=== PATIENT | female | born 2000 | race Two or more races ===

== ENCOUNTER 2020-01-19 13:51 | Outpatient (REF) | payer MEDICAID, SELFPAY | END 2020-01-19 13:52 | disposition home or self-care (01) | LOC: HO.LAB 13:51 | PROVIDERS: Visit Provider Internal Medicine | DX: Z20.828 Contact with and (suspected) exposure to other viral communicable diseases (principal) | CPT/HCPCS: C9803; U0003 ==

== ENCOUNTER 2020-02-19 18:19 | Emergency (ER) | payer MEDICAID, SELFPAY ==
[2020-02-19 18:34] VITALS: BP 118/80; PULSE 81; RESP 16; TEMP 36.8; O2SAT 98; BMI 32.8
--- NOTE | 2020-02-19 18:43 | ED.ALLEREA ---
HPI - Allergic Reaction General Chief complaint: Allergic Reaction Stated complaint: allergic reaction Time Seen by Provider: 02/19/20 18:41 Source: patient and EMS Mode of arrival: EMS Limitations: no limitations History of Present Illness MD complaint: allergic reaction, hives and other (Difficulty breathing with wheezing.) Onset (ago): hour(s) (1) Exposure: unknown Known history of allergy to: Nuts and certain animals but patient declined exposed to any today Symptoms: rash, itching and difficulty breathing Severity: moderate Treatment prior to arrival: none Related Data Allergies Allergy/AdvReac Type Severity Reaction Status Date / Time nut - unspecified Allergy Intermediate HIVES Unverified 01/24/20 13:33 [NUT - UNSPECIFIED] FRUIT Allergy Unknown ITCHY LIPS Uncoded 01/24/20 13:33 nuts Allergy Unknown Uncoded 01/24/20 13:33 pollen Allergy Unknown Uncoded 01/24/20 13:33 Review of Systems Review of Systems: All other systems are reviewed and are negative Constitutional: Reports as per HPI and Reports no additional constitutional complaints Eyes: Reports as per HPI and Reports no additional eye complaints Reports system reviewed and no additional complaints, except as documented Cardiovascular: Reports as per HPI and Reports no additional cardiovascular complaints Respiratory: Reports as per HPI and Reports no additional respiratory complaints Gastrointestinal: Reports as per HPI and Reports no additional gastrointestinal complaints Genitourinary: Reports no additional female genitourinary complaints Musculoskeletal: Reports no additional musculoskeletal complaints Skin/Breast: Reports system reviewed and no additional complaints, except as docu Psychiatric: Reports no additional psychiatric complaints Endocrine: Reports no additional endocrine complaints Hematologic/Lymphatic: Reports no additional hematologic/lymphatic complaints Allergic/Immunologic: Reports no additional allergic/immunologic complaints Reports system reviewed and no additional complaints, except as documented and Reports Abnormal speech present [facility] Past Medical History Medical History Asthma Social History Social History Alcohol intake: never Smoked in Last 30 Days: No Use of substances other than those prescribed or required for medical reasons: No Advance Directives: No Advance Directives Information Provided: No Physical Exam Vital Signs: Vital Signs: Last Vital Signs Temp 98.2 F 02/19/20 18:34 Pulse 81 02/19/20 18:34 Resp 16 02/19/20 18:34 BP 118/80 02/19/20 18:34 Pulse Ox 98 02/19/20 18:34 Body Mass Index 32.8 Vital signs have been reviewed as normal and appeared to be correct. Blood pressure normal. Heart rate normal. Respiration rate normal. Temperature normal. Oxygen saturation normal. Appearance: Alert. Oriented X3. No acute distress. Head: Normal external exam. Normocephalic. Atraumatic. No Orta signs noted. No raccoon eyes noted Eyes: PERRLA. EOMI. Conjunctiva and sclera normal. Eyelids normal. ENT: EAC normal. TM's Normal. Pharynx normal. Uvula midline. Moist mucous membranes. No trismus noted. No drooling noted. No muffled voice noted. Patent airway with no stridor Neck: Normal inspection. Neck supple. FROM. No adenopathy. Thyroid Normal. No meningeal signs. No neck mass noted. CVS: Normal heart rate and rhythm. Heart sound normal. No murmurs noted. Pulses normal throughout. Respiratory: No respiratory distress. Painless inspiration. Breath sounds normal. Mild diffuse expiratory wheezes, no rales/rhonchi noted. Chest nontender. No accessory muscle usage noted or decreased air movement noted. Abdomen: Soft and nontender. Bowel sounds normal in all 4 quadrants. No distention noted. No organomegaly noted. No visible injury noted. Back: No CVA tenderness. Full range of motion noted. Skin: Skin warm and dry. Normal skin color. Normal skin turgor.lesions/lacerations noted. One spot of hives on the left arm with itching. Extremities: No lower extremity edema. Extremities exhibit normal range of motion. Extremities nontender. Neuro: Oriented X 3. No motor deficit. No sensory deficit. Reflexes normal. Course Course Course Narrative: 19-year-old female presented to the ED after having mild allergic reaction for unknown exposure, symptoms mostly improved when patient arrived to the ED, patient received Solu-Medrol, and Benadryl EN route by EMS, and bronchodilator in the ED. Patient feels better will discharge. Discharge Plan Discharge Clinical Impression: Allergic reaction Qualifiers: Encounter type: initial encounter Qualified Code(s): T78.40XA - Allergy, unspecified, initial encounter Patient Disposition: Home, Self-Care Instructions: General Allergic Reaction (ED) Referrals: Physician,None [Primary Care Provider] - 2 days
[2020-02-19] MEDS: diphenhydrAMINE HCL 25 MG TABLET PO (20:12)
[2020-02-19] MEDS: predniSONE 20 MG TABLET 40 MG PO (20:12)
== END 2020-02-19 20:19 | disposition home or self-care (01) ==
PROVIDERS: Emergency Provider Emergency Medicine
DX: T78.40XA Allergy, unspecified, initial encounter (principal); L50.9 Urticaria, unspecified; X58.XXXA Exposure to other specified factors, initial encounter
CPT/HCPCS: 99283; 99284; Q0163

== ENCOUNTER 2020-08-08 12:16 | Emergency (ER) | payer MEDICAID, OTHER, SELFPAY ==
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
[2020-08-08 13:04] VITALS: BP 133/70; PULSE 88; RESP 18; TEMP 36.8; O2SAT 98; BMI 34.5
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
== END 2020-08-08 15:29 | disposition home or self-care (01) ==
PROVIDERS: Emergency Provider Emergency Medicine Emergency Medical Services
DX: S93.401A Sprain of unspecified ligament of right ankle, initial encounter (principal); M25.561 Pain in right knee; V89.2XXA Person injured in unspecified motor-vehicle accident, traffic, initial encounter; Y93.9 Activity, unspecified; Y92.411 Interstate highway as the place of occurrence of the external cause; Y99.9 Unspecified external cause status
CPT/HCPCS: 73562; 73590; 73600; 99283

== ENCOUNTER 2020-09-20 08:26 | Outpatient (REF) | payer OTHER, MEDICAID, SELFPAY ==
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
== END 2020-09-20 08:27 | disposition home or self-care (01) ==
LOC: HO.HOSX 08:26
PROVIDERS: Visit Provider Orthopaedic Surgery
DX: M79.641 Pain in right hand (principal); M25.531 Pain in right wrist; M25.521 Pain in right elbow
CPT/HCPCS: 73130

== ENCOUNTER 2020-10-12 13:08 | Emergency (ER) | payer MEDICAID, SELFPAY ==
--- NOTE | ~2020-10-12 | US_ITS ---
EXAMINATION: ULTRASOUND KIDNEYS CLINICAL INFORMATION: Right flank pain, hematuria COMPARISON: 02/18/2018 CT scan TECHNIQUE: Right renal ultrasound. FINDINGS: Right kidney is normal in size being 9.7 x 5.4 x 4.8 cm. No stones or obstructive uropathy. No perinephric collection. No focal lesion. US/US renal RT IMPRESSION: Unremarkable right renal ultrasound.
[2020-10-12 13:35] VITALS: BP 138/92; PULSE 94; RESP 19; TEMP 36.8; O2SAT 96; BMI 32.8
[2020-10-12 14:08] LABS: Glucose Urine UA NEG (NEG); Leukocyte Esterase Urine NEG (NEG); Nitrite Urine NEG (NEG); PH 6.5 (5.0-8.0); UACC Culture Trigger NO; Urine Blood TRACE (NEG); Urine Ketones NEG (NEG); Urine Protein NEG (NEG-TRACE)
[2020-10-12 14:11] LABS: Appearance Urine CLEAR; Color Urine YELLOW
[2020-10-12 14:27] LABS: Squamous Epithelial Cell Urine 1+ /LPF; WBC Urine 0-2 /HPF (0-4)
[2020-10-12 16:41] VITALS: BP 141/96
[2020-10-12 16:47] LABS: MANUAL DIFF FLAG NO
[2020-10-12 16:49] LABS: Basophils Percent Auto 0.4 % (0-2); Eosinophils Absolute Auto 0.2 X10*3/uL (0.0-0.4); Eosinophils Percent Auto 1.8 % (0-4); Hematocrit 42.1 % (37-47); Imm Gran Abs Auto 0.04 X10*3/uL (0.00-0.03); Imm Gran Pct Auto 0.4 % (0.0-0.4); Lymphocytes Absolute Auto 3.7 X10*3/uL (1.2-4.9); Lymphocytes Percent Auto 36.8 % (20-40); Mean Corpuscular HGB Conc 33.3 g/dl (31.0-35.0); Mean Corpuscular Hemoglobin 28.1 pg (27.0-33.0); Mean Corpuscular Volume 84.5 fL (80-98); Mean Platelet Volume 10.7 fL (9.4-12.3); Monocytes Absolute Auto 0.9 X10*3/uL (0.1-1.2); Neutrophils Absolute Auto 5.2 X10*3/uL (2.0-8.3); Neutrophils Percent Auto 51.6 % (45-73); Platelet Count 325 X10*3/uL (160-400); Red Blood Count 4.98 X10*6/uL (4.20-5.50); Red Cell Distribution Width 13.4 % (11.0-16.0)
--- NOTE | 2020-10-12 17:05 | ED.ABDPAIN ---
HPI - Abdominal Pain General Chief Complaint: Abdominal Pain <Karena Leos PA-C - Last Filed: 10/12/20 18:11> Stated Complaint: Kidney Stone? <Karena Leos PA-C - Last Filed: 10/12/20 18:11> Time Seen by Provider: 10/12/20 16:49 <Karena Leos PA-C - Last Filed: 10/12/20 18:11> Source: patient and family (Mom) <Karena Leos PA-C - Last Filed: 10/12/20 18:11> Mode of arrival: ambulatory <FARRUKH Vidal Last Filed: 10/12/20 18:11> Limitations: no limitations <Karena Leos PA-C - Last Filed: 10/12/20 18:11> History of Present Illness HPI narrative: Patient is a 19-year-old female with a past medical history of kidney stones complaining of right flank pain and blood in her urine yesterday. She states she has had right flank pain x2 days, it began yesterday morning, she took 600 mg of ibuprofen, used a heating pad and it went away. To went to work today and during her break, she got a sudden onset of right flank shooting pain which radiates to her groin, she states she did take 600 mg of ibuprofen around 10:00 this morning but it did not help for the pain. She denies any fevers, nausea, vomiting, diarrhea, shortness of breath or headache. <FARRUKH Vidal Last Filed: 10/12/20 18:11> Related Data Home Medications: Previous Rx's Medication Instructions Recorded acetaminophen 500 mg tablet 500 mg PO Q6H PRN #20 tab 08/08/20 (Tylenol Extra Strength) ibuprofen 600 mg tablet 600 mg PO Q8H PRN #14 tab 08/08/20 ibuprofen 600 mg tablet 600 mg PO Q8H PRN #20 tab 10/12/20 ondansetron 4 mg disintegrating 4 mg PO Q8H PRN #10 tab 10/12/20 tablet <FARRUKH Vidal Last Filed: 10/12/20 18:11> Allergies/Adverse Reactions: Allergies Allergy/AdvReac Type Severity Reaction Status Date / Time nut - unspecified Allergy Intermediate HIVES Verified 10/12/20 13:34 [NUT - UNSPECIFIED] FRUIT Allergy Intermediate ITCHY LIPS Uncoded 08/08/20 13:04 nuts Allergy Intermediate Hives Uncoded 08/08/20 13:04 pollen Allergy Intermediate Hives Uncoded 08/08/20 13:04 <Karena Leos PA-C - Last Filed: 10/12/20 18:11> Review of Systems Review of Systems Yes all other systems are reviewed and are negative <Karena Leos PA-C - Last Filed: 10/12/20 18:11> Physical Exam Vital Signs: Vital Signs: Last Vital Signs Temp 98.3 F 10/12/20 13:35 Pulse 94 10/12/20 13:35 Resp 10/12/20 13:35 BP 141/96 H 10/12/20 16:41 Pulse Ox 96 10/12/20 13:35 Body Mass Index 32.8 <Karena Leos PA-C - Last Filed: 10/12/20 18:11> Vital Signs: Last Vital Signs Temp 98.3 F 10/12/20 13:35 Pulse 94 10/12/20 13:35 Resp 10/12/20 13:35 BP 141/96 H 10/12/20 16:41 Pulse Ox 96 10/12/20 13:35 Body Mass Index 32.8 <PRAMOD Mccray-BC - Last Filed: 10/12/20 20:20> Const: General: cooperative, healthy appearing, comfortable, no acute distress and well developed <Karena Leos PA-C - Last Filed: 10/12/20 18:11> Orientation/consciousness: patient oriented x3 <Karena Leos PA-C - Last Filed: 10/12/20 18:11> Limitations: no limitations <Karena Leos PA-C - Last Filed: 10/12/20 18:11> HENMT: Head: Yes normal to inspection <FARRUKH Vidal Last Filed: 10/12/20 18:11> Eyes: General: appearance normal, both eyes and all related structures <Karena Leos PA-C - Last Filed: 10/12/20 18:11> Neck: Neck: Yes normal visual inspection and Yes full ROM <Karena Leos PA-C - Last Filed: 10/12/20 18:11> Resp: Effort & Inspection: normal respiratory effort and able to speak in complete sentences <Karena Leos PA-C - Last Filed: 10/12/20 18:11> Auscultation: clear to auscultation bilaterally <Karena Leos PA-C - Last Filed: 10/12/20 18:11> Cardio: Rate: regular rate <Karena Leos PA-C - Last Filed: 10/12/20 18:11> Rhythm: regular rhythm <Karena Leos PA-C - Last Filed: 10/12/20 18:11> Heart sounds: normal S1 and S2 <Karena Leos PA-C - Last Filed: 10/12/20 18:11> GI: Inspection: Yes normal to inspection <Karena Leos PA-C - Last Filed: 10/12/20 18:11> Palpation (GI): Soft to palpation and nontender <Karena Leos PA-C - Last Filed: 10/12/20 18:11> : General: Yes CVA tenderness (Right side) <Karena Leos PA-C - Last Filed: 10/12/20 18:11> Back/Spine/Pelvis: Back: CVA tenderness (Right side) <Karena Leos PA-C - Last Filed: 10/12/20 18:11> Skin: General skin exam: no rashes or lesions noted <Karena Leos PA-C - Last Filed: 10/12/20 18:11> Neuro: General: patient oriented x3 <Karena Leos PA-C Claudine Last Filed: 10/12/20 18:11> Extrem: General: Yes normal to inspection <Karena Leos PA-C - Last Filed: 10/12/20 18:11> Course Course Course Narrative: Patient is a 19-year-old female with a past medical history of kidney stones complaining of right flank pain and blood in her urine yesterday. Vital signs are stable, patient well appearing except she is in pain, physical exam unremarkable. Will get labs, UA and ultrasound of right renal. Will give 1 L of LR, Toradol and start Flomax as kidney stones are very likely. <Karena Leos PA-C - Last Filed: 10/12/20 18:11> Reevaluation(s) Reevaluation #1: Patient pending diagnostics, sign-out to Neva ESTEBAN <Karena Leos PA-C - Last Filed: 10/12/20 18:11> Time: 17:45 <Karena Leos PA-C - Last Filed: 10/12/20 18:11> Reevaluation #2: Renal ultrasound normal. Labs negative for leukocytosis or anemia. Normal kidney functions, however patient has elevated AST and ALT. Will a device patient to follow-up with PCP or medicare sales representative. Patient and her mom both agreeable to plan of care I will send her home on ibuprofen and Zofran. <Paulette Mehta PLEXIGLAS FORMER-BC - Last Filed: 10/12/20 20:20> MDM - Abdominal Pain Lab Data Result diagrams: : 10/12/20 16:40 10/12/20 16:40 <Karena Leos PA-C - Last Filed: 10/12/20 18:11> Labs: Lab Results 10/12/20 10/12/20 10/12/20 Range/Units 13:59 16:40 16:40 WBC 10.0 (4.8-10.8) X10*3/uL RBC 4.98 (4.20-5.50) X10*6/uL Hgb 14.0 (12.0-16.0) g/dl Hct 42.1 (37-47) % MCV 84.5 (80-98) fL MCH 28.1 (27.0-33.0) pg MCHC 33.3 (31.0-35.0) g/dl RDW 13.4 (11.0-16.0) % Plt Count 325 (160-400) X10*3/uL MPV 10.7 (9.4-12.3) fL Immature Gran % (Auto) 0.4 (0.0-0.4) % Neut % (Auto) 51.6 (45-73) % Lymph % (Auto) 36.8 (20-40) % [place] % (Auto) 9.0 (2-11) % Eos % (Auto) 1.8 (0-4) % Baso % (Auto) 0.4 (0-2) % Lymph # (Auto) 3.7 (1.2-4.9) X10*3/uL [place] # (Auto) 0.9 (0.1-1.2) X10*3/uL Eos # (Auto) 0.2 (0.0-0.4) X10*3/uL Baso # (Auto) 0.0 (0.0-0.2) X10*3/uL Abs Immat Gran (auto) 0.04 H (0.00-0.03) X10*3/uL Absolute Neuts (auto) 5.2 (2.0-8.3) X10*3/uL Absolute Nucleated RBC 0.000 (0.0-0.012) X10*3/uL Nucleated RBC % (auto) 0.0 (0.0-0.2) /100WBC Sodium 137 (135-145) mmol/L Potassium 4.9 (3.3-5.1) mmol/L Chloride 107 (96-108) mmol/L Carbon Dioxide 19 L (22-29) mmol/L Anion Gap 16 (12-20) BUN 8 L (9-16) mg/dL Creatinine 0.57 (0.5-1.4) mg/dL Estim Creat Clear Calc 161.5 Estimated GFR > 60 Random Glucose 78 (60-115) mg/dL Calcium 9.7 (8.4-10.2) mg/dL Total Bilirubin 0.4 (0.0-1.0) mg/dL AST 51 H (5-31) U/L ALT 61 H (0-31) U/L Alkaline Phosphatase 87 (39-117) U/L Total Protein 8.5 H (6.5-8.0) g/dL Albumin 4.4 (3.5-5.0) g/dL Urine Color YELLOW Urine Appearance CLEAR Urine pH 6.5 (5.0-8.0) Ur Specific [employer] 1.020 (1.005-1.025) Urine Protein NEG (NEG-TRACE) MG/DL Urine Glucose (UA) NEG (NEG) MG/DL Urine Ketones NEG (NEG) MG/DL Urine Blood TRACE (NEG) Urine Nitrite NEG (NEG) Ur Leukocyte Esterase NEG (NEG) Urine RBC 10-14 H (0) /HPF Urine WBC 0-2 (0-4) /HPF Ur Squamous Epith Cells 1+ /LPF Urine Bacteria NONE /LPF <Karena Leos PA-C - Last Filed: 10/12/20 18:11> Lab Results 10/12/20 10/12/20 10/12/20 Range/Units 13:59 16:40 16:40 WBC 10.0 (4.8-10.8) X10*3/uL RBC 4.98 (4.20-5.50) X10*6/uL Hgb 14.0 (12.0-16.0) g/dl Hct 42.1 (37-47) % MCV 84.5 (80-98) fL MCH 28.1 (27.0-33.0) pg MCHC 33.3 (31.0-35.0) g/dl RDW 13.4 (11.0-16.0) % Plt Count 325 (160-400) X10*3/uL MPV 10.7 (9.4-12.3) fL Immature Gran % (Auto) 0.4 (0.0-0.4) % Neut % (Auto) 51.6 (45-73) % Lymph % (Auto) 36.8 (20-40) % [place] % (Auto) 9.0 (2-11) % Eos % (Auto) 1.8 (0-4) % Baso % (Auto) 0.4 (0-2) % Lymph # (Auto) 3.7 (1.2-4.9) X10*3/uL [place] # (Auto) 0.9 (0.1-1.2) X10*3/uL Eos # (Auto) 0.2 (0.0-0.4) X10*3/uL Baso # (Auto) 0.0 (0.0-0.2) X10*3/uL Abs Immat Gran (auto) 0.04 H (0.00-0.03) X10*3/uL Absolute Neuts (auto) 5.2 (2.0-8.3) X10*3/uL Absolute Nucleated RBC 0.000 (0.0-0.012) X10*3/uL Nucleated RBC % (auto) 0.0 (0.0-0.2) /100WBC Sodium 137 (135-145) mmol/L Potassium 4.9 (3.3-5.1) mmol/L Chloride 107 (96-108) mmol/L Carbon Dioxide 19 L (22-29) mmol/L Anion Gap 16 (12-20) BUN 8 L (9-16) mg/dL Creatinine 0.57 (0.5-1.4) mg/dL Estim Creat Clear Calc 161.5 Estimated GFR > 60 Random Glucose 78 (60-115) mg/dL Calcium 9.7 (8.4-10.2) mg/dL Total Bilirubin 0.4 (0.0-1.0) mg/dL AST 51 H (5-31) U/L ALT 61 H (0-31) U/L Alkaline Phosphatase 87 (39-117) U/L Total Protein 8.5 H (6.5-8.0) g/dL Albumin 4.4 (3.5-5.0) g/dL Urine Color YELLOW Urine Appearance CLEAR Urine pH 6.5 (5.0-8.0) Ur Specific [employer] 1.020 (1.005-1.025) Urine Protein NEG (NEG-TRACE) MG/DL Urine Glucose (UA) NEG (NEG) MG/DL Urine Ketones NEG (NEG) MG/DL Urine Blood TRACE (NEG) Urine Nitrite NEG (NEG) Ur Leukocyte Esterase NEG (NEG) Urine RBC 10-14 H (0) /HPF Urine WBC 0-2 (0-4) /HPF Ur Squamous Epith Cells 1+ /LPF Urine Bacteria NONE /LPF <TALAT MccrayP-BC - Last Filed: 10/12/20 20:20> Discharge Plan Discharge Clinical Impression: Left flank pain <Karena Leos PA-C - Last Filed: 10/12/20 18:11> Patient Disposition: Home, Self-Care <Karena Leos PA-C - Last Filed: 10/12/20 18:11> Instructions: Flank Pain (ED) <Karena Leos PA-C - Last Filed: 10/12/20 18:11> Additional Instructions: You were seen here today for flank pain. Your lab work shows no infections or no anemia. Your kidney functions were good. However your liver enzymes were elevated. Please follow-up with your primary care provider and medicare sales representative on further evaluation of the enzymes. Your ultrasound show no kidney stones and normal kidney. You may return to emergency department if your symptoms will get worse or if you experience any additional concerning symptoms. <Karena Leos PA-C - Last Filed: 10/12/20 18:11> Prescriptions: New ibuprofen 600 mg tablet 600 mg PO Q8H PRN (Reason: pain) Qty: 20 RF: 0 ondansetron 4 mg tablet,disintegrating 4 mg PO Q8H PRN (Reason: nausea and vomiting) Qty: 10 RF: 0 No Action acetaminophen [Tylenol Extra Strength] 500 mg tablet 500 mg PO Q6H PRN (Reason: pain or fever) Qty: 20 RF: 0 ibuprofen 600 mg tablet 600 mg PO Q8H PRN (Reason: pain) Qty: 14 RF: 0 <Karena Leos PA-C - Last Filed: 10/12/20 18:11> Stand Alone Forms: Work/School Release <Karena Leos PA-C - Last Filed: 10/12/20 18:11> [facility] Past Medical History Medical History: Medical History Asthma Kidney stones <Karena Leos PA-C - Last Filed: 10/12/20 18:11> Social History Social History: Social History Alcohol intake: never Advance Directives: No Advance Directives Information Provided: Yes Patient : No Current occupational status: employed 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
[2020-10-12 17:12] LABS: Alanine Aminotransferase 61 U/L (0-31); Albumin Level 4.4 g/dL (3.5-5.0); Alkaline Phosphatase 87 U/L (39-117); Anion Gap 16 (12-20); Aspartate Amino Transferase 51 U/L (5-31); Bilirubin Total 0.4 mg/dL (0.0-1.0); Blood Urea Nitrogen 8 mg/dL (9-16); Calcium 9.7 mg/dL (8.4-10.2); Carbon Dioxide 19 mmol/L (22-29); Chloride 107 mmol/L (96-108); Creatinine Clr Calc Pharmacy 161.5; Estimated Glomerular Filt Rate > 60; Glucose Random 78 mg/dL (60-115); Potassium 4.9 mmol/L (3.3-5.1); Sodium 137 mmol/L (135-145); Total Protein 8.5 g/dL (6.5-8.0)
[2020-10-12] MEDS: Tamsulosin HCL 0.4 MG CAPSULE 0.8 MG PO (18:26)
[2020-10-12] MEDS: Lactated Ringers 1,000 ML 999 ML IV (18:29)
[2020-10-12] MEDS: Ketorolac Tromethamine 15 MG/ML VIAL 30 MG IVPUSH (18:33)
== END 2020-10-12 20:42 | disposition home or self-care (01) ==
PROVIDERS: Physician Assistant; Emergency Provider Internal Medicine
DX: R10.9 Unspecified abdominal pain (principal); Z87.442 Personal history of urinary calculi; Z79.899 Other long term (current) drug therapy
CPT/HCPCS: 36415; 76775; 80053; 81001; 85025; 96361; 96374; 99284; J1885

== ENCOUNTER 2020-11-02 10:48 | Outpatient (REF) | payer MEDICAID, SELFPAY | END 2020-11-02 10:49 | disposition home or self-care (01) | LOC: HO.LAB 10:48 | PROVIDERS: Visit Provider Internal Medicine | DX: Z20.822 Contact with and (suspected) exposure to COVID-19 (principal) | CPT/HCPCS: C9803; U0003; U0005 ==

== ENCOUNTER 2021-03-20 18:10 | Emergency (ER) | payer MEDICAID, SELFPAY ==
--- NOTE | 2021-03-20 | ECG_ITS ---
Test Reason : cp Blood Pressure : / mmHG Vent. Rate : 106 BPM Atrial Rate : 106 BPM P-R Int : 128 ms QRS Dur : 070 ms QT Int : 340 ms P-R-T Axes : 032 042 043 degrees QTc Int : 451 ms Sinus tachycardia Otherwise normal ECG When compared with ECG of 24-NOV-2017 15:04, No significant change was found Referred By: Generic ED Physician Electronically Signed By:Cornelio Camilo
[2021-03-20 18:12] VITALS: BP 144/95; PULSE 120; RESP 20; TEMP 36.9; O2SAT 100; BMI 31.8
[2021-03-20 18:35] LABS: MANUAL DIFF FLAG NO
[2021-03-20 18:46] LABS: Basophils Percent Auto 0.4 % (0-2); Eosinophils Absolute Auto 0.1 X10*3/uL (0.0-0.4); Eosinophils Percent Auto 0.9 % (0-4); Hematocrit 39.1 % (37.0-47.0); Hemoglobin 13.2 g/dl (12.0-16.0); Imm Gran Abs Auto 0.02 X10*3/uL (0.00-0.03); Imm Gran Pct Auto 0.2 % (0.0-0.4); Lymphocytes Absolute Auto 2.6 X10*3/uL (1.2-4.9); Mean Corpuscular HGB Conc 33.8 g/dl (31.0-35.0); Mean Corpuscular Hemoglobin 28.7 pg (27.0-33.0); Mean Platelet Volume 10.7 fL (9.4-12.3); Monocytes Absolute Auto 0.8 X10*3/uL (0.1-1.2); Monocytes Percent Auto 9.6 % (2-11); Neutrophils Percent Auto 58.9 % (45-73); Platelet Count 306 X10*3/uL (160-400); Red Cell Distribution Width 13.5 % (11.0-16.0); White Blood Count 8.5 X10*3/uL (4.8-10.8)
[2021-03-20 18:54] LABS: Anion Gap 16 (12-20); Blood Urea Nitrogen 9 mg/dL (9-16); Calcium 9.7 mg/dL (8.4-10.2); Carbon Dioxide 21 mmol/L (22-29); Chloride 107 mmol/L (96-108); Estimated Glomerular Filt Rate > 60; Glucose Random 120 mg/dL (60-115); Potassium 3.6 mmol/L (3.3-5.1); Sodium 140 mmol/L (135-145)
[2021-03-20 21:16] VITALS: BP 149/86; PULSE 99; RESP 18; TEMP 36.9; O2SAT 99
[2021-03-20 22:42] LABS: Alanine Aminotransferase 37 U/L (0-31); Albumin Level 4.4 g/dL (3.5-5.0); Alkaline Phosphatase 75 U/L (39-117); Aspartate Amino Transferase 18 U/L (5-31); Bilirubin Direct < 0.2 mg/dL (0.0-0.5); Bilirubin Total 0.3 mg/dL (0.0-1.0); Lipase 24 U/L (8-78); Total Protein 7.8 g/dL (6.5-8.0)
[2021-03-20 22:48] LABS: HCG Quantitative < 2 mIU/mL
[2021-03-20] MEDS: Magnesium Hydrox/Alum Hydrox 30 ML ORAL.SUSP PO (22:55)
[2021-03-20] MEDS: Lidocaine HCl Viscous 2 % 15 ML SOLUTION 10 ML MUCOUS MEM (22:55)
--- NOTE | 2021-03-20 22:59 | ED_ITS ---
HPI - General Adult General Chief complaint: Syncope Stated complaint: almost passed out, cant breathe, chest pain Time Seen by Provider: 03/20/21 22:18 Source: patient and family (Mother) Mode of arrival: ambulatory History of Present Illness HPI narrative: This is a 20-year-old female who presents with history of asthma and complains that last night she began feeling her heart racing and states that her blood pressure was starting to increase and that while working she had a near syncopal episode. She complains of shortness of breath, centralized burning chest pain, body shakes. Patient states that she goes to school as well as works and mother states that patient suffers from anxiety and depression and that she is currently very stressed out about the health of her grandfather. Otherwise, patient denies any fever, chills, nausea, vomiting, abdominal pain, urinary pain/burning/frequency. Related Data Previous Rx's Medication Instructions Recorded acetaminophen 500 mg tablet 500 mg PO Q6H PRN #20 tab 08/08/20 (Tylenol Extra Strength) ibuprofen 600 mg tablet 600 mg PO Q8H PRN #14 tab 08/08/20 ibuprofen 600 mg tablet 600 mg PO Q8H PRN #20 tab 10/12/20 ondansetron 4 mg disintegrating 4 mg PO Q8H PRN #10 tab 10/12/20 tablet Allergies Allergy/AdvReac Type Severity Reaction Status Date / Time nut - unspecified Allergy Intermediate HIVES Verified 03/20/21 18:12 [NUT - UNSPECIFIED] FRUIT Allergy Intermediate ITCHY LIPS Uncoded 03/20/21 18:12 nuts Allergy Intermediate Hives Uncoded 03/20/21 18:12 pollen Allergy Intermediate Hives Uncoded 03/20/21 18:12 Review of Systems Review of Systems: Pertinent positives and negatives as stated in the review of systems is otherwise negative. [facility] Past Medical History Source: nursing notes reviewed Medical History Asthma Kidney stones PCOS (polycystic ovarian syndrome) Social History Social History Alcohol intake: never Advance Directives: No Advance Directives Information Provided: Yes Patient : No Current occupational status: employed 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[employer] Physical Exam Vital Signs: Vital Signs: Last Vital Signs Temp 98.4 F 03/20/21 21:16 Pulse 94 03/21/21 00:00 Resp 16 03/21/21 00:00 BP 134/88 03/21/21 00:00 Pulse Ox 97 03/21/21 00:00 BMI result Body Mass Index 31.8 VITAL SIGNS: Reviewed. GENERAL: Well developed, well nourished, in no acute distress. HEAD: Normocephalic/atraumatic EYES: PERRLA, EOMI EARS: Ext canals without abnormality, TMs non-bulging and non-erythematous NOSE: Nares patent bilateral OROPHARYNX: no oral lesions noted, posterior pharynx clear LUNGS: Normal breath sounds. No adventitious sounds or accessory muscle use. SpO2<99> CARDIOVASCULAR: Regular rate and rhythm without noted murmurs ABDOMEN: Soft, non-tender, non-distended with bowel sounds. SKIN: Inspection of the skin reveals no rashes NEUROLOGIC: Alert and oriented x 4. Course Course Course Narrative: 20-year-old female with history and clinical presentation most consistent with anxiety and attack. Will rule out infection, anemia, metabolic disturbance. Review of all investigations otherwise negative for acute findings. 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 Discussed with the patient wa ys to deescalate some of her tasks so that she can take better care of herself. She is otherwise discharged home in stable condition. Medical Decision Making Lab Data Result diagrams: 03/20/21 18:28 03/20/21 18:28 Labs: Lab Results 03/20/21 03/20/21 03/20/21 Range/Units 18:28 18:28 22:59 WBC 8.5 (4.8-10.8) X10*3/uL RBC 4.60 (4.20-5.50) X10*6/uL Hgb 13.2 (12.0-16.0) g/dl Hct 39.1 (37.0-47.0) % MCV 85.0 (80.0-98.0) fL MCH 28.7 (27.0-33.0) pg MCHC 33.8 (31.0-35.0) g/dl RDW 13.5 (11.0-16.0) % Plt Count 306 (160-400) X10*3/uL MPV 10.7 (9.4-12.3) fL Immature Gran % (Auto) 0.2 (0.0-0.4) % Neut % (Auto) 58.9 (45-73) % Lymph % (Auto) 30.0 (20-40) % [place] % (Auto) 9.6 (2-11) % Eos % (Auto) 0.9 (0-4) % Baso % (Auto) 0.4 (0-2) % Lymph # (Auto) 2.6 (1.2-4.9) X10*3/uL [place] # (Auto) 0.8 (0.1-1.2) X10*3/uL Eos # (Auto) 0.1 (0.0-0.4) X10*3/uL Baso # (Auto) 0.0 (0.0-0.2) X10*3/uL Abs Immat Gran (auto) 0.02 (0.00-0.03) X10*3/uL Absolute Neuts (auto) 5.0 (2.0-8.3) x10*3/uL Absolute Nucleated RBC 0.000 (0.0-0.012) X10*3/uL Nucleated RBC % (auto) 0.0 (0.0-0.2) /100WBC Sodium 140 (135-145) mmol/L Potassium 3.6 D (3.3-5.1) mmol/L Chloride 107 (96-108) mmol/L Carbon Dioxide 21 L (22-29) mmol/L Anion Gap 16 (12-20) BUN 9 (9-16) mg/dL Creatinine 0.79 (0.5-1.4) mg/dL Estim Creat Clear Calc 114.0 Estimated GFR > 60 Random Glucose 120 H (60-115) mg/dL Calcium 9.7 (8.4-10.2) mg/dL Total Bilirubin 0.3 (0.0-1.0) mg/dL Direct Bilirubin < 0.2 (0.0-0.5) mg/dL AST 18 D (5-31) U/L ALT 37 H (0-31) U/L Alkaline Phosphatase 75 (39-117) U/L Total Protein 7.8 (6.5-8.0) g/dL Albumin 4.4 (3.5-5.0) g/dL Lipase 24 (8-78) U/L Beta HCG, Quant < 2 mIU/mL COVID-19 ([facility]ILY[facility]) Negative (Negative) COVID-19 Clin Com See Note ECG Data Attestation: I personally reviewed and interpreted this ECG as follows: Prior ECG tracings: available for review Interpretation: Sinus tachycardia, HR-106, no STEMI, [place]/QRS/QTC are within normal limits. Discharge Plan Discharge Clinical Impression: Anxiety, Panic attack Patient Disposition: Home, Self-Care Instructions: Anxiety (ED), Panic Attack (ED) Additional Instructions: 1. Resume all home medications as prescribed. 2. Follow-up with your primary care provider in the next 2-3 days for re- evaluation and further outpatient management. Return to the ER for worsening symptoms. Prescriptions: No Action acetaminophen [Tylenol Extra Strength] 500 mg tablet 500 mg PO Q6H PRN (Reason: pain or fever) Qty: 20 0RF ibuprofen 600 mg tablet 600 mg PO Q8H PRN (Reason: pain) Qty: 14 0RF ibuprofen 600 mg tablet 600 mg PO Q8H PRN (Reason: pain) Qty: 20 0RF ondansetron 4 mg tablet,disintegrating 4 mg PO Q8H PRN (Reason: nausea and vomiting) Qty: 10 0RF
[2021-03-20 23:20] LABS: COVID-19 Test Negative (Negative); IDNOW Serial# 9DD0AD1C
[2021-03-21] VITALS: BP 134/88; PULSE 94; RESP 16; O2SAT 97
[2021-03-21 00:11] LABS: Appearance Urine CLEAR; Color Urine YELLOW; Glucose Urine UA NEG (NEG); Leukocyte Esterase Urine NEG (NEG); Nitrite Urine NEG (NEG); Specific Gravity - Urine >= 1.030 (1.005-1.025); Urine Blood NEG (NEG); Urine Ketones 5 MG/DL (NEG); Urine Protein NEG (NEG-TRACE)
== END 2021-03-21 01:19 | disposition home or self-care (01) ==
PROVIDERS: Emergency Provider Student in an Organized Health Care Education/Training Program
DX: R55 Syncope and collapse (principal); R07.89 Other chest pain; F41.1 Generalized anxiety disorder; F43.0 Acute stress reaction; Z20.822 Contact with and (suspected) exposure to COVID-19; Z79.899 Other long term (current) drug therapy
CPT/HCPCS: 36415; 80048; 80076; 81003; 83690; 84702; 85025; 87635; 93005; 99283; 99284

== ENCOUNTER 2021-06-11 13:34 | Emergency (ER) | payer MEDICAID, SELFPAY ==
--- NOTE | ~2021-06-11 | XR_ITS ---
EXAMINATION: XR CHEST CLINICAL INFORMATION: Bradycardia. COMPARISON: None TECHNIQUE: Frontal view of the chest was obtained. FINDINGS: No significant abnormality is noted involving the heart, lungs, mediastinum, bony thorax or soft tissues. XR/XR chest 1V IMPRESSION: Unremarkable examination.
--- NOTE | ~2021-06-11 | CT_ITS ---
EXAMINATION: CT ANGIOGRAM OF THE CHEST WITH AND WITHOUT CONTRAST (CT PULMONARY ANGIOGRAM FOR PE) CLINICAL INFORMATION: Reason for Exam elevated D-dimer pleuritic chest pain COMPARISON: Chest x-ray 06/11/2021 TECHNIQUE: Prior to contrast administration, noncontrast localization images were obtained. Subsequently, multidetector volumetric imaging was performed from the thoracic inlet to below the diaphragms following the administration of 65 mL Omnipaque 350 intravenous contrast. No contrast reaction reported Sagittal, coronal, and MIP oblique sagittal reformatted images were obtained on the CT workstation, uploaded to PACS, and reviewed. This CT examination was performed using dose optimization techniques as appropriate, variously including the following: *Automated exposure control *Adjustment of mA and/or kV according to patient size (this includes techniques or standardized protocols for targeted exams where dose is matched to indication/reason for exam; i.e. extremities or head) *Use of iterative reconstruction technique Total exam dose-length product 353 mGy-cm FINDINGS: QUALITY OF STUDY/CONTRAST BOLUS: Satisfactory. PULMONARY ARTERIES: No central or segmental pulmonary emboli. THORACIC AORTA: No aneurysm or dissection. LUNG: No regions of consolidation bilaterally. PLEURA: No pneumothorax. Trace right pleural effusion noted. MEDIASTINUM: The visualized thyroid gland is unremarkable. There are subcentimeter mediastinal lymph nodes within the range of normal variation. Cardiac size is within normal limits; no pericardial effusion. No evidence of septal bowing or right heart strain. CHEST WALL/AXILLA: No axillary or internal mammary lymphadenopathy. OSSEOUS STRUCTURES: No acute or suspicious osseous abnormality. UPPER ABDOMEN: Grossly unremarkable, though suboptimally assessed due to bolus timing. No reflux of contrast into the hepatic veins to suggest elevated right heart pressures. CT/CT angio chest PE protocol IMPRESSION: No pulmonary embolus identified. Trace right pleural effusion. VTE: negative
[2021-06-11 13:48] VITALS: BP 129/79; PULSE 118; RESP 19; TEMP 36.6; O2SAT 98; BMI 33.6
--- NOTE | 2021-06-11 13:51 | ECG_ITS ---
Test Reason : chest pain Blood Pressure : / mmHG Vent. Rate : 113 BPM Atrial Rate : 113 BPM P-R Int : 124 ms QRS Dur : 070 ms QT Int : 326 ms P-R-T Axes : 032 050 046 degrees QTc Int : 447 ms Sinus tachycardia Otherwise normal ECG No previous ECGs available Referred By: Generic ED Physician Electronically Signed By:RACHNA OROURKE MD
[2021-06-11 14:15] LABS: MANUAL DIFF FLAG NO
[2021-06-11 14:19] LABS: Appearance Urine CLEAR; Color Urine YELLOW; Glucose Urine UA NEG (NEG); Leukocyte Esterase Urine NEG (NEG); Nitrite Urine NEG (NEG); Specific Gravity - Urine 1.025 (1.005-1.025); Urine Blood NEG (NEG); Urine Ketones NEG (NEG); Urine Protein NEG (NEG-TRACE)
[2021-06-11 14:20] LABS: UPreg QC Valid YES; Urine Pregnancy NEGATIVE (NEGATIVE)
[2021-06-11 14:37] LABS: Basophils Percent Auto 0.3 % (0-2); Eosinophils Absolute Auto 0.1 X10*3/uL (0.0-0.4); Hematocrit 37.4 % (37.0-47.0); Hemoglobin 12.3 g/dl (12.0-16.0); Imm Gran Abs Auto 0.04 X10*3/uL (0.00-0.03); Imm Gran Pct Auto 0.3 % (0.0-0.4); Lymphocytes Absolute Auto 2.2 X10*3/uL (1.2-4.9); Lymphocytes Percent Auto 17.9 % (20-40); Mean Corpuscular HGB Conc 32.9 g/dl (31.0-35.0); Mean Corpuscular Hemoglobin 28.3 pg (27.0-33.0); Mean Platelet Volume 10.8 fL (9.4-12.3); Monocytes Absolute Auto 1.3 X10*3/uL (0.1-1.2); Monocytes Percent Auto 10.2 % (2-11); Neutrophils Absolute Auto 8.7 x10*3/uL (2.0-8.3); Neutrophils Percent Auto 70.3 % (45-73); Platelet Count 249 X10*3/uL (160-400); Red Blood Count 4.35 X10*6/uL (4.20-5.50); Red Cell Distribution Width 13.4 % (11.0-16.0); White Blood Count 12.4 X10*3/uL (4.8-10.8)
[2021-06-11 14:44] LABS: Troponin-I High Sensitivity < 3.5 ng/L (<3.5-17.0)
[2021-06-11 14:46] LABS: Alanine Aminotransferase 35 U/L (0-31); Albumin Level 4.1 g/dL (3.5-5.0); Alkaline Phosphatase 63 U/L (39-117); Aspartate Amino Transferase 22 U/L (5-31); Bilirubin Direct 0.2 mg/dL (0.0-0.5); Bilirubin Total 0.6 mg/dL (0.0-1.0); Lipase 18 U/L (8-78); Total Protein 7.4 g/dL (6.5-8.0)
--- NOTE | 2021-06-11 22:56 | ED_ITS ---
HPI - General Adult General Chief complaint: Abdominal Pain <CITLALY Almazan Last Filed: 06/12/21 02:25> Stated complaint: CHEST PAIN, TROUBLE BREATHING <CITLALY Almazan - Last Filed: 06/12/21 02:25> Time Seen by Provider: 06/11/21 21:19 <CITLALY Almazan Last Filed: 06/12/21 02:25> Source: patient <CITLALY Almazan Last Filed: 06/12/21 02:25> Mode of arrival: ambulatory <CITLALY Almazan Last Filed: 06/12/21 02:25> Limitations: no limitations <CITLALY Almazan Last Filed: 06/12/21 02:25> History of Present Illness HPI narrative: this is a 20-year-old female with no significant medical history presenting to the emergency department with complaints of chest pain that started on Friday, 2 days ago. Patient tells me that the chest pain is pleuritic in nature worse with deep inspiration better with expiration, she reports associated shortness of breath with this chest pain. She tells me that this has never happened before. She also reports generalized malaise and body aches. She tells me she has no known personal cardiac history. No significant family cardiac history. He does tell me that her mother has had blood clots in the past. Patient tells me she is currently on control. Denies sedentary lifestyle. No recent sick contacts. She denies nausea, vomiting, headache, dizziness, vision changes, abdominal pain, changes in urination in bowel habits. <CITLALY Almazan Last Filed: 06/12/21 02:25> Related Data Home medications: Previous Rx's Medication Instructions Recorded acetaminophen 500 mg tablet 500 mg PO Q6H PRN #20 tab 08/08/20 (Tylenol Extra Strength) ibuprofen 600 mg tablet 600 mg PO Q8H PRN #14 tab 08/08/20 ibuprofen 600 mg tablet 600 mg PO Q8H PRN #20 tab 10/12/20 ondansetron 4 mg disintegrating 4 mg PO Q8H PRN #10 tab 10/12/20 tablet <CITLALY Almazan Last Filed: 06/12/21 02:25> Allergies/adverse reactions: Allergies Allergy/AdvReac Type Severity Reaction Status Date / Time nut - unspecified Allergy Intermediate HIVES Verified 03/20/21 18:12 [NUT - UNSPECIFIED] FRUIT Allergy Intermediate ITCHY LIPS Uncoded 03/20/21 18:12 nuts Allergy Intermediate Hives Uncoded 03/20/21 18:12 pollen Allergy Intermediate Hives Uncoded 03/20/21 18:12 <CITLALY Almazan - Last Filed: 06/12/21 02:25> Review of Systems Review of Systems: Constitutional : No Weight loss, No Fever, No Chills, No Fatigue, No Malaise ENT/Mouth : No sore throat, No Rhinorrhea Eyes: No Eye Pain, No Swelling, No Redness Cardiovascular : + Chest Pain, + SOB, No Dyspnea on Exertion, No Orthopnea, No Edema, No Palpitations Respiratory : No Cough, No Sputum, No Wheezing Gastrointestinal : No Nausea, No Vomiting, No Diarrhea, No Constipation, No abdominal Pain, No Hematochezia, No Melena Genitourinary : No Dysuria, No Urinary Frequency, No Hematuria, Musculoskeletal : No joint pain, No Myalgias, No Joint Swelling Skin : No Skin Lesions, No rash Neuro : No Weakness, No Numbness, No Dizziness, No Headache Psych : No Anxiety/Panic, No Depression All other systems reviewed and are negative <CITLALY Almazan Last Filed: 06/12/21 02:25> Yes all other systems are reviewed and are negative <CITLALY Almazan - Last Filed: 06/12/21 02:25> [facility] Past Medical History Attestation statement: The following information was validated with the patient. <CITLALY Almazan - Last Filed: 06/12/21 02:25> Source: old records reviewed and nursing notes reviewed <CITLALY Almazan Last Filed: 06/12/21 02:25> Medical History: Medical History Asthma Kidney stones PCOS (polycystic ovarian syndrome) <CITLALY Almazan Last Filed: 06/12/21 02:25> Social History Social History: Social History Alcohol intake: never Advance Directives: No Patient : No Current occupational status: employed 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[employer] <CITLALY Almazan - Last Filed: 06/12/21 02:25> Physical Exam ED Vital Signs: Vital Signs - 24 hr 06/11/21 13:48 06/11/21 23:43 06/12/21 02:14 Temperature 98 F Pulse Rate 118 H 93 90 Respiratory Rate 19 24 H Blood Pressure 129/79 132/88 122/71 Pulse Oximetry 98 99 06/12/21 02:15 06/12/21 02:16 06/12/21 02:20 Temperature 98.7 F Pulse Rate 88 97 90 Respiratory Rate 20 Blood Pressure 124/71 123/70 122/71 Pulse Oximetry 98 BMI result Body Mass Index 33.6 Patient is noted to be tachycardic, all other vital signs stable. <CITLALY Almazan - Last Filed: 06/12/21 02:25> Appearance: Alert.? Oriented X3.? No acute distress.? Head: Normocephalic, atraumatic, no step-offs or deformities Eyes: Pupils equal, round and reactive to light.? ENT: Pharynx normal.? Neck: Normal inspection.? Neck supple.? CVS: Rapid rate with regular rhythm likely sinus tachycardia.? Pulses normal.? Respiratory: No respiratory distress.? Breath sounds normal.? Abdomen: Soft and nontender.? negative Hutchinson's, Rovsing, obturator, psoas, McBurney's point. Skin: Skin warm and dry.? Normal skin color.? Normal skin turgor.? Extremities: No lower extremity edema.? No calf ttp, negative Ashley b/l. 5/5 strength to bilateral upper and lower extremities Back: No midline tenderness, no C-spine tenderness, full range of motion, no CVA tenderness bilaterally Neuro: Oriented X 3.? No motor deficit.? No sensory deficit. CN 2-12 intact <CITLALY Almazan Last Filed: 06/12/21 02:25> Course Reevaluation(s) Reevaluation #1: CBC with slight leukocytosis could be reactive secondary to pain, troponin negative. EKG is nonischemic and showing sinus tachycardia, unlikely that this is ACS. chemistry and D-dimer pending. Chest x-ray unremarkable. COVID a and influenza pending. <CITLALY Almazan - Last Filed: 06/12/21 02:25> Time: 23:01 <CITLALY Almazan - Last Filed: 06/12/21 02:25> Reevaluation #2: Patient with sinus tachycardia on the monitor, elevated D-dimer high risk patient due to control, and pleuritic chest pain at this time a CTA will be obtained to rule out pulmonary embolism <CITLALY Almazan - Last Filed: 06/12/21 02:25> Time: 23:29 <CITLALY Almazan - Last Filed: 06/12/21 02:25> Reevaluation #3: Chemistry with no acute electrolyte abnormalities requiring intervention. COVID negative, influenza negative. CT angiogram PE protocol with no pulmonary emboli identified. There is a trace right small pleural effusion, VT negative. Educated patient on findings. Advised her to follow-up with her PCP and return with new or worsening symptoms. Will give patient shot of Toradol. Outlined worrisome signs and symptoms on discharge and advised her to return with new or worsening symptoms. I did provide her with cardiology information for follow- up. <CITLALY Almazan - Last Filed: 06/12/21 02:25> Time: 00:53 <CITLALY Almazan - Last Filed: 06/12/21 02:25> Additional Reevaluation(s): 0103 Went to discuss discharge with patient and she tells me she is dizzy, and vomited x1. She is vomiting bile. Patient tells me she has not eaten. Repeated and neuro exam is nonfocal. Normal [id number], [id number], strength bilateral upper and lower extremities 5/5. Following commands. Pupils equal round reactive. Extraocular movements intact, no nystagmus. Unlikely ICH or posterior infarct. She also denies head trauma. At this time will hydrate patient, obtain point of care, orthostatic vital signs and give patient Zofran. Disposition pending improvement 219 Orthostatics vital signs negative. Point of care 90. Patient reports improvement and she tells me that she feels better after fluids and Zofran. No longer is nauseous. Tells me dizziness has subsided. At this time patient will be discharged home. Advised her to follow-up with her PCP tomorrow. <CITLALY Almazan - Last Filed: 06/12/21 02:25> Medical Decision Making MDM Narrative Medical decision making narrative: 2129 20-year-old female presents for evaluation of pleuritic chest pain and shortness of breath x2 days. Physical examination benign other than rapid regular rhythm which is likely sinus tachycardia. Negative Ashley sign bilaterally, no swelling to bilateral lower extremities. plan at this time is cardiac enzyme, basic labs, urine, D-dimer, influenza, COVID, chest x-ray. Will rule out ACS, PE, PNA <CITLALY Almazan - Last Filed: 06/12/21 02:25> Medical Records Medical records reviewed: Yes I reviewed the patient's medical records. <CITLALY Almazan - Last Filed: 06/12/21 02:25> Lab Data Lab results reviewed: Yes I reviewed the patient's lab results. <CITLALY Almazan - Last Filed: 06/12/21 02:25> Result diagrams: : 06/11/21 14:09 06/11/21 23:27 <CITLALY Almazan - Last Filed: 06/12/21 02:25> Labs: Lab Results 06/11/21 06/11/21 06/11/21 Range/Units 14:07 14:08 14:08 WBC (4.8-10.8) X10*3/uL RBC (4.20-5.50) X10*6/uL Hgb (12.0-16.0) g/dl Hct (37.0-47.0) % MCV (80.0-98.0) fL MCH (27.0-33.0) pg MCHC (31.0-35.0) g/dl RDW (11.0-16.0) % Plt Count (160-400) X10*3/uL MPV (9.4-12.3) fL Immature Gran % (Auto) (0.0-0.4) % Neut % (Auto) (45-73) % Lymph % (Auto) (20-40) % [place]y % (Auto) (2-11) % Eos % (Auto) (0-4) % Baso % (Auto) (0-2) % Lymph # (Auto) (1.2-4.9) X10*3/uL [place] # (Auto) (0.1-1.2) X10*3/uL Eos # (Auto) (0.0-0.4) X10*3/uL Baso # (Auto) (0.0-0.2) X10*3/uL Abs Immat Gran (auto) (0.00-0.03) X10*3/uL Absolute Neuts (auto) (2.0-8.3) x10*3/uL Absolute Nucleated RBC (0.0-0.012) X10*3/uL Nucleated RBC % (auto) (0.0-0.2) /100WBC D-Dimer High Sensitivty NG/ML Sodium (135-145) mmol/L Potassium (3.3-5.1) mmol/L Chloride (96-108) mmol/L Carbon Dioxide (22-29) mmol/L Anion Gap (12-20) BUN (9-16) mg/dL Creatinine (0.5-1.4) mg/dL Estim Creat Clear Calc Estimated GFR POC Glucose (60-115) mg/dL Random Glucose (60-115) mg/dL Calcium (8.4-10.2) mg/dL Total Bilirubin (0.0-1.0) mg/dL Direct Bilirubin (0.0-0.5) mg/dL AST (5-31) U/L ALT (0-31) U/L Alkaline Phosphatase (39-117) U/L Troponin I High Sens < 3.5 (<3.5-17.0) ng/L Total Protein (6.5-8.0) g/dL Albumin (3.5-5.0) g/dL Lipase (8-78) U/L Urine Color YELLOW Urine Appearance CLEAR Urine pH 6.0 (5.0-8.0) Ur Specific [place] 1.025 (1.005-1.025) Urine Protein NEG (NEG-TRACE) MG/DL Urine Glucose (UA) NEG (NEG) MG/DL Urine Ketones NEG (NEG) MG/DL Urine Blood NEG (NEG) Urine Nitrite NEG (NEG) Ur Leukocyte Esterase NEG (NEG) Urine Test NEGATIVE (NEGATIVE) COVID-19 (MARILYN) (Negative) COVID-19 Clin Com Influenza Type A (ALDO) (Negative) Influenza Type B (ALDO) (Negative) Influenza A & B Note 06/11/21 06/11/21 06/11/21 Range/Units 14:09 14:09 22:51 WBC 12.4 H (4.8-10.8) X10*3/uL RBC 4.35 (4.20-5.50) X10*6/uL Hgb 12.3 (12.0-16.0) g/dl Hct 37.4 (37.0-47.0) % MCV 86.0 (80.0-98.0) fL MCH 28.3 (27.0-33.0) pg MCHC 32.9 (31.0-35.0) g/dl RDW 13.4 (11.0-16.0) % Plt Count 249 (160-400) X10*3/uL MPV 10.8 (9.4-12.3) fL Immature Gran % (Auto) 0.3 (0.0-0.4) % Neut % (Auto) 70.3 (45-73) % Lymph % (Auto) 17.9 L (20-40) % Yancey % (Auto) 10.2 (2-11) % Eos % (Auto) 1.0 (0-4) % Baso % (Auto) 0.3 (0-2) % Lymph # (Auto) 2.2 (1.2-4.9) X10*3/uL [place]y # (Auto) 1.3 H (0.1-1.2) X10*3/uL Eos # (Auto) 0.1 (0.0-0.4) X10*3/uL Baso # (Auto) 0.0 (0.0-0.2) X10*3/uL Abs Immat Gran (auto) 0.04 H (0.00-0.03) X10*3/uL Absolute Neuts (auto) 8.7 H (2.0-8.3) x10*3/uL Absolute Nucleated RBC 0.000 (0.0-0.012) X10*3/uL Nucleated RBC % (auto) 0.0 (0.0-0.2) /100WBC D-Dimer High Sensitivty 1685 NG/ML Sodium (135-145) mmol/L Potassium (3.3-5.1) mmol/L Chloride (96-108) mmol/L Carbon Dioxide (22-29) mmol/L Anion Gap (12-20) BUN (9-16) mg/dL Creatinine (0.5-1.4) mg/dL Estim Creat Clear Calc Estimated GFR POC Glucose (60-115) mg/dL Random Glucose (60-115) mg/dL Calcium (8.4-10.2) mg/dL Total Bilirubin 0.6 (0.0-1.0) mg/dL Direct Bilirubin 0.2 (0.0-0.5) mg/dL AST 22 (5-31) U/L ALT 35 H (0-31) U/L Alkaline Phosphatase 63 (39-117) U/L Troponin I High Sens (<3.5-17.0) ng/L Total Protein 7.4 (6.5-8.0) g/dL Albumin 4.1 (3.5-5.0) g/dL Lipase 18 (8-78) U/L Urine Color Urine Appearance Urine pH (5.0-8.0) Ur Specific [place] (1.005-1.025) Urine Protein (NEG-TRACE) MG/DL Urine Glucose (UA) (NEG) MG/DL Urine Ketones (NEG) MG/DL Urine Blood (NEG) Urine Nitrite (NEG) Ur Leukocyte Esterase (NEG) Urine Test (NEGATIVE) COVID-19 (MARILYN) (Negative) COVID-19 Clin Com Influenza Type A (ALDO) (Negative) Influenza Type B (ALDO) (Negative) Influenza A & B Note 06/11/21 06/11/21 06/11/21 Range/Units 23:27 23:27 23:27 WBC (4.8-10.8) X10*3/uL RBC (4.20-5.50) X10*6/uL Hgb (12.0-16.0) g/dl Hct (37.0-47.0) % MCV (80.0-98.0) fL MCH (27.0-33.0) pg MCHC (31.0-35.0) g/dl RDW (11.0-16.0) % Plt Count (160-400) X10*3/uL MPV (9.4-12.3) fL Immature Gran % (Auto) (0.0-0.4) % Neut % (Auto) (45-73) % Lymph % (Auto) (20-40) % Yancey % (Auto) (2-11) % Eos % (Auto) (0-4) % Baso % (Auto) (0-2) % Lymph # (Auto) (1.2-4.9) X10*3/uL [place]ancey # (Auto) (0.1-1.2) X10*3/uL Eos # (Auto) (0.0-0.4) X10*3/uL Baso # (Auto) (0.0-0.2) X10*3/uL Abs Immat Gran (auto) (0.00-0.03) X10*3/uL Absolute Neuts (auto) (2.0-8.3) x10*3/uL Absolute Nucleated RBC (0.0-0.012) X10*3/uL Nucleated RBC % (auto) (0.0-0.2) /100WBC D-Dimer High Sensitivty NG/ML Sodium 137 (135-145) mmol/L Potassium 4.4 D (3.3-5.1) mmol/L Chloride 104 (96-108) mmol/L Carbon Dioxide 23 (22-29) mmol/L Anion Gap 14 (12-20) BUN 10 (9-16) mg/dL Creatinine 0.76 (0.5-1.4) mg/dL Estim Creat Clear Calc 121.8 Estimated GFR > 60 POC Glucose (60-115) mg/dL Random Glucose 87 (60-115) mg/dL Calcium 9.6 (8.4-10.2) mg/dL Total Bilirubin (0.0-1.0) mg/dL Direct Bilirubin (0.0-0.5) mg/dL AST (5-31) U/L ALT (0-31) U/L Alkaline Phosphatase (39-117) U/L Troponin I High Sens (<3.5-17.0) ng/L Total Protein (6.5-8.0) g/dL Albumin (3.5-5.0) g/dL Lipase (8-78) U/L Urine Color Urine Appearance Urine pH (5.0-8.0) Ur Specific [place] (1.005-1.025) Urine Protein (NEG-TRACE) MG/DL Urine Glucose (UA) (NEG) MG/DL Urine Ketones (NEG) MG/DL Urine Blood (NEG) Urine Nitrite (NEG) Ur Leukocyte Esterase (NEG) Urine Test (NEGATIVE) COVID-19 (MARILYN) Negative (Negative) COVID-19 Clin Com See Note Influenza Type A (ALDO) Negative (Negative) Influenza Type B (ALDO) Negative (Negative) Influenza A & B Note See Note 06/12/21 Range/Units 02:11 WBC (4.8-10.8) X10*3/uL RBC (4.20-5.50) X10*6/uL Hgb (12.0-16.0) g/dl Hct (37.0-47.0) % MCV (80.0-98.0) fL MCH (27.0-33.0) pg MCHC (31.0-35.0) g/dl RDW (11.0-16.0) % Plt Count (160-400) X10*3/uL MPV (9.4-12.3) fL Immature Gran % (Auto) (0.0-0.4) % Neut % (Auto) (45-73) % Lymph % (Auto) (20-40) % [place]ancey % (Auto) (2-11) % Eos % (Auto) (0-4) % Baso % (Auto) (0-2) % Lymph # (Auto) (1.2-4.9) X10*3/uL [place] # (Auto) (0.1-1.2) X10*3/uL Eos # (Auto) (0.0-0.4) X10*3/uL Baso # (Auto) (0.0-0.2) X10*3/uL Abs Immat Gran (auto) (0.00-0.03) X10*3/uL Absolute Neuts (auto) (2.0-8.3) x10*3/uL Absolute Nucleated RBC (0.0-0.012) X10*3/uL Nucleated RBC % (auto) (0.0-0.2) /100WBC D-Dimer High Sensitivty NG/ML Sodium (135-145) mmol/L Potassium (3.3-5.1) mmol/L Chloride (96-108) mmol/L Carbon Dioxide (22-29) mmol/L Anion Gap (12-20) BUN (9-16) mg/dL Creatinine (0.5-1.4) mg/dL Estim Creat Clear Calc Estimated GFR POC Glucose 91 (60-115) mg/dL Random Glucose (60-115) mg/dL Calcium (8.4-10.2) mg/dL Total Bilirubin (0.0-1.0) mg/dL Direct Bilirubin (0.0-0.5) mg/dL AST (5-31) U/L ALT (0-31) U/L Alkaline Phosphatase (39-117) U/L Troponin I High Sens (<3.5-17.0) ng/L Total Protein (6.5-8.0) g/dL Albumin (3.5-5.0) g/dL Lipase (8-78) U/L Urine Color Urine Appearance Urine pH (5.0-8.0) Ur Specific [place] (1.005-1.025) Urine Protein (NEG-TRACE) MG/DL Urine Glucose (UA) (NEG) MG/DL Urine Ketones (NEG) MG/DL Urine Blood (NEG) Urine Nitrite (NEG) Ur Leukocyte Esterase (NEG) Urine Test (NEGATIVE) COVID-19 (MARILYN) (Negative) COVID-19 Clin Com Influenza Type A (ALDO) (Negative) Influenza Type B (ALDO) (Negative) Influenza A & B Note <CITLALY Almazan - Last Filed: 06/12/21 02:25> Critical Care Time Critical Care Time Critical Care Time: No <CITLALY Almazan - Last Filed: 06/12/21 02:25> Discharge Plan Discharge Clinical Impression: Chest pain not due to acute coronary syndrome, Shortness of breath <CITLALY Almazan Last Filed: 06/12/21 02:25> Patient Disposition: Home, Self-Care <CITLALY Almazan Last Filed: 06/12/21 02:25> Instructions: Chest Pain (ED), Chest Wall Pain (ED), Shortness of Breath (ED) <CITLALY Almazan Last Filed: 06/12/21 02:25> Additional Instructions: Take your medications as prescribed. If you were prescribed antibiotics today, it is important that you take your medication to their entirety, do not skip any doses, do not finish them early. Follow-up with your primary care provider tomorrow. follow-up with cardiology if symptoms do not improve in a week or 2 Return to the emergency department with new or worsening symptoms. Such as fevers, chills, chest pain, shortness of breath, nausea, vomiting, dizziness, headache, vision changes, lethargy In case of emergency call 911 <CITLALY Almazan Last Filed: 06/12/21 02:25> Prescriptions: No Action acetaminophen [Tylenol Extra Strength] 500 mg tablet 500 mg PO Q6H PRN (Reason: pain or fever) Qty: 20 0RF ibuprofen 600 mg tablet 600 mg PO Q8H PRN (Reason: pain) Qty: 14 0RF ibuprofen 600 mg tablet 600 mg PO Q8H PRN (Reason: pain) Qty: 20 0RF ondansetron 4 mg tablet,disintegrating 4 mg PO Q8H PRN (Reason: nausea and vomiting) Qty: 10 0RF <CITLALY Almazan Last Filed: 06/12/21 02:25> Referrals: [facility] [Primary Care Provider] - 1 day Cornelio Camilo MD [Physician] - 2 weeks <CITLALY Almazan Last Filed: 06/12/21 02:25> Stand Alone Forms: Work/School Release <CITLALY Almazan Last Filed: 06/12/21 02:25> Interventions: ED Discharge Assessment Last Done: 06/12/21 02:54 <CITLALY Almazan Last Filed: 06/12/21 02:25> Discharge Date/Time: 06/12/21 02:55 <CITLALY Almazan - Last Filed: 06/12/21 02:25>
[2021-06-11 23:17] LABS: D Dimer High Sensitivity 1685 NG/ML
[2021-06-11 23:43] VITALS: BP 132/88; PULSE 93; RESP 24; O2SAT 99
[2021-06-11 23:51] LABS: Anion Gap 14 (12-20); Blood Urea Nitrogen 10 mg/dL (9-16); Calcium 9.6 mg/dL (8.4-10.2); Carbon Dioxide 23 mmol/L (22-29); Chloride 104 mmol/L (96-108); Creatinine Clr Calc Pharmacy 121.8; Estimated Glomerular Filt Rate > 60; Glucose Random 87 mg/dL (60-115); Potassium 4.4 mmol/L (3.3-5.1); Sodium 137 mmol/L (135-145)
[2021-06-11 23:53] LABS: COVID-19 Test Negative (Negative); IDNOW Serial# 55D5AD1C; Influenza A Negative (Negative); Influenza B2 Negative (Negative)
[2021-06-12] MEDS: iohexoL 350 MG/ML 100 ML INFUS..BTL 65 ML IV (00:18)
[2021-06-12] MEDS: ondansetron HCL 4 MG/2 ML VIAL IVPUSH (01:06)
[2021-06-12] MEDS: 0.9 % Sodium Chloride 1,000 ML 999 ML IV (01:27)
[2021-06-12 02:14] VITALS: BP 122/71; PULSE 90
[2021-06-12 02:15] VITALS: BP 124/71; PULSE 88
[2021-06-12 02:16] VITALS: BP 123/70; PULSE 97
[2021-06-12 02:16] LABS: Glucose, Whole Blood 91 mg/dL (60-115)
[2021-06-12 02:20] VITALS: BP 122/71; PULSE 90; RESP 20; TEMP 37.1; O2SAT 98
[2021-06-12] MEDS: Lidocaine HCl Viscous 2 % 15 ML SOLUTION MUCOUS MEM (02:32)
[2021-06-12] MEDS: Magnesium Hydrox/Alum Hydrox 30 ML ORAL.SUSP PO (02:32)
[2021-06-12] MEDS: Ketorolac Tromethamine 15 MG/ML VIAL IVPUSH (02:32)
== END 2021-06-12 02:55 | disposition home or self-care (01) ==
PROVIDERS: Physician Assistant; Emergency Provider Emergency Medicine
DX: R07.89 Other chest pain (principal); R06.02 Shortness of breath; R07.81 Pleurodynia; R00.0 Tachycardia, unspecified; R42 Dizziness and giddiness; R11.10 Vomiting, unspecified; Z20.822 Contact with and (suspected) exposure to COVID-19; Z79.899 Other long term (current) drug therapy
CPT/HCPCS: 36415; 71045; 71275; 80048; 80076; 81003; 81025; 82947; 83690; 84484; 85025; 85379; 87502; 87635; 93005; 96361; 96374; 96375; 99284; J1885; J2405; Q9967

== ENCOUNTER 2021-11-30 14:50 | Emergency (ER) | payer MEDICAID, SELFPAY ==
--- NOTE | ~2021-11-30 | CT_ITS ---
EXAMINATION: CT ABDOMEN AND PELVIS WITH CONTRAST CLINICAL INFORMATION: Nausea vomiting and abdominal pain COMPARISON: CT abdomen pelvis 11/04/2018 TECHNIQUE: Multidetector volumetric images were obtained from the superior aspect of the liver through the pubic symphysis following administration 85 mL of Omnipaque 350 intravenous contrast. Sagittal and coronal reformatted images were obtained on the technologist's workstation. Oral contrast: No This CT examination was performed using dose optimization techniques as appropriate, variously including the following: *Automated exposure control *Adjustment of mA and/or kV according to patient size (this includes techniques or standardized protocols for targeted exams where dose is matched to indication/reason for exam; i.e. extremities or head) *Use of iterative reconstruction technique DLP: 694 mGy-cm FINDINGS: LUNG BASES: The visualized lung bases are unremarkable. LIVER, GALLBLADDER, AND BILIARY TREE: Liver is mildly enlarged with the right lobe measuring 19.7 cm in craniocaudal length. Normal hepatic attenuation. No liver lesion. No biliary ductal dilation. The gallbladder is unremarkable with no evidence of radiopaque gallstones, gallbladder wall thickening, or obvious pericholecystic inflammatory changes. PANCREAS: Unremarkable. SPLEEN: Unremarkable. ADRENAL GLANDS: Unremarkable. KIDNEYS AND URETERS: Punctate 2 mm nonobstructing right lower pole renal calculus. No other renal calculi. Symmetric nephrograms. No hydronephrosis. No renal lesions or perinephric stranding. BLADDER: Unremarkable. GASTROINTESTINAL TRACT: Stomach is moderately distended with fluid and undigested food stuffs. No gastric wall thickening. No dilated bowel loops. No bowel wall thickening. Normal appendix. ABDOMINAL WALL: No significant hernia is appreciated. LYMPH NODES: No lymphadenopathy. VASCULAR: Normal caliber abdominal aorta. PELVIC VISCERA: Gynecologic structures are grossly unremarkable. OSSEOUS STRUCTURES: Unchanged lucent lesion of bone with groundglass matrix mineralization there is a transition in the proximal right femur, incompletely imaged. 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 No acute fracture or suspicious appearing osseous lesion. CT/CT abdomen pelvis w IV con IMPRESSION: 1. No acute intra-abdominal process identified. 2. Mild hepatomegaly. 3. 2 mm nonobstructing right lower pole renal calculus.
[2021-11-30 15:18] VITALS: BP 128/81; PULSE 100; RESP 18; TEMP 37.1; O2SAT 100; BMI 32.8
[2021-11-30 16:05] LABS: MANUAL DIFF FLAG NO
[2021-11-30 16:18] LABS: Basophils Percent Auto 0.2 % (0-2); Eosinophils Absolute Auto 0.1 X10*3/uL (0.0-0.4); Eosinophils Percent Auto 0.6 % (0-4); Hematocrit 44.9 % (37.0-47.0); Hemoglobin 14.8 g/dl (12.0-16.0); Imm Gran Abs Auto 0.07 X10*3/uL (0.00-0.03); Imm Gran Pct Auto 0.4 % (0.0-0.4); Mean Corpuscular Hemoglobin 28.2 pg (27.0-33.0); Mean Corpuscular Volume 85.5 fL (80.0-98.0); Mean Platelet Volume 10.4 fL (9.4-12.3); Monocytes Percent Auto 6.3 % (2-11); Neutrophils Absolute Auto 13.1 x10*3/uL (2.0-8.3); Neutrophils Percent Auto 80.5 % (45-73); Platelet Count 348 X10*3/uL (160-400); Red Blood Count 5.25 X10*6/uL (4.20-5.50); Red Cell Distribution Width 13.2 % (11.0-16.0); White Blood Count 16.3 X10*3/uL (4.8-10.8)
[2021-11-30 16:23] LABS: Alanine Aminotransferase 34 U/L (0-31); Albumin Level 4.9 g/dL (3.5-5.0); Alkaline Phosphatase 82 U/L (39-117); Anion Gap 17 (12-20); Aspartate Amino Transferase 21 U/L (5-31); Bilirubin Direct 0.2 mg/dL (0.0-0.5); Bilirubin Total 0.5 mg/dL (0.0-1.0); Blood Urea Nitrogen 10 mg/dL (9-16); Calcium 10.3 mg/dL (8.4-10.2); Carbon Dioxide 22 mmol/L (22-29); Chloride 106 mmol/L (96-108); Creatinine Clr Calc Pharmacy 117.6; Estimated Glomerular Filt Rate > 60; Glucose Random 107 mg/dL (60-115); Lipase 23 U/L (8-78); Potassium 4.9 mmol/L (3.3-5.1); Sodium 140 mmol/L (135-145)
[2021-11-30 19:37] VITALS: BP 122/77; PULSE 115; RESP 16; TEMP 37.2; O2SAT 98
[2021-11-30] MEDS: 0.9 % Sodium Chloride 1,000 ML 999 ML IV (20:36)
--- NOTE | 2021-11-30 20:38 | ED.ABDPAIN ---
HPI - Abdominal Pain General Chief Complaint: Abdominal Pain Stated Complaint: stomach cramp/vomiting Time Seen by Provider: 11/30/21 20:08 Source: patient Mode of arrival: ambulatory Limitations: no limitations History of Present Illness HPI narrative: 21-year-old female history of asthma, PCOS, endometriosis presents to the emergency department with nausea, vomiting and diarrhea x 1 month Patient states she is unable to keep any foods down and states over the last month she has lost 5 lb. Patient describes her diarrhea as watery and completely watery. Patient states she has diffuse abdominal pain and feels like she has been kicked in the stomach. Patient states earlier this afternoon she tried to have a bowel movement and instead produced a green mucus discharge. Patient states she has never felt like this before. Denies antibiotic use, recent travel, changes in diet. No known sick contacts. Denies fever, chills, chest pain, shortness of breath, dizziness, hematauria, hematchezia, headache. Has been taking Pepto-Bismol with little to no relief. Last menstrual period was in early September. Related Data Previous Rx's Medication Instructions Recorded acetaminophen 500 mg tablet 500 mg PO Q6H PRN pain or fever 08/08/20 (Tylenol Extra Strength) #20 tabs ibuprofen 600 mg tablet 600 mg PO Q8H PRN pain #14 tabs 08/08/20 ibuprofen 600 mg tablet 600 mg PO Q8H PRN pain #20 tabs 10/12/20 ondansetron 4 mg disintegrating 4 mg PO Q8H PRN nausea and 10/12/20 tablet vomiting #10 tabs loperamide 2 mg capsule (Imodium 2 mg PO Q6H PRN loose stool #20 11/30/21 A-D) caps ondansetron 4 mg disintegrating 4 mg PO Q6H PRN nausea and 11/30/21 tablet vomiting #14 tabs Allergies Allergy/AdvReac Type Severity Reaction Status Date / Time nut - unspecified Allergy Intermediate HIVES Verified 03/20/21 18:12 [NUT - UNSPECIFIED] FRUIT Allergy Intermediate ITCHY LIPS Uncoded 03/20/21 18:12 nuts Allergy Intermediate Hives Uncoded 03/20/21 18:12 pollen Allergy Intermediate Hives Uncoded 03/20/21 18:12 Review of Systems Review of Systems Constitutional : + weight loss, No Fever, No Chills, No Fatigue, No Malaise ENT/Mouth : No sore throat, No Rhinorrhea Eyes: No Eye Pain, No Swelling, No Redness Cardiovascular : No Chest Pain, No SOB, No Dyspnea on Exertion, No Orthopnea, No Edema, No Palpitations Respiratory : No Cough, No Sputum, No Wheezing Gastrointestinal : + Nausea, + Vomiting, + Diarrhea, No Constipation, + abdominal Pain, No Hematochezia, No Melena Genitourinary : No Dysuria, No Urinary Frequency, No Hematuria, Musculoskeletal : No joint pain, No Myalgias, No Joint Swelling Skin : No Skin Lesions, No rash Neuro : No Weakness, No Numbness, No Dizziness, No Headache Psych : No Anxiety/Panic, No Depression Heme/Lymph: No Bruising, No Bleeding,No Lymphadenopathy Endocrine : No Polyuria, No Polydipsia All other systems reviewed and are negative [facility] Past Medical History Attestation statement: The following information was validated with the patient. 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 Oriented X3.? No acute distress.? Head: Normocephalic, atraumatic, no step-offs or deformities Eyes: Pupils equal, round and reactive to light.? CVS: Normal heart rate and rhythm.? Pulses normal.? Respiratory: No respiratory distress.? Breath sounds normal.? Abdomen: Soft and diffusely tender? Skin: Skin warm and dry.? Normal skin color.? Normal skin turgor.? Extremities: No lower extremity edema.? No calf ttp. 5/5 strength to bilateral upper and lower extremities Back: no CVA tenderness bilaterally Neuro: Oriented X 3.? No motor deficit.? No sensory deficit. CN 2-12 intact Course Reevaluation(s) Reevaluation #1: CBC reveals elevated WBC at 16.3, chemistry reveals no concerning abnormalities. Plan at this time is to administer fluids and obtain stool culture and CT of abdomen and pelvis. Time: 20:50 Reevaluation #2: CT of the abdomen pelvis with no acute findings explaining some patient's symptoms. Stool studies pending Time: 22:03 Reevaluation #3: Patient has not been able to give us a stool sample, she tells me I tried so hard now my tummy is cramping . Discussed this case w/ attending Dr. Grimm who recommends outpatient stool studies and immodium. No need to keep patient here, patient excited to leave, patient's abdomen no longer tender. To note patient has been eating and drinking in our department has not had nausea, vomiting or diarrhea. Time: 23:29 MDM - Abdominal Pain MDM Narrative Medical decision making narrative: 2049 21-year-old female presents to the emergency department for vomiting, diarrhea, abdominal pain x1 month. Physical exam reveals diffusely tender abdomen Plan at this time is to obtain basic labs, stool culture, UA, parasite studies, CT of abdomen and pelvis. Will rule out C. diff, parasite, bowel perforation, electrolyte abnormalities. Concerns for IBS/Crohn's disease Medical Records Attestation: I reviewed the patient's medical records. Lab Data Attestation: I reviewed the patient's lab results. Result diagrams: 11/30/21 16:01 11/30/21 16:01 Labs: Lab Results 11/30/21 11/30/21 11/30/21 Range/Units 16:01 16:01 20:32 WBC 16.3 H (4.8-10.8) X10*3/uL RBC 5.25 D (4.20-5.50) X10*6/uL Hgb 14.8 D (12.0-16.0) g/dl Hct 44.9 D (37.0-47.0) % MCV 85.5 (80.0-98.0) fL MCH 28.2 (27.0-33.0) pg MCHC 33.0 (31.0-35.0) g/dl RDW 13.2 (11.0-16.0) % Plt Count 348 D (160-400) X10*3/uL MPV 10.4 (9.4-12.3) fL Immature Gran % (Auto) 0.4 (0.0-0.4) % Neut % (Auto) 80.5 H (45-73) % Lymph % (Auto) 12.0 L (20-40) % [place] % (Auto) 6.3 (2-11) % Eos % (Auto) 0.6 (0-4) % Baso % (Auto) 0.2 (0-2) % Lymph # (Auto) 2.0 (1.2-4.9) X10*3/uL [place] # (Auto) 1.0 (0.1-1.2) X10*3/uL Eos # (Auto) 0.1 (0.0-0.4) X10*3/uL Baso # (Auto) 0.0 (0.0-0.2) X10*3/uL Abs Immat Gran (auto) 0.07 H (0.00-0.03) X10*3/uL Absolute Neuts (auto) 13.1 H (2.0-8.3) x10*3/uL Absolute Nucleated RBC 0.000 (0.0-0.012) X10*3/uL Nucleated RBC % (auto) 0.0 (0.0-0.2) /100WBC Sodium 140 (135-145) mmol/L Potassium 4.9 (3.3-5.1) mmol/L Chloride 106 (96-108) mmol/L Carbon Dioxide 22 (22-29) mmol/L Anion Gap 17 (12-20) BUN 10 (9-16) mg/dL Creatinine 0.77 (0.5-1.4) mg/dL Estim Creat Clear Calc 117.6 Estimated GFR > 60 Random Glucose 107 (60-115) mg/dL Calcium 10.3 H D (8.4-10.2) mg/dL Total Bilirubin 0.5 (0.0-1.0) mg/dL Direct Bilirubin 0.2 (0.0-0.5) mg/dL AST 21 (5-31) U/L ALT 34 H (0-31) U/L Alkaline Phosphatase 82 D (39-117) U/L Total Protein 9.0 H D (6.5-8.0) g/dL Albumin 4.9 (3.5-5.0) g/dL Lipase 23 (8-78) U/L Beta HCG, Quant < 2 mIU/mL Urine Color Yellow Urine Appearance Clear Urine pH 5.5 (5.0-9.0) Ur Specific [place] 1.020 (1.005-1.025) Urine Protein Negative (Neg-Trace) mg/dL Urine Glucose (UA) Negative (Negative) mg/dL Urine Ketones Negative (Negative) mg/dL Urine Blood Negative (Negative) Urine Nitrite Negative (Negative) Ur Leukocyte Esterase Negative (Negative) Urine Test (NEGATIVE) 11/30/21 Range/Units 20:32 WBC (4.8-10.8) X10*3/uL RBC (4.20-5.50) X10*6/uL Hgb (12.0-16.0) g/dl Hct (37.0-47.0) % MCV (80.0-98.0) fL MCH (27.0-33.0) pg MCHC (31.0-35.0) g/dl RDW (11.0-16.0) % Plt Count (160-400) X10*3/uL MPV (9.4-12.3) fL Immature Gran % (Auto) (0.0-0.4) % Neut % (Auto) (45-73) % Lymph % (Auto) (20-40) % [place] % (Auto) (2-11) % Eos % (Auto) (0-4) % Baso % (Auto) (0-2) % Lymph # (Auto) (1.2-4.9) X10*3/uL [place] # (Auto) (0.1-1.2) X10*3/uL Eos # (Auto) (0.0-0.4) X10*3/uL Baso # (Auto) (0.0-0.2) X10*3/uL Abs Immat Gran (auto) (0.00-0.03) X10*3/uL Absolute Neuts (auto) (2.0-8.3) x10*3/uL Absolute Nucleated RBC (0.0-0.012) X10*3/uL Nucleated RBC % (auto) (0.0-0.2) /100WBC Sodium (135-145) mmol/L Potassium (3.3-5.1) mmol/L Chloride (96-108) mmol/L Carbon Dioxide (22-29) mmol/L Anion Gap (12-20) BUN (9-16) mg/dL Creatinine (0.5-1.4) mg/dL Estim Creat Clear Calc Estimated GFR Random Glucose (60-115) mg/dL Calcium (8.4-10.2) mg/dL Total Bilirubin (0.0-1.0) mg/dL Direct Bilirubin (0.0-0.5) mg/dL AST (5-31) U/L ALT (0-31) U/L Alkaline Phosphatase (39-117) U/L Total Protein (6.5-8.0) g/dL Albumin (3.5-5.0) g/dL Lipase (8-78) U/L Beta HCG, Quant mIU/mL Urine Color Urine Appearance Urine pH (5.0-9.0) Ur Specific [place] (1.005-1.025) Urine Protein (Neg-Trace) mg/dL Urine Glucose (UA) (Negative) mg/dL Urine Ketones (Negative) mg/dL Urine Blood (Negative) Urine Nitrite (Negative) Ur Leukocyte Esterase (Negative) Urine Test NEGATIVE (NEGATIVE) Critical Care Time Critical Care Time Critical Care Time: No Discharge Plan Discharge Clinical Impression: Abdominal pain, Diarrhea Patient Disposition: Home, Self-Care Instructions: Acute Diarrhea (ED), Abdominal Pain (ED), Nutrition Tips for Relief of Diarrhea (ED) Additional Instructions: Take your medications as prescribed. If you were prescribed antibiotics today, it is important that you take your medication to their entirety, do not skip any doses, do not finish them early. Follow-up with your primary care provider this week. Please follow-up with gastroenterology number below Return to the emergency department with new or worsening symptoms. Such as fevers, chills, chest pain, shortness of breath, nausea, vomiting, dizziness, headache, vision changes, lethargy, bloody stools, worsening diarrhea, abdominal pain In case of emergency call 911 Please bring your stool study to the laboratory, I gave you a sheet for outpatient labs. [place] has been sent to her pharmacy for nausea and vomiting, please take this as prescribed, please do not take more than the prescribed doses this can cause cardiac dysrhythmias. CT/CT abdomen pelvis w IV con IMPRESSION: 1.? No acute intra-abdominal process identified. 2.? Mild hepatomegaly. 3.? 2 mm nonobstructing right lower pole renal calculus. ? Prescriptions: New loperamide [Imodium A-D] 2 mg capsule 2 mg PO Q6H PRN (Reason: loose stool) Qty: 20 0RF ondansetron 4 mg tablet,disintegrating 4 mg PO Q6H PRN (Reason: nausea and vomiting) Qty: 14 0RF No Action acetaminophen [Tylenol Extra Strength] 500 mg tablet 500 mg PO Q6H PRN (Reason: pain or fever) Qty: 20 0RF ibuprofen 600 mg tablet 600 mg PO Q8H PRN (Reason: pain) Qty: 14 0RF ibuprofen 600 mg tablet 600 mg PO Q8H PRN (Reason: pain) Qty: 20 0RF ondansetron 4 mg tablet,disintegrating 4 mg PO Q8H PRN (Reason: nausea and vomiting) Qty: 10 0RF Referrals: [facility] [Provider Group] - 1 week [place] [Primary Care Provider] - 2 days Stand Alone Forms: Work/School Release Interventions: ED Discharge Assessment Last Done: 12/01/21 00:17 Discharge Date/Time: 12/01/21 00:18
[2021-11-30] MEDS: Ketorolac Tromethamine 15 MG/ML VIAL IVPUSH (20:39)
[2021-11-30] MEDS: ondansetron HCL 4 MG/2 ML VIAL IVPUSH (20:39)
[2021-11-30 20:45] LABS: HCG Quantitative < 2 mIU/mL
[2021-11-30 20:51] LABS: Appearance Urine Clear; Color Urine Yellow; Glucose Urine UA Negative (Negative); Leukocyte Esterase Urine Negative (Negative); Nitrite Urine Negative (Negative); PH 5.5 (5.0-9.0); Urine Blood Negative (Negative); Urine Ketones Negative (Negative); Urine Protein Negative (Neg-Trace)
[2021-11-30 20:58] LABS: UPreg QC Valid YES; Urine Pregnancy NEGATIVE (NEGATIVE)
[2021-11-30] MEDS: iohexoL 350 MG/ML 100 ML INFUS..BTL IV (21:02)
[2021-12-01] MEDS: Loperamide HCl 2 MG CAPSULE PO (00:15)
== END 2021-12-01 00:18 | disposition home or self-care (01) ==
PROVIDERS: Physician Assistant; Emergency Provider Emergency Medicine
DX: R10.9 Unspecified abdominal pain (principal); R19.7 Diarrhea, unspecified
CPT/HCPCS: 36415; 74177; 80053; 81003; 81025; 82248; 83690; 84702; 85025; 96361; 96374; 96375; 99283; 99284; J1885; J2405; Q9967

== ENCOUNTER 2022-02-26 18:59 | Emergency (ER) | payer MEDICAID, SELFPAY ==
[2022-02-26 20:11] VITALS: BP 136/91; PULSE 95; RESP 16; TEMP 36.8; O2SAT 98; BMI 33.6
--- NOTE | 2022-02-26 20:14 | ED.GENADULT ---
HPI - General Adult General Chief complaint: Skin/Abscess/Foreign Body <CITLAYL Wise - Last Filed: 03/11/22 09:46> Stated complaint: abcess on cheek <CITLALY Wise - Last Filed: 03/11/22 09:46> Time Seen by Provider: 02/26/22 23:17 <CITLALY Wise - Last Filed: 03/11/22 09:46> Source: patient <Julio César Ledezma MD - Last Filed: 02/27/22 00:34> Mode of arrival: ambulatory <Julio César Ledezma MD - Last Filed: 02/27/22 00:34> Limitations: no limitations <Julio César Ledezma MD - Last Filed: 02/27/22 00:34> History of Present Illness HPI narrative: Patient otherwise healthy noticed small pimple on left which cheek which she squeezed 1 week ago, now for last 2 days notice swelling getting bigger and tender no fever no chills <Julio César Ledezma MD - Last Filed: 02/27/22 00:34> Related Data Home medications: Previous Rx's Medication Instructions Recorded acetaminophen 500 mg tablet 500 mg PO Q6H PRN pain or fever 08/08/20 (Tylenol Extra Strength) #20 tabs ibuprofen 600 mg tablet 600 mg PO Q8H PRN pain #14 tabs 08/08/20 ibuprofen 600 mg tablet 600 mg PO Q8H PRN pain #20 tabs 10/12/20 ondansetron 4 mg disintegrating 4 mg PO Q8H PRN nausea and 10/12/20 tablet vomiting #10 tabs loperamide 2 mg capsule (Imodium 2 mg PO Q6H PRN loose stool #20 11/30/21 A-D) caps ondansetron 4 mg disintegrating 4 mg PO Q6H PRN nausea and 11/30/21 tablet vomiting #14 tabs cephalexin 500 mg capsule 500 mg PO QID 10 days #40 caps 02/27/22 doxycycline hyclate 100 mg tablet 100 mg PO BID #20 tabs 02/27/22 ibuprofen 600 mg tablet 600 mg PO Q6H PRN fever or pain 02/27/22 #30 tabs <CITLALY Wise - Last Filed: 03/11/22 09:46> Allergies/adverse reactions: Allergies Allergy/AdvReac Type Severity Reaction Status Date / Time nut - unspecified Allergy Intermediate HIVES Verified 03/20/21 18:12 [NUT - UNSPECIFIED] FRUIT Allergy Intermediate ITCHY LIPS Uncoded 03/20/21 18:12 nuts Allergy Intermediate Hives Uncoded 03/20/21 18:12 pollen Allergy Intermediate Hives Uncoded 03/20/21 18:12 <CITLALY Wise - Last Filed: 03/11/22 09:46> Review of Systems Review of Systems: Yes all other systems are reviewed and are negative <Julio César Ledezma MD - Last Filed: 02/27/22 00:34> [facility] Past Medical History Medical History: Medical History Asthma Kidney stones PCOS (polycystic ovarian syndrome) <CITLALY Wise - Last Filed: 03/11/22 09:46> Social History Social History: Social History Alcohol intake: never Current occupational status: employed 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[employer] <CITLALY Wise - Last Filed: 03/11/22 09:46> Physical Exam ED Vital Signs: Vital Signs - 24 hr 02/26/22 20:11 02/26/22 23:52 Temperature 98.2 F 97.5 F Pulse Rate 95 85 Respiratory Rate 16 17 Blood Pressure 136/91 H 116/87 Pulse Oximetry 98 96 Oxygen Delivery Method Room Air Room Air BMI result Body Mass Index 33.6 <CITLALY Wise - Last Filed: 03/11/22 09:46> Vital Signs - 24 hr 02/26/22 20:11 02/26/22 23:52 Temperature 98.2 F 97.5 F Pulse Rate 95 85 Respiratory Rate 16 17 Blood Pressure 136/91 H 116/87 Pulse Oximetry 98 96 Oxygen Delivery Method Room Air Room Air BMI result Body Mass Index 33.6 <Julio César Ledezma MD - Last Filed: 02/27/22 00:34> HENMT Face images: 1. 2 x 2 cm abscess left angle of cheek surrounding erythema abscess is freely movable no signs of deeper infection <CITLALY Wise - Last Filed: 03/11/22 09:46> 1. 2 x 2 cm abscess left angle of cheek surrounding erythema abscess is freely movable no signs of deeper infection <Julio César Ledezma MD - Last Filed: 02/27/22 00:34> Mouth: Normal oral and palatal mucosa present, tongue normal and oropharynx normal <Julio César Ledezma MD - Last Filed: 02/27/22 00:34> Teeth and gingiva: dentition normal <Julio César Ledezma MD - Last Filed: 02/27/22 00:34> Resp Effort & Inspection: normal respiratory effort <Julio César Ledezma MD - Last Filed: 02/27/22 00:34> Auscultation: clear to auscultation bilaterally <Julio César Ledezma MD - Last Filed: 02/27/22 00:34> Course Course Course Narrative: RME: 21 yold female presents to the ED for right facial mass/redness/swelling that increased in size. Physical exam indicate facial abscess. <CITLALY Wise - Last Filed: 03/11/22 09:46> Medications Administered Discontinued Medications Generic Name Dose Route Start Last Admin Trade Name Freq PRN Reason Stop Dose Admin Cephalexin HCl 500 mg 02/26/22 23:30 02/26/22 23:50 Cephalexin 500 Mg Capsule PO 02/26/22 23:31 500 mg ONCE ONE Administration Doxycycline Monohydrate 100 mg 02/26/22 23:30 02/26/22 23:50 Doxycycline Monohydrate 100 Mg Capsule PO 02/26/22 23:31 100 mg ONCE ONE Administration Lidocaine HCl 5 ml 02/26/22 23:30 02/26/22 23:50 Lidocaine Hcl 1 % Mpf 5 Ml Vial INFILTRATI 02/26/22 23:31 5 ml ONCE ONE Administration Oxycodone HCl 10 mg 02/26/22 23:30 02/26/22 23:50 Oxycodone Hcl Immed Release 5 Mg Tablet PO 02/26/22 23:31 10 mg ONCE ONE Administration <CITLALY Wise Last Filed: 03/11/22 09:46> Medications Administered Discontinued Medications Generic Name Dose Route Start Last Admin Trade Name Freq PRN Reason Stop Dose Admin Cephalexin HCl 500 mg 02/26/22 23:30 02/26/22 23:50 Cephalexin 500 Mg Capsule PO 02/26/22 23:31 500 mg ONCE ONE Administration Doxycycline Monohydrate 100 mg 02/26/22 23:30 02/26/22 23:50 Doxycycline Monohydrate 100 Mg Capsule PO 02/26/22 23:31 100 mg ONCE ONE Administration Lidocaine HCl 5 ml 02/26/22 23:30 02/26/22 23:50 Lidocaine Hcl 1 % Mpf 5 Ml Vial INFILTRATI 02/26/22 23:31 5 ml ONCE ONE Administration Oxycodone HCl 10 mg 02/26/22 23:30 02/26/22 23:50 Oxycodone Hcl Immed Release 5 Mg Tablet PO 02/26/22 23:31 10 mg ONCE ONE Administration <Julio César Ledezma MD - Last Filed: 02/27/22 00:34> Procedures Abscess I/D Site: face (Left cheek) <Julio César Ledezma MD - Last Filed: 02/27/22 00:34> Side (if applicable): left <Julio César Ledezma MD - Last Filed: 02/27/22 00:34> Local Anesthetic: lidocaine 1% <Julio César Ledezma MD - Last Filed: 02/27/22 00:34> Amount of anesthesia used (mL): 5 <Julio César Ledezma MD - Last Filed: 02/27/22 00:34> Technique: incised with blade <Julio César Ledezma MD - Last Filed: 02/27/22 00:34> Amount of fluid expressed (mL): 2 <Julio César Ledezma MD - Last Filed: 02/27/22 00:34> Sent for culture/gram staining?: Yes <Julio César Ledezma MD - Last Filed: 02/27/22 00:34> Irrigation: No <Julio César Ledezma MD - Last Filed: 02/27/22 00:34> Packing used?: none <Julio César Ledezma MD - Last Filed: 02/27/22 00:34> Discharge Plan Discharge Clinical Impression: Abscess of face <CITLALY Wise - Last Filed: 03/11/22 09:46> Patient Disposition: Home, Self-Care <CITLALY Wise Last Filed: 03/11/22 09:46> Instructions: Abscess Incision and Drainage (DC) <CITLALY Wise Last Filed: 03/11/22 09:46> Additional Instructions: Local care as advised Warm packs Antibiotic as prescribed Report to the ER if worsening of the swelling or pain <CITLALY Wise Last Filed: 03/11/22 09:46> Prescriptions: New cephalexin 500 mg capsule 500 mg PO QID 10 Days Qty: 40 0RF doxycycline hyclate 100 mg tablet 100 mg PO BID Qty: 20 0RF ibuprofen 600 mg tablet 600 mg PO Q6H PRN (Reason: fever or pain) Qty: 30 0RF No Action acetaminophen [Tylenol Extra Strength] 500 mg tablet 500 mg PO Q6H PRN (Reason: pain or fever) Qty: 20 0RF ibuprofen 600 mg tablet 600 mg PO Q8H PRN (Reason: pain) Qty: 14 0RF ibuprofen 600 mg tablet 600 mg PO Q8H PRN (Reason: pain) Qty: 20 0RF ondansetron 4 mg tablet,disintegrating 4 mg PO Q8H PRN (Reason: nausea and vomiting) Qty: 10 0RF loperamide [Imodium A-D] 2 mg capsule 2 mg PO Q6H PRN (Reason: loose stool) Qty: 20 0RF ondansetron 4 mg tablet,disintegrating 4 mg PO Q6H PRN (Reason: nausea and vomiting) Qty: 14 0RF <CITLALY Wise Last Filed: 03/11/22 09:46> Interventions: ED Discharge Assessment Last Done: 02/27/22 00:46 <CITLALY Wise Last Filed: 03/11/22 09:46> Discharge Date/Time: 02/27/22 00:48 <CITLALY Wise Last Filed: 03/11/22 09:46>
[2022-02-26] MEDS: Lidocaine HCl 1 % MPF 5 ML VIAL INFILTRATI (23:50)
[2022-02-26] MEDS: Doxycycline Monohydrate 100 MG CAPSULE PO (23:50)
[2022-02-26] MEDS: oxyCODONE HCl Immed Release 5 MG TABLET 10 MG PO (23:50)
[2022-02-26] MEDS: cephALEXin 500 MG CAPSULE PO (23:50)
[2022-02-26 23:52] VITALS: BP 116/87; PULSE 85; RESP 17; TEMP 36.4; O2SAT 96
== END 2022-02-27 00:48 | disposition home or self-care (01) ==
PROVIDERS: Emergency Provider Internal Medicine
DX: L02.01 Cutaneous abscess of face (principal); M79.10 Myalgia, unspecified site; Z79.899 Other long term (current) drug therapy
CPT/HCPCS: 10060; 87070; 87077; 87186; 87205; 99284

== ENCOUNTER 2022-08-01 08:20 | Outpatient (REF) | payer MEDICAID, SELFPAY | END 2022-08-01 08:21 | disposition home or self-care (01) | LOC: HO.HOSX 08:20 | PROVIDERS: Visit Provider Orthopaedic Surgery | DX: Z13.89 Encounter for screening for other disorder (principal) ==

== ENCOUNTER 2022-08-20 19:52 | Emergency (ER) | payer MEDICAID, SELFPAY ==
--- NOTE | ~2022-08-20 | XR_ITS ---
EXAMINATION: XR CHEST CLINICAL INFORMATION: Shortness of breath COMPARISON: 06/12/2021 TECHNIQUE: Frontal view of the chest was obtained. FINDINGS: The lungs are clear with no focal consolidation. No evidence of pneumothorax, pulmonary edema, or pleural effusions. The cardiomediastinal silhouette is unremarkable. No acute osseous findings. XR/XR chest 1V IMPRESSION: No acute cardiopulmonary findings.
--- NOTE | 2022-08-20 19:57 | ECG_ITS ---
Test Reason : SOB Blood Pressure : / mmHG Vent. Rate : 095 BPM Atrial Rate : 095 BPM P-R Int : 144 ms QRS Dur : 076 ms QT Int : 370 ms P-R-T Axes : 028 014 035 degrees QTc Int : 464 ms Normal sinus rhythm Normal ECG When compared with ECG of 11-JUN-2021 13:54, No significant change was found Referred By: Will Zepeda Electronically Signed By:RACHNA OROURKE MD
[2022-08-20 19:58] VITALS: BP 138/108; PULSE 107; RESP 26; TEMP 36.1; O2SAT 97; BMI 34.5
--- NOTE | 2022-08-20 19:59 | ED.GENADULT ---
HPI - General Adult General Chief complaint: Dyspnea Stated complaint: Diff breathing/Asthma hx Time Seen by Provider: 08/21/22 03:53 Source: patient Mode of arrival: ambulatory Limitations: no limitations History of Present Illness HPI narrative: Patient history of asthma been having increased shortness of breath for last few weeks with increased pain taking a deep breath no fever no chills occasional cough which is mostly dry patient tried nebulizing treatment inhaler at home without much relief on arrival patient's vitals were stable saturating 97% on room air Related Data Previous Rx's Medication Instructions Recorded acetaminophen 500 mg tablet 500 mg PO Q6H PRN pain or fever 08/08/20 (Tylenol Extra Strength) #20 tabs ibuprofen 600 mg tablet 600 mg PO Q8H PRN pain #14 tabs 08/08/20 ibuprofen 600 mg tablet 600 mg PO Q8H PRN pain #20 tabs 10/12/20 ondansetron 4 mg disintegrating 4 mg PO Q8H PRN nausea and 10/12/20 tablet vomiting #10 tabs loperamide 2 mg capsule (Imodium 2 mg PO Q6H PRN loose stool #20 11/30/21 A-D) caps ondansetron 4 mg disintegrating 4 mg PO Q6H PRN nausea and 11/30/21 tablet vomiting #14 tabs cephalexin 500 mg capsule 500 mg PO QID 10 days #40 caps 02/27/22 doxycycline hyclate 100 mg tablet 100 mg PO BID #20 tabs 02/27/22 ibuprofen 600 mg tablet 600 mg PO Q6H PRN fever or pain 02/27/22 #30 tabs prednisone 20 mg tablet 40 mg PO DAILY #10 tabs 08/21/22 Allergies Allergy/AdvReac Type Severity Reaction Status Date / Time nut - unspecified Allergy Intermediate HIVES Verified 08/20/22 20:00 [NUT - UNSPECIFIED] FRUIT Allergy Intermediate ITCHY LIPS Uncoded 03/20/21 18:12 nuts Allergy Intermediate Hives Uncoded 03/20/21 18:12 pollen Allergy Intermediate Hives Uncoded 03/20/21 18:12 Review of Systems Review of Systems: Yes all other systems are reviewed and are negative PMFSH Past Medical History Medical History Asthma Kidney stones PCOS (polycystic ovarian syndrome) Social History Social History Alcohol intake: never Smoked in Last 30 Days: No Substance Use Type: Marijuana Substance Use Frequency: Weekly Last Used Substance: Days (ago) Advance Directives: No Advance Directives Information Provided: No Patient : No Current occupational status: employed 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 Oriented X3. No acute distress. Neck: Normal inspection. Neck supple. CVS: Normal heart rate and rhythm. Pulses normal. Respiratory: No respiratory distress. Equal air entry bilateral, prolonged expiration no crackles Abdomen: Soft and nontender. Bowel sounds are present, no mass palpable, no CVA tenderness Skin: Skin warm and dry. Normal skin color. Normal skin turgor. Extremities: No lower extremity edema. No calf tenderness Neuro: Oriented X 3. Course Course Course Narrative: This is an RME: Additional HPI, ROS, PE not included below will be deferred to primary provider. 21 year old female presents w/ pleuritic cp, sob X 1 week worsening. Asthma at home treatments not working. This feels different. On control, smokes weed Hypertensive, tacy 110, and 98% on RA non toxic appearing Labs, imaging, viral test, dimer Medications Administered Discontinued Medications Generic Name Dose Route Start Last Admin Trade Name Freq PRN Reason Stop Dose Admin Albuterol Sulfate 2 puff 08/20/22 19:57 08/21/22 03:39 Albuterol Sulfate 90 Mcg 8 Gm Inhaler INHALE 08/20/22 19:58 2 puff ONCE ONE Administration Albuterol/Ipratropium 3 ml 08/21/22 04:24 08/21/22 04:43 Albuterol/Iprat 2.5/0.5mg 3 Ml Ampul.Neb INHALE 08/21/22 04:25 3 ml ONCE ONE Administration Magnesium Sulfate 2 gm in 50 mls @ 25 mls/hr 08/20/22 19:57 08/21/22 03:39 Magnesium Sulfate/H2o IV 08/20/22 21:56 25 mls/hr ONCE ONE Administration Sodium Chloride 1,000 mls @ 999 mls/hr 08/21/22 05:07 08/21/22 05:32 Ns IV 08/21/22 06:07 999 mls/hr .Q1H1M ONE Administration Ketorolac Tromethamine 30 mg 08/21/22 04:24 08/21/22 05:31 Ketorolac Tromethamine 30 Mg/Ml Vial IVPUSH 08/21/22 04:25 30 mg ONCE ONE Administration Lorazepam 1 mg 08/21/22 05:07 08/21/22 05:32 Lorazepam 2 Mg/Ml Vial IVPUSH 08/21/22 05:08 1 mg ONCE ONE Administration Methylprednisolone Sodium Succinate 125 mg 08/20/22 19:57 08/21/22 03:39 Methylprednisolone Sod Succ 125 Mg/2 Ml Vial IVPUSH 08/20/22 19:58 125 mg ONCE ONE Administration Ondansetron HCl 4 mg 08/21/22 05:39 08/21/22 05:54 Ondansetron Hcl 4 Mg/2 Ml Vial IVPUSH 08/21/22 05:40 4 mg ONCE ONE Administration Medical Decision Making Medical Decision Making [facility] Narrative: Peers as some with pleuritic pain D-dimer negative for PE chest x-ray negative will treat her for the pain anti-inflammatory Toradol Lab Data [facility] Lab Attestation statement: I reviewed the patient's lab results. 08/20/22 20:15 08/20/22 20:15 Labs: Lab Results 08/20/22 08/20/22 08/20/22 Range/Units 20:15 20:15 20:15 WBC 9.7 (4.8-10.8) X10*3/uL RBC 4.58 (4.20-5.50) X10*6/uL Hgb 13.1 (12.0-16.0) g/dl Hct 38.3 (37.0-47.0) % MCV 83.6 (80.0-98.0) fL MCH 28.6 (27.0-33.0) pg MCHC 34.2 (31.0-35.0) g/dl RDW 12.5 (11.0-16.0) % Plt Count 320 (160-400) X10*3/uL MPV 10.1 (9.4-12.3) fL Immature Gran % (Auto) 0.3 (0.0-0.4) % Neut % (Auto) 58.9 (45-73) % Lymph % (Auto) 29.4 (20-40) % [place] % (Auto) 10.0 (2-11) % Eos % (Auto) 1.2 (0-4) % Baso % (Auto) 0.2 (0-2) % Lymph # (Auto) 2.9 (1.2-4.9) X10*3/uL [place] # (Auto) 1.0 (0.1-1.2) X10*3/uL Eos # (Auto) 0.1 (0.0-0.4) X10*3/uL Baso # (Auto) 0.0 (0.0-0.2) X10*3/uL Abs Immat Gran (auto) 0.03 (0.00-0.03) X10*3/uL Absolute Neuts (auto) 5.7 (2.0-8.3) x10*3/uL Absolute Nucleated RBC 0.000 (0.0-0.012) X10*3/uL Nucleated RBC % (auto) 0.0 (0.0-0.2) /100WBC D-Dimer High Sensitivty < 150 NG/ML Sodium 140 (135-145) mmol/L Potassium 3.5 D (3.3-5.1) mmol/L Chloride 107 (96-108) mmol/L Carbon Dioxide 20 L (22-29) mmol/L Anion Gap 17 (12-20) BUN 7 L (9-16) mg/dL Creatinine 0.76 (0.5-1.4) mg/dL Estim Creat Clear Calc 122.4 Estimated GFR > 60 Random Glucose 95 (60-115) mg/dL Calcium 9.4 D (8.4-10.2) mg/dL Magnesium 1.9 (1.6-2.6) mg/dL Total Bilirubin 0.3 (0.0-1.0) mg/dL AST 18 (5-31) U/L ALT 36 H (0-31) U/L Alkaline Phosphatase 81 (39-117) U/L Troponin I High Sens (<3.5-17.0) ng/L Total Protein 7.8 (6.5-8.0) g/dL Albumin 4.0 (3.5-5.0) g/dL Urine Test (NEGATIVE) COVID-19 (MARILYN) (Negative) COVID-19 Clin Com Influenza Type A (ALDO) (Negative) Influenza Type B (ALDO) (Negative) Influenza A & B Note 08/20/22 08/20/22 08/20/22 Range/Units 20:15 20:15 20:15 WBC (4.8-10.8) X10*3/uL RBC (4.20-5.50) X10*6/uL Hgb (12.0-16.0) g/dl Hct (37.0-47.0) % MCV (80.0-98.0) fL MCH (27.0-33.0) pg MCHC (31.0-35.0) g/dl RDW (11.0-16.0) % Plt Count (160-400) X10*3/uL MPV (9.4-12.3) fL Immature Gran % (Auto) (0.0-0.4) % Neut % (Auto) (45-73) % Lymph % (Auto) (20-40) % [place] % (Auto) (2-11) % Eos % (Auto) (0-4) % Baso % (Auto) (0-2) % Lymph # (Auto) (1.2-4.9) X10*3/uL [place] # (Auto) (0.1-1.2) X10*3/uL Eos # (Auto) (0.0-0.4) X10*3/uL Baso # (Auto) (0.0-0.2) X10*3/uL Abs Immat Gran (auto) (0.00-0.03) X10*3/uL Absolute Neuts (auto) (2.0-8.3) x10*3/uL Absolute Nucleated RBC (0.0-0.012) X10*3/uL Nucleated RBC % (auto) (0.0-0.2) /100WBC D-Dimer High Sensitivty NG/ML Sodium (135-145) mmol/L Potassium (3.3-5.1) mmol/L Chloride (96-108) mmol/L Carbon Dioxide (22-29) mmol/L Anion Gap (12-20) BUN (9-16) mg/dL Creatinine (0.5-1.4) mg/dL Estim Creat Clear Calc Estimated GFR Random Glucose (60-115) mg/dL Calcium (8.4-10.2) mg/dL Magnesium (1.6-2.6) mg/dL Total Bilirubin (0.0-1.0) mg/dL AST (5-31) U/L ALT (0-31) U/L Alkaline Phosphatase (39-117) U/L Troponin I High Sens < 2.7 (<3.5-17.0) ng/L Total Protein (6.5-8.0) g/dL Albumin (3.5-5.0) g/dL Urine Test (NEGATIVE) COVID-19 (MARILYN) Negative (Negative) COVID-19 Clin Com See Note Influenza Type A (ALDO) Negative (Negative) Influenza Type B (ALDO) Negative (Negative) Influenza A & B Note See Note 08/20/22 Range/Units 22:16 WBC (4.8-10.8) X10*3/uL RBC (4.20-5.50) X10*6/uL Hgb (12.0-16.0) g/dl Hct (37.0-47.0) % MCV (80.0-98.0) fL MCH (27.0-33.0) pg MCHC (31.0-35.0) g/dl RDW (11.0-16.0) % Plt Count (160-400) X10*3/uL MPV (9.4-12.3) fL Immature Gran % (Auto) (0.0-0.4) % Neut % (Auto) (45-73) % Lymph % (Auto) (20-40) % [place] % (Auto) (2-11) % Eos % (Auto) (0-4) % Baso % (Auto) (0-2) % Lymph # (Auto) (1.2-4.9) X10*3/uL [place] # (Auto) (0.1-1.2) X10*3/uL Eos # (Auto) (0.0-0.4) X10*3/uL Baso # (Auto) (0.0-0.2) X10*3/uL Abs Immat Gran (auto) (0.00-0.03) X10*3/uL Absolute Neuts (auto) (2.0-8.3) x10*3/uL Absolute Nucleated RBC (0.0-0.012) X10*3/uL Nucleated RBC % (auto) (0.0-0.2) /100WBC D-Dimer High Sensitivty NG/ML Sodium (135-145) mmol/L Potassium (3.3-5.1) mmol/L Chloride (96-108) mmol/L Carbon Dioxide (22-29) mmol/L Anion Gap (12-20) BUN (9-16) mg/dL Creatinine (0.5-1.4) mg/dL Estim Creat Clear Calc Estimated GFR Random Glucose (60-115) mg/dL Calcium (8.4-10.2) mg/dL Magnesium (1.6-2.6) mg/dL Total Bilirubin (0.0-1.0) mg/dL AST (5-31) U/L ALT (0-31) U/L Alkaline Phosphatase (39-117) U/L Troponin I High Sens (<3.5-17.0) ng/L Total Protein (6.5-8.0) g/dL Albumin (3.5-5.0) g/dL Urine Test NEGATIVE (NEGATIVE) COVID-19 (MARILYN) (Negative) COVID-19 Clin Com Influenza Type A (ALDO) (Negative) Influenza Type B (ALDO) (Negative) Influenza A & B Note Independent Interpretation I performed an independent interpretation of an: EKG Interpretation: Sinus tachycardia heart rate 132 beats per minute normal intervals normal axis no acute HD and no acute ischemia Discharge Plan Discharge Clinical Impression: Asthma with exacerbation Patient Disposition: Home, Self-Care Instructions: Asthma (ED) Additional Instructions: Continue nebulizing treatment every 4-6 hours as needed Prednisone as prescribed Follow with PCP Report to ER if worsening of shortness of breath Prescriptions: New prednisone 20 mg tablet 40 mg PO DAILY Qty: 10 0RF No Action acetaminophen [Tylenol Extra Strength] 500 mg tablet 500 mg PO Q6H PRN (Reason: pain or fever) Qty: 20 0RF ibuprofen 600 mg tablet 600 mg PO Q8H PRN (Reason: pain) Qty: 14 0RF ibuprofen 600 mg tablet 600 mg PO Q8H PRN (Reason: pain) Qty: 20 0RF ondansetron 4 mg tablet,disintegrating 4 mg PO Q8H PRN (Reason: nausea and vomiting) Qty: 10 0RF loperamide [Imodium A-D] 2 mg capsule 2 mg PO Q6H PRN (Reason: loose stool) Qty: 20 0RF ondansetron 4 mg tablet,disintegrating 4 mg PO Q6H PRN (Reason: nausea and vomiting) Qty: 14 0RF cephalexin 500 mg capsule 500 mg PO QID 10 Days Qty: 40 0RF doxycycline hyclate 100 mg tablet 100 mg PO BID Qty: 20 0RF ibuprofen 600 mg tablet 600 mg PO Q6H PRN (Reason: fever or pain) Qty: 30 0RF
[2022-08-20 20:22] LABS: Basophils Percent Auto 0.2 % (0-2); Eosinophils Absolute Auto 0.1 X10*3/uL (0.0-0.4); Eosinophils Percent Auto 1.2 % (0-4); Hematocrit 38.3 % (37.0-47.0); Hemoglobin 13.1 g/dl (12.0-16.0); Imm Gran Abs Auto 0.03 X10*3/uL (0.00-0.03); Imm Gran Pct Auto 0.3 % (0.0-0.4); Lymphocytes Absolute Auto 2.9 X10*3/uL (1.2-4.9); Lymphocytes Percent Auto 29.4 % (20-40); MANUAL DIFF FLAG NO; Mean Corpuscular HGB Conc 34.2 g/dl (31.0-35.0); Mean Corpuscular Hemoglobin 28.6 pg (27.0-33.0); Mean Corpuscular Volume 83.6 fL (80.0-98.0); Mean Platelet Volume 10.1 fL (9.4-12.3); Neutrophils Absolute Auto 5.7 x10*3/uL (2.0-8.3); Neutrophils Percent Auto 58.9 % (45-73); Platelet Count 320 X10*3/uL (160-400); Red Blood Count 4.58 X10*6/uL (4.20-5.50); Red Cell Distribution Width 12.5 % (11.0-16.0); White Blood Count 9.7 X10*3/uL (4.8-10.8)
[2022-08-20 20:37] LABS: Alanine Aminotransferase 36 U/L (0-31); Alkaline Phosphatase 81 U/L (39-117); Anion Gap 17 (12-20); Aspartate Amino Transferase 18 U/L (5-31); Bilirubin Total 0.3 mg/dL (0.0-1.0); Blood Urea Nitrogen 7 mg/dL (9-16); Calcium 9.4 mg/dL (8.4-10.2); Carbon Dioxide 20 mmol/L (22-29); Chloride 107 mmol/L (96-108); Creatinine Clr Calc Pharmacy 122.4; Estimated Glomerular Filt Rate > 60; Glucose Random 95 mg/dL (60-115); Magnesium 1.9 mg/dL (1.6-2.6); Potassium 3.5 mmol/L (3.3-5.1); Sodium 140 mmol/L (135-145); Total Protein 7.8 g/dL (6.5-8.0)
[2022-08-20 20:39] LABS: IDNOW Serial# 9DB6401D; Influenza A Negative (Negative); Influenza B2 Negative (Negative)
[2022-08-20 20:40] LABS: COVID-19 Test Negative (Negative); IDNOW Serial# BCCEAD1C
[2022-08-20 20:47] LABS: Troponin-I High Sensitivity < 2.7 ng/L (<3.5-17.0)
[2022-08-20 20:52] LABS: D Dimer High Sensitivity < 150 NG/ML
[2022-08-20 22:32] LABS: UPreg QC Valid YES; Urine Pregnancy NEGATIVE (NEGATIVE)
--- NOTE | 2022-08-21 | ECG_ITS ---
Test Reason : tachy Blood Pressure : / mmHG Vent. Rate : 132 BPM Atrial Rate : 133 BPM P-R Int : 136 ms QRS Dur : 074 ms QT Int : 314 ms P-R-T Axes : 035 057 047 degrees QTc Int : 465 ms Sinus tachycardia Nonspecific ST abnormality Abnormal ECG When compared with ECG of 20-AUG-2022 20:04, No significant change was found Referred By: Julio César Ledezma Electronically Signed By:RACHNA OROURKE MD
[2022-08-21 03:12] VITALS: BP 135/95; PULSE 74; RESP 12; TEMP 36.8; O2SAT 97
[2022-08-21] MEDS: Albuterol Sulfate 90 MCG 8 GM INHALER 2 PUFF INHALE (03:39)
[2022-08-21] MEDS: Magnesium Sulfate/H2O 2 GM/50 ML PIGGYBACK IV (03:39)
[2022-08-21] MEDS: methylPREDNISolone Sod Succ 125 MG/2 ML VIAL IVPUSH (03:39)
[2022-08-21] MEDS: Albuterol/Iprat 2.5/0.5MG 3 ML AMPUL.NEB INHALE (04:43)
[2022-08-21 04:44] VITALS: PULSE 77; RESP 16; O2SAT 97
--- NOTE | 2022-08-21 05:04 | PC.NURSE ---
Patient vomiting and HR 144 while taking nebu treatment. EKG ordered. Sinus Tach. made aware
--- NOTE | 2022-08-21 05:07 | PC.NURSE ---
Delayed entry- Assumed care of patient at 3:02. Patient reports upper rib cage pain upon palpation and inspiration. PT has a history of asthma and took rescue inhaler with no relief. [address], medications administered at per MAR. WIll contineu to follow plan of care
[2022-08-21] MEDS: Ketorolac Tromethamine 30 MG/ML VIAL IVPUSH (05:31)
[2022-08-21] MEDS: LORazepam 2 MG/ML VIAL 1 MG IVPUSH (05:32)
[2022-08-21] MEDS: 0.9 % Sodium Chloride 1,000 ML 999 ML IV (05:32)
--- NOTE | 2022-08-21 05:35 | PC.NURSE ---
Patient Bpm 100, spo02 97%, resp 13. Administered medications as per APR. Reports nausea. MD made aware. Will continue to follow plan of care
[2022-08-21] MEDS: ondansetron HCL 4 MG/2 ML VIAL IVPUSH (05:54)
== END 2022-08-21 07:16 | disposition home or self-care (01) ==
PROVIDERS: Physician Assistant; Emergency Provider Internal Medicine; PCP Registered Nurse
DX: J45.901 Unspecified asthma with (acute) exacerbation (principal); R06.02 Shortness of breath; Z20.822 Contact with and (suspected) exposure to COVID-19
CPT/HCPCS: 71045; 80053; 81025; 83735; 84484; 85025; 85379; 87502; 87635; 93005; 94640; 96374; 96375; 99285; J1885; J2060; J2405; J2930; J3475

== ENCOUNTER → 2022-08-20 19:57 | Outpatient (BNV) | payer MEDICAID, SELFPAY | PROVIDERS: Emergency Provider Internal Medicine; PCP Registered Nurse; Visit Provider Internal Medicine Cardiovascular Disease | DX: R06.02 Shortness of breath (principal) | CPT/HCPCS: 93010 ==

== ENCOUNTER → 2022-08-21 05:00 | Outpatient (BNV) | payer MEDICAID, SELFPAY | PROVIDERS: Emergency Provider Internal Medicine; PCP Registered Nurse; Visit Provider Internal Medicine Cardiovascular Disease | DX: R00.0 Tachycardia, unspecified (principal); R94.31 Abnormal electrocardiogram [ECG] [EKG] | CPT/HCPCS: 93010 ==

== ENCOUNTER 2022-08-22 20:44 | Emergency (ER) | payer MEDICAID, SELFPAY ==
--- NOTE | ~2022-08-22 | XR_ITS ---
EXAMINATION: XR CHEST CLINICAL INFORMATION: Shortness of breath COMPARISON: 08/20/2022 TECHNIQUE: 2 views of the chest were obtained. FINDINGS: The lungs are clear with no focal consolidation. No evidence of pneumothorax, pulmonary edema, or pleural effusions. The cardiomediastinal silhouette is unremarkable. No acute osseous findings. XR/XR chest 2V IMPRESSION: No acute cardiopulmonary findings.
--- NOTE | 2022-08-22 20:51 | ED_ITS ---
HPI - General Adult General Chief complaint: Upper Respiratory Symptoms Stated complaint: asthma attack Time Seen by Provider: 08/23/22 00:12 Source: patient Mode of arrival: ambulatory Limitations: no limitations History of Present Illness HPI narrative: A 21-year-old female history of bronchial asthma presented with 5 days of shortness of breath. Patient was seen in the emergency department 3 days ago diagnosed with asthma exacerbation and was prescribed bronchodilator and prednisone that the patient has been taking for the last 3 days with no improvement of her symptoms, patient is complaining of pleuritic chest pain, patient had negative D-dimer 3 days ago, no recent travel, no recent prolonged immobilization, no recent surgery, no lower extremity swelling or tenderness. Related Data Previous Rx's Medication Instructions Recorded acetaminophen 500 mg tablet 500 mg PO Q6H PRN pain or fever 08/08/20 (Tylenol Extra Strength) #20 tabs ibuprofen 600 mg tablet 600 mg PO Q8H PRN pain #14 tabs 08/08/20 ibuprofen 600 mg tablet 600 mg PO Q8H PRN pain #20 tabs 10/12/20 ondansetron 4 mg disintegrating 4 mg PO Q8H PRN nausea and 10/12/20 tablet vomiting #10 tabs loperamide 2 mg capsule (Imodium 2 mg PO Q6H PRN loose stool #20 11/30/21 A-D) caps ondansetron 4 mg disintegrating 4 mg PO Q6H PRN nausea and 11/30/21 tablet vomiting #14 tabs cephalexin 500 mg capsule 500 mg PO QID 10 days #40 caps 02/27/22 doxycycline hyclate 100 mg tablet 100 mg PO BID #20 tabs 02/27/22 ibuprofen 600 mg tablet 600 mg PO Q6H PRN fever or pain 02/27/22 #30 tabs prednisone 20 mg tablet 40 mg PO DAILY #10 tabs 08/21/22 cefuroxime axetil 250 mg tablet 250 mg PO BID #14 tabs 08/23/22 ibuprofen 400 mg tablet 400 mg PO Q8H PRN fever or pain 08/23/22 #10 tabs ondansetron 4 mg disintegrating 4 mg PO Q8-12H PRN nausea and 08/23/22 tablet vomiting #7 tabs Allergies Allergy/AdvReac Type Severity Reaction Status Date / Time nut - unspecified Allergy Intermediate HIVES Verified 08/20/22 20:00 [NUT - UNSPECIFIED] FRUIT Allergy Intermediate ITCHY LIPS Uncoded 03/20/21 18:12 nuts Allergy Intermediate Hives Uncoded 03/20/21 18:12 pollen Allergy Intermediate Hives Uncoded 03/20/21 18:12 Review of Systems Review of Systems: All other systems are reviewed and are negative Constitutional: Reports as per HPI and Reports no additional constitutional complaints Eyes: Reports as per HPI and Reports no additional eye complaints Reports system reviewed and no additional complaints, except as documented Cardiovascular: Reports as per HPI and Reports no additional cardiovascular complaints Respiratory: Reports as per HPI and Reports no additional respiratory complaints Gastrointestinal: Reports as per HPI and Reports no additional gastrointestinal complaints Genitourinary: Reports no additional female genitourinary complaints Musculoskeletal: Reports no additional musculoskeletal complaints Skin/Breast: Reports system reviewed and no additional complaints, except as docu Psychiatric: Reports no additional psychiatric complaints Endocrine: Reports no additional endocrine complaints Hematologic/Lymphatic: Reports no additional hematologic/lymphatic complaints Allergic/Immunologic: Reports no additional allergic/immunologic complaints Reports system reviewed and no additional complaints, except as documented and Reports Abnormal speech present [facility] Past Medical History Medical History Asthma Kidney stones PCOS (polycystic ovarian syndrome) Social History Social History Alcohol intake: never Substance Use Type: Marijuana Advance Directives: No Advance Directives Information Provided: No Current occupational status: employed 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 Blood pressure normal. Heart rate normal. Respiration rate normal. Temperature normal. Oxygen saturation normal. Appearance: Alert. Oriented X3. No acute distress. Head: Normal external exam. Normocephalic. Atraumatic. No Orta signs noted. No raccoon eyes noted Eyes: PERRLA. EOMI. Conjunctiva and sclera normal. Eyelids normal. ENT: TM's Normal. Pharynx normal. Uvula midline. Moist mucous membranes. No trismus noted. No drooling noted. No muffled voice noted. Neck: Normal inspection. Neck supple. FROM. No adenopathy. Thyroid Normal. No meningeal signs. No neck mass noted. CVS: Normal heart rate and rhythm. Heart sound normal. No murmurs noted. Pulses normal throughout. Respiratory: No respiratory distress. Painless inspiration. Breath sounds normal. No wheezes/rales/rhonchi noted. Chest nontender. No accessory muscle usage noted or decreased air movement noted. Abdomen: Soft and nontender. Bowel sounds normal in all 4 quadrants. No distention noted. No organomegaly noted. No visible injury noted. Back: No CVA tenderness. Full range of motion noted. Skin: Skin warm and dry. Normal skin color. Normal skin turgor. No rashes/lesions/lacerations noted. Extremities: No lower extremity edema. Extremities exhibit normal range of motion. Extremities nontender. Neuro: Oriented X 3. Cranial nerve exam: II-XII are grossly intact No motor deficit. No sensory deficit. Reflexes normal. Course Course Course Narrative: This is a rapid medical exam: Additional HPI, ROS, PE not included below will be deferred to primary provider. Patient is a 21-year-old female with history of PCOS, asthma, rheumatoid arthritis presenting to the emergency department with complaint of shortness of breath, as well as tingling to bilateral hands. Also complains of pleuritic chest and back pain. Patient was seen here on Friday and diagnosed with asthma exacerbation. Lung sounds CTA throughout, no wheezing, O2 sat 99% on room air, patient initially presenting with increased respiratory rate which she was able to slow with verbal redirection. Plan: basic labs Reevaluation(s) Reevaluation #1: 31-year-old female came in with persistent of shortness of breath with history for asthma, patient at low risk for pulmonary embolism or DVT was negative D- dimer 3 days ago and stable vital signs, chest x-ray showing no larry pneumonia, patient is taking albuterol and prednisone for 3 days would start the patient on Z-Iftikhar and NSAIDs for pleuritic chest pain. Time: 01:03 Medications Administered Discontinued Medications Generic Name Dose Route Start Last Admin Trade Name Freq PRN Reason Stop Dose Admin Cefuroxime Axetil 250 mg 08/23/22 01:11 08/23/22 01:58 Cefuroxime Axetil 250 Mg Tablet PO 08/23/22 01:12 250 mg ONCE ONE Administration Ibuprofen 600 mg 08/23/22 01:11 08/23/22 01:58 Ibuprofen 600 Mg Tablet PO 08/23/22 01:12 600 mg ONCE ONE Administration Medical Decision Making Differential Diagnosis Differential Diagnoses: The differential diagnosis associated with the presentation includes (Pneumonia, bronchitis, asthma exacerbation, PE, electrolyte abnormality, anemia, abnormal vital signs.) Admission/Observation Consideration of admission/observation: Escalation of care including admission/observation considered Lab Data MDM Lab Attestation statement: I reviewed the patient's lab results. 08/22/22 21:32 08/22/22 21:32 Labs: Lab Results 08/22/22 08/22/22 08/22/22 Range/Units 21:32 21:32 23:51 WBC 16.1 H (4.8-10.8) X10*3/uL RBC 4.76 (4.20-5.50) X10*6/uL Hgb 13.6 (12.0-16.0) g/dl Hct 39.9 (37.0-47.0) % MCV 83.8 (80.0-98.0) fL MCH 28.6 (27.0-33.0) pg MCHC 34.1 (31.0-35.0) g/dl RDW 12.8 (11.0-16.0) % Plt Count 339 (160-400) X10*3/uL MPV 10.2 (9.4-12.3) fL Immature Gran % (Auto) 0.6 H (0.0-0.4) % Neut % (Auto) 84.8 H (45-73) % Lymph % (Auto) 11.0 L (20-40) % [place] % (Auto) 3.5 (2-11) % Eos % (Auto) 0.0 (0-4) % Baso % (Auto) 0.1 (0-2) % Lymph # (Auto) 1.8 (1.2-4.9) X10*3/uL [place] # (Auto) 0.6 (0.1-1.2) X10*3/uL Eos # (Auto) 0.0 (0.0-0.4) X10*3/uL Baso # (Auto) 0.0 (0.0-0.2) X10*3/uL Abs Immat Gran (auto) 0.09 H (0.00-0.03) X10*3/uL Absolute Neuts (auto) 13.6 H (2.0-8.3) x10*3/uL Absolute Nucleated RBC 0.000 (0.0-0.012) X10*3/uL Nucleated RBC % (auto) 0.0 (0.0-0.2) /100WBC Sodium 138 (135-145) mmol/L Potassium 4.3 D (3.3-5.1) mmol/L Chloride 106 (96-108) mmol/L Carbon Dioxide 21 L (22-29) mmol/L Anion Gap 15 (12-20) BUN 14 (9-16) mg/dL Creatinine 0.80 (0.5-1.4) mg/dL Estim Creat Clear Calc TNP Estimated GFR > 60 Random Glucose 113 (60-115) mg/dL Calcium 9.9 (8.4-10.2) mg/dL Influenza Type A (PCR) NEGATIVE (Negative) Influenza Type B (PCR) NEGATIVE (Negative) RSV RNA Qual (PCR) NEGATIVE (Negative) SARS-CoV-2 RNA (RT-PCR) NEGATIVE (Negative) Independent Interpretation I performed an independent interpretation of an: Plain X-Ray (Chest: No acute intrathoracic pathology.) Radiology Impression Discussion of test interpretation with radiology: I have reviewed the radiologist's reading. Discharge Plan Discharge Clinical Impression: Bronchitis Patient Disposition: Home, Self-Care Instructions: Acute Bronchitis (ED) Prescriptions: New cefuroxime axetil 250 mg tablet 250 mg PO BID Qty: 14 0RF ibuprofen 400 mg tablet 400 mg PO Q8H PRN (Reason: fever or pain) Qty: 10 0RF ondansetron 4 mg tablet,disintegrating 4 mg PO Q8-12H PRN (Reason: nausea and vomiting) Qty: 7 0RF No Action acetaminophen [Tylenol Extra Strength] 500 mg tablet 500 mg PO Q6H PRN (Reason: pain or fever) Qty: 20 0RF ibuprofen 600 mg tablet 600 mg PO Q8H PRN (Reason: pain) Qty: 14 0RF ibuprofen 600 mg tablet 600 mg PO Q8H PRN (Reason: pain) Qty: 20 0RF ondansetron 4 mg tablet,disintegrating 4 mg PO Q8H PRN (Reason: nausea and vomiting) Qty: 10 0RF loperamide [Imodium A-D] 2 mg capsule 2 mg PO Q6H PRN (Reason: loose stool) Qty: 20 0RF ondansetron 4 mg tablet,disintegrating 4 mg PO Q6H PRN (Reason: nausea and vomiting) Qty: 14 0RF cephalexin 500 mg capsule 500 mg PO QID 10 Days Qty: 40 0RF doxycycline hyclate 100 mg tablet 100 mg PO BID Qty: 20 0RF ibuprofen 600 mg tablet 600 mg PO Q6H PRN (Reason: fever or pain) Qty: 30 0RF prednisone 20 mg tablet 40 mg PO DAILY Qty: 10 0RF Referrals: [facility] [Primary Care Provider] - Interventions: ED Discharge Assessment Last Done: 08/23/22 02:13 Discharge Date/Time: 08/23/22 02:13
[2022-08-22 21:36] LABS: MANUAL DIFF FLAG NO
[2022-08-22 21:38] LABS: Basophils Percent Auto 0.1 % (0-2); Hematocrit 39.9 % (37.0-47.0); Hemoglobin 13.6 g/dl (12.0-16.0); Imm Gran Abs Auto 0.09 X10*3/uL (0.00-0.03); Imm Gran Pct Auto 0.6 % (0.0-0.4); Lymphocytes Absolute Auto 1.8 X10*3/uL (1.2-4.9); Mean Corpuscular HGB Conc 34.1 g/dl (31.0-35.0); Mean Corpuscular Hemoglobin 28.6 pg (27.0-33.0); Mean Corpuscular Volume 83.8 fL (80.0-98.0); Mean Platelet Volume 10.2 fL (9.4-12.3); Monocytes Absolute Auto 0.6 X10*3/uL (0.1-1.2); Monocytes Percent Auto 3.5 % (2-11); Neutrophils Absolute Auto 13.6 x10*3/uL (2.0-8.3); Neutrophils Percent Auto 84.8 % (45-73); Platelet Count 339 X10*3/uL (160-400); Red Blood Count 4.76 X10*6/uL (4.20-5.50); Red Cell Distribution Width 12.8 % (11.0-16.0); White Blood Count 16.1 X10*3/uL (4.8-10.8)
[2022-08-22 21:56] LABS: Anion Gap 15 (12-20); Blood Urea Nitrogen 14 mg/dL (9-16); Calcium 9.9 mg/dL (8.4-10.2); Carbon Dioxide 21 mmol/L (22-29); Chloride 106 mmol/L (96-108); Estimated Glomerular Filt Rate > 60; Glucose Random 113 mg/dL (60-115); Potassium 4.3 mmol/L (3.3-5.1); Sodium 138 mmol/L (135-145)
[2022-08-22 22:56] VITALS: BP 120/80; PULSE 87; RESP 16; TEMP 36.1; O2SAT 97; BMI 34.5
[2022-08-23 00:44] LABS: Influenza A PCR NEGATIVE (Negative); Influenza B PCR NEGATIVE (Negative); Resp Syncy Virus RNA Qual PCR NEGATIVE (Negative); SARS COV2 PCR INHOUSE NEGATIVE (Negative)
[2022-08-23 01:26] VITALS: BP 116/74; PULSE 68; RESP 18; TEMP 37.4; O2SAT 98
--- NOTE | 2022-08-23 01:29 | MHC.EDTECH ---
THIS PCT JUST ASSUMED CARE OF PATIENT ,VITALS SIGN TAKEN ,PT ON HER PHONE ,PATIENT BOYFRIEND AT BEDSIDE .
[2022-08-23] MEDS: Ibuprofen 600 MG TABLET PO (01:58)
== END 2022-08-23 02:13 | disposition home or self-care (01) ==
PROVIDERS: Registered Nurse Emergency; Emergency Provider Emergency Medicine
DX: J40 Bronchitis, not specified as acute or chronic (principal); R06.02 Shortness of breath; Z20.822 Contact with and (suspected) exposure to COVID-19; Z20.828 Contact with and (suspected) exposure to other viral communicable diseases; Z79.899 Other long term (current) drug therapy
CPT/HCPCS: 0241U; 36415; 71046; 80048; 85025; 99283; 99284

== ENCOUNTER 2023-03-31 07:16 | Emergency (ER) | payer MEDICAID, SELFPAY ==
--- NOTE | ~2023-03-31 | CT_ITS ---
EXAMINATION: CT ABDOMEN AND PELVIS WITH CONTRAST CLINICAL INFORMATION: Abdominal pain, nausea and vomiting with leukocytosis. COMPARISON: None available. TECHNIQUE: Multidetector volumetric images were obtained from the superior aspect of the liver through the pubic symphysis following administration 85 mL of Omnipaque 350 intravenous contrast. Sagittal and coronal reformatted images were obtained on the technologist's workstation. Oral contrast: No This CT examination was performed using dose optimization techniques as appropriate, variously including the following: *Automated exposure control *Adjustment of mA and/or kV according to patient size (this includes techniques or standardized protocols for targeted exams where dose is matched to indication/reason for exam; i.e. extremities or head) *Use of iterative reconstruction technique DLP: 540 mGy-cm. FINDINGS: LUNG BASES: The visualized lung bases are unremarkable. LIVER, GALLBLADDER, AND BILIARY TREE: The liver is normal in size, shape, and attenuation. No focal hepatic lesion or biliary ductal dilatation is present. The gallbladder is unremarkable with no evidence of radiopaque gallstones, gallbladder wall thickening, or obvious pericholecystic inflammatory changes. PANCREAS: Unremarkable. SPLEEN: Unremarkable. ADRENAL GLANDS: Unremarkable. KIDNEYS AND URETERS: The kidneys are normal in size, shape, and attenuation. No hydronephrosis, hydroureter, or calculi seen. No perinephric stranding. BLADDER: Unremarkable. GASTROINTESTINAL TRACT: There is fluid-filled colon without distention or mural thickening. This could be secondary to diarrhea. The small bowel loops are normal caliber. The appendix is there is normal caliber. No inflammatory changes seen in the abdomen or pelvis. ABDOMINAL WALL: No significant hernia is appreciated. LYMPH NODES: Normal. VASCULAR: Unremarkable. PELVIC VISCERA: Unremarkable. 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 CT/CT abdomen pelvis w IV con IMPRESSION: Fluid-filled nondilated colon likely secondary to diarrhea. No mural thickening. The small bowel loops are normal. Appendix is normal. No change in the groundglass appearing bubbly lesion of the right proximal femur. The lesion can be prone for fracture. Consult orthopedics Fleischner guidelines were followed.
[2023-03-31 07:19] VITALS: BP 172/110; PULSE 96; O2SAT 95
--- NOTE | 2023-03-31 07:27 | ED.GENADULT ---
HPI - General Adult General Chief complaint: General Medical Stated complaint: ABD PAIN,NAUSEA W/VOMITING BLOOD PER EMS Time Seen by Provider: 03/31/23 07:18 Source: patient Mode of arrival: ambulatory Limitations: no limitations History of Present Illness HPI narrative: This is a 22-year-old female without significant medical history presenting to the emergency department with nausea, vomiting, diarrhea and abdominal discomfort since , patient reports she has been having a hard time keeping any food or drink down. She tells me that this morning when she started vomiting she noted some red in her vomit and she was concerned it could be blood however unclear she says it was just a small little chunk . Reports subjective fevers and chills. She denies any recent sick contacts. Denies chance of reports she is on control. She denies chest pain, shortness of breath, headache, vision changes, dizziness, changes in urination. Related Data Previous Rx's Medication Instructions Recorded acetaminophen 500 mg tablet 500 mg PO Q6H PRN pain or fever 08/08/20 (Tylenol Extra Strength) #20 tabs ibuprofen 600 mg tablet 600 mg PO Q8H PRN pain #14 tabs 08/08/20 ibuprofen 600 mg tablet 600 mg PO Q8H PRN pain #20 tabs 10/12/20 ondansetron 4 mg disintegrating 4 mg PO Q8H PRN nausea and 10/12/20 tablet vomiting #10 tabs loperamide 2 mg capsule (Imodium 2 mg PO Q6H PRN loose stool #20 11/30/21 A-D) caps ondansetron 4 mg disintegrating 4 mg PO Q6H PRN nausea and 11/30/21 tablet vomiting #14 tabs cephalexin 500 mg capsule 500 mg PO QID 10 days #40 caps 02/27/22 doxycycline hyclate 100 mg tablet 100 mg PO BID #20 tabs 02/27/22 ibuprofen 600 mg tablet 600 mg PO Q6H PRN fever or pain 02/27/22 #30 tabs prednisone 20 mg tablet 40 mg (2 x 20 mg) PO DAILY #10 tabs 08/21/22 cefuroxime axetil 250 mg tablet 250 mg PO BID #14 tabs 08/23/22 ibuprofen 400 mg tablet 400 mg PO Q8H PRN fever or pain 08/23/22 #10 tabs ondansetron 4 mg disintegrating 4 mg PO Q8-12H PRN nausea and 08/23/22 tablet vomiting #7 tabs ondansetron 4 mg disintegrating 4 mg PO Q6H PRN nausea and 03/31/23 tablet vomiting #14 tabs Allergies Allergy/AdvReac Type Severity Reaction Status Date / Time nut - unspecified Allergy Intermediate HIVES Verified 08/20/22 20:00 [NUT - UNSPECIFIED] FRUIT Allergy Intermediate ITCHY LIPS Uncoded 03/20/21 18:12 nuts Allergy Intermediate Hives Uncoded 03/20/21 18:12 pollen Allergy Intermediate Hives Uncoded 03/20/21 18:12 Review of Systems Review of Systems: Yes all other systems are reviewed and are negative [facility] Past Medical History Attestation statement: The following information was validated with the patient. Source: old records reviewed and nursing notes reviewed Medical History PCOS (polycystic ovarian syndrome) Kidney stones Asthma Social History Social History Alcohol intake: current Alcohol intake frequency: holidays/special occasions only Smoked in Last 30 Days: No Use of substances other than those prescribed or required for medical reasons: Yes Substance Use Type: Marijuana Advance Directives: No Advance Directives Information Provided: No Patient : No Current occupational status: employed 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[employer] Physical Exam ED Vital Signs: Vital Signs - 24 hr 03/31/23 07:29 03/31/23 10:20 Temperature 98 F 97.9 F Pulse Rate 90 79 Respiratory Rate 18 19 Blood Pressure 114/72 101/57 L Pulse Oximetry 98 96 Oxygen Delivery Method Room Air Room Air BMI result Body Mass Index 33.3 vss Appearance: Alert.? Oriented X3.? No acute distress.? Head: Normocephalic, atraumatic, no step-offs or deformities Eyes: Pupils equal, round and reactive to light.? ENT: Pharynx normal.? Neck: Normal inspection.? Neck supple.? CVS: Normal heart rate and rhythm.? Pulses normal.? Respiratory: No respiratory distress.? Breath sounds normal.? Abdomen: Soft and mild diffuse abdominal discomfort. Normoactive bowel sounds.. Skin: Skin warm and dry.? Normal skin color.? Normal skin turgor.? Extremities: No lower extremity edema.? No calf ttp. 5/5 strength to bilateral upper and lower extremities Neuro: Oriented X 3.? No motor deficit.? No sensory deficit. CN 2-12 intact Course Reevaluation(s) Reevaluation #1: CBC with leukocytosis likely reactive secondary to nausea and vomiting. No signs of anemia unlikely upper or lower GI bleed. Hemoglobin and hematocrit baseline. Chemistry no acute findings requiring intervention. Normal lipase. Beta hCG negative. UA without infection. Likely contaminated. COVID and influenza negative. CT abdomen pelvis with fluid-filled nondilated colon likely secondary to diarrhea. No mural thickening no signs of obstruction. Appendix is normal. Ground-glass appearing but bleed lesion of the right proximal femur, has been seen previously. Will give her orthopedic follow-up for this. Patient feeling better. Likely viral illness. Will discharge her home with Zofran and PCP follow-up. Educated patient on diagnosis and treatment plan, answered all question, patient verbalizes understanding. At this time patient will be discharged home, advised to return with new or worsening symptoms. Educated on worrisome signs and symptoms and when to return. At this time I feel comfortable discharge home. Time: 10:39 Medications Administered Discontinued Medications Generic Name Dose Route Start Last Admin Trade Name Lázaroq PRN Reason Stop Dose Admin Sodium Chloride 1,000 mls @ 999 mls/hr 03/31/23 07:30 03/31/23 09:12 Ns IV 03/31/23 08:30 Infused .Q1H1M CARRI Infusion Iohexol 85 ml 03/31/23 09:39 03/31/23 09:39 Iohexol 350 Mg/Ml 100 Ml Infus..Btl IV 03/31/23 09:40 85 ml ONCE ONE Administration Ondansetron HCl 4 mg 03/31/23 07:19 03/31/23 07:35 Ondansetron Hcl 4 Mg/2 Ml Vial IVPUSH 03/31/23 07:20 4 mg ONCE ONE Administration Medical Decision Making Medical Decision Making [facility] Narrative: 22-year-old female presents with nausea, vomiting, diarrhea and abdominal discomfort since . Physical exam significant for Soft and mild diffuse abdominal discomfort. Normoactive bowel sounds.. Concerns for viral illness versus flu versus COVID versus gastroenteritis. Unlikely acute abdomen, appendicitis, cholecystitis, obstruction, diverticulitis, pancreatitis. Unlikely . Will rule out UTI, cystitis and electrolyte abnormalities Plan labs, imaging Differential Diagnosis Differential Diagnoses: The differential diagnosis associated with the presentation includes Concerns for viral illness versus flu versus COVID versus gastroenteritis. Unlikely acute abdomen, appendicitis, cholecystitis, obstruction, diverticulitis, pancreatitis. Unlikely . Will rule out UTI, cystitis and electrolyte abnormalities Admission/Observation Consideration of admission/observation: Escalation of care including admission/observation considered Possible Lab Data MDM Lab Attestation statement: I reviewed the patient's lab results. 03/31/23 07:27 03/31/23 07:27 Labs: Lab Results 03/31/23 03/31/23 03/31/23 Range/Units 07:27 07:39 07:41 WBC 14.5 H (4.8-10.8) X10*3/uL RBC 4.79 (4.20-5.50) X10*6/uL Hgb 13.9 (12.0-16.0) g/dl Hct 39.7 (37.0-47.0) % MCV 82.9 (80.0-98.0) fL MCH 29.0 (27.0-33.0) pg MCHC 35.0 (31.0-35.0) g/dl RDW 13.2 (11.0-16.0) % Plt Count 311 (160-400) X10*3/uL MPV 9.9 (9.4-12.3) fL Immature Gran % (Auto) 0.4 (0.0-0.4) % Neut % (Auto) 70.6 (45-73) % Lymph % (Auto) 17.6 L (20-40) % [place] % (Auto) 9.1 (2-11) % Eos % (Auto) 2.0 (0-4) % Baso % (Auto) 0.3 (0-2) % Lymph # (Auto) 2.6 (1.2-4.9) X10*3/uL [place] # (Auto) 1.3 H (0.1-1.2) X10*3/uL Eos # (Auto) 0.3 (0.0-0.4) X10*3/uL Baso # (Auto) 0.0 (0.0-0.2) X10*3/uL Abs Immat Gran (auto) 0.06 H (0.00-0.03) X10*3/uL Absolute Neuts (auto) 10.2 H (2.0-8.3) x10*3/uL Absolute Nucleated RBC 0.000 (0.0-0.012) X10*3/uL Nucleated RBC % (auto) 0.0 (0.0-0.2) /100WBC Sodium 137 (135-145) mmol/L Potassium 3.7 (3.3-5.1) mmol/L Chloride 110 H (96-108) mmol/L Carbon Dioxide 17 L (22-29) mmol/L Anion Gap 14 (12-20) BUN 14 (9-16) mg/dL Creatinine 0.81 (0.5-1.4) mg/dL Estim Creat Clear Calc 111.7 Estimated GFR > 60 Random Glucose 108 (60-115) mg/dL Calcium 9.4 (8.4-10.2) mg/dL Magnesium 1.9 (1.6-2.6) mg/dL Total Bilirubin 0.3 (0.0-1.0) mg/dL AST 16 (5-31) U/L ALT 21 (0-31) U/L Alkaline Phosphatase 69 (39-117) U/L Total Protein 8.1 H (6.5-8.0) g/dL Albumin 4.1 (3.5-5.0) g/dL Lipase 20 (8-78) U/L Beta HCG, Quant < 2 mIU/mL Urine Color Yellow Urine Appearance Clear Urine pH 5.0 (5.0-9.0) Ur Specific [place] 1.025 (1.005-1.025) Urine Protein 100 (2+) H (Neg-Trace) mg/dL Urine Glucose (UA) Negative (Negative) mg/dL Urine Ketones Negative (Negative) mg/dL Urine Blood Negative (Negative) Urine Nitrite Negative (Negative) Ur Leukocyte Esterase Negative (Negative) Urine RBC 0-2 (0-2) /HPF Urine WBC 0-5 (0-5) /HPF Ur Squamous Epith Cells 6-10 (0-2) /HPF Urine Bacteria Trace (None Seen) Hyaline Casts 11-20 (0-2) /LPF Granular Casts Present COVID-19 (MARILNY) Negative (Negative) COVID-19 Clin Com See Note Influenza Type A (ALDO) Negative (Negative) Influenza Type B (ALDO) Negative (Negative) Influenza A & B Note See Note Independent Interpretation I performed an independent interpretation of an: CT Scan Interpretation: CT/CT abdomen pelvis w IV con IMPRESSION: Fluid-filled nondilated colon likely secondary to diarrhea. No mural thickening. The small bowel loops are normal. Appendix is normal. No change in the groundglass appearing bubbly lesion of the right proximal femur. The lesion can be prone for fracture. Consult orthopedics Fleischner guidelines were followed. Radiology Impression Discussion of test interpretation with radiology: I have reviewed the radiologist's reading. Chronic Conditions Patient?s care impacted by: Other ([place]) Critical Care Time Critical Care Time Critical Care Time: Yes Total Critical Care Time: 35 Attestation: I attest to this time spent taking care of the patient, obtaining history, physical, reviewing labs, imaging. Discharge Plan Discharge Clinical Impression: Nausea & vomiting, Diarrhea, Viral illness Patient Disposition: Home, Self-Care Instructions: Acute Nausea and Vomiting (ED), Acute Diarrhea (ED), Viral Syndrome (ED) Additional Instructions: Take your medications as prescribed. If you were prescribed antibiotics today, it is important that you take your medication to their entirety, do not skip any doses, do not finish them early. Follow-up with your primary care provider this week. Return to the emergency department with new or worsening symptoms. Such as fevers, chills, chest pain, shortness of breath, nausea, vomiting, dizziness, headache, vision changes, lethargy In case of emergency call 911 Zoan has been sent for nausea vomiting. Please stick to a bland diet. Prescriptions: New ondansetron 4 mg tablet,disintegrating 4 mg PO Q6H PRN (Reason: nausea and vomiting) Qty: 14 0RF No Action acetaminophen [Tylenol Extra Strength] 500 mg tablet 500 mg PO Q6H PRN (Reason: pain or fever) Qty: 20 0RF ibuprofen 600 mg tablet 600 mg PO Q8H PRN (Reason: pain) Qty: 14 0RF ibuprofen 600 mg tablet 600 mg PO Q8H PRN (Reason: pain) Qty: 20 0RF ondansetron 4 mg tablet,disintegrating 4 mg PO Q8H PRN (Reason: nausea and vomiting) Qty: 10 0RF loperamide [Imodium A-D] 2 mg capsule 2 mg PO Q6H PRN (Reason: loose stool) Qty: 20 0RF ondansetron 4 mg tablet,disintegrating 4 mg PO Q6H PRN (Reason: nausea and vomiting) Qty: 14 0RF cephalexin 500 mg capsule 500 mg PO QID 10 Days Qty: 40 0RF doxycycline hyclate 100 mg tablet 100 mg PO BID Qty: 20 0RF ibuprofen 600 mg tablet 600 mg PO Q6H PRN (Reason: fever or pain) Qty: 30 0RF prednisone 20 mg tablet 40 mg PO DAILY Qty: 10 0RF cefuroxime axetil 250 mg tablet 250 mg PO BID Qty: 14 0RF ibuprofen 400 mg tablet 400 mg PO Q8H PRN (Reason: fever or pain) Qty: 10 0RF ondansetron 4 mg tablet,disintegrating 4 mg PO Q8-12H PRN (Reason: nausea and vomiting) Qty: 7 0RF Referrals: [facility] [Provider Group] - 1 week Physician,Unknown J [Primary Care Provider] - 3 days Stand Alone Forms: Work/School Release
[2023-03-31 07:29] VITALS: BP 114/72; PULSE 90; RESP 18; TEMP 36.6; O2SAT 98; BMI 33.3
[2023-03-31 07:30] LABS: MANUAL DIFF FLAG NO
[2023-03-31 07:32] LABS: Basophils Percent Auto 0.3 % (0-2); Eosinophils Absolute Auto 0.3 X10*3/uL (0.0-0.4); Hematocrit 39.7 % (37.0-47.0); Hemoglobin 13.9 g/dl (12.0-16.0); Imm Gran Abs Auto 0.06 X10*3/uL (0.00-0.03); Imm Gran Pct Auto 0.4 % (0.0-0.4); Lymphocytes Absolute Auto 2.6 X10*3/uL (1.2-4.9); Lymphocytes Percent Auto 17.6 % (20-40); Mean Corpuscular Volume 82.9 fL (80.0-98.0); Mean Platelet Volume 9.9 fL (9.4-12.3); Monocytes Absolute Auto 1.3 X10*3/uL (0.1-1.2); Monocytes Percent Auto 9.1 % (2-11); Neutrophils Absolute Auto 10.2 x10*3/uL (2.0-8.3); Neutrophils Percent Auto 70.6 % (45-73); Platelet Count 311 X10*3/uL (160-400); Red Blood Count 4.79 X10*6/uL (4.20-5.50); Red Cell Distribution Width 13.2 % (11.0-16.0); White Blood Count 14.5 X10*3/uL (4.8-10.8)
[2023-03-31] MEDS: 0.9 % Sodium Chloride 1,000 ML 999 ML IV (07:34)
[2023-03-31] MEDS: ondansetron HCL 4 MG/2 ML VIAL IVPUSH (07:35)
[2023-03-31 07:48] LABS: Appearance Urine Clear; Color Urine Yellow; Glucose Urine UA Negative (Negative); Leukocyte Esterase Urine Negative (Negative); Nitrite Urine Negative (Negative); Specific Gravity - Urine 1.025 (1.005-1.025); UMIC TRIGGER UACC YES; Urine Blood Negative (Negative); Urine Ketones Negative (Negative); Urine Protein 100 (2+) mg/dL (Neg-Trace)
[2023-03-31 07:59] LABS: Bacteria Urine Trace (None Seen); Granular Casts Urine Present; RBC Urine 0-2 /HPF (0-2); WBC Urine 0-5 /HPF (0-5)
[2023-03-31 07:59] LABS: Alanine Aminotransferase 21 U/L (0-31); Albumin Level 4.1 g/dL (3.5-5.0); Alkaline Phosphatase 69 U/L (39-117); Anion Gap 14 (12-20); Aspartate Amino Transferase 16 U/L (5-31); Bilirubin Total 0.3 mg/dL (0.0-1.0); Blood Urea Nitrogen 14 mg/dL (9-16); Calcium 9.4 mg/dL (8.4-10.2); Carbon Dioxide 17 mmol/L (22-29); Chloride 110 mmol/L (96-108); Creatinine Clr Calc Pharmacy 111.7; Estimated Glomerular Filt Rate > 60; Glucose Random 108 mg/dL (60-115); Lipase 20 U/L (8-78); Magnesium 1.9 mg/dL (1.6-2.6); Potassium 3.7 mmol/L (3.3-5.1); Sodium 137 mmol/L (135-145); Total Protein 8.1 g/dL (6.5-8.0)
[2023-03-31 08:02] LABS: HCG Quantitative < 2 mIU/mL
[2023-03-31 08:10] LABS: COVID-19 Test Negative (Negative); IDNOW Serial# 08D9AD1C; IDNOW Serial# 152EDE1D; Influenza A Negative (Negative); Influenza B2 Negative (Negative)
--- NOTE | 2023-03-31 08:53 | PC.NURSE ---
Medicated per mar, patient reports feeling better
[2023-03-31] MEDS: iohexoL 350 MG/ML 100 ML INFUS..BTL 85 ML IV (09:39)
[2023-03-31 10:20] VITALS: BP 101/57; PULSE 79; RESP 19; TEMP 36.6; O2SAT 96
[2023-03-31] MEDS: Ketorolac Tromethamine 15 MG/ML VIAL IVPUSH (10:50)
== END 2023-03-31 11:00 | disposition home or self-care (01) ==
PROVIDERS: Physician Assistant; Emergency Provider Emergency Medicine
DX: B34.9 Viral infection, unspecified (principal); R11.2 Nausea with vomiting, unspecified; R10.2 Pelvic and perineal pain; Z11.52 Encounter for screening for COVID-19; Z79.899 Other long term (current) drug therapy
CPT/HCPCS: 36415; 74177; 80053; 81001; 83690; 83735; 84702; 85025; 87502; 87635; 96361; 96374; 96375; 99284; J1885; J2405; Q9967

== ENCOUNTER 2023-04-30 05:52 | Outpatient (REF) | payer MEDICAID, SELFPAY ==
--- NOTE | ~2023-04-30 | XR_ITS ---
EXAMINATION: XR AP PELVIS, RIGHT FEMUR CLINICAL INFORMATION: Displaced intertrochanteric fracture of left femur, initial encounter. COMPARISON: CT abdomen and pelvis 03/31/2023 and 11/30/2021. MRI right hip 02/17/2017. X-ray right hip 01/16/2017. TECHNIQUE: AP view of the pelvis. 4 views of the right femur. FINDINGS: Pelvis: Mild sclerosis along the bilateral sacroiliac joints. Bilateral hip joint spaces are symmetric. Tiny pelvic calcifications are likely vascular. Right Femur: Redemonstration of a medullary-based, heterogeneous mixed cystic and sclerotic, bubbly lesion in the right intertrochanteric and proximal shaft region. Right hip alignment is preserved. XR/XR pelvis 1-2V IMPRESSION: Redemonstration of a medullary-based, heterogeneous mixed cystic and sclerotic lesion in the right intertrochanteric and proximal shaft region. No gross displaced fracture is appreciated; however, CT scan would be more sensitive for detection of fracture if there is clinical concern. This study was presented today 05/13/2023 for interpretation. Prompt priority results supplied at this time to the referring provider as requested by the provider.
--- NOTE | ~2023-04-30 | XR_ITS ---
EXAMINATION: XR AP PELVIS, RIGHT FEMUR CLINICAL INFORMATION: Displaced intertrochanteric fracture of left femur, initial encounter. COMPARISON: CT abdomen and pelvis 03/31/2023 and 11/30/2021. MRI right hip 02/17/2017. X-ray right hip 01/16/2017. TECHNIQUE: AP view of the pelvis. 4 views of the right femur. FINDINGS: Pelvis: Mild sclerosis along the bilateral sacroiliac joints. Bilateral hip joint spaces are symmetric. Tiny pelvic calcifications are likely vascular. Right Femur: Redemonstration of a medullary-based, heterogeneous mixed cystic and sclerotic, bubbly lesion in the right intertrochanteric and proximal shaft region. Right hip alignment is preserved. XR/XR femur RT 2V IMPRESSION: Redemonstration of a medullary-based, heterogeneous mixed cystic and sclerotic lesion in the right intertrochanteric and proximal shaft region. No gross displaced fracture is appreciated; however, CT scan would be more sensitive for detection of fracture if there is clinical concern. This study was presented today 05/13/2023 for interpretation. Prompt priority results supplied at this time to the referring provider as requested by the provider.
== END 2023-04-30 05:53 | disposition home or self-care (01) ==
LOC: HO.HOSX 05:52
PROVIDERS: Visit Provider Physician Assistant
DX: S72.142A Displaced intertrochanteric fracture of left femur, initial encounter for closed fracture (principal); M85.651 Other cyst of bone, right thigh; M76.01 Gluteal tendinitis, right hip
CPT/HCPCS: 72170; 73552; 99212

== ENCOUNTER 2023-04-30 10:44 | Outpatient (AMB) | payer MEDICAID, SELFPAY ==
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
[2023-04-30 12:02] VITALS: BMI 33.1
== END 2023-04-30 11:47 | disposition home or self-care (01) ==
PROVIDERS: Visit Provider Physician Assistant
DX: M85.651 Other cyst of bone, right thigh (principal); M76.01 Gluteal tendinitis, right hip
CPT/HCPCS: 99203

== ENCOUNTER 2023-05-01 09:21 | Outpatient (REF) | payer MEDICAID, SELFPAY | END 2023-05-01 09:22 | disposition home or self-care (01) | LOC: HO.HOSX 09:21 | PROVIDERS: Visit Provider Physician Assistant | DX: Z13.89 Encounter for screening for other disorder (principal) ==

== ENCOUNTER 2023-06-23 09:16 | Outpatient (REF) | payer MEDICAID, SELFPAY ==
--- NOTE | ~2023-06-23 | MR_ITS ---
EXAMINATION: MR HIP WITHOUT AND WITH CONTRAST, RIGHT CLINICAL INFORMATION: Right hip pain and numbness. Instability. Crepitus. Bone cyst. COMPARISON: Multiple priors, most recent pelvic and femur radiographs dated 04/30/2023 and right hip MRI dated 02/17/2017. TECHNIQUE: MRI of the right hip was performed before and after the intravenous injection of 10 mL Gadavist on a high-field scanner. FINDINGS: BONE: Redemonstration of a proximal right femoral intramedullary lesion which appears well marginated with multiple lobulations. This demonstrates predominately increased T2 and decreased T1 signal and measures approximately 2.3 x 2.6 x 6.6 cm in greatest dimension and appears stable when compared to the MRI from 2018. There is minimal, if any, internal postcontrast enhancement. Mild marrow edema within the adjacent femoral neck and proximal metaphysis. The signal characteristics are similar when compared to the prior MRI. No associated fracture line. Findings are nonspecific, however, likely represent a benign process as demonstrated by long-term stability. 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 No new lytic or blastic osseous lesion. No stress reaction, fracture, or avascular necrosis. No significant joint space narrowing or marginal osteophytes. MUSCLES/TENDONS: Intact. LABRUM: No labral tear. SOFT TISSUES: No abnormal soft tissue mass or fluid collection. Trace right hip joint effusion. The visualized intrapelvic structures are unremarkable. MR/MR hip RT wo/w con IMPRESSION: 1. 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 There is minimal, if any, internal postcontrast enhancement. No associated fracture line. No new lytic or blastic osseous lesion. 2. Trace right hip joint effusion. 3. No acute osseous abnormality. No stress reaction, fracture, or avascular necrosis.
[2023-06-23] MEDS: gadobutroL 10 ML VIAL IVPUSH (12:30)
== END 2023-06-23 09:17 | disposition home or self-care (01) ==
LOC: HO.MRI 09:16
PROVIDERS: PCP Registered Nurse; Visit Provider Physician Assistant
DX: M85.651 Other cyst of bone, right thigh (principal); M76.01 Gluteal tendinitis, right hip
CPT/HCPCS: 73723; A9585

== ENCOUNTER 2023-07-18 14:43 | Outpatient (AMB) | payer MEDICAID, SELFPAY ==
--- NOTE | 2023-07-18 14:43 | A.OFFVIS_ITS ---
Intake Visit Reasons: TH- right hip MRI review Intake Note: Cosmo a 22 year old female who presents today for an MRI review of right hip. Allergies nut - unspecified [NUT - UNSPECIFIED] Allergy (Intermediate, Verified 07/18/23 14:44) HIVES FRUIT Allergy (Intermediate, Uncoded 07/18/23 14:44) ITCHY LIPS nuts Allergy (Intermediate, Uncoded 07/18/23 14:44) Hives pollen Allergy (Intermediate, Uncoded 07/18/23 14:44) Hives HPI HPI TH- right hip MRI review: Details: 22 yo female returns for telehealth right hip MRI . She states she has been working with PT and has some improvement in her symptoms. [facility] Medical History PCOS (polycystic ovarian syndrome) Kidney stones Asthma Social History Alcohol intake: current Alcohol intake frequency: holidays/special occasions only Patient Tobacco Use Status: Former Tobacco user Substance Use Type: Marijuana Current occupational status: unemployed Current occupation: rt hand Review of Systems Const All systems reviewed & are unremarkable except as noted in HPI and below Physical Exam Resp Effort & Inspection: normal respiratory effort and able to speak in complete sentences Results Reviewed Results Reviewed: IMPRESSION: 1. 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 There is minimal, if any, internal postcontrast enhancement. No associated fracture line. No new lytic or blastic osseous lesion. 2. Trace right hip joint effusion. 3. No acute osseous abnormality. No stress reaction, fracture, or avascular necrosis. Assessment & Plan Assessment & Plan (1) Gluteal tendonitis of right buttock: Code(s): M76.01 - Gluteal tendinitis, right hip Category: Medical Plan: I explained to the patient the lesion on xray and MRI is consistent with previous studies. I encouraged her to work with PT and also recommended taking NSAIDS to help with inflammatin. She will f/u prn. Orders: Orders PT Evaluation and Treatment Today M76.01 - Gluteal tendinitis, right hip Coding Level of Care Code Tele Est Pt Level 3 (25712) Diagnoses Gluteal tendonitis of right buttock M76.01
== END 2023-07-18 15:20 | disposition home or self-care (01) ==
LOC: HO.HOS 14:43
PROVIDERS: PCP Registered Nurse; Visit Provider Physician Assistant
DX: M76.01 Gluteal tendinitis, right hip (principal)
CPT/HCPCS: 99213

== ENCOUNTER → 2023-07-18 14:43 | Outpatient (BNVA) | payer MEDICAID, SELFPAY | PROVIDERS: PCP Registered Nurse; Visit Provider Physician Assistant ==

== ENCOUNTER 2023-08-27 10:00 | Outpatient (RCR) | payer MEDICAID, SELFPAY | END 2023-10-20 13:00 | disposition home or self-care (01) | LOC: HO.PT 10:00 | PROVIDERS: PCP Registered Nurse; Visit Provider Physician Assistant | DX: M76.01 Gluteal tendinitis, right hip (principal) | CPT/HCPCS: 97035; 97110; 97140; 97161; 97530 ==

== ENCOUNTER 2024-01-07 10:11 | Emergency (ER) | payer MEDICAID, SELFPAY ==
[2024-01-07 10:13] VITALS: BP 137/87; PULSE 132; RESP 18; TEMP 37.1; O2SAT 97; BMI 33.1
[2024-01-07 11:01] LABS: IDNOW Serial# 08D9AD1C; Strep A Nucleic Acid Positive (Negative)
[2024-01-07 12:53] VITALS: BP 143/87; PULSE 132; RESP 20; TEMP 37; O2SAT 98
--- NOTE | 2024-01-07 12:54 | ECG_ITS ---
Test Reason : tachycardia Blood Pressure : / mmHG Vent. Rate : 119 BPM Atrial Rate : 119 BPM P-R Int : 144 ms QRS Dur : 072 ms QT Int : 322 ms P-R-T Axes : 025 019 036 degrees QTc Int : 452 ms Sinus tachycardia Otherwise normal ECG When compared with ECG of 21-AUG-2022 05:00, No significant change was found Referred By: Lisa Heaton Electronically Signed By:AIDEN RODRÍGUEZ
--- NOTE | 2024-01-07 12:55 | ED.GENADULT ---
HPI - General Adult General Chief complaint: Upper Respiratory Symptoms Stated complaint: Sore throat Time Seen by Provider: 01/07/24 12:52 Source: patient, RN notes reviewed and old records reviewed Mode of arrival: ambulatory History of Present Illness ED Provider: Lisa Heaton PA-C HPI narrative: 23-year-old female with no significant past medical history presenting to the ED complaining of sore throat since yesterday. Reports difficulty/inability to swallow secondary to pain. Denies fever. Denies sick contacts. Related Data Home Medications ?Medication ?Instructions ?Recorded ?Confirmed buspirone 10 mg tablet 10 mg PO BID 04/30/23 desogestrel 0.15 mg-ethinyl 1 tab PO DAILY 04/30/23 estradiol 0.03 mg tablet (Apri) doxazosin 2 mg tablet 2 mg PO BEDTIME anxiety 04/30/23 hydroxyzine HCl 10 mg tablet 20 mg PO DAILY PRN anxiety 04/30/23 sertraline 100 mg tablet 200 mg PO DAILY depressive disorder 04/30/23 trazodone 50 mg tablet 50 - 150 mg PO BEDTIME PRN 04/30/23 Previous Rx's ?Medication ?Instructions ?Recorded acetaminophen 500 mg tablet 500 mg PO Q6H PRN pain or fever 08/08/20 (Tylenol Extra Strength) #20 tabs ibuprofen 600 mg tablet 600 mg PO Q8H PRN pain #14 tabs 08/08/20 ibuprofen 600 mg tablet 600 mg PO Q8H PRN pain #20 tabs 10/12/20 ondansetron 4 mg disintegrating 4 mg PO Q8H PRN nausea and 10/12/20 tablet vomiting #10 tabs loperamide 2 mg capsule (Imodium 2 mg PO Q6H PRN loose stool #20 11/30/21 A-D) caps ondansetron 4 mg disintegrating 4 mg PO Q6H PRN nausea and 11/30/21 tablet vomiting #14 tabs cephalexin 500 mg capsule 500 mg PO QID 10 days #40 caps 02/27/22 doxycycline hyclate 100 mg tablet 100 mg PO BID #20 tabs 02/27/22 ibuprofen 600 mg tablet 600 mg PO Q6H PRN fever or pain 02/27/22 #30 tabs prednisone 20 mg tablet 40 mg (2 x 20 mg) PO DAILY #10 tabs 08/21/22 cefuroxime axetil 250 mg tablet 250 mg PO BID #14 tabs 08/23/22 ibuprofen 400 mg tablet 400 mg PO Q8H PRN fever or pain 08/23/22 #10 tabs ondansetron 4 mg disintegrating 4 mg PO Q8-12H PRN nausea and 08/23/22 tablet vomiting #7 tabs ondansetron 4 mg disintegrating 4 mg PO Q6H PRN nausea and 03/31/23 tablet vomiting #14 tabs amoxicillin 875 mg-potassium 1 tab PO BID 7 days #14 tabs 01/07/24 clavulanate 125 mg tablet Allergies Allergy/AdvReac Type Severity Reaction Status Date / Time nut - unspecified Allergy Intermediate HIVES Verified 01/07/24 10:14 [NUT - UNSPECIFIED] FRUIT Allergy Intermediate ITCHY LIPS Uncoded 01/07/24 10:14 nuts Allergy Intermediate Hives Uncoded 01/07/24 10:14 pollen Allergy Intermediate Hives Uncoded 01/07/24 10:14 Review of Systems Review of Systems: Yes all other systems are reviewed and are negative Constitutional: Constitutional: Reports as per [facility] Past Medical History Attestation statement: The following information was validated with the patient. Source: old records reviewed Medical History PCOS (polycystic ovarian syndrome) Kidney stones Asthma Social History Social History Alcohol intake: current Alcohol intake frequency: holidays/special occasions only Patient Tobacco Use Status: Former Tobacco user Substance Use Type: Marijuana Advance Directives: No Advance Directives Information Provided: Yes Current occupational status: unemployed Current occupation: rt hand Physical Exam ED Vital Signs: Vital Signs - 24 hr 01/07/24 10:13 01/07/24 12:53 01/07/24 13:59 Temperature 98.8 F 98.6 F 99.3 F Pulse Rate 132 H 132 H 113 H Respiratory Rate 18 20 16 Blood Pressure 137/87 143/87 H 126/79 Pulse Oximetry 97 98 98 Oxygen Delivery Method Room Air Room Air Room Air 01/07/24 14:35 Temperature 99.3 F Pulse Rate 113 H Respiratory Rate 16 Blood Pressure 126/79 Pulse Oximetry 98 Oxygen Delivery Method Room Air BMI result Body Mass Index 33.1 Const Other: anxious General: cooperative, healthy appearing and no acute distress Orientation/consciousness: patient oriented x3 Limitations: no limitations HENMT Head: Yes normal to inspection and Yes atraumatic Ears: hearing grossly normal bilaterally General nose exam: Normal external nose present Face and sinus: Yes normal facial exam Mouth: no drooling Throat: Yes uvula midline, Yes abnormal tonsil (+ bilateral tonsillar swelling/erythema and exudates), No peritonsillar mass, No uvula laterally displaced and No uvular edema Eyes General: appearance normal, both eyes and all related structures EOM: EOMs intact bilaterally Neck Neck: Yes normal visual inspection, Yes no meningeal signs, No anterior neck swelling and Yes lymphadenopathy (+ submandibular) Resp Effort & Inspection: normal respiratory effort and no respiratory distress Cardio Rate: regular rate Skin Rashes: no rashes Wounds: no wounds Neuro General: patient oriented x3, tone normal and no meningeal signs Cranial nerves: Yes CN's II-XII intact bilaterally Gait exam (Neuro): Normal gait present Extrem General: Yes normal to inspection Course Course Course Narrative: -rapid strep positive > patient tolerated p.o. Motrin, Augmentin, and Decadron in the ED Results discussed with patient including worrisome signs and symptoms and strict return precautions, and when to return to the emergency department. They verbalized understanding and feel safe for discharge at this time. Medications Administered Discontinued Medications Generic Name Dose Route Start Last Admin Trade Name Freq PRN Reason Stop Dose Admin Amoxicillin/Clavulanate Potassium 875 mg 01/07/24 12:54 01/07/24 14:04 Amoxicillin/Potassium Clav 875 Mg Tablet PO 01/07/24 12:55 875 mg ONCE ONE Administration Dexamethasone Sodium Phosphate 10 mg 01/07/24 12:54 01/07/24 14:04 Dexamethasone Sod Phosphate 10 Mg/Ml Vial IVPUSH 01/07/24 12:55 10 mg ONCE ONE Administration Ibuprofen 600 mg 01/07/24 12:57 01/07/24 12:59 Ibuprofen Oral Susp 200 Mg/10 Ml Oral.Susp PO 01/07/24 12:58 600 mg ONCE ONE Administration Medical Decision Making Medical Decision Making MDM Narrative: 23-year-old female with no significant past medical history presenting to the ED complaining of sore throat since yesterday. On exam tachycardic, anxious, NAD, nontoxic appearing, bilateral tonsillar swelling/erythema no exudates appreciated. Uvula midline, no deviation. No respiratory compromise. Concern for strep pharyngitis. No evidence of LOCOMOTIVE DRIVER/retropharyngeal abscess. Plan: Rapid strep, p.o. Decadron, p.o. Motrin, p.o. Augmentin, EKG, re-evaluate Low suspicion for severe sepsis Please refer to course for remaining clinical decision making, interpretation of labs/imaging results, and discussions with consultants and/or family members. Differential Diagnosis Differential Diagnoses: The differential diagnosis associated with the presentation includes As above Lab Data MDM Lab Attestation statement: I reviewed the patient's lab results. Labs: Lab Results 01/07/24 Range/Units 10:23 S. pyogenes GrpA ALDO Positive A (Negative) Independent Interpretation I performed an independent interpretation of an: EKG (My interpretation EKG sinus tachycardia rate of 119. Pr interval 144. QTC 452. No significant change when compared to prior ) External Record Review External record reviewed: Inpatient record, Office record, Outpatient record, Prior outpatient labs, Prior outpatient radiology, Primary care record and Outside ED record Tests considered The following testing was considered but not selected: As above Prescription Management I considered prescription management with: Pain Medication and Antibiotic Social Determinants Patient?s care significantly limited by Social Determinants of Health including: Other Social Determinant of Health Discharge Plan Discharge Clinical Impression: Acute streptococcal pharyngitis Patient Disposition: Home, Self-Care Instructions: Strep Throat (DC) Additional Instructions: You have strep throat You were given an oral steroid today as well as the 1st dose of her antibiotic Please take antibiotic, Augmentin, until completion Please take Tylenol and Motrin for pain/swelling Gargle with warm saltwater Follow up with her doctor If symptoms persist or worsen, you are unable to eat or drink return to the ED Prescriptions: New amoxicillin-pot clavulanate 875-125 mg tablet 1 tab PO BID 7 Days Qty: 14 0RF No Action acetaminophen [Tylenol Extra Strength] 500 mg tablet 500 mg PO Q6H PRN (Reason: pain or fever) Qty: 20 0RF ibuprofen 600 mg tablet 600 mg PO Q8H PRN (Reason: pain) Qty: 14 0RF ibuprofen 600 mg tablet 600 mg PO Q8H PRN (Reason: pain) Qty: 20 0RF ondansetron 4 mg tablet,disintegrating 4 mg PO Q8H PRN (Reason: nausea and vomiting) Qty: 10 0RF loperamide [Imodium A-D] 2 mg capsule 2 mg PO Q6H PRN (Reason: loose stool) Qty: 20 0RF ondansetron 4 mg tablet,disintegrating 4 mg PO Q6H PRN (Reason: nausea and vomiting) Qty: 14 0RF cephalexin 500 mg capsule 500 mg PO QID 10 Days Qty: 40 0RF doxycycline hyclate 100 mg tablet 100 mg PO BID Qty: 20 0RF ibuprofen 600 mg tablet 600 mg PO Q6H PRN (Reason: fever or pain) Qty: 30 0RF prednisone 20 mg tablet 40 mg PO DAILY Qty: 10 0RF cefuroxime axetil 250 mg tablet 250 mg PO BID Qty: 14 0RF ibuprofen 400 mg tablet 400 mg PO Q8H PRN (Reason: fever or pain) Qty: 10 0RF ondansetron 4 mg tablet,disintegrating 4 mg PO Q8-12H PRN (Reason: nausea and vomiting) Qty: 7 0RF ondansetron 4 mg tablet,disintegrating 4 mg PO Q6H PRN (Reason: nausea and vomiting) Qty: 14 0RF doxazosin 2 mg tablet 2 mg PO BEDTIME hydroxyzine HCl 10 mg tablet 20 mg PO DAILY PRN (Reason: anxiety) buspirone 10 mg tablet 10 mg PO BID sertraline 100 mg tablet 200 mg PO DAILY trazodone 50 mg tablet 50 - 150 mg PO BEDTIME PRN desogestrel-ethinyl estradiol [Apri] 0.15-0.03 mg tablet 1 tab PO DAILY Referrals: Emilia Guevara FNP [Primary Care Provider] - 5 days Stand Alone Forms: Work/School Release Interventions: ED Discharge Assessment Last Done: 01/07/24 14:35 Discharge Date/Time: 01/07/24 14:36 Print Language: [place]
[2024-01-07] MEDS: Ibuprofen Oral Susp 200 MG/10 ML ORAL.SUSP 600 MG PO (12:59)
[2024-01-07 13:59] VITALS: BP 126/79; PULSE 113; RESP 16; TEMP 37.4; O2SAT 98
[2024-01-07] MEDS: Amoxicillin/Potassium Clav 875 MG TABLET PO (14:04)
[2024-01-07] MEDS: dexAMETHasone sod phosphate 10 MG/ML VIAL IVPUSH (14:04)
[2024-01-07 14:35] VITALS: BP 126/79; PULSE 113; RESP 16; TEMP 37.4; O2SAT 98
== END 2024-01-07 14:36 | disposition home or self-care (01) ==
PROVIDERS: Emergency Provider Emergency Medicine Emergency Medical Services; PCP Registered Nurse
DX: J02.0 Streptococcal pharyngitis (principal); R00.0 Tachycardia, unspecified
CPT/HCPCS: 87651; 93005; 99283; 99284; J1100

== ENCOUNTER → 2024-01-07 12:54 | Outpatient (BNV) | payer MEDICAID, SELFPAY | PROVIDERS: Emergency Provider Emergency Medicine Emergency Medical Services; PCP Registered Nurse; Visit Provider Internal Medicine | DX: R00.0 Tachycardia, unspecified (principal) | CPT/HCPCS: 93010 ==

== ENCOUNTER 2024-03-12 10:17 | Observation (INO) | payer MEDICAID, SELFPAY ==
[2024-03-12] VITALS (7 sets, daily range): BP systolic 106–145; BP diastolic 66–93; PULSE 77–135; RESP 12–29; TEMP 36.3–38.2; O2SAT 94–99; BMI 32.6
--- NOTE | ~2024-03-12 | XR_ITS ---
EXAMINATION: XR CHEST 2 VIEWS HISTORY: Cough SOB COMPARISON: Comparison is made with the prior examination dated 08/23/2022. FINDINGS: PA and lateral views of the chest are submitted. The lungs are expanded and clear. There is no pleural effusion, pneumothorax, or pulmonary vascular congestion. The heart is normal in size. The bones are intact. XR/XR chest 2V IMPRESSION: No acute cardiopulmonary abnormality. Electronically signed by: Alban Brady MD 03/12/2024 11:51 AM [facility]
--- NOTE | 2024-03-12 10:18 | ECG_ITS ---
Test Reason : sob Blood Pressure : */* mmHG Vent. Rate : 140 BPM Atrial Rate : 140 BPM P-R Int : 126 ms QRS Dur : 66 ms QT Int : 286 ms P-R-T Axes : 24 24 32 degrees QTcB Int : 436 ms Sinus tachycardia Otherwise normal ECG When compared with ECG of 07-Jan-2024 12:51, No significant change was found Referred By: Generic ED Physician Electronically Signed By: AIDEN RODRÍGUEZ
--- NOTE | 2024-03-12 10:39 | ED_ITS ---
HPI - General Adult General Chief complaint: Upper Respiratory Symptoms Stated complaint: Chest pain Diff breathing Time Seen by Provider: 03/12/24 13:49 Source: patient, RN notes reviewed and old records reviewed Mode of arrival: ambulatory History of Present Illness ED Provider: Lisa Heaton PA-C HPI narrative: 23-year-old female with a past medical history of asthma, PCOS, renal stones, presenting to the ED complaining of URI symptoms x1 week. Reports dry cough, chest discomfort with cough, SOB, decreased p.o. intake. States he has been using her inhaler at home without relief. Denies recent travel/sick contacts, abdominal pain, nausea/vomiting Related Data Home Medications ?Medication ?Instructions ?Recorded ?Confirmed buspirone 10 mg tablet 10 mg PO BID 04/30/23 desogestrel 0.15 mg-ethinyl 1 tab PO DAILY 04/30/23 estradiol 0.03 mg tablet (Apri) doxazosin 2 mg tablet 2 mg PO BEDTIME anxiety 04/30/23 hydroxyzine HCl 10 mg tablet 20 mg PO DAILY PRN anxiety 04/30/23 sertraline 100 mg tablet 200 mg PO DAILY depressive disorder 04/30/23 trazodone 50 mg tablet 50 - 150 mg PO BEDTIME PRN 04/30/23 Previous Rx's ?Medication ?Instructions ?Recorded acetaminophen 500 mg tablet 500 mg PO Q6H PRN pain or fever 08/08/20 (Tylenol Extra Strength) #20 tabs ibuprofen 600 mg tablet 600 mg PO Q8H PRN pain #14 tabs 08/08/20 ibuprofen 600 mg tablet 600 mg PO Q8H PRN pain #20 tabs 10/12/20 ondansetron 4 mg disintegrating 4 mg PO Q8H PRN nausea and 10/12/20 tablet vomiting #10 tabs loperamide 2 mg capsule (Imodium 2 mg PO Q6H PRN loose stool #20 11/30/21 A-D) caps ondansetron 4 mg disintegrating 4 mg PO Q6H PRN nausea and 11/30/21 tablet vomiting #14 tabs cephalexin 500 mg capsule 500 mg PO QID 10 days #40 caps 02/27/22 doxycycline hyclate 100 mg tablet 100 mg PO BID #20 tabs 02/27/22 ibuprofen 600 mg tablet 600 mg PO Q6H PRN fever or pain 02/27/22 #30 tabs prednisone 20 mg tablet 40 mg (2 x 20 mg) PO DAILY #10 tabs 08/21/22 cefuroxime axetil 250 mg tablet 250 mg PO BID #14 tabs 08/23/22 ibuprofen 400 mg tablet 400 mg PO Q8H PRN fever or pain 08/23/22 #10 tabs ondansetron 4 mg disintegrating 4 mg PO Q8-12H PRN nausea and 08/23/22 tablet vomiting #7 tabs ondansetron 4 mg disintegrating 4 mg PO Q6H PRN nausea and 03/31/23 tablet vomiting #14 tabs amoxicillin 875 mg-potassium 1 tab PO BID 7 days #14 tabs 01/07/24 clavulanate 125 mg tablet Allergies Allergy/AdvReac Type Severity Reaction Status Date / Time nut - unspecified Allergy Intermediate HIVES Verified 03/12/24 10:33 [NUT - UNSPECIFIED] FRUIT Allergy Intermediate ITCHY LIPS Uncoded 01/07/24 10:14 nuts Allergy Intermediate Hives Uncoded 01/07/24 10:14 pollen Allergy Intermediate Hives Uncoded 01/07/24 10:14 Review of Systems 2 Review of Systems: Yes all other systems are reviewed and are negative Constitutional: Constitutional: Reports as per [facility] Past Medical History Attestation statement: The following information was validated with the patient. Source: old records reviewed Medical History PCOS (polycystic ovarian syndrome) Kidney stones Asthma Social History Social History Alcohol intake: current Alcohol intake frequency: holidays/special occasions only Patient Tobacco Use Status: Former Tobacco user Smoked in Last 30 Days: No Use of substances other than those prescribed or required for medical reasons: Yes Substance Use Type: Marijuana Substance Use Frequency: Daily Advance Directives: No Advance Directives Information Provided: Yes Patient : No Current occupational status: unemployed Current occupation: rt hand Physical Exam ED Vital Signs: Vital Signs - 24 hr 03/12/24 10:32 03/12/24 14:33 03/12/24 14:33 Temperature 97.8 F 100.7 F H Pulse Rate 130 H 129 H Respiratory Rate 24 H 14 Blood Pressure 113/83 138/93 H Pulse Oximetry 96 96 96 Oxygen Delivery Method Room Air Room Air Room Air 03/12/24 14:36 03/12/24 16:20 Temperature 98.2 F Pulse Rate 118 H 135 H Respiratory Rate 24 H 29 H Blood Pressure 145/80 H Pulse Oximetry 98 Oxygen Delivery Method Room Air BMI result Body Mass Index 32.6 Const General: cooperative, healthy appearing and no acute distress Orientation/consciousness: patient oriented x3 Limitations: no limitations HENMT Head: Yes normal to inspection and Yes atraumatic Ears: hearing grossly normal bilaterally General nose exam: Normal external nose present Face and sinus: Yes normal facial exam Eyes General: appearance normal, both eyes and all related structures EOM: EOMs intact bilaterally Neck Neck: Yes normal visual inspection and Yes no meningeal signs Resp Effort & Inspection: normal respiratory effort, no respiratory distress and no stridor Auscultation: clear to auscultation bilaterally, no crackles and no wheezes Cardio Rate: regular rate Heart sounds: S1 normal heart sound present and S2 normal heart sound present GI Inspection: Yes normal to inspection Palpation (GI): Soft to palpation, nontender, no guarding and not rigid General: Yes no CVA tenderness Back/Spine/Pelvis Back: no CVA tenderness Skin Rashes: no rashes Wounds: no wounds Neuro General: patient oriented x3, tone normal and no meningeal signs Cranial nerves: Yes CN's II-XII intact bilaterally Gait exam (Neuro): Normal gait present Extrem General: Yes normal to inspection Course Course Course Narrative: Patient complains of asthma chest tightness cough, shortness of breath EKG labs and x-ray ordered This is rapid medical exam done in triage pending full exam evaluation and disposition by ER provider -1425--no leukocytosis. Labs otherwise reassuring. Troponin negative. HCG negative -influenza a positive XR chest 2V IMPRESSION: No acute cardiopulmonary abnormality. >1500--patient receiving Xopenex neb > heart rate spiked to 183, holding 150s to 160s, sinus tach on EKG. Patient reporting chest pressure. Anxious. Will obtain repeat troponin, D-dimer, and give 1 mg of IV Ativan. IVF running -1532--heart rate improved to 140s after 1 mg of IV Ativan. D-dimer negative, PE less likely -1618--heart rate 137. > 3 L of IV fluids ordered, patient's heart rate maintaining, plan for admission for further management Medications Administered Discontinued Medications Generic Name Dose Route Start Last Admin Trade Name Gera PRN Reason Stop Dose Admin Acetaminophen 650 mg 03/12/24 15:04 03/12/24 15:11 Acetaminophen 325 Mg Tablet PO 03/12/24 15:05 650 mg ONCE ONE Administration Albuterol Sulfate 2.5 mg/ 0 mg 03/12/24 14:31 03/12/24 14:34 Albuterol/Ipratropium 3 ml INHALE 03/12/24 14:32 Not Given ONCE ONE Levalbuterol HCl 2.5 mg/ 0 mg 03/12/24 14:33 03/12/24 14:34 Ipratropium [place] 0.5 mg INHALE 03/12/24 14:34 1 dose ONCE ONE Administration Sodium Chloride 1,000 mls @ 999 mls/hr 03/12/24 14:30 03/12/24 14:40 Ns IV 03/12/24 15:30 999 mls/hr .Q1H1M CARRI Administration Lorazepam 1 mg 03/12/24 14:59 03/12/24 15:06 Lorazepam 2 Mg/Ml Vial IVPUSH 03/12/24 15:00 1 mg ONCE ONE Administration Medical Decision Making Medical Decision Making MDM Narrative: 23-year-old female with a past medical history of asthma, PCOS, renal stones, presenting to the ED complaining of URI symptoms x1 week. Reports dry cough, chest discomfort with cough, SOB, decreased p.o. intake. On exam initially tachycardic, tachypneic, NAD/nontoxic appearing, lungs CTA, talking in complete sentences, abdomen soft and nontender. Concern for viral illness vs asthma exacerbation vs bronchitis. Rule out pneumonia. Low suspicion for severe sepsis at this time Plan: EKG, labs, CXR, viral testing, IVF, re-evaluate Please refer to course for remaining clinical decision making, interpretation of labs/imaging results, and discussions with consultants and/or family members. Differential Diagnosis Differential Diagnoses: The differential diagnosis associated with the presentation includes As above Admission/Observation Consideration of admission/observation: Escalation of care including admission/observation considered Lab Data [facility] Lab Attestation statement: I reviewed the patient's lab results. 03/12/24 11:05 03/12/24 11:05 Labs: Lab Results 03/12/24 03/12/24 Range/Units 11:05 15:06 WBC 8.5 (4.8-10.8) X10*3/uL RBC 4.77 (4.20-5.50) X10*6/uL Hgb 13.6 (12.0-16.0) g/dl Hct 40.1 (37.0-47.0) % MCV 84.1 (80.0-98.0) fL MCH 28.5 (27.0-33.0) pg MCHC 33.9 (31.0-35.0) g/dl RDW 13.7 (11.0-16.0) % Plt Count 250 (160-400) X10*3/uL MPV 10.4 (9.4-12.3) fL Immature Gran % (Auto) 0.5 H (0.0-0.4) % Neut % (Auto) 79.1 H (45-73) % Lymph % (Auto) 6.5 L (20-40) % [place] % (Auto) 13.3 H (2-11) % Eos % (Auto) 0.4 (0-4) % Baso % (Auto) 0.2 (0-2) % Lymph # (Auto) 0.6 L (1.2-4.9) X10*3/uL [place] # (Auto) 1.1 (0.1-1.2) X10*3/uL Eos # (Auto) 0.0 (0.0-0.4) X10*3/uL Baso # (Auto) 0.0 (0.0-0.2) X10*3/uL Abs Immat Gran (auto) 0.04 H (0.00-0.03) X10*3/uL Absolute Neuts (auto) 6.7 (2.0-8.3) x10*3/uL Absolute Nucleated RBC 0.000 (0.0-0.012) X10*3/uL Nucleated RBC % (auto) 0.0 (0.0-0.2) /100WBC PT 12.4 (10.9-12.4) SEC INR 1.1 (0.9-1.1) D-Dimer High Sensitivty 189 NG/ML Sodium 138 (135-145) mmol/L Potassium 4.1 (3.3-5.1) mmol/L Chloride 110 H (96-108) mmol/L Carbon Dioxide 21 L (22-29) mmol/L Anion Gap 11 L (12-20) BUN 6 L (9-16) mg/dL Creatinine 0.77 (0.5-1.4) mg/dL Estim Creat Clear Calc 115.3 Estimated GFR > 60 Random Glucose 97 (60-115) mg/dL Calcium 9.6 (8.4-10.2) mg/dL Magnesium 1.9 (1.6-2.6) mg/dL Total Bilirubin 0.4 (0.0-1.0) mg/dL Direct Bilirubin 0.1 (0.0-0.5) mg/dL AST 33 H (5-31) U/L ALT 45 H (0-31) U/L Alkaline Phosphatase 77 (39-117) U/L Troponin I High Sens < 2.7 < 2.7 (<3.5-17.0) ng/L Total Protein 8.4 H (6.5-8.0) g/dL Albumin 4.1 (3.5-5.0) g/dL Beta HCG, Quant < 2 mIU/mL COVID-19 (MARILYN) Negative (Negative) COVID-19 Clin Com See Note Influenza Type A (ALDO) Positive A (Negative) Influenza Type B (ALDO) Negative (Negative) Influenza A & B Note See Note Independent Interpretation I performed an independent interpretation of an: EKG (My interpretation EKG sinus tachycardia rate of 140. QTC 436. No significant change when compared to prior. No STEMI ) and Plain X-Ray Radiology Impression Discussion of test interpretation with radiology: I have reviewed the radiologist's reading. External Record Review External record reviewed: Inpatient record, Office record, Outpatient record, Prior outpatient labs, Prior outpatient radiology, Primary care record and Outside ED record Tests considered The following testing was considered but not selected: As above Prescription Management I considered prescription management with: Pain Medication Chronic Conditions Patient?s care impacted by: Other (Asthma) Social Determinants Patient?s care significantly limited by Social Determinants of Health including: Other Social Determinant of Health Critical Care Time Critical Care Time Critical Care Time: Yes Total Critical Care Time: 45 Attestation: I have personally provided critical care time exclusive of time spent on separately billable procedures. Time includes review of lab data, radiology results, discussion with consultants, and monitoring for potential decompensation. Intervention performed as documented. Discharge Plan Discharge Clinical Impression: Influenza A Patient Disposition: Still a Patient Prescriptions: No Action acetaminophen [Tylenol Extra Strength] 500 mg tablet 500 mg PO Q6H PRN (Reason: pain or fever) Qty: 20 0RF ibuprofen 600 mg tablet 600 mg PO Q8H PRN (Reason: pain) Qty: 14 0RF ibuprofen 600 mg tablet 600 mg PO Q8H PRN (Reason: pain) Qty: 20 0RF ondansetron 4 mg tablet,disintegrating 4 mg PO Q8H PRN (Reason: nausea and vomiting) Qty: 10 0RF loperamide [Imodium A-D] 2 mg capsule 2 mg PO Q6H PRN (Reason: loose stool) Qty: 20 0RF ondansetron 4 mg tablet,disintegrating 4 mg PO Q6H PRN (Reason: nausea and vomiting) Qty: 14 0RF cephalexin 500 mg capsule 500 mg PO QID 10 Days Qty: 40 0RF doxycycline hyclate 100 mg tablet 100 mg PO BID Qty: 20 0RF ibuprofen 600 mg tablet 600 mg PO Q6H PRN (Reason: fever or pain) Qty: 30 0RF prednisone 20 mg tablet 40 mg PO DAILY Qty: 10 0RF amoxicillin-pot clavulanate 875-125 mg tablet 1 tab PO BID 7 Days Qty: 14 0RF cefuroxime axetil 250 mg tablet 250 mg PO BID Qty: 14 0RF ibuprofen 400 mg tablet 400 mg PO Q8H PRN (Reason: fever or pain) Qty: 10 0RF ondansetron 4 mg tablet,disintegrating 4 mg PO Q8-12H PRN (Reason: nausea and vomiting) Qty: 7 0RF ondansetron 4 mg tablet,disintegrating 4 mg PO Q6H PRN (Reason: nausea and vomiting) Qty: 14 0RF doxazosin 2 mg tablet 2 mg PO BEDTIME hydroxyzine HCl 10 mg tablet 20 mg PO DAILY PRN (Reason: anxiety) buspirone 10 mg tablet 10 mg PO BID sertraline 100 mg tablet 200 mg PO DAILY trazodone 50 mg tablet 50 - 150 mg PO BEDTIME PRN desogestrel-ethinyl estradiol [Apri] 0.15-0.03 mg tablet 1 tab PO DAILY Print Language: Indian
[2024-03-12 11:13] LABS: MANUAL DIFF FLAG NO
[2024-03-12 11:19] LABS: Basophils Percent Auto 0.2 % (0-2); Eosinophils Percent Auto 0.4 % (0-4); Hematocrit 40.1 % (37.0-47.0); Hemoglobin 13.6 g/dl (12.0-16.0); Imm Gran Abs Auto 0.04 X10*3/uL (0.00-0.03); Imm Gran Pct Auto 0.5 % (0.0-0.4); Lymphocytes Absolute Auto 0.6 X10*3/uL (1.2-4.9); Lymphocytes Percent Auto 6.5 % (20-40); Mean Corpuscular HGB Conc 33.9 g/dl (31.0-35.0); Mean Corpuscular Hemoglobin 28.5 pg (27.0-33.0); Mean Corpuscular Volume 84.1 fL (80.0-98.0); Mean Platelet Volume 10.4 fL (9.4-12.3); Monocytes Absolute Auto 1.1 X10*3/uL (0.1-1.2); Monocytes Percent Auto 13.3 % (2-11); Neutrophils Absolute Auto 6.7 x10*3/uL (2.0-8.3); Neutrophils Percent Auto 79.1 % (45-73); Platelet Count 250 X10*3/uL (160-400); Red Blood Count 4.77 X10*6/uL (4.20-5.50); Red Cell Distribution Width 13.7 % (11.0-16.0); White Blood Count 8.5 X10*3/uL (4.8-10.8)
[2024-03-12 11:23] LABS: INTERNATIONAL NORM RATIO 1.1 (0.9-1.1); Prothrombin Time 12.4 SEC (10.9-12.4)
[2024-03-12 11:29] LABS: IDNOW Serial# 16C4AD1C; Influenza A Positive (Negative); Influenza B2 Negative (Negative)
[2024-03-12 11:30] LABS: COVID-19 Test Negative (Negative); IDNOW Serial# 55D5AD1C
[2024-03-12 11:37] LABS: Anion Gap 11 (12-20); Blood Urea Nitrogen 6 mg/dL (9-16); Calcium 9.6 mg/dL (8.4-10.2); Carbon Dioxide 21 mmol/L (22-29); Chloride 110 mmol/L (96-108); Creatinine Clr Calc Pharmacy 115.3; Estimated Glomerular Filt Rate > 60; Glucose Random 97 mg/dL (60-115); HCG Quantitative < 2 mIU/mL; Potassium 4.1 mmol/L (3.3-5.1); Sodium 138 mmol/L (135-145)
[2024-03-12 11:39] LABS: Troponin-I High Sensitivity < 2.7 ng/L (<3.5-17.0)
--- OUTSIDE RECORDS SUMMARY | 2024-03-12 13:53 | XMS_ITS | Encounter Summary ---
Author Organization [facility] Address [address] [place] [phone] Phone Care Team Providers Care Camera Assembler Name Role Phone Toyin Rivera RADIATOR SPECIALIST Primary Care Provider Jero araiza Encounter Details Date Type Department Care Team (Late st Contact Info) Description 04/03/2016 Documentation [facility] Family Medicine [address] [place] [address] Family Medicine, Physician [address] [place] [address] Social History Tobacco Use Types Packs/Day Years Used Date Smoking Tobacco: Never Assessed Comments Unknown Sex and Gender Information Value Date Recorded Sex Assigned at Not on file Legal Sex Female 5:21 PM EDT Gender Identity Not on file Sexual Orientation Not on file documented as of this encounter Plan of Treatment Not on file documented as of this encounter Visit Diagnoses Not on filedocumented in this encounter Care Teams Camera Assembler Relationship Specialty Start Date End Date Toyin Rivera NP PCP - General 09/20/16 05/23/22 documented as of this encounter
--- OUTSIDE RECORDS SUMMARY | 2024-03-12 13:53 | XMS_ITS | Encounter Summary ---
Author Organization [facility] Address [address] [place] [phone] Phone Care Team Providers Care Electronic Data Interchange Specialist Name Role Phone Toyin Rivera BUILDING EQUIPMENT INSPECTOR Primary Care Provider Jero araiza Encounter Details Date Type Department Care Team (Late st Contact Info) Description 01/24/2015 [place] [facility] [place] [address] [place] [address] Family Medicine, Physician [address] [place] [address] Social History Tobacco Use Types Packs/Day Years [...] on filedocumented in this encounter Care Teams Electronic Data Interchange Specialist Relationship Specialty Start Date End Date Toyin Rivera NP PCP - General 09/20/16 05/23/22 documented as of this encounter
--- OUTSIDE RECORDS SUMMARY | 2024-03-12 13:53 | XMS_ITS | Encounter Summary ---
Author Organization [facility] Address [address] [place] [phone] Phone Care Team Providers Care Associate Scientist Name Role Phone Toyin Rivera MANAGER OPERATIONS RESEARCH Primary Care Provider Jero araiza Encounter Details Date Type Department Care Team (Late st Contact Info) Description 04/14/2013 [place]ation [facility] [place] [address] [place] [address] Family Medicine, Physician [address] [place] [address] Social History Tobacco Use Types Packs/Day Years [...] on filedocumented in this encounter Care Teams Associate Scientist Relationship Specialty Start Date End Date Toyin Rivera NP PCP - General 09/20/16 05/23/22 documented as of this encounter
--- OUTSIDE RECORDS SUMMARY | 2024-03-12 13:53 | XMS_ITS | Encounter Summary ---
Author Organization [facility] Address [address] [place] [phone] Phone Care Team Providers Care Knitting Machine Operator Name Role Phone Toyin Rivera ONLINE MARKETING SPECIALIST Primary Care Provider Jero araiza Encounter Details Date Type Department Care Team (Late st Contact Info) Description 12/15/2014 Documentation [facility] [place] [address] [place] [address] Family Medicine, Physician [address] [place] [address] Social History Tobacco Use Types Packs/Day Years [...] on filedocumented in this encounter Care Teams Knitting Machine Operator Relationship Specialty Start Date End Date Toyin Rivera NP PCP - General 09/20/16 05/23/22 documented as of this encounter
--- OUTSIDE RECORDS SUMMARY | 2024-03-12 13:53 | XMS_ITS | Encounter Summary ---
Author Organization [facility] Address [address] [place] [phone] Phone Care Team Providers Care Delimber Operator Name Role Phone Toyin Rivera [employer] Primary Care Provider Jero araiza Encounter Details Date Type Department Care Team (Late st Contact Info) Description 11/30/2012 Documentation [facility] [place] [address] [place] [address] Family Medicine, Physician [address] [place] [address] Social History Tobacco Use Types Packs/Day Years [...] on filedocumented in this encounter Care Teams Delimber Operator Relationship Specialty Start Date End Date Toyin Rivera NP PCP - General 09/20/16 05/23/22 documented as of this encounter
--- OUTSIDE RECORDS SUMMARY | 2024-03-12 13:53 | XMS_ITS | Clinical Summary ---
Author Organization [facility] Address [address] [place] [phone] Phone Care Team Providers Care Bean Sprout Laborer Name Role Phone Unavailable Primary Care Provider Unavailabl e Allergies Active Allergy Reactions Criticality Noted Date Comments [place]enc[place] Anaphylaxis High 01/01/2017 Food Itching High Kiwi, melon, pineapple, layton, banana Pineapple Medications QVAR 80 MCG/ACT inhaler INHALE 2 PUFF BY INHALATION ROUTE 2 TIMES EVERY DAY 6 7 Active EPINEPHrine 0.3 MG/0.3ML injection syringeIndication s:Allergic reaction, initial encounter Inject into muscle immediately for signs of anaphylaxis AND call 911. Repeat if symptoms worsen/recur or if uncertain medicine was given 2 Syringe 1 7 Active Additional Information Patient not taking.Reported on 04/10/2017 cetirizine 10 MG tablet Take 10 mg by mouth once daily. 3 7 Active clindamycin 1 % lotion APPLY TO THE AFFECTED AREAS ON THE FACE IN THE MORNING 3 7 Active ibuprofen 600 MG tablet Take 600 mg by mouth every 6 (six) hours as needed. for pain 1 8 Active polyethylene glycol powder MIX 17 GRAMS WITH 8 OUNCE WATER A TAKE 2 TIMES A DAY 1 8 Active tretinoin 0.025 % cream APPLY PEA SIZE AMNT TO FACE AT BED EVERY 3RD NIGHT X1WEEK THEN EVERY OTHER NIGHT X1WEEK THEN NIGHTLY 3 7 Active albuterol HFA 108 (90 BASE) MCG/ACT inhalerIndication s:Asthma in pediatric patient, mild intermittent, uncomplicated Inhale 2 puffs every 4 (four) hours as needed for wheezing or shortness of breath. Please always use with aerochamber (spacer). 1 Units 1 8 Active Active Problems Problem Noted Date Diagnosed Date Hip pain, acute, right 01/01/2017 Rt flank pain 01/01/2017 Abdominal pain, chronic, generalized 01/01/2017 History of allergy to nuts 01/01/2017 Intermittent headache 01/01/2017 Onychomycosis of toenail 01/01/2017 Asthma in pediatric patient, mild intermittent, uncomplicated 01/01/2017 Assessment & Plan (04/10/2017 11:46 AM EST): Decreased aeration bilaterally, but no wheezing. No hypoxia. Will do albuterol neb and see if there is improvement --> much improved per patient (says chest not as tight). Still no wheeze on exam, and slightly increased aeration. AAP filled out and reviewed with patient, note given for albuterol administration at school. Albuterol prescribed for home use as requested, already has aerochamber. Decadron 0.6mg/kg (max 16mg) PO given. Instructed to use albuterol 4 puffs with aerochamber q4hr while sick. Return precautions discussed. Anxiety and depression 01/01/2017 Immunizations Name Administration Dates Next Due DTaP 5 11/27/2004, 2,04/21/2000,02/20,1999 HPV, Quadrivalent 07/16/2012,03/01/2011,11/03/19 11 Hep A, ped/adol 08/29/2015,08/16/2014 Hep B, ped/adol 04/21/2000,1999,1999 Hib (HbOC) 12/10/2000, 1,02/21/2000,12/16 IPV 11/27/2004, 1,02/21/2000,12/16 Influenza Split 10/18/2010,10/23/2009 Influenza, injectable, quadrivalent 11/29/2015 Influenza, injectable, quadr ivalent, preservative free 01/01/2017,10/20/2014 Influenza, injectable, trivalent 02/22/2008 MMR 11/27/2004,11/22/2000 Meningococcal Conj (Menactra) MCV4P 01/01/2017,0 11/02/2010 Tdap 11/02/2010 Varicella 06/19/2007,12/10/2000 Family History Relation Name Status Comments Mother Mother: Crohn's disease Social History Tobacco Use Types Packs/Day Years Used Date Smoking Tobacco: Never Comments:Never smoker Comments Unknown Sex and Gender Information Value Date Recorded Sex Assigned at Not on file Legal Sex Female 5:21 PM EDT Gender Identity Not on file Sexual Orientation Not on file Last Filed Vital Signs Vital Sign Reading Time Taken Comments Blood Pressure 114/73 04/10/2017 10:58 AM EST Pulse 90 04/10/2017 10:58 AM EST Temperature 36.4 ??C (97.6 ??F) 04/10/2017 10:[address] Respiratory Rate 16 04/10/2017 10:58 AM EST Oxygen Saturation 98% 04/10/2017 10:58 AM EST Inhaled Oxygen Concentration - - Weight 73 kg (161 lb) 04/10/2017 10:58 AM EST Height 160 cm (5' 3 ) 08/28/2016 12:00 AM EDT Body Mass Index - - Plan of Treatment Health Maintenance Due Date Last Done Comments Varicella Vaccines (2 of 2 - 2-dose childhood series) 09/11/2007 06/19/2007, 12/10/2000 DTaP,Tdap,and Td Vaccines (7 - Td or Tdap) 11/02/2020 11/02/2010, 11/27/2004, 03/10/2001, Additional history exists Influenza Vaccines (#1) 2023 01/02/20 17, 11/29/2015, 10/20/2014, Additional history exists COVID-19 Vaccine ( season) 2023 Hepatitis B Vaccines Completed 04/21/2000, 1999, 1999 HIB Vaccines Completed 12/10/2000, 04/10, 02/21/2000, Additional history exists IPV Vaccines Completed 11/27/2004, 04/10, 02/21/2000, Additional history exists MMR Vaccines Completed 11/27/2004, 11/22/2000 HPV Vaccines Completed 07/16/2012, 02/11, 11/02/2010 Hepatitis A Vaccines Completed 08/29/2015, 08/17/19 15 Meningococcal Vaccine Completed 01/01/2017, 011 Men B Vaccine Aged Out No longer elig ible based on patient's age to complete this topic Pneumococcal Vaccine Aged Out No long er eligible based on patient's age to complete this topic
--- OUTSIDE RECORDS SUMMARY | 2024-03-12 13:53 | XMS_ITS | Encounter Summary ---
Author Organization [facility] Address [address] [place] [phone] Phone Care Team Providers Care Wood Boat Builder Supervisor Name Role Phone Toyin Rivera SAS PROGRAMMER REMOTE Primary Care Provider Jero araiza Encounter Details Date Type Department Care Team (Late st Contact Info) Description 03/04/2011 Documentation [facility] [place] Family Medicine [address] [place] [address] Family Medicine, Physician [address] [place] [address] Social History Tobacco Use Types Packs/Day Years [...] on filedocumented in this encounter Care Teams Wood Boat Builder Supervisor Relationship Specialty Start Date End Date Toyin Rivera NP PCP - General 09/20/16 05/23/22 documented as of this encounter
--- OUTSIDE RECORDS SUMMARY | 2024-03-12 13:53 | XMS_ITS | Encounter Summary ---
Author Organization [employer] Address [address] [place] [address] 7[address] [place] [address] Care Team Providers Care Master Planner Name Role Phone Elizabeth Gray NP Primary Care Provider [phone] Encounter Details Date Type Department Care Team (Late st Contact Info) Description 03/12/2024 Orders Only [facility] External Provider, [facility] Social History Tobacco Use Types Packs/Day Years Used Date Smoking Tobacco: Never Smokeless Tobacco: Never Alcohol Use Standard Drinks/Week Comments Yes 0 (1 standard drink = 0.6 oz pur e alcohol) Depression Answer Date Recorded Patient Health Questionnaire-9 Score 19 04/22/2022 Depression Answer Date Recorded Patient Health Questionnaire-2 Score 4 04/22/2022 Comments Unknown Sex and Gender Information Value Date Recorded Sex Assigned at Female 12/10/2021 10:37 AM EDT Legal Sex Female 10:37 AM EDT Gender Identity Female 12/10/2021 10:37 AM EDT Sexual Orientation Straight 12/10/2021 10 :37 AM EDT documented as of this encounter Plan of Treatment Not on file documented as of this encounter Procedures Procedure Name Priority Date/Time Associated Diagnosis Comments XR CHEST 2 VIEWS Routine 03/12/2024 10:3 7 AM EST documented in this encounter Results * XR Chest 2 Views (03/12/2024 10:37 AM EST) Anatomical Region Laterality Modality Chest Radiographic Francy ging 03/12/2024 10:3 7 AM EST Narrative 03/12/2024 11:54 AM EST ? [facility] ?[address] ?[place] [address] ?XRay Report ? Signed ? Patient: Boyle,Judibeth ?MR#: [id number] ?? 138 ? : 2000 ?Acct:[id number] ? Age/Sex: 23 / F ?ADM Date: 03/12/24 ? Loc: HO.ED ? Attending Dr: ? Ordering Physician: Fredy Chamorro ?? Date of Service: 03/12/24 ?? Procedure(s): XR chest 2V ?? Accession Number(s): [id number] ? cc: Emilia GuevaraP; Fredy Chamorro ? EXAMINATION: ??XR CHEST 2 VIEWS ? HISTORY: Cough SOB ? COMPARISON: Comparison is made with the prior examination dated ?? 08/23/2022. ? FINDINGS: ??PA and lateral views of the chest are submitted. The lungs ?? are expanded and clear. ??There is no pleural effusion, pneumothorax, or ?? pulmonary vascular congestion. ??The heart is normal in size. ??The bones ?? are intact. ? XR/XR chest 2V ?? IMPRESSION: ?? No acute cardiopulmonary abnormality. ? Electronically signed by: ??Alban Brady MD ??03/12/2024 11:51 AM EST ?? RP ? Dictated By: ?Alban Brady MD ? Signed By: ?<Electronically signed by Alban Brady MD in OV> ?03/12/24 1151 ? DD/ 1037 ? TD/TT: 03/12/24 1147 ? Matcher: ? Procedure Note Jasper Oliva - 03/12/[address] [address] XRay Report Signed Patient: Cosmo BoyleMR#: [id number] 138 : 2000Acct:[id number] Age/Sex: 23 / FADM Date: 03/12/24 Loc: HO.ED Attending Dr: Ordering Physician: Fredy Chamorro Date of Service: 03/12/24 Procedure(s): XR chest 2V Accession Number(s): [id number] cc: Emilia Guevara MARKET INVESTIGATOR; Fredy Chamorro EXAMINATION: XR CHEST 2 VIEWS HISTORY: Cough SOB COMPARISON: Comparison is made with the prior examination dated 08/23/2022. FINDINGS: PA and lateral views of the chest are submitted. The lungs are expanded and clear. There is no pleural effusion, pneumothorax, or pulmonary vascular congestion. The heart is normal in size. The bones are intact. XR/XR chest 2V IMPRESSION: No acute cardiopulmonary abnormality. Electronically signed by: Alban Brady MD 03/12/2024 11:51 AM EST Dictated By: Alban Brady MD Signed By: <Electronically signed by Alban Brady MD in OV> 03/12/24 1151 DD/ 1037 TD/TT: 03/12/24 1147 Matcher: [facility] External Provider IMG XR PROCEDURES Final Result documented in this encounter Visit Diagnoses Not on filedocumented in this encounter Additional Health Concerns Assessment Noted Time PHQ-9 Depression Total Score: 19 04/22/ 023 3:17 PM EDT documented as of this encounter Care Teams Master Planner Relationship Specialty Start Date End Date Elizabeth Gray NP [address] [place] [address] PCP - General Family Medicine 11/15/22 documented as of this encounter
--- OUTSIDE RECORDS SUMMARY | 2024-03-12 13:53 | XMS_ITS | Encounter Summary ---
Author Organization [facility] Address [address] [place] [phone] Phone Care Team Providers Care Project Manager Senior Name Role Phone Toyin Rivera NP Primary Care Provider Jero araiza Encounter Details Date Type Department Care Team (Late st Contact Info) Description 09/26/2016 Documentation [facility] [place] [address] [place] [address] Family Medicine, Physician [address] [place] [address] Social History Tobacco Use Types Packs/Day Years [...] on filedocumented in this encounter Care Teams Project Manager Senior Relationship Specialty Start Date End Date Toyin Rivera NP PCP - General 09/20/16 05/23/22 documented as of this encounter
--- OUTSIDE RECORDS SUMMARY | 2024-03-12 13:53 | XMS_ITS | Clinical Summary ---
Author Organization [employer] Address [address] [facility] 7t [place] [address] Care Team Providers Care Bowling Alley Refinisher Name Role Phone Elizabeth Gray NP Primary Care Provider [phone] Allergies Active Allergy Reactions Criticality Noted Date Comments Egnar Carmencita Anaphylaxis High 01/01/2017 Alvares 04/22/2022 Kiwi Extract Hives 04/12/2021 Other Hives 04/12/2021 Medications cetirizine (ZyrTEC) 10 MG tablet Take 10 mg by mouth in the morning. 2 Active sertraline (Zoloft) 100 MG tablet TAKE 2 TABLET BY MOUTH ONCE A DAY (= 200MG) FOR MOOD, ANXIETY 3 Active omeprazole (PriLOSEC) [address] capsule TAKE 1 CAPSULE BY MOUTH TWICE A DAY FOR 14 DAYS 2 Active Junel FE 03/01 1-20 MG-MCG tablet Take 1 tablet by mouth in the morning. 3 Active ibuprofen 600 MG tablet Take 1 tablet by mouth every 6 (six) hours if needed. 3 Active Flovent HFA 44 MCG/ACT inhaler 2 puffs 2 times daily. 2 Active ferrous sulfate 325 (65 Fe) MG tablet TAKE 1 TABLET BY ORAL ROUTE EVERY OTHER DAY WITH FOOD FOR IRON DEFICIENCY 2 Active econazole nitrate 1 % cream APPLY BY TOPICAL ROUTE 2 TIMES EVERY DAY TO THE AFFECTED AND SURROUNDING AREAS OF SKIN 2 Active docusate sodium (Colace) 100 MG capsule TAKE 1 CAPSULE BY MOUTH EVERY DAY AT BEDTIME NEEDED 2 Active Acetaminophen Extra Strength 500 MG tablet TAKE 2 TABLETS BY MOUTH EVERY 8 HOURS NEEDED FOR PAIN 2 Active albuterol 108 (90 Base) MCG/ACT inhaler Inhale 2 puffs. 8 Active hydrOXYzine HCl (Atarax) 10 MG tabletIndication s:Anxiety and depression Take 2.5 tablets (25 mg) by mouth if needed in the morning, at noon, and at bedtime for anxiety. 90 tablet 3 Active doxazosin (Cardura) 2 MG tabletIndication s:Psychophysiolo gical insomnia Take 1 tablet (2 mg) by mouth at bedtime. 90 tablet 1 3 Active fluticasone (Flonase) 50 MCG/ACT nasal sprayIndications :Seasonal allergic rhinitis, unspecified trigger SPRAY 2 SPRAYS INTO EACH NOSTRIL EVERY DAY 48 mL 1 3 Active Active Problems Problem Noted Date Diagnosed Date Psychophysiological insomnia 05/13/2022 Asthma 04/22/2022 Class 1 obesity 04/22/2022 Dysmenorrhea 04/22/2022 Endometriosis 04/22/2022 Heavy menses 04/22/2022 Polycystic ovary syndrome 04/22/2022 Juvenile rheumatoid arthritis 04/22/2021 Moderate persistent asthma 04/22/2021 Abdominal pain, chronic, generalized 01/01/2017 Anxiety and depression 01/01/2017 Asthma in pediatric patient, mild intermittent, uncomplicated 01/01/2017 Overview (04/22/2022): Last Assessment & Plan: Decreased aeration bilaterally, but no wheezing. No [...] aerochamber q4hr while sick. Return precautions discussed. Intermittent headache 01/01/2017 Hip pain, acute, right 01/01/2017 Rt flank pain 01/01/2017 Onychomycosis of toenail 01/01/2017 Resolved Problems Problem Noted Date Diagnosed Date Resolved Date Anxiety 03/27/2021 05/13/2022 Encounters Date Type Department Care Team Description 03/12/2024 Orders Only [facility] External Provider, [facility] from Last 3 Months Social History Tobacco Use Types Packs/Day Years Used Date Smoking Tobacco: Never Smokeless Tobacco: Never Tobacco Cessation:Counseling Given: Not Answered Alcohol Use Standard Drinks/Week Comments Yes 0 [...] Orientation Straight 12/10/2021 10 :37 AM EDT Last Filed Vital Signs Vital Sign Reading Time Taken Comments Blood Pressure 129/79 12/17/2022 9:59 AM EST Pulse 74 12/17/2022 9:59 AM EST Temperature 36.8 ??C (98.3 ??F) 12/17/2022 9:59 AM ES T Respiratory Rate 16 12/17/2022 9:59 AM EST Oxygen Saturation 98% 12/17/2022 9:59 AM EST Inhaled Oxygen Concentration - - Weight 91.7 kg (202 lb 3.2 oz) 12/17/2022 9:59 A M EST Height 160 cm (5' 3 ) 12/17/2022 9:59 AM EST Body Mass Index 35.82 12/17/2022 9:59 AM EST Plan of Treatment Health Maintenance Due Date Last Done Comments SDOH Screening 1999 Alcohol/Substance Use Screening 2011 Family Planning (PISQ) 10/15/2014 Pneumococcal Vaccine: Pediatrics (0 to 5 Years) and At-Risk Patients (6 to 49) Years) (1 of 2 - PCV) 10/15/2018 Pap Smear 10/15/2020 Depression Monitoring (PHQ-9) 10/23/2022 04/22/2022, 04/22/2022 Depression Screening 04/23/2023 04/22/2022, 04/23/19 23 COVID-19 Vaccine ( season) 2023 03/25/2020, 03/04/2020 Influenza Vaccine (#1) 2023 , 04/12/2021, 12/12/2019, Additional history exists Tobacco Screening 12/18/2023 12/17/2022 DTaP/Tdap/Td Vaccines (8 - Td or Tdap) 12/09/2027 12/08/2017, 11/02/2010, 11/27/2004, Additional history exists Zoster Vaccines (1 of 2) 10/15/2049 RSV Patients and Patients Aged 60 years or older (1 - 1-dose 75+ series) 10/15/2074 Hepatitis B Vaccines Completed 04/21/2000, 1999, 1999 HIB Vaccines Completed 12/10/2000, 04/10, 02/21/2000, Additional history exists IPV Vaccines Completed 11/27/2004, 04/10, 02/21/2000, Additional history exists HPV Vaccines Completed 07/16/2012, 02/11, 11/02/2010 Hepatitis A Vaccines Completed 08/29/2015, 08/17/19 15 Meningococcal Vaccine Completed 01/01/2017, 011 HIV Screening Completed 03/23/2021 Hepatitis C Screening Completed 03/23/2021 RSV under 20 months Aged Out No longe r eligible based on patient's age to complete this topic Rotavirus Vaccines Aged Out No longer eligible based on patient's age to complete this topic Procedures Procedure Name Priority Date/Time Associated Diagnosis Comments HIGH SENSITIVITY TROPONIN I Routine 03/12/2024 11:05 AM EST HCG, TOTAL, QN Routine 03/12/2024 11:05 AM EST BASIC METABOLIC PANEL Routine 03/12/2024 11:05 AM EST COVID-19 ID NOW (CAVAZOS) Routine 03/12/2024 11:05 AM EST PROTHROMBIN TIME-INR Routine 03/12/2024 11:05 AM EST CBC WITH AUTO DIFFERENTIAL Routine 03/12/2024 11:05 AM EST INFLUENZA A B2 ID NOW (CAVAZOS) Routine 03/12/2024 11:05 AM EST XR CHEST 2 VIEWS Routine 03/12/2024 10:3 7 AM EST ZZZ HISTORICAL HEPATITIS C AB W/REFL TO HCV RNA, QN, PCR Routine 03/23/2021 3:15 PM EST HIV 1/2 ANTIGEN/ANTIBODY, FOURTH GENERATION W/RFL Routine 03/23/2021 3:15 PM EST from Last 3 Months or Most Recently Relevant to Health Maintenance Results * (ABNORMAL) Influenza A B2 ID NOW (Cavazos) (03/12/2024 11:05 AM EST) IDNOW SERIAL# [id number] [facility] Influenza A Positive(A) Negative [facility] Influenza B2 Negative Negative [facility] Influenza A B2 Note See Note [facility] Comment:The Cavazos ID NOW In fluenza A B2 test is used for thequalitative detection of influenza A and B from patientswith signs and symptoms of respiratory infection.Negative results do not preclude influenza virus infectionand should not be used as the sole basis for diagnosis,treatment or other patient management decisions.There is a risk of false negative results due to thepresence of variants in the viral targets of the assay, lowlevels of virus in the specimen and co- infection withRespiratory Syncytial Virus. 03/12/2024 11:0 5 AM EST 03/12/2024 11:11 AM EST us Generic External Data Provider LAB MICROBIOLOGY - GENERAL ORDERABLES Final Result [facility] [address] [place] [phone] * COVID-19 ID NOW (CAVAZOS) (03/12/2024 11:05 AM EST) IDNOW SERIAL# [id number] [facility] COVID-19 TEST Negative Negative [facility] COVID-19 NOTE See Note [facility] Comment: Results are for the identification of SARS-CoV2 RNA. TheSARS-CoV2 RNA is generally detectable in respiratory samplesduring the acute phase of infection. Positive results areindicative of the presence of SARS-CoV-2 RNA; clinicalcorrelation with patient history and other diagnosticinformation is necessary to determine patient infectionstatus. Positive results do not rule out bacterial infectionor co- infection with other viruses.Testing facilities within the [facility] and itsterritories are required to report all positive results tothe appropriate public health authorities.Negative results should be treated as presumptive and, ifinconsistent with clinical signs and symptoms or necessaryfor patient management, should be tested with differentauthorized or cleared molecular tests. Negative results donot preclude SARS-CoV2 RNA infection and should not be usedas the sole basis for patient management decisions. Negativeresults should be considered in the context of a patient'srecent exposures, history and the presence of clinical signsand symptoms consistent with COVID-19.This test has been authorized by the FDA under an EmergencyUse Authorization (EUA) for use by authorized laboratories.Testing performed on the Sand Sign ID NOW utilizing NAAT. 03/12/2024 11:0 5 AM EST 03/12/2024 11:11 AM EST us Generic External Data Provider LAB MOLECULAR [facility] GNOSTICS ORDERABLES Final Result [facility] [address] [place] [address] [phone] * High Sensitivity Troponin I (03/12/2024 11:05 AM EST) TROPONIN I HIGH SENSITIVITY <2.7 <3.5 - 17.0 ng/L [facility] Comment:The Cavazos high sens itivity Troponin-I results should beused in conjunction with other diagnostic information suchas ECG, clinical observations and information, and patientsymptoms to aid in the diagnosis of CO. 03/12/2024 11:0 5 AM EST 03/12/2024 11:11 AM EST us Generic External Data Provider LAB BLOOD ORDERAB LES Final Result [facility] [address] [place] [phone] * (ABNORMAL) CBC auto differential (03/12/2024 11:05 AM EST) White Blood Count 8.5 4.8 - 10.8 X10*3/uL [facility] Red Blood Count 4.77 4.20 - 5.50 X10*6/uL [facility] Hemoglobin 13.6 12.0 - 16.0 g/dl [facility] Hematocrit 40.1 37.0 - 47.0 % [facility] Mean Corpuscular Volume 84.1 80.0 - 98.0 fL [facility] Mean Corpuscular Hemoglobin 28.5 27.0 - 33.0 pg [facility] Mean Corpuscular HGB Conc 33.9 31.0 - 35.0 g/dl [facility] Red Cell Distribution Width 13.7 11.0 - 16.0 % [facility] Platelet Count 250 160 - 400 X10*3/uL [facility] Mean Platelet Volume 10.4 9.4 - 12.3 fL [facility] Neutrophils Percent Auto 79.1(H) 45 - 73 % [facility] Imm Gran Pct Auto 0.5(H) 0.0 - 0.4 % [facility] Lymphocytes Percent Auto 6.5(L) 20 - 40 % [facility] Monocytes Percent Auto 13.3(H) 2 - 11 % [facility] Eosinophils Percent Auto 0.4 0 - 4 % [facility] Basophils Percent Auto 0.2 0 - 2 % [facility] NRBC Pct Auto 0.0 0.0 - 0.2 /100WBC [facility] Neutrophils Absolute Auto 6.7 2.0 - 8.3 x10*3/uL [facility] Imm Gran Abs Auto 0.04(H) 0.00 - 0.03 X10*3/uL [facility] Lymphocytes Absolute Auto 0.6(L) 1.2 - 4.9 X10*3/uL [facility] Monocytes Absolute Auto 1.1 0.1 - 1.2 X10*3/uL [facility] Eosinophils Absolute Auto 0.0 0.0 - 0.4 X10*3/uL [facility] Basophils Absolute Auto 0.0 0.0 - 0.2 X10*3/uL [facility] NRBC Abs Auto 0.000 0.0 - 0.012 X10*3/uL [facility] 03/12/2024 11:0 5 AM EST 03/12/2024 11:11 AM EST us Generic External Data Provider LAB BLOOD ORDERAB LES Final Result [facility] [address] [place] [address] [phone] * Prothrombin Time-INR (03/12/2024 11:05 AM EST) Prothrombin Time 12.4 10.9 - 12.4 SEC [facility] INTERNATIONAL NORM RATIO 1.1 0.9 - 1.1 [facility] Comment:INTERNATIONAL NORMAL IZED RATIO (INR) REFERENCE RANGES Reference RangeFor patients not on anticoagulant therapy: 0.9 - 1.1INR ranges for oral anticoagulanttherapy:For prevention and treatment of venous thrombosis and pulmonary embolism: 2.0 - 3.0For acute myocardial infarction with aspirin therapy: 2.0 - 3.0For acute myocardial infarction without aspirin therapy: 3.0 - 4.0For patients with mechanical prosthetic heart valves: 2.5 - 3.5 03/12/2024 11:0 5 AM EST 03/12/2024 11:11 AM EST us Generic External Data Provider LAB BLOOD ORDERAB LES Final Result [facility] [address] [place] [phone] * hCG, Total, Quantitative (03/12/2024 11:05 AM EST) HCG Quantitative <2 mIU/mL [facility] Comment:Weeks post LMP Appro ximate hCG(Last Menstrual Period) Range (mIU/ml)3 - 4 weeks 9 - 1304 - 5 weeks 75 - 2,6005 - 6 weeks 850 - 20,8006 - 7 weeks 4000 - 100,2007 - 12 weeks 11,500 - 289,25427 - 16 weeks 18,300 - 137,20735 - 29 weeks (2nd trimester) 1,400 - 53,68995 - 41 weeks (3rd trimester) 940 - 60,000The Cavazos B- hCG assay is used for the early detection ofpregnancy; it cannot be used to diagnose any conditionunrelated to . If a B-hCG level is not supportedby the clinical evidence, results should be confirmed by analternative method (qualitative urine hCG, for example). 03/12/2024 11:0 5 AM EST 03/12/2024 11:11 AM EST Generic External Data Provider LAB BLOOD ORDERAB LES Final Result Performing Organization Address City/[facility]/ZIP Co de Phone Number [facility] [address] [place] [phone] * (ABNORMAL) Basic Metabolic Panel (03/12/2024 11:05 AM EST) Sodium 138 135 - 145 mmol/L [facility] Potassium 4.1 3.3 - 5.1 mmol/L [facility] Chloride 110(H) 96 - 108 mmol/L [facility] Carbon Dioxide 21(L) 22 - 29 mmol/L [facility] Anion Gap 11(L) 12 - 20 [facility] Urea Nitrogen (BUN) 6(L) 9 - 16 mg/dL [facility] Creatinine, Serum 0.77 0.5 - 1.4 mg/dL [facility] Creatinine Clr Calc Pharmacy 115.3 [facility] Comment:Provided height and weight: 160.02 cm,83.5 kg.eGFR (calculated from the MDRD study equation) and eCrCl(calculated from the Cockcroft-Gault equation) are based ondifferent parameters and may not yield comparable results.If eCrCl result is absurd, please check patient'sheight/weight. Estimated Glomerular Filt Rate >60 [facility] Comment:Chronic Kidney Disea se: Estimated GFR < 60 mL/min/1.20r0Btagwd Kidney Disease: Estimated GFR < 15 mL/min/1.73m2 Glucose 97 60 - 115 mg/dL [facility] Calcium 9.6 8.4 - 10.2 mg/dL [facility] 03/12/2024 11:0 5 AM EST 03/12/2024 11:11 AM EST us Generic External Data Provider LAB BLOOD ORDERAB LES Final Result [facility] [address] [place] [phone] * XR Chest 2 Views (03/12/2024 10:37 AM EST) Anatomical Region Laterality Modality Chest Radiographic Francy ging 03/12/2024 10:3 7 AM EST Narrative 03/12/2024 11:54 AM EST ? [facility] ?[address] ?[place] [address] ?XRay Report ? Signed ? Patient: Boyle,Judibeth ?MR#: [id number] ?? 138 ? : 2000 ?Acct:[id number] ? Age/Sex: 23 / F ?ADM Date: 01/31/25 ? Loc: HO.ED ? Attending Dr: ? Ordering Physician: Fredy Chamorro ?? Date of Service: 03/12/24 ?? Procedure(s): XR chest 2V ?? Accession Number(s): [id number] ? cc: Emilia Guevara Isaura RESPIRATORY TECHNICIAN; Fredy Chamorro ? EXAMINATION: ??XR CHEST 2 [...] DD/ 1037 ? TD/TT: 03/12/24 1147 ? Global Cmo: ? Procedure Note Donotparmjitinterpreter, Image - 03/12/2024 [place] [address] XRay Report Signed Patient: Cosmo BoyleMR#: [id number] 138 : 2000Acct:[id number] Age/Sex: 23 FADM Date: 03/12/24 Loc: .ED Attending Dr: Ordering Physician: Fredy Chamorro Date of Service: 03/12/24 Procedure(s): XR chest 2V Accession Number(s): [id number] cc: Emilia Guevara; Fredy Chamorro EXAMINATION: XR CHEST 2 VIEWS [...] 03/12/24 1151 DD/ 1037 TD/TT: 03/12/24 1147 Global Cmo: [facility] External Provider IMG XR PROCEDURES Final Result * HEPATITIS C AB W/REFL TO HCV RNA, QN, PCR (03/23/2021 3:15 PM EST) HEPATITIS C ANTIBODY NON-REACT TIANA NON-REACT TIANA [facility] INDEX 0.01 <1.00 [facility] Comment: ?? HCV antibody was non-reactive. There is no laboratory ?? evidence of HCV infection. ?? In most cases, no further action is required. However, if recent HCV exposure is suspected, a test for HCV RNA (test code 14851) is suggested. ?? For additional information please refer to http://M-Farm.Idea Device/faq/VIH71q8 (This link is being provided for informational/ educational purposes only.) ?? 03/23/2021 3:15 PM EST [facility] RESPIRATORY TECHNICIAN HISTORICAL/NON ORDERABLE LABS Final Result [facility] [address] * HIV 1/2 ANTIGEN/ANTIBODY,FOURTH GENERATION W/RFL (03/23/2021 3:15 PM EST) HIV-1/2 ANTIGEN AND ANTIBODIES, 4TH GENERATION W/ REFLEX NON-REACT TIANA NON-REACT TIANA [facility] Comment: HIV-1 antigen and HIV-1/HIV-2 antibodies were not detected. There is no laboratory evidence of HIV infection. ?? PLEASE NOTE: This information has been disclosed to you from records whose confidentiality may be protected by state law. ??If your state requires such protection, then the state law prohibits you from making any further disclosure of the information without the specific written consent of the person to whom it pertains, or as otherwise permitted by law. A general authorization for the release of medical or other information is NOT sufficient for this purpose. ? For additional information please refer to http://education.Info.Breath of Life/faq/VEK139 (This link is being provided for informational/ educational purposes only.) ? The performance of this assay has not been clinically validated in patients less than 2 years old. ?? 03/23/2021 3:15 PM EST [facility] RESPIRATORY TECHNICIAN LAB BLOOD ORDERABLES Final Re sult [facility] [address] from Last 3 Months or Most Recently Relevant to Health Maintenance Insurance [employer] Care Teams Bowling Alley Refinisher Relationship Specialty Start Date End Date Elizabeth Gray NP [address] [place], [place] PCP - General Family Medicine 11/15/22
--- OUTSIDE RECORDS SUMMARY | 2024-03-12 13:53 | XMS_ITS | Encounter Summary ---
Author Organization [facility] Address [address] [place] [phone] Phone Care Team Providers Care Diesel Powerplant Supervisor Name Role Phone Toyin Rivera BOWLING BALL MOLD ASSEMBLER Primary Care Provider Jero araiza Encounter Details Date Type Department Care Team (Late st Contact Info) Description 06/29/2009 Documentation [facility] [place] Family Medicine [address] [place] [address] Family Medicine, Physician [address] [place] [address] Social History Tobacco Use Types Packs/Day Years [...] on filedocumented in this encounter Care Teams Diesel Powerplant Supervisor Relationship Specialty Start Date End Date Toyin Rivera NP PCP - General 09/20/16 05/23/22 documented as of this encounter
--- OUTSIDE RECORDS SUMMARY | 2024-03-12 13:53 | XMS_ITS | Encounter Summary ---
Author Organization [facility] Address [address] [place] [id number] Phone Care Team Providers Care Job Forwarder Name Role Phone Toyin Rivera UPPER CASER Primary Care Provider Jero araiza Encounter Details Date Type Department Care Team (Late st Contact Info) Description 10/20/2014 Documentation [facility] [address] [place] [address] Family Medicine, Physician [address] [place] [address] Social History Tobacco Use Types Packs/Day Years [...] on filedocumented in this encounter Care Teams Job Forwarder Relationship Specialty Start Date End Date Toyin Rivera NP PCP - General 09/20/16 05/23/22 documented as of this encounter
--- OUTSIDE RECORDS SUMMARY | 2024-03-12 13:53 | XMS_ITS | Clinical Summary ---
Author Organization [employer] [facility] ity Address [address] [place] [address] Care Team Providers Care Family Readiness Support Assistant Name Role Phone Unavailable Primary Care Provider Unavailabl e Social History Tobacco Use Types Packs/Day Years Used Date Smoking Tobacco: Never Assessed Sex and Gender Information Value Date Recorded Sex Assigned at Not on file Gender Identity Not on file Sexual Orientation Not on file Plan of Treatment Health Maintenance Due Date Last Done Comments Gonorrhea/Chlamydia Screening 1999 HPV Vaccines (1 - 3-dose series) 10/15/2014 DTaP,Tdap,and Td Vaccines (1 - Tdap) 10/15/2018 Hepatitis B Vaccines (1 of 3 - 19+ 3-dose series) 10/15/2018 Cervical Cancer Screening: P ap Smear 10/15/2020 COVID-19 Vaccine ( - 2023-2 5 season) 2023 Influenza Vaccine (#1) 2023 HIB Vaccines Aged Out No longer eligi ble based on patient's age to complete this topic Hepatitis A Vaccines Aged Out No long er eligible based on patient's age to complete this topic IPV Vaccines Aged Out No longer eligi ble based on patient's age to complete this topic MMR Vaccines Aged Out No longer eligi ble based on patient's age to complete this topic Meningococcal ACWY Vaccine Aged Out N o longer eligible based on patient's age to complete this topic Pneumococcal Vaccine: Pediat rics (0 to 5 Years) and At-Risk Patients (6 to 64 Years) Aged Out No longer eligible b ased on patient's age to complete this topic RSV Immunization Patients Un juanjose 20 months Aged Out No longer eligible b ased on patient's age to complete this topic Varicella Vaccines Aged Out No longer eligible based on patient's age to complete this topic
--- OUTSIDE RECORDS SUMMARY | 2024-03-12 13:53 | XMS_ITS | Encounter Summary ---
Author Organization [facility] Address [address] [place] [id number] Phone Care Team Providers Care Cottage Cheese Maker Name Role Phone Toyin Rivera NP Primary Care Provider Jero araiza Encounter Details Date Type Department Care Team (Late st Contact Info) Description 09/26/2016 Conversion Encounter [address] [id number] Social History Tobacco Use Types Packs/Day Years [...] on filedocumented in this encounter Care Teams Cottage Cheese Maker Relationship Specialty Start Date End Date Toyin Rivera NP PCP - General 09/20/16 05/23/22 documented as of this encounter
[2024-03-12] MEDS: levalbuterol HCL 2.5 MG, Ipratropium Bromide 0.5 MG INHALE (14:34)
[2024-03-12] MEDS: 0.9 % Sodium Chloride 1,000 ML 999 ML IV ×3 (14:40→17:20)
[2024-03-12 14:46] LABS: Alanine Aminotransferase 45 U/L (0-31); Albumin Level 4.1 g/dL (3.5-5.0); Alkaline Phosphatase 77 U/L (39-117); Aspartate Amino Transferase 33 U/L (5-31); Bilirubin Direct 0.1 mg/dL (0.0-0.5); Bilirubin Total 0.4 mg/dL (0.0-1.0); Magnesium 1.9 mg/dL (1.6-2.6); Total Protein 8.4 g/dL (6.5-8.0)
[2024-03-12] MEDS: LORazepam 2 MG/ML VIAL 1 MG IVPUSH (15:06)
[2024-03-12] MEDS: Acetaminophen 325 MG TABLET 650 MG PO (15:11)
[2024-03-12 15:26] LABS: D Dimer High Sensitivity 189 NG/ML
[2024-03-12 17:08] LABS: Troponin-I High Sensitivity < 2.7 ng/L (<3.5-17.0)
--- NOTE | 2024-03-12 18:07 | PHA.MEDREC ---
Addendum entered by Jess Smiht [facility] 03/12/24 18:10: Reviewed by pharmacist Original Note: Pharmacy Consult ? Medication Reconciliation Pharmacy has completed the medication reconciliation. Spoke to patient to confirm med list. Patient states she is only taking Apri control and Trazadone 50 mg at bedtime prn, last filled 10/17/23 for 30 days
--- NOTE | 2024-03-12 18:36 | PM.IMHP ---
History of Present Illness Date of Service: 03/12/24 Attending physician on admission: Momo [facility] Chief Complaint: SOB Pt is a 23-year-old female with a PMH significant for moderate persistent asthma, rheumatoid arthritis not on home meds, endometriosis, and PCOS?who presents to the ED for evaluation of worsening SOB, cough, and chest tightness x1 week. PHas also been experiencing headache, myalgias, fatigue, and intermittent nausea and vomiting. Chest tightness associated with breathing and cough. Cough has been mostly nonproductive. Symptoms worsened this morning and were not alleviated by home inhalers, which prompted visit to the ED. Of note, pt reports she always becomes significantly tachycardic when she gets sick. In the ED pt was tachycardic up to 180s, tachypneic up to 29, hypertensive up to 145/80, and febrile up to 100.7. Labs were significant for testing positive for flu, otherwise grossly unremarkable and around baseline for pt. No leukocytosis. Stable H&H. D-dimer WNL. No significant electrolyte abnormalities. Renal function baseline. Mild transaminitis of AST 33 and ALT 45, similar to previous. Serial troponins negative. CXR showed no acute cardiopulmonary abnormality. EKG demonstrated sinus tachycardia of 140 without evidence of significant ischemic changes, similar to prior. Pt was treated with Xopenex, IVF, lorazepam, and Tylenol. Pt will be admitted to the hospital acute asthma exacerbation in the setting of acute flu infection. Review of Systems Review of Systems: Negative except for that which is stated in the [facility] Medical History PCOS (polycystic ovarian syndrome) Kidney stones Asthma Social History Household Members: Family Household Members Other:: grandmother Housing: Apartment Do you presently have visiting nurse or other home services: No Alcohol intake: current Alcohol intake frequency: holidays/special occasions only Patient Tobacco Use Status: Former Tobacco user Smoked in Last 30 Days: No Use of substances other than those prescribed or required for medical reasons: Yes Substance Use Type: Marijuana Substance Use Frequency: Daily Currently Displaying Signs/Symptoms of Drug Intoxication Withdrawal: No Any prior treatment program specific to substance use: No Have you been hit, kicked, punched, or otherwise hurt by someone within the past year? If so, by whom?: No Do you feel safe in your current relationship?: No Current Relationship Is there a partner from a previous relationship who is making you feel unsafe now?: No Are you made to feel afraid or neglected: No Advance Directives: No Advance Directives Information Provided: Yes Advance Directives on File: No Do you have a plan to hurt others: No Plan Recently lost weight without trying: No How much weight loss: Unsure Eating poorly because of decreased appetite: Yes Nutrition screen score: 3 Nutrition Risks: No Nutritional Risk Patient : No : No Poor oral hygiene: No service: No Current occupational status: unemployed Current occupation: rt hand Meds Allergies Allergy/AdvReac Type Severity Reaction Status Date / Time nut - unspecified Allergy Intermediate HIVES Verified 03/12/24 10:33 [NUT - UNSPECIFIED] FRUIT Allergy Intermediate ITCHY LIPS Uncoded 01/07/24 10:14 nuts Allergy Intermediate Hives Uncoded 01/07/24 10:14 pollen Allergy Intermediate Hives Uncoded 01/07/24 10:14 Home Medications ?Medication ?Instructions ?Recorded ?Confirmed ?Last Taken ?Type trazodone 50 mg tablet 50 mg PO BEDTIME PRN Sleep 04/30/23 03/12/24 Unknown History desogestrel 0.15 mg-ethinyl 1 tab PO DAILY 03/12/24 03/12/24 03/11/24 History estradiol 0.03 mg tablet (Apri) Physical Exam Vital Signs and Narrative: Vital Signs: Last Vital Signs Temp 98.2 F 03/12/24 16:20 Pulse 135 H 03/12/24 16:20 Resp 29 H 03/12/24 16:20 BP 145/80 H 03/12/24 16:20 Pulse Ox 98 03/12/24 16:20 O2 Del Method Room Air 03/12/24 16:20 BMI result Body Mass Index 32.6 General: AOx3, no acute distress Resp: CTA bilaterally CVS: S1, S2, regular rhythm, tachycardic GI: +BS, NT, no distention Skin: Warm, dry Neuro: Cranial nerves II-XII grossly intact bilaterally. Motor grossly intact bilaterally Extremities: No edema Psych: Appropriate affect Results Labs 03/12/24 11:05 03/12/24 11:05 Labs: Laboratory Results - last 24 hr 03/12/24 03/12/24 11:05 15:06 MCV 84.1 MCH 28.5 MCHC 33.9 RDW 13.7 Plt Count 250 MPV 10.4 Immature Gran % (Auto) 0.5 H Neut % (Auto) 79.1 H Lymph % (Auto) 6.5 L Roosevelt % (Auto) 13.3 H Eos % (Auto) 0.4 Baso % (Auto) 0.2 Lymph # (Auto) 0.6 L [place] # (Auto) 1.1 Eos # (Auto) 0.0 Baso # (Auto) 0.0 Abs Immat Gran (auto) 0.04 H Absolute Neuts (auto) 6.7 Absolute Nucleated RBC 0.000 Nucleated RBC % (auto) 0.0 PT 12.4 INR 1.1 D-Dimer High Sensitivty 189 Anion Gap 11 L Estim Creat Clear Calc 115.3 Estimated GFR > 60 Random Glucose 97 Calcium 9.6 Magnesium 1.9 Total Bilirubin 0.4 Direct Bilirubin 0.1 AST 33 H ALT 45 H Alkaline Phosphatase 77 Troponin I High Sens < 2.7 < 2.7 Total Protein 8.4 H Albumin 4.1 Beta HCG, Quant < 2 COVID-19 (MARILYN) Negative COVID-19 Clin Com See Note Influenza Type A (ALDO) Positive A Influenza Type B (ALDO) Negative Influenza A & B Note See Note Imaging Radiologist's Impressions: Impressions Chest X-Ray 03/12/24 10:37 IMPRESSION: No acute cardiopulmonary abnormality. Electronically signed by: Alban Brady MD 03/12/2024 11:51 AM [facility] Assessment and Plan (1) Influenza A: Status: Acute (2) Asthma exacerbation: Status: Acute Plan Pt is a 23-year-old female with a PMH significant for moderate persistent asthma, rheumatoid arthritis not on home meds, endometriosis, and PCOS?who presents to the ED for evaluation of worsening SOB, cough, and chest tightness x1 week. Pt will be admitted to the hospital acute asthma exacerbation in the setting of acute flu infection. Acute asthma exacerbations influenza a infection Pt with SOB, GROSSMAN, chest tightness, N/V, and myalgias x1 week Symptoms persist despite treatment in the ED No sepsis: Pt with viral illness, no indication for antibiotics at this time Will treat with Tamiflu, Solu-Medrol, Xopenex, guaifenesin Monitor respiratory status Tachycardia Pt's BP as high as 180s in the ED Reports often becomes tachycardic when sick Pt received 3L IVF and Ativan in the ED Monitor on telemetry Full Code Attending:?Dr. Chavez DVT Prophylaxis: Pt ambulatory, admitted for observation Pt will be admitted to the hospital under observation for treatment and further evaluation of tachycardia secondary to acute asthma exacerbation in setting of acute influenza a infection that is not sufficiently resolved despite treatment in the ED.. Quality Stroke Does the patient have a stroke diagnosis?: No VTE Prior VTE?: No VTE Risk Level:: Medical - moderate - high VTE Device Contraindication: Treatment Not Indicated VTE Drug Contraindication: Treatment Not Indicated
[2024-03-12] MEDS: Oseltamivir Phosphate 75 MG CAPSULE PO (19:39)
[2024-03-12] MEDS: methylPREDNISolone Sod Succ 40 MG/ML VIAL IVPUSH (19:39)
[2024-03-12] MEDS: ondansetron HCL 4 MG/2 ML VIAL IVPUSH (21:11)
[2024-03-12] MEDS: 0.9 % Sodium Chloride Flush 3 ML SYRINGE IVFLUSH (21:11)
[2024-03-13 03:14] VITALS: BP 121/78; PULSE 85; RESP 12; TEMP 36.4; O2SAT 95
[2024-03-13] MEDS: methylPREDNISolone Sod Succ 40 MG/ML VIAL IVPUSH ×2 (06:35→19:54)
[2024-03-13] MEDS: Oseltamivir Phosphate 75 MG CAPSULE PO ×2 (06:35→19:54)
[2024-03-13 07:24] VITALS: BP 113/67; PULSE 85; RESP 18; TEMP 36.4; O2SAT 97
[2024-03-13 07:42] VITALS: PULSE 85; RESP 18; O2SAT 97
[2024-03-13] MEDS: levalbuterol HCL 1.25 MG/3 ML VIAL.NEB INHALE (07:42)
[2024-03-13] MEDS: 0.9 % Sodium Chloride Flush 3 ML SYRINGE IVFLUSH ×2 (09:04→16:46)
--- NOTE | 2024-03-13 09:04 | MHC.CM.PN ---
[place] 03/13/24, Pt lives with family, she is functionally independent, no home health services. For DME, she has a nebulizer. She can arrange a ride home at [place]. DCP: home, self care. CM to follow for DC needs.
[2024-03-13] MEDS: LORazepam 0.5 MG TABLET PO (09:08)
--- NOTE | 2024-03-13 10:30 | P.PNIM_ITS ---
Subjective Subjective Date of Service: 03/13/24 Interval History: No sob, no chest pain. HR went high following breathing treartment and was experiencing chest tightness Physical Exam 2 Vital Signs: Vital Signs: Last Vital Signs Temp 97.5 F 03/13/24 07:24 Pulse 85 03/13/24 07:42 Resp 18 03/13/24 07:42 BP 113/67 03/13/24 07:24 Pulse Ox 97 03/13/24 07:24 O2 Del Method Room Air 03/13/24 07:24 BMI result Body Mass Index 32.6 Const: Other: General: AO X 3, no acute distress Resp: CTA bilateral, normal effort CVS: S1,S2,RRR, tachy GI: +BS, NT, no distention Skin: No rash Neuro: motor grossly intact Psych: appropriate affect Objective Data Active Medications Acetaminophen (Acetaminophen 325 Mg Tablet) 650 mg PO Q6H PRN PRN Reason: Pain, Mild 1-3,fever,headache Calcium Carbonate (Calcium Carbonate 750 Mg Tab.Chew) 750 mg PO Q4H PRN PRN Reason: Heartburn Guaifenesin/Codeine Phosphate (Guaifen/Codeine Sf 200/20/10ml 10 Ml Liquid) 5 ml PO Q4H PRN PRN Reason: Cough Levalbuterol HCl (Levalbuterol Hcl 1.25 Mg/3 Ml Vial.Neb) 1.25 mg INHALE Q4H PRN PRN Reason: Shortness of Breath/Wheezing Lorazepam (Lorazepam 0.5 Mg Tablet) 0.5 mg PO Q4H PRN PRN Reason: anxiety/restlessness Last Admin: 03/13/24 09:08 Dose: 0.5 mg Documented By: LEANNE Magnesium Hydroxide (Milk Of Magnesia 30 Ml Oral.Susp) 30 ml PO DAILY PRN PRN Reason: Constipation Melatonin (Melatonin 3 Mg Tablet) 6 mg PO BEDTIME PRN PRN Reason: Insomnia Methylprednisolone Sodium Succinate (Methylprednisolone Sod Succ 40 Mg/Ml Vial) 40 mg IVPUSH Q12H [facility] Last Admin: 03/13/24 06:35 Dose: 40 mg Documented By: SUN Ondansetron HCl (Ondansetron Hcl 4 Mg/2 Ml Vial) 4 mg IVPUSH Q8H PRN PRN Reason: Nausea and Vomiting Last Admin: 03/12/24 21:11 Dose: 4 mg Documented By: SUN Oseltamivir Phosphate (Oseltamivir Phosphate 75 Mg Capsule) 75 mg PO Q12H [facility] Stop: 03/17/24 07:01 Last Admin: 03/13/24 06:35 Dose: 75 mg Documented By: SUN Sodium Chloride (0.9 % Sodium Chloride Flush 3 Ml Syringe) 3 ml IVFLUSH QSHIFT [facility] Last Admin: 03/13/24 09:04 Dose: 3 ml Documented By: DOBROKalpana Trazodone HCl (Trazodone Hcl 50 Mg Tablet) 50 mg PO BEDTIME PRN PRN Reason: Sleep Labs 03/12/24 11:05 03/12/24 11:05 Labs: Laboratory Results - last 24 hr 03/12/24 03/12/24 11:05 15:06 MCV 84.1 MCH 28.5 MCHC 33.9 RDW 13.7 Plt Count 250 MPV 10.4 Immature Gran % (Auto) 0.5 H Neut % (Auto) 79.1 H Lymph % (Auto) 6.5 L [place] % (Auto) 13.3 H Eos % (Auto) 0.4 Baso % (Auto) 0.2 Lymph # (Auto) 0.6 L [place] # (Auto) 1.1 Eos # (Auto) 0.0 Baso # (Auto) 0.0 Abs Immat Gran (auto) 0.04 H Absolute Neuts (auto) 6.7 Absolute Nucleated RBC 0.000 Nucleated RBC % (auto) 0.0 PT 12.4 INR 1.1 D-Dimer High Sensitivty 189 Anion Gap 11 L Estim Creat Clear Calc 115.3 Estimated GFR > 60 Random Glucose 97 Calcium 9.6 Magnesium 1.9 Total Bilirubin 0.4 Direct Bilirubin 0.1 AST 33 H ALT 45 H Alkaline Phosphatase 77 Troponin I High Sens < 2.7 < 2.7 Total Protein 8.4 H Albumin 4.1 Beta HCG, Quant < 2 COVID-19 (MARILYN) Negative COVID-19 Clin Com See Note Influenza Type A (ALDO) Positive A Influenza Type B (ALDO) Negative Influenza A & B Note See Note Assessment and Plan (1) Influenza A: Status: Acute (2) Sinus tachycardia: Status: Acute (3) Asthma exacerbation: Status: Acute Plan Pt is a 23-year-old female with a PMH significant for moderate persistent asthma, rheumatoid arthritis not on home meds, endometriosis, and PCOS?who presents to the ED for evaluation of worsening SOB, cough, and chest tightness x1 week. Pt will be admitted to the hospital acute asthma exacerbation in the setting of acute flu infection. Acute asthma exacerbations influenza a infection, improved no sob -steroid, PRN xopenex only, avoid scheduled as causing marked tachycardia. -tamiflu for influenza Tachycardia--related to above, has had this in past with acute illness, and worse with bronchodilators, ivf, minimize xopenex use, ativan for anxiety Full Code DVT Prophylaxis: Pt ambulatory, admitted for observation Reassess for dc later today Quality Stroke Does the patient have a stroke diagnosis?: No VTE Prior VTE?: No VTE Risk Level:: Medical - moderate - high VTE Device Contraindication: Treatment Not Indicated VTE Drug Contraindication: Treatment Not Indicated
[2024-03-13 11:48] VITALS: BP 135/83; PULSE 94; RESP 18; TEMP 36.7; O2SAT 93
[2024-03-13 15:32] VITALS: BP 127/76; PULSE 94; RESP 20; TEMP 37.1; O2SAT 97
[2024-03-13 19:24] VITALS: BP 139/75; PULSE 92; RESP 14; TEMP 36.5; O2SAT 98
[2024-03-13] MEDS: guaiFEN/Codeine SF 200/20/10ML 10 ML LIQUID 5 ML PO (20:34)
[2024-03-13] MEDS: Ketorolac Tromethamine 30 MG/ML VIAL IVPUSH (20:35)
[2024-03-14] VITALS: BP 127/75; PULSE 85; RESP 14; TEMP 36.4; O2SAT 97
[2024-03-14] MEDS: 0.9 % Sodium Chloride Flush 3 ML SYRINGE IVFLUSH ×2 (00:13→07:51)
[2024-03-14] MEDS: ondansetron HCL 4 MG/2 ML VIAL IVPUSH (00:17)
[2024-03-14 03:33] VITALS: BP 126/73; PULSE 91; RESP 16; TEMP 36.1; O2SAT 99
[2024-03-14 07:41] VITALS: BP 130/69; PULSE 82; RESP 16; TEMP 36.8; O2SAT 96
[2024-03-14] MEDS: methylPREDNISolone Sod Succ 40 MG/ML VIAL IVPUSH (07:51)
[2024-03-14] MEDS: Oseltamivir Phosphate 75 MG CAPSULE PO (07:51)
--- NOTE | 2024-03-14 08:11 | PM.DS ---
DS: Providers Provider Date of Service: 03/14/24 Date of admission: 03/12/24 18:42 Date of discharge: 03/14/24 Primary care physician: PRAMOD Smith DS: Diagnosis Discharge Diagnosis (1) Influenza A: Status: Acute (2) Sinus tachycardia: Status: Acute (3) Asthma exacerbation: Status: Acute DS: Summary Hospital Course Hospital Course: Admiting hpi Chief Complaint: SOB Pt is a 23-year-old female with a PMH significant for moderate persistent asthma, rheumatoid arthritis not on home meds, endometriosis, and PCOS?who presents to the ED for evaluation of worsening SOB, cough, and chest tightness x1 week. PHas also been experiencing headache, myalgias, fatigue, and intermittent nausea and vomiting. Chest tightness associated with breathing and cough. Cough has been mostly nonproductive. Symptoms worsened this morning and were not alleviated by home inhalers, which prompted visit to the ED. Of note, pt reports she always becomes significantly tachycardic when she gets sick. In the ED pt was tachycardic up to 180s, tachypneic up to 29, hypertensive up to 145/80, and febrile up to 100.7. Labs were significant for testing positive for flu, otherwise grossly unremarkable and around baseline for pt. No leukocytosis. Stable H&H. D-dimer WNL. No significant electrolyte abnormalities. Renal function baseline. Mild transaminitis of AST 33 and ALT 45, similar to previous. Serial troponins negative. CXR showed no acute cardiopulmonary abnormality. EKG demonstrated sinus tachycardia of 140 without evidence of significant ischemic changes, similar to prior. Pt was treated with Xopenex, IVF, lorazepam, and Tylenol. Pt will be admitted to the hospital acute asthma exacerbation in the setting of acute flu infection. hospital course: The patient was observed in the hospital for influenza-triggered asthma exacerbation, characterized by chest tightness and sinus tachycardia, which worsened with breathing treatments (Xopenex or albuterol). She was treated with steroids and Tamiflu and has shown significant improvement, with tachycardia now resolved. She will complete a 5-day course of prednisone for inflammation and continue Tamiflu for influenza. Xopenex will be used sparingly as needed for shortness of breath or wheezing to mitigate tachycardia. She expressed desire to go home. Time Attestation Discharge Coordination Time (in mins): 35 Quality: Safe Use of Opioids Does Pt have an Active Cancer Diagnosis on the Problem List?: No Quality: Stroke Does the patient have a stroke diagnosis?: No Physical Exam Vital Signs: Vital Signs: Last Vital Signs Temp 98.1 F 03/13/24 11:48 Pulse 94 03/13/24 11:48 Resp 18 03/13/24 11:48 BP 135/83 03/13/24 11:48 Pulse Ox 93 03/13/24 11:48 O2 Del Method Room Air 03/13/24 11:48 BMI result Body Mass Index 32.6 General: AO X 3, no acute distress Resp: CTA bilateral, normal effort CVS: S1,S2,RRR GI: +BS, NT, no distention Skin: No rash Neuro: motor grossly intact Psych: appropriate affect DS: Data Data Completed and Pending Labs on day of discharge: Laboratory Results - last 24 hr 03/12/24 03/12/24 11:05 15:06 D-Dimer High Sensitivty 189 Magnesium 1.9 Total Bilirubin 0.4 Direct Bilirubin 0.1 AST 33 H ALT 45 H Alkaline Phosphatase 77 Troponin I High Sens < 2.7 Total Protein 8.4 H Albumin 4.1 Discharge Plan Discharge Anticipated Discharge Date/Time: 03/14/24 09:05 Patient Disposition: Home, Self-Care Discharge Diagnosis: Asthma exacerbation, Influenza (flu), Sinus tachycardia Referrals: Emilia Guevara FNP [Primary Care Provider] - 1 Week Discharge Medications: New oseltamivir [Tamiflu] 75 mg Capsule 75 mg PO Q12H Qty: 6 0RF prednisone 20 mg tablet 40 mg PO DAILY Qty: 6 0RF levalbuterol tartrate [Xopenex HFA] 45 mcg/actuation HFA aerosol inhaler 2 puff inhalation Q4-6H PRN (Reason: shortness of breath or wheezing) Qty: 15 0RF Continued desogestrel-ethinyl estradiol [Apri] 0.15-0.03 mg tablet 1 tab PO DAILY trazodone 50 mg tablet 50 mg PO BEDTIME PRN (Reason: Sleep) Discharge Orders: Discharge Order (Routine); Ordered 03/13/24 Ordered By: Momo Chavez Diet: Advance to usual diet Activity on Discharge: As tolerated Stand Alone Forms: Patient Portal Discharge page Print Language: Persian Care Plan Goals: recovery from asthma exacerbation Health Concerns: asthma exacerbation Influenza sinus tachyardia Plan of Treatment: take tamiflu for influenza (flu) take Prednisone for asthma exacerbation use inhalers as needed for shortness of breath or wheezing follow up with your doctor in a week, call for appointment Assessment: see above
== END 2024-03-14 11:20 | disposition home or self-care (01) ==
LOC: HO.ED 17:14 → HO.EDOVER 18:48 → HO.IMC 19:05
PROVIDERS: Physician Assistant; Physician Assistant Medical; Admitting Provider Student in an Organized Health Care Education/Training Program; Emergency Provider Emergency Medicine; PCP Registered Nurse; Visit Provider Internal Medicine
DX: J10.1 Influenza due to other identified influenza virus with other respiratory manifestations (principal); J45.41 Moderate persistent asthma with (acute) exacerbation; R06.02 Shortness of breath; Z79.899 Other long term (current) drug therapy
CPT/HCPCS: 36415; 71046; 80048; 80076; 83735; 84484; 84702; 85025; 85379; 85610; 87502; 87635; 93005; 94640; 96361; 96374; 96375; 96376; 99222; 99285; J1885; J2060; J2405; J2919

== ENCOUNTER → 2024-03-12 10:18 | Outpatient (BNV) | payer MEDICAID, SELFPAY | PROVIDERS: Admitting Provider Student in an Organized Health Care Education/Training Program; Emergency Provider Emergency Medicine; PCP Registered Nurse; Visit Provider Internal Medicine | DX: R00.0 Tachycardia, unspecified (principal) | CPT/HCPCS: 93010 ==

== ENCOUNTER → 2024-03-12 10:37 | Outpatient (BNV) | payer MEDICAID, SELFPAY | PROVIDERS: PCP Registered Nurse; Visit Provider Radiology Diagnostic Radiology | DX: R06.02 Shortness of breath (principal) | CPT/HCPCS: 71046 ==

== ENCOUNTER → 2024-03-12 18:42 | Outpatient (BNV) | payer MEDICAID, SELFPAY | PROVIDERS: Admitting Provider Student in an Organized Health Care Education/Training Program; Emergency Provider Emergency Medicine; PCP Registered Nurse; Visit Provider Student in an Organized Health Care Education/Training Program | DX: J10.1 Influenza due to other identified influenza virus with other respiratory manifestations (principal); R00.0 Tachycardia, unspecified; J45.901 Unspecified asthma with (acute) exacerbation | CPT/HCPCS: 99222; 99232; 99239 ==

== ENCOUNTER 2024-03-17 12:48 | Emergency (ER) | payer MEDICAID, SELFPAY ==
--- NOTE | ~2024-03-17 | XR_ITS ---
EXAMINATION: XR CHEST CLINICAL INFORMATION: SOB COMPARISON: Chest x-ray 03/12/2024 TECHNIQUE: 2 views of the chest were obtained. FINDINGS: No significant abnormality is noted involving the heart, lungs, mediastinum, bony thorax or soft tissues. XR/XR chest 2V IMPRESSION: Unremarkable chest examination. Electronically signed by: John Nielsen MD 03/17/2024 02:22 PM [facility]
[2024-03-17 13:09] VITALS: BP 141/91; PULSE 75; RESP 20; TEMP 37.2; O2SAT 100; BMI 32.1
--- NOTE | 2024-03-17 13:13 | ED.SOB ---
HPI - SOB/Dyspnea General Chief Complaint: Dyspnea Stated Complaint: diff breathing Time Seen by Provider: 03/17/24 21:23 Source: patient Mode of arrival: ambulatory Limitations: no limitations History of Present Illness ED Provider: ETHEL RILEY Narrative: 23 yo female with PMH of asthma, dx with flu 03/12 treated with tamiflu and prednisone she comes back with c/o feeling like her chest is more tight she feels her inhalers aren't working and it hurts to take a deep breath and touch her chest. She is compliant with her tamiflu and prednisone. She staets she was at work today sitting down and felt short of breath and like she couldn't take a deep breath. She feels not much better since her DC MD elicited complaint: shortness of breath and chest pain Pertinent past history: asthma Onset (ago): day(s) (1) Context: recent illness Timing: constant Severity: moderate Exacerbating factors: movement, coughing and inspiration Relieving factors: rest and bronchodilators Known history of: asthma Associated symptoms: chest pain and pain with inspiration Treatment prior to arrival: bronchodilator Related Data Home Medications ?Medication ?Instructions ?Recorded ?Confirmed trazodone 50 mg tablet 50 mg PO BEDTIME PRN Sleep 04/30/23 03/12/24 desogestrel 0.15 mg-ethinyl 1 tab PO DAILY 03/12/24 03/12/24 estradiol 0.03 mg tablet (Apri) Previous Rx's ?Medication ?Instructions ?Recorded levalbuterol tartrate 45 2 puff inhalation Q4-6H PRN 03/13/24 mcg/actuation aerosol inhaler shortness of breath or wheezing (Xopenex HFA) #15 grams oseltamivir 75 mg capsule (Tamiflu) 75 mg PO Q12H #6 caps 03/13/24 prednisone 20 mg tablet 40 mg (2 x 20 mg) PO DAILY #6 tabs 03/13/24 cyclobenzaprine 10 mg tablet 10 mg PO TID PRN muscle spasm #20 03/17/24 tabs lidocaine 5 % topical patch 1 patch topical DAILY #30 ea 03/17/24 Allergies Allergy/AdvReac Type Severity Reaction Status Date / Time nut - unspecified Allergy Intermediate HIVES Verified 03/17/24 13:11 [NUT - UNSPECIFIED] FRUIT Allergy Intermediate ITCHY LIPS Uncoded 01/07/24 10:14 nuts Allergy Intermediate Hives Uncoded 01/07/24 10:14 pollen Allergy Intermediate Hives Uncoded 01/07/24 10:14 Review of Systems Review of Systems: Constitutional : No Fever, No Chills ENT/Mouth : No Hoarseness, No sore throat, No Rhinorrhea Eyes: No Redness, No Discharge, No Vision Changes Cardiovascular : pos Chest Pain, positive SOB, positive Dyspnea on Exertion, No Edema Respiratory : positive Cough, No Sputum, positive Wheezing, Gastrointestinal : No Nausea, No Vomiting, No Diarrhea, No abdominal Pain Genitourinary : No Dysuria, No Hematuria Musculoskeletal : No joint pain, No Myalgias Skin : No rash Neuro : No Weakness, No Numbness, No Headache Psych : No anxiety, depression Heme/Lymph: No Bruising, No Bleeding Endocrine : No Polyuria, No Polydipsia All other systems reviewed and are negative [facility] Past Medical History Attestation statement: The following information was validated with the patient. Source: old records reviewed Medical History PCOS (polycystic ovarian syndrome) Kidney stones Asthma Social History Social History Household Members: Family Household Members Other:: grandmother Housing: Apartment Do you presently have visiting nurse or other home services: No Alcohol intake: current Alcohol intake frequency: holidays/special occasions only Patient Tobacco Use Status: Former Tobacco user Substance Use Type: Marijuana Advance Directives: No Advance Directives Information Provided: Yes Do you have a plan to hurt others: No Plan service: No Current occupational status: unemployed Current occupation: rt hand Physical Exam Vital Signs: Vital Signs: Last Vital Signs Temp 98.6 F 03/17/24 21: Pulse 56 03/17/24 21:26 Resp 14 03/17/24 21:26 BP 142/84 H 03/17/24 21:26 Pulse Ox 99 03/17/24 21:26 O2 Del Method Room Air 03/17/24 21:26 BMI result Body Mass Index 32.1 Appearance: Alert. Oriented X3. No acute distress. Eyes: Pupils equal, round and reactive to light. ENT: Pharynx normal. Neck: Normal inspection. Neck supple. CVS: Normal heart rate and rhythm. Pulses normal. Respiratory: No respiratory distress. Breath sounds normal. Chest wall: ttp along costochondral border Abdomen: Soft and nontender. Skin: Skin warm and dry. Normal skin color. Normal skin turgor. Extremities: No lower extremity edema. No calf ttp Neuro: Oriented X 3. No motor deficit. No sensory deficit. CN2-12 intact Course Course Course Narrative: This is a Rapid Medical Examination (RME) performed by Connie Da Silva PA-C in triage. Full HPI, ROS, assessment and treatment plan per primary provider in the Main ED. 23 yo female here for eval of SOB, chest tightness/ pain radiating to right shoulder. recent admission for flu. Plan: labs, ekg, cxr, viral swabs Medical Decision Making Medical Decision Making [facility] Narrative: 23 yo female with PMH of asthma, dx with flu 03/12 now here with chest wall pain and hurts to take a deep breath at this time will obtain basic labs, EKG, CXR for pneumonia, troponin, bedside ECHO and given recent admit will obtain ddimer. She has clear lungs and pain is reproduceable with palpation suspect atypical chest pain, costochondritis, low prob VTE Differential Diagnosis Differential Diagnoses: The differential diagnosis associated with the presentation includes atypical chest pain, costochondritis, low prob VTE Admission/Observation Consideration of admission/observation: Escalation of care including admission/observation considered work up negative stable for DC Lab Data [facility] Lab Attestation statement: I reviewed the patient's lab results. 03/17/24 13:37 03/17/24 13:37 Labs: Lab Results 03/17/24 Range/Units 13:37 WBC 11.8 H (4.8-10.8) X10*3/uL RBC 4.72 (4.20-5.50) X10*6/uL Hgb 13.4 (12.0-16.0) g/dl Hct 38.8 (37.0-47.0) % MCV 82.2 (80.0-98.0) fL MCH 28.4 (27.0-33.0) pg MCHC 34.5 (31.0-35.0) g/dl RDW 13.1 (11.0-16.0) % Plt Count 334 D (160-400) X10*3/uL MPV 10.4 (9.4-12.3) fL Immature Gran % (Auto) 0.9 H (0.0-0.4) % Neut % (Auto) 74.8 H (45-73) % Lymph % (Auto) 17.2 L (20-40) % [place] % (Auto) 7.0 (2-11) % Eos % (Auto) 0.0 (0-4) % Baso % (Auto) 0.1 (0-2) % Lymph # (Auto) 2.0 (1.2-4.9) X10*3/uL [place] # (Auto) 0.8 (0.1-1.2) X10*3/uL Eos # (Auto) 0.0 (0.0-0.4) X10*3/uL Baso # (Auto) 0.0 (0.0-0.2) X10*3/uL Abs Immat Gran (auto) 0.11 H (0.00-0.03) X10*3/uL Absolute Neuts (auto) 8.8 H (2.0-8.3) x10*3/uL Absolute Nucleated RBC 0.000 (0.0-0.012) X10*3/uL Nucleated RBC % (auto) 0.0 (0.0-0.2) /100WBC PT 11.8 (10.9-12.4) SEC INR 1.0 (0.9-1.1) D-Dimer High Sensitivty < 150 NG/ML Sodium 137 (135-145) mmol/L Potassium 3.6 (3.3-5.1) mmol/L Chloride 110 H (96-108) mmol/L Carbon Dioxide 19 L (22-29) mmol/L Anion Gap 12 (12-20) BUN 10 (9-16) mg/dL Creatinine 0.63 (0.5-1.4) mg/dL Estim Creat Clear Calc 139.8 Estimated GFR > 60 Random Glucose 101 (60-115) mg/dL Calcium 8.7 D (8.4-10.2) mg/dL Magnesium 2.2 (1.6-2.6) mg/dL Total Bilirubin 0.3 (0.0-1.0) mg/dL AST 45 H (5-31) U/L ALT 99 H (0-31) U/L Alkaline Phosphatase 65 (39-117) U/L Troponin I High Sens < 2.7 (<3.5-17.0) ng/L Total Protein 8.4 H (6.5-8.0) g/dL Albumin 4.1 (3.5-5.0) g/dL Beta HCG, Quant < 2 mIU/mL Influenza Type A (PCR) POSITIVE A (Negative) Influenza Type B (PCR) NEGATIVE (Negative) RSV RNA Qual (PCR) NEGATIVE (Negative) SARS-CoV-2 RNA (RT-PCR) NEGATIVE (Negative) Independent Interpretation I performed an independent interpretation of an: EKG and Plain X-Ray (normal ) Interpretation: Rate: 68 Rhythm: NSR [place]: normal Normal P waves. Normal [place]. Normal QRS complex. ST T wave : normal no AMAIRANI qTC: 421 prior studies: no acute ischemia The study has been interpreted contemporaneously by me. . Radiology Impression Discussion of test interpretation with radiology: I have reviewed the radiologist's reading. External Record Review External record reviewed: Inpatient record and Outpatient record Prescription Management I considered prescription management with: Other Procedures Procedure Narrative Procedure Narrative: limited bedside ECHO - no effusion on apical, subxiphoid, parasternal no effusion Discharge Plan Discharge Clinical Impression: Acute costochondritis Patient Disposition: Home, Self-Care Instructions: Costochondritis (ED) Additional Instructions: continue your therapies from admission and using your inhaler. take motrin or tylenol for pain return for worsening pain, increased trouble breathing, swelling of legs or any other concerns heart tests, blood clot, chest xray reassuring no heavy lifting more than 10lbs for 2 weeks Prescriptions: New cyclobenzaprine 10 mg tablet 10 mg PO TID PRN (Reason: muscle spasm) Qty: 20 0RF lidocaine 5 % adhesive patch,medicated 1 patch topical DAILY Qty: 30 0RF Rx Instructions: leave on most painful area for up to 12 hrs No Action desogestrel-ethinyl estradiol [Apri] 0.15-0.03 mg tablet 1 tab PO DAILY oseltamivir [Tamiflu] 75 mg Capsule 75 mg PO Q12H Qty: 6 0RF prednisone 20 mg tablet 40 mg PO DAILY Qty: 6 0RF levalbuterol tartrate [Xopenex HFA] 45 mcg/actuation HFA aerosol inhaler 2 puff inhalation Q4-6H PRN (Reason: shortness of breath or wheezing) Qty: 15 0RF trazodone 50 mg tablet 50 mg PO BEDTIME PRN (Reason: Sleep) Stand Alone Forms: Work/School Release Print Language: Senegalese
--- NOTE | 2024-03-17 13:14 | ECG_ITS ---
Test Reason : SOB Blood Pressure : */* mmHG Vent. Rate : 68 BPM Atrial Rate : 68 BPM P-R Int : 142 ms QRS Dur : 76 ms QT Int : 396 ms P-R-T Axes : 25 27 44 degrees QTcB Int : 421 ms Normal sinus rhythm with sinus arrhythmia Normal ECG When compared with ECG of 12-Mar-2024 10:28, Vent. rate has decreased by 72 bpm Referred By: Lesvia Da Silva Electronically Signed By: Cornelio Camilo
[2024-03-17 13:46] LABS: MANUAL DIFF FLAG NO
[2024-03-17 13:50] LABS: Basophils Percent Auto 0.1 % (0-2); Hematocrit 38.8 % (37.0-47.0); Hemoglobin 13.4 g/dl (12.0-16.0); Imm Gran Abs Auto 0.11 X10*3/uL (0.00-0.03); Imm Gran Pct Auto 0.9 % (0.0-0.4); Lymphocytes Percent Auto 17.2 % (20-40); Mean Corpuscular HGB Conc 34.5 g/dl (31.0-35.0); Mean Corpuscular Hemoglobin 28.4 pg (27.0-33.0); Mean Corpuscular Volume 82.2 fL (80.0-98.0); Mean Platelet Volume 10.4 fL (9.4-12.3); Monocytes Absolute Auto 0.8 X10*3/uL (0.1-1.2); Neutrophils Absolute Auto 8.8 x10*3/uL (2.0-8.3); Neutrophils Percent Auto 74.8 % (45-73); Platelet Count 334 X10*3/uL (160-400); Red Blood Count 4.72 X10*6/uL (4.20-5.50); Red Cell Distribution Width 13.1 % (11.0-16.0); White Blood Count 11.8 X10*3/uL (4.8-10.8)
[2024-03-17 13:56] LABS: Prothrombin Time 11.8 SEC (10.9-12.4)
[2024-03-17 14:09] LABS: Alanine Aminotransferase 99 U/L (0-31); Albumin Level 4.1 g/dL (3.5-5.0); Alkaline Phosphatase 65 U/L (39-117); Anion Gap 12 (12-20); Aspartate Amino Transferase 45 U/L (5-31); Bilirubin Total 0.3 mg/dL (0.0-1.0); Blood Urea Nitrogen 10 mg/dL (9-16); Calcium 8.7 mg/dL (8.4-10.2); Carbon Dioxide 19 mmol/L (22-29); Chloride 110 mmol/L (96-108); Creatinine Clr Calc Pharmacy 139.8; Estimated Glomerular Filt Rate > 60; Glucose Random 101 mg/dL (60-115); Magnesium 2.2 mg/dL (1.6-2.6); Potassium 3.6 mmol/L (3.3-5.1); Sodium 137 mmol/L (135-145); Total Protein 8.4 g/dL (6.5-8.0)
[2024-03-17 14:15] LABS: HCG Quantitative < 2 mIU/mL
[2024-03-17 14:17] LABS: Troponin-I High Sensitivity < 2.7 ng/L (<3.5-17.0)
[2024-03-17 14:25] LABS: Influenza A PCR POSITIVE (Negative); Influenza B PCR NEGATIVE (Negative); Resp Syncy Virus RNA Qual PCR NEGATIVE (Negative); SARS COV2 PCR INHOUSE NEGATIVE (Negative)
--- OUTSIDE RECORDS SUMMARY | 2024-03-17 14:59 | XMS_ITS | Encounter Summary ---
Author Organization [facility] Address [address] [place] [phone] Phone Care Team Providers Care Raise Driller Name Role Phone Toyin Rivera FIGHTING VEHICLE INFANTRYMAN Primary Care Provider Jero araiza Encounter Details Date Type Department Care Team (Late st Contact Info) Description 06/29/2009 Documentation [facility] [place] Family Medicine [address] [place] [address] Family Medicine, Physician [address] [place] [address] Social History Tobacco Use Types Packs/Day Years [...] on filedocumented in this encounter Care Teams Raise Driller Relationship Specialty Start Date End Date Toyin Rivera NP PCP - General 09/20/16 05/23/22 documented as of this encounter
--- OUTSIDE RECORDS SUMMARY | 2024-03-17 15:00 | XMS_ITS | Encounter Summary ---
Author Organization [facility] Address [address] [place] [address] Phone Care Team Providers Care Associate Media Director Name Role Phone Toyin Rivera BOARD MEMBER Primary Care Provider Jero araiza Encounter Details Date Type Department Care Team (Late st Contact Info) Description 04/14/2013 Document[place] [facility] [place] [address] [place] [address] Family Medicine, Physician [address] [place] [address] Social History Tobacco Use Types Packs/Day Years [...] filedocumented in this encounter Care Teams Associate Media Director Relationship Specialty Start Date End Date Toyin Rivera NP PCP - General 09/20/16 05/23/22 documented as of this encounter
--- OUTSIDE RECORDS SUMMARY | 2024-03-17 15:00 | XMS_ITS | Clinical Summary ---
Author Organization [facility] Address [address] [place] [address] Phone Care Team Providers Care Field Inspector Name Role Phone Unavailable Primary Care Provider Unavailabl e Allergies Active Allergy Reactions Criticality Noted Date Comments Roseland Carmencita Anaphylaxis High 01/01/2017 Food Itching High [...]
--- OUTSIDE RECORDS SUMMARY | 2024-03-17 15:00 | XMS_ITS | Encounter Summary ---
Author Organization [facility] Address [address] [place] [address] Phone Care Team Providers Care Marble Carver Name Role Phone Toyin Rivera NP Primary Care Provider Jero araiza Encounter Details Date Type Department Care Team (Late st Contact Info) Description 09/26/2016 Documentation [facility] [place] Family Medicine [address] [place] [address] Family Medicine, Physician [address] [place] [address] Social History Tobacco Use Types Packs/Day Years [...] on filedocumented in this encounter Care Teams Marble Carver Relationship Specialty Start Date End Date Toyin Rivera NP PCP - General 09/20/16 05/23/22 documented as of this encounter
--- OUTSIDE RECORDS SUMMARY | 2024-03-17 15:00 | XMS_ITS | Encounter Summary ---
Author Organization [facility] Address [address] [place] [phone] Phone Care Team Providers Care Machine Quilt Stuffer Name Role Phone Toyin Rivera POWERTRAIN DESIGN ENGINEER Primary Care Provider Jero araiza Encounter Details Date Type Department Care Team (Late st Contact Info) Description 10/20/2014 Documentation [facility] [place] [address] [place] [address] Family Medicine, Physician [address] [place] [address] Social History Tobacco Use Types Packs/Day Years [...] on filedocumented in this encounter Care Teams Machine Quilt Stuffer Relationship Specialty Start Date End Date Toyin Rivera NP PCP - General 09/20/16 05/23/22 documented as of this encounter
--- OUTSIDE RECORDS SUMMARY | 2024-03-17 15:00 | XMS_ITS | Clinical Summary ---
Author Organization [facility] Address [address] [place] [address] Care Team Providers Care Database Marketing Specialist Name Role Phone Unavailable Primary Care Provider [...]
--- OUTSIDE RECORDS SUMMARY | 2024-03-17 15:00 | XMS_ITS | Encounter Summary ---
Author Organization [facility] Address [address] [place] [address] Phone Care Team Providers Care Attending Psychiatrist Name Role Phone Toyin Rivera POPULATION GENETICIST Primary Care Provider Jero araiza Encounter Details Date Type Department Care Team (Late st Contact Info) Description 11/30/2012 Documentation [facility] [place] [address] [place] [address] Family Medicine, Physician [address] [place] [address] Social History Tobacco Use Types Packs/Day Years [...] on filedocumented in this encounter Care Teams Attending Psychiatrist Relationship Specialty Start Date End Date Toyin Rivera NP PCP - General 09/20/16 05/23/22 documented as of this encounter
--- OUTSIDE RECORDS SUMMARY | 2024-03-17 15:00 | XMS_ITS | Encounter Summary ---
Author Organization [facility] Address [address] [place] [address] Phone Care Team Providers Care Linux Developer Name Role Phone Toyin Rivera NP Primary Care Provider Jero araiza Encounter Details Date Type Department Care Team (Late st Contact Info) Description 09/26/2016 Conversion Encounter [address] [address] Social History Tobacco Use Types Packs/Day Years [...] on filedocumented in this encounter Care Teams Linux Developer Relationship Specialty Start Date End Date Toyin Rivera NP PCP - General 09/20/16 05/23/22 documented as of this encounter
--- OUTSIDE RECORDS SUMMARY | 2024-03-17 15:00 | XMS_ITS | Encounter Summary ---
Author Organization [facility] Address [address] [place] [phone] Phone Care Team Providers Care Validation Consultant Name Role Phone Toyin Rivera MOTOR VEHICLE TECHNICIAN Primary Care Provider Jero araiza Encounter Details Date Type Department Care Team (Late st Contact Info) Description 04/03/2016 Documentation [facility] Family Medicine [address] [place] [address] Family Medicine, Physician [address] [place] [address] Social History Tobacco Use Types Packs/Day Years [...] on filedocumented in this encounter Care Teams Validation Consultant Relationship Specialty Start Date End Date Toyin Rivera NP PCP - General 09/20/16 05/23/22 documented as of this encounter
--- OUTSIDE RECORDS SUMMARY | 2024-03-17 15:00 | XMS_ITS | Encounter Summary ---
Author Organization [facility] Address [address] [place] [address] Phone Care Team Providers Care Extracorporeal Circulation Specialist Name Role Phone Toyin Rivera LINE PRODUCER Primary Care Provider Jero araiza Encounter Details Date Type Department Care Team (Late st Contact Info) Description 01/24/2015 Documentation [facility] [place] Family [place] [address] [place] [address] Family Medicine, Physician [address] [place] [address] Social History Tobacco Use Types Packs/Day Years [...] on filedocumented in this encounter Care Teams Extracorporeal Circulation Specialist Relationship Specialty Start Date End Date Toyin Rivera NP PCP - General 09/20/16 05/23/22 documented as of this encounter
--- OUTSIDE RECORDS SUMMARY | 2024-03-17 15:00 | XMS_ITS | Encounter Summary ---
Author Organization [facility] Address [address] [place] [address] Phone Care Team Providers Care Automotive Window Tinter Name Role Phone Toyin Rivera THROAT CUTTER Primary Care Provider Jero araiza Encounter Details Date Type Department Care Team (Late st Contact Info) Description 12/15/2014 Documentation [facility] [place] Family Medicine [address] [place] [address] Family Medicine, Physician [address] [place] [address] Social History Tobacco Use Types Packs/Day Years [...] on filedocumented in this encounter Care Teams Automotive Window Tinter Relationship Specialty Start Date End Date Toyin Rivera NP PCP - General 09/20/16 05/23/22 documented as of this encounter
--- OUTSIDE RECORDS SUMMARY | 2024-03-17 15:00 | XMS_ITS | Encounter Summary ---
Author Organization [facility] Address [address] [place] [address] Phone Care Team Providers Care Skiver Heel Tap Name Role Phone Toyin Rivera WORSHIP LEADER Primary Care Provider Jero araiza Encounter Details Date Type Department Care Team (Late st Contact Info) Description 03/04/2011 [place]ation [facility] [place] [address] [place] [address] Family Medicine, Physician [address] [place] [address] Social History Tobacco Use Types Packs/Day Years [...] on filedocumented in this encounter Care Teams Skiver Heel Tap Relationship Specialty Start Date End Date Toyin Rivera NP PCP - General 09/20/16 05/23/22 documented as of this encounter
[2024-03-17 21:26] VITALS: BP 142/84; PULSE 56; RESP 14; TEMP 37; O2SAT 99
[2024-03-17 21:59] LABS: D Dimer High Sensitivity < 150 NG/ML
--- NOTE | 2024-03-17 22:23 | PC.NURSE ---
Dr. Covington at bedside for ECHO. Moved to ED 14 temporarily for privacy during procedure, then will move back to ED 13 [place].
[2024-03-17 22:49] VITALS: BP 142/89; PULSE 82; RESP 12; TEMP 37.2; O2SAT 99
[2024-03-17 22:52] VITALS: BP 142/89; PULSE 82; RESP 12; TEMP 37.2; O2SAT 99
== END 2024-03-17 22:54 | disposition home or self-care (01) ==
PROVIDERS: Physician Assistant Medical; Emergency Provider Emergency Medicine; PCP Registered Nurse
DX: M94.0 Chondrocostal junction syndrome [Tietze] (principal); R07.89 Other chest pain; Z03.818 Encounter for observation for suspected exposure to other biological agents ruled out
CPT/HCPCS: 0241U; 36415; 71046; 80053; 83735; 84484; 84702; 85025; 85379; 85610; 93005; 99283; 99284

== ENCOUNTER → 2024-03-17 13:13 | Outpatient (BNV) | payer MEDICAID, SELFPAY | PROVIDERS: PCP Registered Nurse; Visit Provider Radiology Diagnostic Radiology | DX: R06.02 Shortness of breath (principal) | CPT/HCPCS: 71046 ==

== ENCOUNTER → 2024-03-17 13:14 | Outpatient (BNV) | payer MEDICAID, SELFPAY | PROVIDERS: PCP Registered Nurse; Visit Provider Internal Medicine Cardiovascular Disease | DX: R06.02 Shortness of breath (principal) | CPT/HCPCS: 93010 ==

== ENCOUNTER 2024-08-06 11:35 | Emergency (ER) | payer MEDICAID, SELFPAY ==
--- NOTE | ~2024-08-06 | CT_ITS ---
EXAMINATION: CT ABDOMEN AND PELVIS WITH CONTRAST CLINICAL INFORMATION: Lower abdominal pain. COMPARISON: March 31, 2023. TECHNIQUE: Multidetector volumetric images were obtained from the superior aspect of the liver through the pubic symphysis following administration 85 mL of Omnipaque 350 intravenous contrast. Sagittal and coronal reformatted images were obtained on the technologist's workstation. Oral contrast: No This CT examination was performed using dose optimization techniques as appropriate, variously including the following: *Automated exposure control *Adjustment of mA and/or kV according to patient size (this includes techniques or standardized protocols for targeted exams where dose is matched to indication/reason for exam; i.e. extremities or head) *Use of iterative reconstruction technique DLP: 565 mGy centimeter. FINDINGS: LUNG BASES: Nonspecific patchy pulmonary groundglass. LIVER, GALLBLADDER, AND BILIARY TREE: [Liver measures 18 cm. There is an heterogeneous areas of low density poorly enhancing abnormality is without vascular distortion involving the posterior dome right hepatic lobe anterior right hepatic lobe near the gallbladder fossa and falciform ligament. The main portal vein and hepatic veins and intrahepatic portion of the IVC are patent. No pericholecystic fluid collection or gallbladder wall thickening. Common bile duct measures 3 mm. PANCREAS: No focal lesion. No peripancreatic fluid collection. No main pancreatic ductal dilatation. SPLEEN: 9 cm. No focal lesion. ADRENAL GLANDS: No nodular lesions. KIDNEYS AND URETERS: No hydronephrosis. No focal mass. No gross nephrolithiasis. BLADDER: Fluid-filled. GASTROINTESTINAL TRACT: Collapsed appearance of the left hemicolon. No intestinal obstruction pattern. No pneumatosis intestinalis. No ascites. No pneumoperitoneum. Terminal ileum is normal. I do not see the appendix. Subsegmental areas of wall thickening involving the left hemicolon. Mesenteric edema involving the mesenteric margin of the small bowel loops. Prominent mesenteric lymph nodes. ABDOMINAL WALL: No gross umbilical hernia. LYMPH NODES: Prominent mesenteric and to a lesser extent retroperitoneal lymph nodes. VASCULAR: No aneurysm or dissection, aorta. PELVIC VISCERA: No gross masses. OSSEOUS STRUCTURES: Stable sclerotic marginated bone lesion centered in the intertrochanteric region proximal metaphysis of the right femur. No acute fracture or listhesis in the axial skeleton. CT/CT abdomen pelvis w IV con IMPRESSION: Concerning the inflammatory bowel disease in the correct clinical settings. Hepatomegaly and probable geographic fatty infiltration. Consider further imaging evaluation with dynamic enhanced MRI liver. Fleischner guidelines were followed. Electronically signed by: Porfirio Olivo MD 08/06/2024 02:51 PM EDT
[2024-08-06 11:40] VITALS: BP 141/92; PULSE 92; RESP 16; TEMP 36.2; O2SAT 96; BMI 27.5
--- NOTE | 2024-08-06 11:41 | ED.GENADULT ---
HPI - General Adult General Chief complaint: Abdominal Pain Stated complaint: Hard Time Keeping Food Down, Back Pain Time Seen by Provider: 08/06/24 12:11 Source: patient, RN notes reviewed and old records reviewed Mode of arrival: ambulatory Limitations: no limitations History of Present Illness ED Provider: Quinton HPI narrative: Patient is a 23-year-old female with reported history of ex lap for endometriosis, no other abdominal surgeries presenting to the emergency department with complaint of nausea, vomiting and diarrhea since yesterday with associated lower abdominal pain which radiates to her back. Denies fevers. Denies hematochezia or melena. Emesis nonbloody, nonbilious. Has not been able to tolerate p.o.. Denies dysuria, hematuria or other urinary symptoms. Denies vaginal bleeding or other abnormal vaginal discharge. MD complaint: n/v/d, abdominal pain Related Data Home Medications ?Medication ?Instructions ?Recorded ?Confirmed trazodone 50 mg tablet 50 mg PO BEDTIME PRN Sleep 04/30/23 03/12/24 desogestrel 0.15 mg-ethinyl 1 tab PO DAILY 03/12/24 03/12/24 estradiol 0.03 mg tablet (Apri) Previous Rx's ?Medication ?Instructions ?Recorded levalbuterol tartrate 45 2 puff inhalation Q4-6H PRN 03/13/24 mcg/actuation aerosol inhaler shortness of breath or wheezing (Xopenex HFA) #15 grams oseltamivir 75 mg capsule (Tamiflu) 75 mg PO Q12H #6 caps 03/13/24 prednisone 20 mg tablet 40 mg (2 x 20 mg) PO DAILY #6 tabs 03/13/24 cyclobenzaprine 10 mg tablet 10 mg PO TID PRN muscle spasm #20 03/17/24 tabs lidocaine 5 % topical patch 1 patch topical DAILY #30 ea 03/17/24 ondansetron 4 mg disintegrating 4 mg PO Q8H PRN nausea and 08/06/24 tablet vomiting #10 tabs Allergies Allergy/AdvReac Type Severity Reaction Status Date / Time nut - unspecified (NUT - Allergy Intermediate HIVES Verified 08/06/24 11:42 UNSPECIFIED) FRUIT Allergy Intermediate ITCHY LIPS Uncoded 01/07/24 10:14 nuts Allergy Intermediate Hives Uncoded 01/07/24 10:14 pollen Allergy Intermediate Hives Uncoded 01/07/24 10:14 Review of Systems Review of Systems: as per HPI Yes all other systems are reviewed and are negative Constitutional: Constitutional: Reports as per HPI [facility] Past Medical History Medical History PCOS (polycystic ovarian syndrome) Kidney stones Asthma Social History Social History Household Members: Family Household Members Other:: grandmother Housing: Apartment Do you presently have visiting nurse or other home services: No Alcohol intake: current Alcohol intake frequency: holidays/special occasions only Patient Tobacco Use Status: Former Tobacco user Substance Use Type: Marijuana Advance Directives: No Advance Directives Information Provided: Yes Do you have a plan to hurt others: No Plan Patient : No service: No Current occupational status: unemployed Current occupation: rt hand Physical Exam ED Vital Signs: Vital Signs - 24 hr 08/06/24 11:40 Temperature 97.2 F Pulse Rate 92 Respiratory Rate 16 Blood Pressure 141/92 H Pulse Oximetry 96 Oxygen Delivery Method Room Air BMI result Body Mass Index 27.5 Vital signs have been reviewed and appear to be correct. Blood pressure normal. Heart rate normal. Respiratory rate normal. Temperature normal. Oxygen saturation normal. Const General: cooperative, healthy appearing and no acute distress Orientation/consciousness: oriented to person, oriented to place, oriented to time and patient oriented x3 Limitations: no limitations HENMT Head: Yes normocephalic and Yes atraumatic Ears: external ears normal General nose exam: Normal external nose present Face and sinus: Yes face symmetric Mouth: oropharynx normal and moist mucous membranes Throat: Yes uvula midline Eyes Pupils: Equal, round and reactive pupils present Neck Neck: Yes normal visual inspection and Yes supple Resp Effort & Inspection: normal respiratory effort and able to speak in complete sentences Auscultation: clear to auscultation bilaterally Cardio Rate: regular rate Rhythm: regular rhythm Heart sounds: S1 normal heart sound present and S2 normal heart sound present GI Palpation (GI): Soft to palpation and Tenderness to palpation present (GI) in the LLQ and in the RLQ Auscultation: normoactive bowel sounds General: Yes no CVA tenderness Back/Spine/Pelvis Back: no CVA tenderness Skin General skin exam: elasticity normal and turgor normal Neuro General: oriented to person, oriented to place, oriented to time, patient oriented x3, moves all extremities, no focal motor deficits and CN's II-XI intact bilaterally Cranial nerves: Yes Equal, round and reactive pupils present Cognition (Neuro): normal cognition Extrem General: Yes full ROM, Yes no pedal edema and Yes no calf tenderness Psych Mental Status: mental status grossly normal Affect: normal affect Thought process: Normal thought process present Course Course Course Narrative: This is a Rapid Medical Examination (RME) performed by Connie Da Silva PA-C in triage. Full HPI, ROS, assessment and treatment plan per primary provider in the Main ED. Hx: 23 yo F here for eval of N/V/D, abdominal pain and low back pain x24 hours. unable to tolerate PO. no known sick contacts. LMP 3 wks ago. hx of ex lap for endometriosis - no other surgeries. no fever, chills, constipation, urinary sx. Plan: labs, UA, viral swabs Medications Administered Discontinued Medications Generic Name Dose Route Start Last Admin Trade Name Lázaroq PRN Reason Stop Dose Admin Sodium Chloride 1,000 mls @ 999 mls/hr 08/06/24 12:45 08/06/24 15:31 Ns IV 08/06/24 13:45 Infused .Q1H1M CARRI Infusion Iohexol 100 ml 08/06/24 14:11 08/06/24 14:11 Iohexol 350 Mg/Ml 100 Ml Infus..Btl IV 08/06/24 14:12 85 ml ONCE ONE Administration Ketorolac Tromethamine 15 mg 08/06/24 13:33 08/06/24 13:58 Ketorolac Tromethamine 15 Mg/Ml Vial IVPUSH 08/06/24 13:34 15 mg ONCE ONE Administration Ondansetron HCl 4 mg 08/06/24 12:38 08/06/24 13:58 Ondansetron Hcl 4 Mg/2 Ml Vial IVPUSH 08/06/24 12:39 4 mg ONCE ONE Administration Medical Decision Making Medical Decision Making [facility] Narrative: Patient is a 23-year-old female with reported history of ex lap for endometriosis, no other abdominal surgeries presenting to the emergency department with complaint of nausea, vomiting and diarrhea since yesterday with associated lower abdominal pain which radiates to her back. On exam patient is awake, A+Ox3, VS WNL, afebrile, normal neurological exam without focal deficits, physical exam findings as above. Given reported symptoms and physical exam findings, initial differential includes but is not limited to appendicitis, gastroenteritis, obstruction. Labs unremarkable. UA is without evidence of infection. Viral panel negative. CT A/P notable for inflammatory bowel disease, also notable for hepatomegaly and fatty infiltration. My interpretation is in agreement with the radiologist's interpretation. Patient reports improvement in symptoms after medication and IV fluids given. Feel she is stable for discharge home. CT results discussed and advised patient to follow-up with her PCP for further evaluation of hepatomegaly. Return precautions discussed at bedside. Patient verbalized understanding of and agreement with plan. Differential Diagnosis Differential Diagnoses: The differential diagnosis associated with the presentation includes as per [facility] Admission/Observation Consideration of admission/observation: Escalation of care including admission/observation considered Patient would have been admitted to the hospital had their work up had any findings where hospital admission was appropriate and their clinical presentation warranted hospital admission. Lab Data [facility] Lab Attestation statement: I reviewed the patient's lab results. as per [facility] 08/06/24 12:08 08/06/24 12:08 Labs: Lab Results 08/06/24 Range/Units 12:08 WBC 8.8 (4.8-10.8) X10*3/uL RBC 4.71 (4.20-5.50) X10*6/uL Hgb 13.5 (12.0-16.0) g/dl Hct 39.1 (37.0-47.0) % MCV 83.0 (80.0-98.0) fL MCH 28.7 (27.0-33.0) pg MCHC 34.5 (31.0-35.0) g/dl RDW 12.7 (11.0-16.0) % Plt Count 279 (160-400) X10*3/uL MPV 10.8 (9.4-12.3) fL Immature Gran % (Auto) 0.3 (0.0-0.4) % Neut % (Auto) 69.7 (45-73) % Lymph % (Auto) 19.7 L (20-40) % Cottle % (Auto) 9.3 (2-11) % Eos % (Auto) 0.8 (0-4) % Baso % (Auto) 0.2 (0-2) % Lymph # (Auto) 1.7 (1.2-4.9) X10*3/uL Cottle # (Auto) 0.8 (0.1-1.2) X10*3/uL Eos # (Auto) 0.1 (0.0-0.4) X10*3/uL Baso # (Auto) 0.0 (0.0-0.2) X10*3/uL Abs Immat Gran (auto) 0.03 (0.00-0.03) X10*3/uL Absolute Neuts (auto) 6.1 (2.0-8.3) x10*3/uL Absolute Nucleated RBC 0.000 (0.0-0.012) X10*3/uL Nucleated RBC % (auto) 0.0 (0.0-0.2) /100WBC Sodium 137 (135-145) mmol/L Potassium 4.6 D (3.3-5.1) mmol/L Chloride 107 (96-108) mmol/L Carbon Dioxide 22 (22-29) mmol/L Anion Gap 13 (12-20) BUN 8 L (9-16) mg/dL Creatinine 0.92 (0.5-1.4) mg/dL Estim Creat Clear Calc 92.1 Estimated GFR > 60 Random Glucose 95 (60-115) mg/dL Calcium 9.8 D (8.4-10.2) mg/dL Magnesium 2.0 (1.6-2.6) mg/dL Total Bilirubin 0.7 (0.0-1.0) mg/dL AST 31 (5-31) U/L ALT 49 H (0-31) U/L Alkaline Phosphatase 87 (39-117) U/L Total Protein 8.1 H (6.5-8.0) g/dL Albumin 4.4 (3.5-5.0) g/dL Lipase 13 (8-78) U/L Urine Color Dark Yellow Urine Appearance Clear Urine pH 6.0 (5.0-9.0) Ur Specific [place] 1.020 (1.005-1.025) Urine Protein Trace (Neg-Trace) mg/dL Urine Glucose (UA) Negative (Negative) mg/dL Urine Ketones Trace (Negative) mg/dL Urine Blood Negative (Negative) Urine Nitrite Negative (Negative) Ur Leukocyte Esterase Negative (Negative) Urine Test NEGATIVE (NEGATIVE) Influenza Type A (PCR) NEGATIVE (Negative) Influenza Type B (PCR) NEGATIVE (Negative) RSV RNA Qual (PCR) NEGATIVE (Negative) SARS-CoV-2 RNA (RT-PCR) NEGATIVE (Negative) Independent Interpretation I performed an independent interpretation of an: CT Scan Interpretation: CT A/P concerning for inflammatory bowel disease, also notable for hepatomegaly and fatty infiltration. Radiology Impression Discussion of test interpretation with radiology: I have reviewed the radiologist's reading. Radiologist Impression: CT/CT abdomen pelvis w IV con IMPRESSION: Concerning the inflammatory bowel disease in the correct clinical settings. Hepatomegaly and probable geographic fatty infiltration. Consider further imaging evaluation with dynamic enhanced MRI liver. External Record Review External record reviewed: Inpatient record, Office record and Outpatient record Prescription Management I considered prescription management with: Other Discharge Plan Discharge Clinical Impression: Nausea, vomiting, and diarrhea Patient Disposition: Home, Self-Care Instructions: Acute Nausea and Vomiting (DC), Acute Diarrhea (ED) Additional Instructions: You have been evaluated in the emergency department today for nausea, vomiting, and diarrhea. Your evaluation suggests that your symptoms are most likely due to a viral illness which will improve on it's own with rest and fluids. Remember to drink plenty of fluids at home. You are being prescribed ondansetron which you can use as per the prescription instructions for nausea. Please follow up with your primary care provider regarding results of your CT scan. Return to the emergency department if you experience worsening or uncontrolled pain, inability to tolerate fluids by mouth, difficulty breathing, fevers 100.4? F or greater, recurrent vomiting, or any other concerning symptoms. CLINICAL INFORMATION: Lower abdominal pain. COMPARISON: March 31, 2023. TECHNIQUE: Multidetector volumetric images were obtained from the superior aspect of the liver through the pubic symphysis following administration 85 mL of Omnipaque 350 intravenous contrast. Sagittal and coronal reformatted images were obtained on the technologist's workstation. Oral contrast: No This CT examination was performed using dose optimization techniques as appropriate, variously including the following: *Automated exposure control *Adjustment of mA and/or kV according to patient size (this includes techniques or standardized protocols for targeted exams where dose is matched to indication/reason for exam; i.e. extremities or head) *Use of iterative reconstruction technique DLP: 565 mGy centimeter. FINDINGS: LUNG BASES: Nonspecific patchy pulmonary groundglass. LIVER, GALLBLADDER, AND BILIARY TREE: [Liver measures 18 cm. There is an heterogeneous areas of low density poorly enhancing abnormality is without vascular distortion involving the posterior dome right hepatic lobe anterior right hepatic lobe near the gallbladder fossa and falciform ligament. The main portal vein and hepatic veins and intrahepatic portion of the IVC are patent. No pericholecystic fluid collection or gallbladder wall thickening. Common bile duct measures 3 mm. PANCREAS: No focal lesion. No peripancreatic fluid collection. No main pancreatic ductal dilatation. SPLEEN: 9 cm. No focal lesion. ADRENAL GLANDS: No nodular lesions. KIDNEYS AND URETERS: No hydronephrosis. No focal mass. No gross nephrolithiasis. BLADDER: Fluid-filled. GASTROINTESTINAL TRACT: Collapsed appearance of the left hemicolon. No intestinal obstruction pattern. No pneumatosis intestinalis. No ascites. No pneumoperitoneum. Terminal ileum is normal. I do not see the appendix. Subsegmental areas of wall thickening involving the left hemicolon. Mesenteric edema involving the mesenteric margin of the small bowel loops. Prominent mesenteric lymph nodes. ABDOMINAL WALL: No gross umbilical hernia. LYMPH NODES: Prominent mesenteric and to a lesser extent retroperitoneal lymph nodes. VASCULAR: No aneurysm or dissection, aorta. PELVIC VISCERA: No gross masses. OSSEOUS STRUCTURES: Stable sclerotic marginated bone lesion centered in the intertrochanteric region proximal metaphysis of the right femur. No acute fracture or listhesis in the axial skeleton. CT/CT abdomen pelvis w IV con IMPRESSION: Concerning the inflammatory bowel disease in the correct clinical settings. Hepatomegaly and probable geographic fatty infiltration. Consider further imaging evaluation with dynamic enhanced MRI liver. Fleischner guidelines were followed. Prescriptions: New ondansetron 4 mg tablet,disintegrating 4 mg PO Q8H PRN (Reason: nausea and vomiting) Qty: 10 0RF No Action desogestrel-ethinyl estradiol [Apri] 0.15-0.03 mg tablet 1 tab PO DAILY oseltamivir [Tamiflu] 75 mg Capsule 75 mg PO Q12H Qty: 6 0RF prednisone 20 mg tablet 40 mg PO DAILY Qty: 6 0RF levalbuterol tartrate [Xopenex HFA] 45 mcg/actuation HFA aerosol inhaler 2 puff inhalation Q4-6H PRN (Reason: shortness of breath or wheezing) Qty: 15 0RF cyclobenzaprine 10 mg tablet 10 mg PO TID PRN (Reason: muscle spasm) Qty: 20 0RF lidocaine 5 % adhesive patch,medicated 1 patch topical DAILY Qty: 30 0RF Rx Instructions: leave on most painful area for up to 12 hrs trazodone 50 mg tablet 50 mg PO BEDTIME PRN (Reason: Sleep) Print Language: German
[2024-08-06 12:14] LABS: MANUAL DIFF FLAG NO
[2024-08-06 12:17] LABS: Appearance Urine Clear; Color Urine Dark Yellow; Glucose Urine UA Negative (Negative); Leukocyte Esterase Urine Negative (Negative); Nitrite Urine Negative (Negative); Urine Blood Negative (Negative); Urine Ketones Trace mg/dL (Negative); Urine Protein Trace mg/dL (Neg-Trace)
[2024-08-06 12:18] LABS: Basophils Percent Auto 0.2 % (0-2); Eosinophils Absolute Auto 0.1 X10*3/uL (0.0-0.4); Eosinophils Percent Auto 0.8 % (0-4); Hematocrit 39.1 % (37.0-47.0); Hemoglobin 13.5 g/dl (12.0-16.0); Imm Gran Abs Auto 0.03 X10*3/uL (0.00-0.03); Imm Gran Pct Auto 0.3 % (0.0-0.4); Lymphocytes Absolute Auto 1.7 X10*3/uL (1.2-4.9); Lymphocytes Percent Auto 19.7 % (20-40); Mean Corpuscular HGB Conc 34.5 g/dl (31.0-35.0); Mean Corpuscular Hemoglobin 28.7 pg (27.0-33.0); Mean Platelet Volume 10.8 fL (9.4-12.3); Monocytes Absolute Auto 0.8 X10*3/uL (0.1-1.2); Monocytes Percent Auto 9.3 % (2-11); Neutrophils Absolute Auto 6.1 x10*3/uL (2.0-8.3); Neutrophils Percent Auto 69.7 % (45-73); Platelet Count 279 X10*3/uL (160-400); Red Blood Count 4.71 X10*6/uL (4.20-5.50); Red Cell Distribution Width 12.7 % (11.0-16.0); White Blood Count 8.8 X10*3/uL (4.8-10.8)
[2024-08-06 12:19] LABS: UPreg QC Valid YES; Urine Pregnancy NEGATIVE (NEGATIVE)
[2024-08-06 12:30] LABS: Alanine Aminotransferase 49 U/L (0-31); Albumin Level 4.4 g/dL (3.5-5.0); Alkaline Phosphatase 87 U/L (39-117); Anion Gap 13 (12-20); Aspartate Amino Transferase 31 U/L (5-31); Bilirubin Total 0.7 mg/dL (0.0-1.0); Blood Urea Nitrogen 8 mg/dL (9-16); Calcium 9.8 mg/dL (8.4-10.2); Carbon Dioxide 22 mmol/L (22-29); Chloride 107 mmol/L (96-108); Creatinine Clr Calc Pharmacy 92.1; Estimated Glomerular Filt Rate > 60; Glucose Random 95 mg/dL (60-115); Lipase 13 U/L (8-78); Potassium 4.6 mmol/L (3.3-5.1); Sodium 137 mmol/L (135-145); Total Protein 8.1 g/dL (6.5-8.0)
[2024-08-06 13:04] LABS: Influenza A PCR NEGATIVE (Negative); Influenza B PCR NEGATIVE (Negative); Resp Syncy Virus RNA Qual PCR NEGATIVE (Negative); SARS COV2 PCR INHOUSE NEGATIVE (Negative)
[2024-08-06] MEDS: 0.9 % Sodium Chloride 1,000 ML 999 ML IV (13:58)
[2024-08-06] MEDS: Ketorolac Tromethamine 15 MG/ML VIAL IVPUSH (13:58)
[2024-08-06] MEDS: ondansetron HCL 4 MG/2 ML VIAL IVPUSH (13:58)
--- OUTSIDE RECORDS SUMMARY | 2024-08-06 13:59 | XMS_ITS | Encounter Summary ---
Author Organization [facility] Address [address] [place] [phone] Phone Care Team Providers Care Bank Consultant Name Role Phone Toyin Rivera DRAPERY COUNSELOR Primary Care Provider Jero araiza Encounter Details Date Type Department Care Team (Late st Contact Info) Description 06/29/2009 Documentation [facility] [place] Family Medicine [address] [place] [address] Family Medicine, Physician [address] [place] [address] Social History Tobacco Use Types Packs/Day Years [...] on filedocumented in this encounter Care Teams Bank Consultant Relationship Specialty Start Date End Date Toyin Rivera NP PCP - General 09/20/16 05/23/22 documented as of this encounter
[2024-08-06] MEDS: iohexoL 350 MG/ML 100 ML INFUS..BTL IV (14:11)
[2024-08-06 17:06] VITALS: BP 129/65; PULSE 89; RESP 16; TEMP 36.2; O2SAT 99
[2024-08-06 17:32] VITALS: BP 129/65; PULSE 89; RESP 16; TEMP 36.2; O2SAT 99
== END 2024-08-06 17:33 | disposition home or self-care (01) ==
PROVIDERS: Physician Assistant Medical; Emergency Provider Emergency Medicine; PCP Registered Nurse
DX: R11.2 Nausea with vomiting, unspecified (principal); R19.7 Diarrhea, unspecified; R10.30 Lower abdominal pain, unspecified; J45.909 Unspecified asthma, uncomplicated; F12.90 Cannabis use, unspecified, uncomplicated; Z03.818 Encounter for observation for suspected exposure to other biological agents ruled out; Z79.899 Other long term (current) drug therapy
CPT/HCPCS: 0241U; 36415; 74177; 80053; 81003; 81025; 83690; 83735; 85025; 96361; 96374; 96375; 99284; J1885; J2405; Q9967

== ENCOUNTER → 2024-08-06 13:01 | Outpatient (BNV) | payer MEDICAID, SELFPAY | PROVIDERS: Emergency Provider Emergency Medicine; PCP Registered Nurse; Visit Provider Radiology Diagnostic Radiology | DX: R10.30 Lower abdominal pain, unspecified (principal) | CPT/HCPCS: 74177 ==

== ENCOUNTER 2024-09-29 10:00 | Emergency (ER) | payer MEDICAID, SELFPAY ==
[2024-09-29 10:17] VITALS: BP 160/105; PULSE 136; RESP 22; TEMP 37.6; O2SAT 100; BMI 31.9
--- NOTE | 2024-09-29 10:17 | ED_ITS ---
HPI - General Adult General Chief complaint: Urogenital-Female Stated complaint: fever, headache, treating infection Time Seen by Provider: 09/29/24 12:51 Source: patient Mode of arrival: ambulatory Limitations: no limitations History of Present Illness ED Provider: HPI narrative: 23-year-old woman here with multiple complaints, she states she has a headache and by primarily here for lower back pain and she states it is radiating right around her pelvic area, she reports history of kidney stones, and no urinary symptoms, she is currently on asep-[id number]-[id number] medications for vaginal yeast infection, she also states that she called her director industrial museum who told her to come to the ER if she has any chills and back pain and then she can see her next week. But primarily patient states out of her complaints she has having worsening abdominal pain. No IV drug use, pain radiating to her lower legs. Has a history of back pain in the past has had physical therapy for the last year. Related Data Home Medications ?Medication ?Instructions ?Recorded ?Confirmed trazodone 50 mg tablet 50 mg PO BEDTIME PRN Sleep 0 04/30/23 03/12/24 desogestrel 0.15 mg-ethinyl 1 tab PO DAILY 03/12/24 estradiol 0.03 mg tablet (Apri) Previous Rx's ?Medication ?Instructions ?Recorded levalbuterol tartrate 45 2 puff inhalation Q4-6H PRN 03/13/24 mcg/actuation aerosol inhaler shortness of breath or w heezing (Xopenex HFA) #15 grams oseltamivir 75 mg capsule (Tamiflu) 75 mg PO Q12H #6 c aps 03/13/24 prednisone 20 mg tablet 40 mg (2 x 20 mg) PO DAILY # 6 tabs 03/13/24 cyclobenzaprine 10 mg tablet 10 mg PO TID PRN muscle s pasm #20 03/17/24 tabs lidocaine 5 % topical patch 1 patch topical DAILY #30 ea 03/17/24 ondansetron 4 mg disintegrating 4 mg PO Q8H PRN nausea and 08/06/24 tablet vomiting #10 tabs diazepam 2 mg tablet (Valium) 2 mg PO TID PRN spasms 2 days #6 09/29/24 tabs fluconazole 150 mg tablet 150 mg PO Q3D 21 doses #1 ta b 09/29/24 ondansetron 4 mg disintegrating 4 mg PO Q8H PRN nausea and 09/29/24 tablet vomiting #4 tabs Allergies Allergy/AdvReac Type Severity Reaction Status Date / Time nut - unspecified (NUT - Allergy Intermediate HIVES Verified 09/29/24 10:21 UNSPECIFIED) FRUIT Allergy Intermediate ITCHY LIPS Uncoded 01/07/24 10:14 nuts Allergy Intermediate Hives Uncoded 01/07/24 10:14 pollen Allergy Intermediate Hives Uncoded 01/07/24 10:14 Review of Systems 2 Constitutional: Constitutional: Reports as per HPI [facility] Past Medical History Medical History PCOS (polycystic ovarian syndrome) Kidney stones Asthma Social History Social History Household Members: Family Household Members Other:: grandmother Housing: Apartment Do you presently have visiting nurse or other home services: No Alcohol intake: current Alcohol intake frequency: holidays/special occasions only Patient Tobacco Use Status: Former Tobacco user Substance Use Type: Marijuana Advance Directives: No Advance Directives Information Provided: Yes service: No Current occupational status: unemployed Current occupation: rt hand Physical Exam ED Vital Signs: Vital Signs - 24 hr 09/29/24 10:17 09/29/24 14:10 Temperature 99.6 F Pulse Rate 136 H 116 H Respiratory Rate 22 H 20 Blood Pressure 160/105 H 105/73 Pulse Oximetry 100 100 Oxygen Delivery Method Room Air Room Air BMI result Body Mass Index 31.9 Const Other: * Gen: ?Anxious affect * CV: RRR, no obvious murmurs appreciated * Resp: ?No wheezing rales rhonchi no stridor moving air well * Abd: ?Bowel sounds are present, no tenderness no rebound no rigidity no CVA tenderness, deferred * MSK: FROM, strength 5/5 all extremities, generally no sensory deficits moving extremities symmetrically no loss of power, paraspinal tenderness mostly in the left side without midline tenderness without rashes to the area * Skin: Warm, dry, intact, * Neuro: ?Alert and oriented x3, moving upper and lower extremities symmetrically, no obvious facial asymmetry noted Course Course Course Narrative: This is a rapid medical exam performed by Amanda Alcantara NP: Additional HPI, ROS, PE not included below will be deferred to primary provider. Patient is a 23y/o F presenting to the ED with complaint of lower back and leg pain. Recently using OTC medication for yeast infection. Denies dysuria. Reports lower abdominal cramps. History of kidney stones. Tachycardic and hypertensive in triage, appears very uncomfortable, crying in triage. Plan: viral serology, labs, UA Medications Administered Discontinued Medications Generic Name Dose Route Start Last Admin Trade Name Gera PRN Reason Stop Dose Admin Diazepam 2.5 mg 09/29/24 13:38 09/29/24 13:57 Diazepam 10 Mg/2 Ml Cartridge IVPUSH 09/29/24 13:39 2.5 mg STAT STA Administration Fluconazole 150 mg 09/29/24 13:38 09/29/24 13:58 Fluconazole 150 Mg Tablet PO 09/29/24 13:39 150 mg ONCE ONE Administration Ketorolac Tromethamine 15 mg 09/29/24 13:38 09/29/24 13:57 Ketorolac Tromethamine 15 Mg/Ml Vial IVPUSH 09/29/24 13:39 15 mg ONCE ONE Administration Lidocaine 1 patch 09/29/24 13:38 09/29/24 13:58 Lidocaine 4 % Patch Adh..Patch TRANSDERMA 09/29/24 13:39 1 patch ONCE ONE Administration Protocol Medical Decision Making Medical Decision Making MDM Narrative: Patient is complaining of back pain, on examination she has fairly significant paraspinal tenderness without midline tenderness or step-offs, bedside ultrasound obtained without any evidence for hydronephrosis, she just had a CAT scan of the abdomen and pelvis area over a month ago which does not show any significant renal pathology or kidney stones, given her age would not reimage her again, urine without infection I do not suspect pyelonephritis, she is not febrile, she is currently taking mgwp-jsl-hbzvhed medications for yeast infection, she is able to see a director industrial museum, shared decision-making regarding general complaints patient states that she would feel comfortable with me not performing a pelvic exam, I will start her on fluconazole and she is able to see her director industrial museum provider. I will medicated for pain, there was no indication for MRI of the spine she does not have any risk factors for infectious etiology of the spine or cauda equina or spinal epidural abscess. 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 09/29/24 10:30 09/29/24 10:30 Labs: Lab Results 09/29/24 09/29/24 Range/Units 10:30 13:01 WBC 13.9 H (4.8-10.8) X10*3/uL RBC 4.68 (4.20-5.50) X10*6/uL Hgb 13.9 (12.0-16.0) g/dl Hct 39.3 (37.0-47.0) % MCV 84.0 (80.0-98.0) fL MCH 29.7 (27.0-33.0) pg MCHC 35.4 H (31.0-35.0) g/dl RDW 13.3 (11.0-16.0) % Plt Count 268 (160-400) X10*3/uL MPV 10.3 (9.4-12.3) fL Immature Gran % (Auto) 0.6 H (0.0-0.4) % Neut % (Auto) 85.0 H (45-73) % Lymph % (Auto) 3.5 L (20-40) % [place] % (Auto) 10.3 (2-11) % Eos % (Auto) 0.4 (0-4) % Baso % (Auto) 0.2 (0-2) % Lymph # (Auto) 0.5 L (1.2-4.9) X10*3/uL [place] # (Auto) 1.4 H (0.1-1.2) X10*3/uL Eos # (Auto) 0.1 (0.0-0.4) X10*3/uL Baso # (Auto) 0.0 (0.0-0.2) X10*3/uL Abs Immat Gran (auto) 0.09 H (0.00-0.03) X10*3/uL Absolute Neuts (auto) 11.8 H (2.0-8.3) x10*3/uL Absolute Nucleated RBC 0.000 (0.0-0.012) X10*3/uL Nucleated RBC % (auto) 0.0 (0.0-0.2) /100WBC Sodium 138 (135-145) mmol/L Potassium 4.2 (3.3-5.1) mmol/L Chloride 105 (96-108) mmol/L Carbon Dioxide 21 L (22-29) mmol/L Anion Gap 16 (12-20) BUN 10 (9-16) mg/dL Creatinine 0.70 (0.5-1.4) mg/dL Estim Creat Clear Calc 125.4 Estimated GFR > 60 Random Glucose 106 (60-115) mg/dL Calcium 9.9 (8.4-10.2) mg/dL Total Bilirubin 0.4 (0.0-1.0) mg/dL AST 26 (5-31) U/L ALT 41 H (0-31) U/L Alkaline Phosphatase 100 (39-117) U/L Total Protein 8.5 H (6.5-8.0) g/dL Albumin 4.7 (3.5-5.0) g/dL Beta HCG, Quant < 2 mIU/mL Urine Color Yellow Urine Appearance Cloudy Urine pH 6.0 (5.0-9.0) Ur Specific [place] 1.025 (1.005-1.025) Urine Protein Trace (Neg-Trace) mg/dL Urine Glucose (UA) Negative (Negative) mg/dL Urine Ketones Negative (Negative) mg/dL Urine Blood Trace (Negative) Urine Nitrite Negative (Negative) Ur Leukocyte Esterase Negative (Negative) Urine RBC 0-2 (0-2) /HPF Urine WBC 0-5 (0-5) /HPF Ur Squamous Epith Cells 6-10 (0-2) /HPF Urine Bacteria 2+ (None Seen) Hyaline Casts 0-2 (0-2) /LPF Influenza Type A (PCR) NEGATIVE (Negative) Influenza Type B (PCR) NEGATIVE (Negative) RSV RNA Qual (PCR) NEGATIVE (Negative) SARS-CoV-2 RNA (RT-PCR) POSITIVE A (Negative) Tests considered The following testing was considered but not selected: CT of the spine, CT abdomen and pelvis, MR screen for cauda equina Prescription Management I considered prescription management with: Pain Medication and Antibiotic Discharge Plan Discharge Clinical Impression: Low back pain, Vaginitis, COVID-19 virus infection Instructions: Acute Low Back Pain (ED) Additional Instructions: As discussed unfortunately you have COVID infection, we will give you a work note as you do not expose anyone at work, there is really no treatment for the infection at this time, there is medication we can give to patient's Paxlovid but quite honestly it is poorly tolerated and has nausea vomiting and diarrhea side effects. I am providing you with fluconazole x1 dose in the ER please repeat it in 2 days and I am hoping that will help with the vaginal discomfort but as discussed I deferred on pelvic exam as not to in convenience you further and a urine did not really show any infection or significant bleeding, I did perform ultrasound of the kidneys that was unremarkable without any evidence that you have kidney stones and as discussed you have recently had a CT abdomen and pelvis which did not reveal any kidney stones, we should be cautious about repeating CAT scans as not to expose her to radiation over the conter Lidocaine patches, Diazepam as needed for spasms ( we will make you drowsy do not drink alcohol, use marijuana or drive while taking this medication), ibuprofen at home and follow up with the PCP as discussed I have a suspicion you may need physical therapy. I also prescribed fluconazole as discussed and Zofran as needed for nausea and vomiting. Stay well hydrated Any other issues concerns please do not hesitate to come back to the ER for re- evaluation Prescriptions: New diazepam [Valium] 2 mg tablet 2 mg PO TID PRN (Reason: spasms) 2 Days Qty: 6 0RF fluconazole 150 mg tablet 150 mg PO Q3D Qty: 1 0RF ondansetron 4 mg tablet,disintegrating 4 mg PO Q8H PRN (Reason: nausea and vomiting) Qty: 4 0RF No Action desogestrel-ethinyl estradiol [Apri] 0.15-0.03 mg tablet 1 tab PO DAILY oseltamivir [Tamiflu] 75 mg Capsule 75 mg PO Q12H Qty: 6 0RF prednisone 20 mg tablet 40 mg PO DAILY Qty: 6 0RF levalbuterol tartrate [Xopenex HFA] 45 mcg/actuation HFA aerosol inhaler 2 puff inhalation Q4-6H PRN (Reason: shortness of breath or wheezing) Qty: 15 0RF ondansetron 4 mg tablet,disintegrating 4 mg PO Q8H PRN (Reason: nausea and vomiting) Qty: 10 0RF cyclobenzaprine 10 mg tablet 10 mg PO TID PRN (Reason: muscle spasm) Qty: 20 0RF lidocaine 5 % adhesive patch,medicated 1 patch topical DAILY Qty: 30 0RF Rx Instructions: leave on most painful area for up to 12 hrs trazodone 50 mg tablet 50 mg PO BEDTIME PRN (Reason: Sleep) Referrals: Emilia Guevara FNP [Primary Care Provider, Medical] - 2 weeks Clinical Impression: COVID-19 virus infection; Low back pain; Vaginitis Stand Alone Forms: Work/School Release Print Language: Hong Konger
[2024-09-29 10:41] LABS: MANUAL DIFF FLAG NO
[2024-09-29 10:43] LABS: Hematocrit 39.3 % (37.0-47.0); Hemoglobin 13.9 g/dl (12.0-16.0); Imm Gran Abs Auto 0.09 X10*3/uL (0.00-0.03); Imm Gran Pct Auto 0.6 % (0.0-0.4); Lymphocytes Absolute Auto 0.5 X10*3/uL (1.2-4.9); Mean Corpuscular HGB Conc 35.4 g/dl (31.0-35.0); Mean Corpuscular Hemoglobin 29.7 pg (27.0-33.0); Mean Corpuscular Volume 84.0 fL (80.0-98.0); NRBC Abs Auto 0.000 X10*3/uL (0.0-0.012); NRBC Pct Auto 0.0 /100WBC (0.0-0.2); Platelet Count 268 X10*3/uL (160-400); Red Blood Count 4.68 X10*6/uL (4.20-5.50); White Blood Count 13.9 X10*3/uL (4.8-10.8)
[2024-09-29 11:20] LABS: Alanine Aminotransferase 41 U/L (0-31); Albumin Level 4.7 g/dL (3.5-5.0); Alkaline Phosphatase 100 U/L (39-117); Anion Gap 16 (12-20); Aspartate Amino Transferase 26 U/L (5-31); Blood Urea Nitrogen 10 mg/dL (9-16); Calcium 9.9 mg/dL (8.4-10.2); Carbon Dioxide 21 mmol/L (22-29); Chloride 105 mmol/L (96-108); Creatinine Clr Calc Pharmacy 125.4; Estimated Glomerular Filt Rate > 60; Potassium 4.2 mmol/L (3.3-5.1); Sodium 138 mmol/L (135-145); Total Protein 8.5 g/dL (6.5-8.0)
[2024-09-29 11:24] LABS: Resp Syncy Virus RNA Qual PCR NEGATIVE (Negative); SARS COV2 PCR INHOUSE POSITIVE (Negative)
[2024-09-29 13:14] LABS: Appearance Urine Cloudy; Glucose Urine UA Negative (Negative); PH 6.0 (5.0-9.0); Specific Gravity - Urine 1.025 (1.005-1.025); UMIC TRIGGER UACC YES
[2024-09-29] MEDS: diazePAM 10 MG/2 ML CARTRIDGE 2.5 MG IVPUSH (13:57)
[2024-09-29] MEDS: Lidocaine 4 % Patch ADH..PATCH 1 PATCH TRANSDERMA (13:58)
[2024-09-29 14:10] VITALS: BP 105/73; PULSE 116; RESP 20; O2SAT 100
--- OUTSIDE RECORDS SUMMARY | 2024-09-29 14:31 | XMS_ITS | Encounter Summary ---
Author Organization [facility] Address [address] [place] [phone] Phone Care Team Providers Care Pr Manager Name Role Phone Emilia Guevara SEAFOOD FISHERMAN Primary Care Provider Unav ailable Encounter Details Date Type Department Care Team (Late st Contact Info) Description 05/31/2022 Procedure Pass [facility], Ct Scan - [address] [address] Social History Tobacco Use Types Packs/Day Years Used Date Smoking Tobacco: Never Smokeless Tobacco: Never Alcohol Use Standard Drinks/Week Comments Yes 0 (1 standard drink = 0.6 oz pur e alcohol) some Intimate Partner Violence Answer Date R ecorded Are you denied basic needs s uch as food, clothing, or medical care? No 05/31/2022 In the past 12 months have y ou been in a relationship with a person who hurts, threatens, or tries to control you? No 05/31/2022 Are you denied basic needs s uch as food, clothing, or medical care? No 05/31/2022 In the past 12 months have y ou been in a relationship with a person who hurts, threatens, or tries to control you? No 05/31/2022 Comments Unknown Sex and Gender Information Value Date Recorded Sex Assigned at Not on file Legal Sex Female 3:25 PM EST Gender Identity Not on file Sexual Orientation Not on file documented as of this encounter Functional Status * Calculated C-SSRS Risk Score (Lifetime/Recent) Answer Date of Assessment Author No Risk Indicated 05/31/2022 3:03 PM EDT Kristopher Johnson RN * [place] Suicide Severity Rating Scale (Screener/Recent Self-Report) Question Answer Date of Assessment Author 1. Wish to be (Past 1 Month) No 023 3:03 PM EDT Dana Johnson, RN 2. Non-Specific Active Suici claire Thoughts (Past 1 Month) No 05/31/2022 3:03 PM EDT Dana Johnson , RN 6. Suicidal Behavior (Lifetime) No 3 3:03 PM EDT Dana Johnson, RN documented as of this encounter Plan of Treatment Not on file documented as of this encounter Visit Diagnoses Not on filedocumented in this encounter Additional Health Concerns Infection Onset Date Last Indicated Resolved Time CoV-Risk 05/31/2022 05/31/2022 06/11/2022 1:22 AM EDT documented as of this encounter Care Teams Pr Manager Relationship Specialty Start Date End Date Emilia Guevara NP PCP - General Nurse Practitioner 05/31/22 documented as of this encounter Additional Source Comments The information contained in this document represents components of the legal health record. It is not the complete legal health record.[facility]
--- OUTSIDE RECORDS SUMMARY | 2024-09-29 14:31 | XMS_ITS | Clinical Summary ---
Author Organization [employer] Address [address] [place] [address] [address] [place] [address] Care Team Providers Care Oil Rig Roughneck Name Role Phone Elizabeth Gray NP Primary Care Provider [phone] Allergies Active Allergy Reactions Criticality Noted Date Comments [place] Meal (Obsolete) Anaphylaxis High 01/01/2017 Alvares 04/22/2022 Kiwi Extract [...] EVERY DAY 48 mL 1 3 Active ondansetron (Zofran) 4 MG tabletIndication s:Gastroenteriti s Take 1 tablet (4 mg) by mouth every 8 (eight) hours if needed for nausea or vomiting. 20 tablet 5 07/03/19 26 Active Active Problems Problem Noted Date Diagnosed [...] Encounters Date Type Department Care Team Description 07/02/2024 9:40 AM EDT Office Visit [facility] [address] [place] [id number] [place], [place], [employer]ATE Gastroenteritis (Primary Dx) 07/02/2024 Travel from Last 3 Months Social History Tobacco [...] Sign Reading Time Taken Comments Blood Pressure 128/78 07/02/2024 10:02 AM EDT Pulse 60 07/02/2024 9:39 AM EDT Temperature 36.8 C (98.3 F) 07/02/2024 9:39 AM EDT Respiratory Rate 17 07/02/2024 9:39 AM EDT Oxygen Saturation 98% 12/17/2022 9:59 AM EST Inhaled Oxygen Concentration - - Weight 84.2 kg (185 lb 9.6 oz) 07/02/2024 9:39 A M EDT Height 160 cm (5' 3 ) 07/02/2024 9:39 AM EDT Body Mass Index 32.88 07/02/2024 9:39 AM EDT Plan of Treatment Health Maintenance Due Date Last Done Comments SDOH Screening 1999 Disability Screening 1999 Alcohol/Substance Use Screening 2011 Family Planning (PISQ) 10/15/2014 Pneumococcal Vaccine: Pediatrics (0 to 5 Years) and At-Risk Patients (6 to 49) Years (1 of 2 - PCV) 10/15/2018 Pap Smear 10/15/2020 Depression Monitoring 10/23/2022 04/22/2022, 023 COVID-19 Vaccine ( - season) 2023 03/25/2020, 03/04/2020 Influenza Vaccine (#1) 2024 , 04/12/2021, 12/12/2019, Additional history exists Tobacco Screening 07/02/2025 07/02/2024 DTaP/Tdap/Td Vaccines (8 - Td or Tdap) 12/09/2027 12/08/2017, 11/02/2010, 11/27/2004, Additional history exists Zoster Vaccines (1 of 2) 10/15/2049 RSV Patients and Patients Aged 60 years or older (1 - 1-dose 75+ series) 10/15/2074 HIB Vaccines Completed 12/10/2000, 04/10, 02/21/2000, Additional history exists IPV Vaccines Completed 11/27/2004, 04/10, 02/21/2000, Additional history exists Hepatitis A Vaccines Completed 08/29/2015, 08/17/19 15 Meningococcal Vaccine Completed 01/01/2017, 011 Meningococcal B Vaccine Completed 07/20/2018, 12/08 HIV Screening Completed 03/23/2021 Hepatitis C Screening Completed 03/23/2021 HPV Vaccines Completed 05/24/2024, 06/0 07/2012, 03/01/2011, Additional history exists Hepatitis B Vaccines Completed 05/24/2024, 04/21/2000, 1999, Additional history exists RSV under 20 months Aged Out No longe r eligible based on patient's age to complete this topic Rotavirus Vaccines Aged Out No longer eligible based on patient's age to complete this topic Procedures Procedure Name Priority Date/Time Associated Diagnosis Comments POCT , URINE Routine 07/02/2024 10:00 AM EDT Gastroenteritis ZZZ HISTORICAL HEPATITIS C AB W/REFL TO HCV RNA, QN, PCR Routine 03/23/2021 3:15 PM EST HIV 1/2 ANTIGEN/ANTIBODY, FOURTH GENERATION W/RFL Routine 03/23/2021 3:15 PM EST from Last 3 Months or Most Recently Relevant to Health Maintenance Results * POCT , urine manually resulted (07/02/2024 10:00 AM EDT) Pathologist [facility] Preg Test, Ur Negative Negative, Indeterminate, None Detected, Invalid, Specimen unsatisfactory for evaluation, Weakly Positive, 2+ Urine 07/02/2024 10:0 0 AM EDT [facility] POINT OF CARE TEST ENTER/EDIT ORDERABLES Final Result * HEPATITIS C AB W/REFL TO HCV RNA, QN, PCR (03/23/2021 3:15 PM EST) Pathologist [facility] HEPATITIS C ANTIBODY NON-REACT TIANA NON-REACT TIANA [facility] INDEX 0.01 <1.00 [facility] Comment: HCV antibody was non-reactive. There is no laboratory evidence of HCV infection. In most cases, no further action is required. However, if recent HCV exposure is suspected, a test for HCV RNA (test code 85825) is suggested. For additional information please refer to http://education.BrightBytes.Notis.tv/faq/PUL38d8 (This link is being provided for informational/ educational purposes only.) 03/23/2021 3:15 PM EST [facility] HISTORICAL/NON ORDERABLE LABS Final Result [facility] [address] * HIV 1/2 ANTIGEN/ANTIBODY,FOURTH GENERATION W/RFL (03/23/2021 3:15 PM EST) Pathologist [facility] HIV-1/2 ANTIGEN AND ANTIBODIES, 4TH GENERATION W/ REFLEX NON-REACT TIANA NON-REACT TIANA [facility] Comment: HIV-1 antigen and HIV-1/HIV-2 antibodies were not detected. There is no laboratory evidence of HIV infection. PLEASE NOTE: This information has been disclosed to you from records whose confidentiality may be protected by state law. If your state requires such protection, then the state law prohibits you from making any further disclosure of the information without the specific written consent of the person to whom it pertains, or as otherwise permitted by law. A general authorization for the release of medical or other information is NOT sufficient for this purpose. For additional information please refer to http://education.[employer]/faq/JWN657 (This link is being provided for informational/ educational purposes only.) The performance of this assay has not been clinically validated in patients less than 2 years old. 03/23/2021 3:15 PM EST [facility] LAB BLOOD ORDERABLES Final [facility] Organization Address City/State/[facility] Co de Phone Number [facility] [address] from Last 3 Months or Most Recently Relevant to Health Maintenance [place] [address] [place] [address] C3 Care Teams Oil Rig Roughneck Relationship Specialty Start Date End Date Elizabeth Gray NP [address] [place] [id number] PCP - General Family Medicine 11/15/22
--- OUTSIDE RECORDS SUMMARY | 2024-09-29 14:31 | XMS_ITS | Clinical Summary ---
Author Organization [facility] Address [address] [place] [address] Care Team Providers Care Audio/Visual Operator Name Role Phone Unavailable Primary Care Provider Unavailabl e Social History Tobacco Use Types Packs/Day Years Used Date Smoking Tobacco: Never Assessed Comments Unknown Sex and Gender Information Value Date Recorded Sex Assigned at Not on file Legal Sex Female 12:15 AM EST Gender Identity Not on file Sexual [...] Vaccine ( - 2023-2 5 season) 2023 Depression Screening 02/11/2024 Influenza Vaccine (#1) 2024 HIB Vaccines Aged Out No longer eligi [...] patient's age to complete this topic Meningococcal B Vaccine Aged Out No l onger eligible based on patient's age to complete this topic Pneumococcal Vaccine: Pediat rics (0 to 5 Years) and At-Risk Patients (6 to 49 Years) Aged Out No longer eligible b ased on patient's age to complete this topic RSV Immunization Patients Un juanjose 20 months Aged Out No longer eligible b ased on patient's age to complete this topic Varicella Vaccines Aged Out No longer eligible based on patient's age to complete this topic
--- OUTSIDE RECORDS SUMMARY | 2024-09-29 14:31 | XMS_ITS | Encounter Summary ---
Author Organization [facility] Address [address] [place] [address] Phone Care Team Providers Care Redrawer Name Role Phone Toyin Rivera WOOD MODEL MAKER Primary Care Provider Jero araiza Encounter Details Date Type Department Care Team (Late st Contact Info) Description 06/29/2009 Documentation [facility] [address] [place] [address] Family Medicine, Physician [address] [place] [address] Social History Tobacco Use Types Packs/Day Years [...] on filedocumented in this encounter Care Teams Redrawer Relationship Specialty Start Date End Date Toyin Rivera NP PCP - General 09/20/16 05/23/22 documented as of this encounter
[2024-09-29 16:40] VITALS: BP 105/73; PULSE 116; RESP 20; TEMP 36.6; O2SAT 100
== END 2024-09-29 16:40 | disposition home or self-care (01) ==
PROVIDERS: Registered Nurse Emergency; Emergency Provider Emergency Medicine; PCP Registered Nurse
DX: N76.0 Acute vaginitis (principal); U07.1 COVID-19; R51.9 Headache, unspecified; M54.50 Low back pain, unspecified; R10.2 Pelvic and perineal pain; B37.9 Candidiasis, unspecified; Z87.891 Personal history of nicotine dependence; Z79.899 Other long term (current) drug therapy
CPT/HCPCS: 80053; 81001; 84702; 85025; 87637; 96374; 96375; 99284; J1885; J3360

== ENCOUNTER 2024-12-24 15:04 | Emergency (ER) | payer MEDICAID, SELFPAY ==
--- NOTE | ~2024-12-24 | XR_ITS ---
EXAMINATION: XR CHEST CLINICAL INFORMATION: dyspnea 2 days COMPARISON: March 17, 2024 TECHNIQUE: 2 views of the chest were obtained. FINDINGS: No significant abnormality is noted involving the heart, lungs, mediastinum, bony thorax or soft tissues. XR/XR chest 2V IMPRESSION: No acute disease Electronically signed by: Jim Mix MD 12/24/2024 04:28 PM [facility]
[2024-12-24 16:00] VITALS: BP 155/92; PULSE 112; RESP 20; TEMP 37.2; O2SAT 97; BMI 32.1
--- NOTE | 2024-12-24 16:03 | ED.GENADULT ---
HPI - General Adult General Chief complaint: Dyspnea Stated complaint: SOB Time Seen by Provider: 12/24/24 17:49 Source: patient Mode of arrival: ambulatory Limitations: no limitations History of Present Illness ED Provider: HPI narrative: 24-year-old woman presenting with respiratory symptoms, sore throat, slight nausea, but also chest pain she is on control pills, went to see her PCP in urgent care today was sent to the ER for consideration of workup for pneumonia. Related Data Home Medications ?Medication ?Instructions ?Recorded ?Confirmed trazodone 50 mg tablet 50 mg PO BEDTIME PRN Sleep 04/30/23 03/12/24 desogestrel 0.15 mg-ethinyl 1 tab PO DAILY 03/12/24 03/12/24 estradiol 0.03 mg tablet (Apri) Previous Rx's ?Medication ?Instructions ?Recorded levalbuterol tartrate 45 2 puff inhalation Q4-6H PRN 03/13/24 mcg/actuation aerosol inhaler shortness of breath or wheezing (Xopenex HFA) #15 grams oseltamivir 75 mg capsule (Tamiflu) 75 mg PO Q12H #6 caps 03/13/24 prednisone 20 mg tablet 40 mg (2 x 20 mg) PO DAILY #6 tabs 03/13/24 cyclobenzaprine 10 mg tablet 10 mg PO TID PRN muscle spasm #20 03/17/24 tabs lidocaine 5 % topical patch 1 patch topical DAILY #30 ea 03/17/24 ondansetron 4 mg disintegrating 4 mg PO Q8H PRN nausea and 08/06/24 tablet vomiting #10 tabs diazepam 2 mg tablet (Valium) 2 mg PO TID PRN spasms 2 days #6 09/29/24 tabs fluconazole 150 mg tablet 150 mg PO Q3D 21 doses #1 tab 09/29/24 ondansetron 4 mg disintegrating 4 mg PO Q8H PRN nausea and 09/29/24 tablet vomiting #4 tabs Allergies Allergy/AdvReac Type Severity Reaction Status Date / Time nut - unspecified (NUT - Allergy Intermediate HIVES Verified 12/24/24 16:04 UNSPECIFIED) FRUIT Allergy Intermediate ITCHY LIPS Uncoded 12/24/24 16:04 nuts Allergy Intermediate Hives Uncoded 12/24/24 16:04 pollen Allergy Intermediate Hives Uncoded 12/24/24 16:04 Review of Systems Constitutional: Constitutional: Reports as per HPI ON LICENSE OF [facility] Past Medical History Medical History PCOS (polycystic ovarian syndrome) Kidney stones Asthma Social History Social History Household Members: Family Household Members Other:: grandmother Housing: Apartment Do you presently have visiting nurse or other home services: No Alcohol intake: current Alcohol intake frequency: holidays/special occasions only Patient Tobacco Use Status: Former Tobacco user Substance Use Type: Marijuana service: No Current occupational status: unemployed Current occupation: rt hand Physical Exam ED Exam Exam: General: Appears of stated age ? Injected tonsils, uvula midline, postnasal drip present, TMs bilaterally unremarkable ? Neck: Supple, no LAD ? CV: RRR, no obvious murmurs appreciated ? Resp: ?No wheezing rales rhonchi no stridor moving air well ? Abd: ?Bowel sounds are present, no tenderness no rebound no rigidity ? MSK: FROM, strength 5/5 all extremities ? Skin: Warm, dry, intact, ? Neuro: ?Alert and oriented x3, moving upper and lower extremities symmetrically, no obvious facial asymmetry noted, cranial nerves 2-12 intact Vital Signs: Vital Signs - 24 hr 12/24/24 16:00 Temperature 99.0 F Pulse Rate 112 H Respiratory Rate 20 Blood Pressure 155/92 H Pulse Oximetry 97 Oxygen Delivery Method Room Air BMI result Body Mass Index 32.1 Course Course Course Narrative: This is a rapid medical exam performed by Amanda Alcantara NP: Additional HPI, ROS, PE not included below will be deferred to primary provider. Patient is a 24y/o F sent from walk in for evaluation of 2 days of shortness of breath. Associated headache and mild cough. States pain is midsternal, as well as mid back, worse with inspiration. Is on OCPs. HR 112 in triage. Plan: viral serology, labs, cxr Medical Decision Making Medical Decision Making [facility] Narrative: 6:40 PM 12/24/2024 (Dr. Stevie Andrade): considerations for workup as below, clinically patient has viral pharyngitis, strep throat negative, postnasal drip, chest x-ray without pneumonia, viral swab negative, D-dimer unremarkable, will discharge with supportive measures Differential Diagnosis Differential Diagnoses: The differential diagnosis associated with the presentation includes ( pneumonia, dehydration, PE, otitis media, otitis externa, tonsillitis) Admission/Observation Consideration of admission/observation: Escalation of care including admission/observation considered Lab Data [facility] Lab Attestation statement: I reviewed the patient's lab results. 12/24/24 16:21 12/24/24 16:21 Labs: Lab Results 12/24/24 Range/Units 16:21 WBC 12.5 H (4.8-10.8) X10*3/uL RBC 4.85 (4.20-5.50) X10*6/uL Hgb 13.9 (12.0-16.0) g/dl Hct 40.5 (37.0-47.0) % MCV 83.5 (80.0-98.0) fL MCH 28.7 (27.0-33.0) pg MCHC 34.3 (31.0-35.0) g/dl RDW 12.9 (11.0-16.0) % Plt Count 274 (160-400) X10*3/uL MPV 10.7 (9.4-12.3) fL Immature Gran % (Auto) 0.5 H (0.0-0.4) % Neut % (Auto) 72.9 (45-73) % Lymph % (Auto) 12.8 L (20-40) % Appling % (Auto) 13.5 H (2-11) % Eos % (Auto) 0.1 (0-4) % Baso % (Auto) 0.2 (0-2) % Lymph # (Auto) 1.6 (1.2-4.9) X10*3/uL Appling # (Auto) 1.7 H (0.1-1.2) X10*3/uL Eos # (Auto) 0.0 (0.0-0.4) X10*3/uL Baso # (Auto) 0.0 (0.0-0.2) X10*3/uL Abs Immat Gran (auto) 0.06 H (0.00-0.03) X10*3/uL Absolute Neuts (auto) 9.1 H (2.0-8.3) x10*3/uL Absolute Nucleated RBC 0.000 (0.0-0.012) X10*3/uL Nucleated RBC % (auto) 0.0 (0.0-0.2) /100WBC Smear Tech's Comments VERIFIED PT 13.7 H (11.2-13.5) SEC INR 1.1 (0.9-1.1) Sodium 137 (135-145) mmol/L Potassium 4.1 (3.3-5.1) mmol/L Chloride 107 (96-108) mmol/L Carbon Dioxide 19 L (22-29) mmol/L Anion Gap 15 (12-20) BUN 6 L (9-16) mg/dL Creatinine 0.62 (0.5-1.4) mg/dL Estim Creat Clear Calc 140.7 Estimated GFR > 60 Random Glucose 103 (60-115) mg/dL Calcium 9.5 (8.4-10.2) mg/dL Total Bilirubin 0.4 (0.0-1.0) mg/dL AST 30 (5-31) U/L ALT 28 (0-31) U/L Alkaline Phosphatase 82 (39-117) U/L Total Protein 8.8 H (6.5-8.0) g/dL Albumin 4.5 (3.5-5.0) g/dL Beta HCG, Quant < 2 mIU/mL Influenza Type A (PCR) NEGATIVE (Negative) Influenza Type B (PCR) NEGATIVE (Negative) RSV RNA Qual (PCR) NEGATIVE (Negative) SARS-CoV-2 RNA (RT-PCR) NEGATIVE (Negative) Independent Interpretation I performed an independent interpretation of an: Plain X-Ray ( My independent chest xray interpretation: Lungs: Lungs are clear bilaterally without evidence of focal consolidation, pleural effusion, or pneumothorax. Cardiac silhouette is unremarkable, no obvious mediastinal widening, no obvious bony abnormalities such as fractures. Impression: Normal chest X-) Radiology Impression Discussion of test interpretation with radiology: I have reviewed the radiologist's reading. ( XR/XR chest 2V IMPRESSION: No acute disease) Discharge Plan Discharge Clinical Impression: Upper respiratory infection, Chest pain, precordial Patient Disposition: Home, Self-Care Additional Instructions: Your workup today included blood work, viral swab, chest x-ray, and D-dimer which is blood work I ordered as your heart rate was a little fast and you were on control pills to exclude pulmonary embolus, the blood work was unremarkable, there was evidence of postnasal drip and upper respiratory infection, mostly of your throat, your blood work does not show any evidence of dehydration, you can continue hydrating, avoid foods that we will exacerbate your pain in the throat, stick to soups for now, you can picker tender helper Cepacol lozenges to help with your symptoms, and I recommend baking soda, salt in 8 oz of warm water gargle and spit to clean out the postnasal drip that irritates her throat and can present with a staccato cough. otherwise continue with other supportive measures and [id number] medications and follow up your PCP. Prescriptions: No Action desogestrel-ethinyl estradiol [Apri] 0.15-0.03 mg tablet 1 tab PO DAILY oseltamivir [Tamiflu] 75 mg Capsule 75 mg PO Q12H Qty: 6 0RF prednisone 20 mg tablet 40 mg PO DAILY Qty: 6 0RF levalbuterol tartrate [Xopenex HFA] 45 mcg/actuation HFA aerosol inhaler 2 puff inhalation Q4-6H PRN (Reason: shortness of breath or wheezing) Qty: 15 0RF ondansetron 4 mg tablet,disintegrating 4 mg PO Q8H PRN (Reason: nausea and vomiting) Qty: 10 0RF diazepam [Valium] 2 mg tablet 2 mg PO TID PRN (Reason: spasms) 2 Days Qty: 6 0RF fluconazole 150 mg tablet 150 mg PO Q3D Qty: 1 0RF ondansetron 4 mg tablet,disintegrating 4 mg PO Q8H PRN (Reason: nausea and vomiting) Qty: 4 0RF cyclobenzaprine 10 mg tablet 10 mg PO TID PRN (Reason: muscle spasm) Qty: 20 0RF lidocaine 5 % adhesive patch,medicated 1 patch topical DAILY Qty: 30 0RF Rx Instructions: leave on most painful area for up to 12 hrs trazodone 50 mg tablet 50 mg PO BEDTIME PRN (Reason: Sleep) Print Language: Nepali
[2024-12-24 16:35] LABS: INTERNATIONAL NORM RATIO 1.1 (0.9-1.1); Prothrombin Time 13.7 SEC (11.2-13.5)
[2024-12-24 16:38] LABS: Hematocrit 40.5 % (37.0-47.0); Hemoglobin 13.9 g/dl (12.0-16.0); Imm Gran Abs Auto 0.06 X10*3/uL (0.00-0.03); Imm Gran Pct Auto 0.5 % (0.0-0.4); Lymphocytes Absolute Auto 1.6 X10*3/uL (1.2-4.9); MANUAL DIFF FLAG SCAN; Mean Corpuscular HGB Conc 34.3 g/dl (31.0-35.0); Mean Corpuscular Hemoglobin 28.7 pg (27.0-33.0); Mean Corpuscular Volume 83.5 fL (80.0-98.0); NRBC Abs Auto 0.000 X10*3/uL (0.0-0.012); NRBC Pct Auto 0.0 /100WBC (0.0-0.2); Platelet Count 274 X10*3/uL (160-400); Red Blood Count 4.85 X10*6/uL (4.20-5.50); SCAN SMEAR FLAG 1; White Blood Count 12.5 X10*3/uL (4.8-10.8)
[2024-12-24 16:41] LABS: Alanine Aminotransferase 28 U/L (0-31); Albumin Level 4.5 g/dL (3.5-5.0); Alkaline Phosphatase 82 U/L (39-117); Anion Gap 15 (12-20); Aspartate Amino Transferase 30 U/L (5-31); Blood Urea Nitrogen 6 mg/dL (9-16); Calcium 9.5 mg/dL (8.4-10.2); Carbon Dioxide 19 mmol/L (22-29); Chloride 107 mmol/L (96-108); Creatinine Clr Calc Pharmacy 140.7; Estimated Glomerular Filt Rate > 60; Potassium 4.1 mmol/L (3.3-5.1); Sodium 137 mmol/L (135-145); Total Protein 8.8 g/dL (6.5-8.0)
[2024-12-24 17:03] LABS: Resp Syncy Virus RNA Qual PCR NEGATIVE (Negative); SARS COV2 PCR INHOUSE NEGATIVE (Negative)
[2024-12-24 18:36] LABS: D Dimer High Sensitivity 216 NG/ML
[2024-12-24] MEDS: Throat Lozenge, Medicated LOZENGE 1 LOZENGE MUCOUS MEM (18:41)
[2024-12-24 18:50] VITALS: BP 141/103; PULSE 90; RESP 19; TEMP 37.6; O2SAT 97
[2024-12-24 18:56] VITALS: BP 129/92
[2024-12-24 18:57] VITALS: BP 129/92; PULSE 90; RESP 19; TEMP 37.6; O2SAT 97
--- OUTSIDE RECORDS SUMMARY | 2024-12-25 01:00 | XMS_ITS | Encounter Summary ---
Author Organization [facility] Address [address] [place] [address] Phone Care Team Providers Care Compliance Testing Analyst Name Role Phone Emilia Guevara SECRETARY TO THE VICE PRESIDENT Primary Care Provider Unav ailable Encounter Details Date Type Department Care Team (Late st Contact Info) Description 05/31/2022 Procedure Pass [facility], Ct Scan - [address] [address] Social History Tobacco Use Types Packs/Day Years [...] 3:03 PM EDT Kristopher Johnson RN * [place] Suicide Severity Rating Scale (Screener/Recent Self-Report) Question [...] documented as of this encounter Care Teams Compliance Testing Analyst Relationship Specialty Start Date End Date Emilia Guevara NP PCP - General Nurse Practitioner 05/31/22 documented as of this encounter Additional Source Comments The information contained in this document represents components of the legal health record. It is not the complete legal health record.[facility]
--- OUTSIDE RECORDS SUMMARY | 2024-12-25 01:00 | XMS_ITS | Encounter Summary ---
Author Organization [facility] Address [address] [place] [address] Phone Care Team Providers Care Needle Loom Tender Name Role Phone Toyin Rivera DROPPER TANK STORAGE Primary Care Provider Jero araiza Encounter Details Date Type Department Care Team (Late st Contact Info) Description 06/29/2009 Documentation [facility] [place] Family Medicine [address] [place] [address] Family Medicine, Physician [address] [place] [address] Social History Tobacco Use Types Packs/Day Years [...] on filedocumented in this encounter Care Teams Needle Loom Tender Relationship Specialty Start Date End Date Toyin Rivera NP PCP - General 09/20/16 05/23/22 documented as of this encounter
--- OUTSIDE RECORDS SUMMARY | 2024-12-25 01:01 | XMS_ITS | Encounter Summary ---
Author Organization [facility] Address [address] [place] [address] Phone Care Team Providers Care Tailor Men'S Ready To Wear Name Role Phone Toyin Rivera NP Primary Care Provider Jero araiza Encounter Details Date Type Department Care Team (Late st Contact Info) Description 09/26/2016 Documentation [facility] [place] [address] [place] [address] Family Medicine, Physician [address] [place] [address] Social History Tobacco Use Types Packs/Day Years [...] on filedocumented in this encounter Care Teams Tailor Men'S Ready To Wear Relationship Specialty Start Date End Date Toyin Rivera NP PCP - General 09/20/16 05/23/22 documented as of this encounter
--- OUTSIDE RECORDS SUMMARY | 2024-12-25 01:01 | XMS_ITS | Encounter Summary ---
Author Organization [facility] Address [address] [place] [address] Phone Care Team Providers Care Marketing Trainee Name Role Phone Toyin Rivera PRODUCT TRAINER Primary Care Provider Jeor araiza Encounter Details Date Type Department Care Team (Late st Contact Info) Description 03/04/2011 Documentation [facility] [place] [address] [place] [address] Family Medicine, Physician [address] [place] [address] Social History Tobacco Use Types Packs/Day Years [...] on filedocumented in this encounter Care Teams Marketing Trainee Relationship Specialty Start Date End Date Toyin Rivera NP PCP - General 09/20/16 05/23/22 documented as of this encounter
--- OUTSIDE RECORDS SUMMARY | 2024-12-25 01:01 | XMS_ITS | Encounter Summary ---
Author Organization [facility] Address [address] [place] [phone] Phone Care Team Providers Care Melting Operator Name Role Phone Toyin Rivera MAINTENANCE GROUNDSKEEPER Primary Care Provider Jero araiza Encounter Details Date Type Department Care Team (Late st Contact Info) Description 11/30/2012 Documentation [facility] [place] Family Medicine [address] [place] [address] Family Medicine, Physician [address] [place] [address] Social History Tobacco Use Types Packs/Day Years [...] on filedocumented in this encounter Care Teams Melting Operator Relationship Specialty Start Date End Date Toyin Rivera NP PCP - General 09/20/16 05/23/22 documented as of this encounter
--- OUTSIDE RECORDS SUMMARY | 2024-12-25 01:01 | XMS_ITS | Clinical Summary ---
Author Organization [facility] it Address [address] [place] [address] Care Team Providers Care Environmental Monitoring Specialist Name Role Phone Unavailable Primary Care [...] Health Maintenance Due Date Last Done Comments HPV Vaccines (1 - 3-dose series) 10/15/2014 DTaP,Tdap,and Td Vaccines (1 - Tdap) 10/15/2018 Hepatitis B Vaccines (1 of 3 - 19+ 3-dose series) 10/15/2018 Cervical Cancer Screening: P ap Smear 10/15/2020 Depression Screening 02/11/2024 COVID-19 Vaccine ( - 2024-2 6 season) 2024 Influenza Vaccine (#1) 2024 RSV Immunization Adult Patie nts (1 - 1-dose 75+ series) 10/15/2074 HIB Vaccines Aged Out No longer eligi [...]
--- OUTSIDE RECORDS SUMMARY | 2024-12-25 01:01 | XMS_ITS | Encounter Summary ---
Author Organization [facility] Address [address] [place] [address] Phone Care Team Providers Care Fitness Center Attendant Name Role Phone Toyin Rivera NP Primary Care Provider Jero araiza Encounter Details Date Type Department Care Team (Late st Contact Info) Description 09/26/2016 Conversion Encounter [address] [address] Social History Tobacco Use Types Packs/Day Years [...] on filedocumented in this encounter Care Teams Fitness Center Attendant Relationship Specialty Start Date End Date Toyin Rivera NP PCP - General 09/20/16 05/23/22 documented as of this encounter
--- OUTSIDE RECORDS SUMMARY | 2024-12-25 01:02 | XMS_ITS | Encounter Summary ---
Author Organization [facility] Address [address] [place] [address] Phone Care Team Providers Care Unhairing Machine Operator Name Role Phone Toyin Rivera COUNTER MAKER Primary Care Provider Jero araiza Encounter Details Date Type Department Care Team (Late st Contact Info) Description 10/20/2014 Documentation [facility] [place] Family Medicine [address] [place] [address] Family Medicine, Physician [address] [place] [address] Social History Tobacco Use Types Packs/Day Years [...] on filedocumented in this encounter Care Teams Unhairing Machine Operator Relationship Specialty Start Date End Date Toyin Rivera NP PCP - General 09/20/16 05/23/22 documented as of this encounter
--- OUTSIDE RECORDS SUMMARY | 2024-12-25 01:02 | XMS_ITS | Encounter Summary ---
Author Organization [facility] Address [address] [place] [address] Phone Care Team Providers Care Parts Back Counter Man Name Role Phone Toyin Rivera WORKING FOREMAN Primary Care Provider Jero araiza Encounter Details Date Type Department Care Team (Late st Contact Info) Description 01/24/2015 Documentation [facility] [place] [address] [place] [address] Family Medicine, Physician [address] [place] [address] Social History Tobacco Use Types Packs/Day Years [...] on filedocumented in this encounter Care Teams Parts Back Counter Man Relationship Specialty Start Date End Date Toyin Rivera NP PCP - General 09/20/16 05/23/22 documented as of this encounter
--- OUTSIDE RECORDS SUMMARY | 2024-12-25 01:02 | XMS_ITS | Clinical Summary ---
Author Organization [facility] Address [address] [place] [address] Phone Care Team Providers Care Freight Engineer Name Role Phone Unavailable Primary Care Provider Unavailabl e Allergies Active Allergy Reactions Criticality Noted Date Comments Hines Meal (Obsolete) Anaphylaxis High 01/01/2017 Food Itching High Kiwi, [...] precautions discussed. Anxiety and depression 01/01/2017 Immunizations Immunization Administration Dates Next Due DTaP 5 11/27/2004, [...] 90 04/10/2017 10:58 AM EST Temperature 36.4 C (97.6 F) 04/10/2017 10:58 AM EST Respiratory Rate 16 04/10/2017 10:58 AM EST [...] 03/10/2001, Additional history exists Influenza Vaccines (#1) 2024 01/02/20 17, 11/29/2015, 10/20/2014, Additional history exists COVID-19 Vaccine ( season) 2024 Hepatitis B Vaccines Completed 04/21/2000, 1999, 1999 [...]
--- OUTSIDE RECORDS SUMMARY | 2024-12-25 01:02 | XMS_ITS | Encounter Summary ---
Author Organization [facility] Address [address] [place] [address] Phone Care Team Providers Care Horse Trekking Guide Name Role Phone Toyin Rivera MARKING MACHINE TENDER Primary Care Provider Jero araiza Encounter Details Date Type Department Care Team (Late st Contact Info) Description 12/15/2014 Documentation [facility] [place] [address] [place] [address] Family Medicine, Physician [address] [place] [address] Social History Tobacco Use Types Packs/Day Years [...] on filedocumented in this encounter Care Teams Horse Trekking Guide Relationship Specialty Start Date End Date Toyin Rivera NP PCP - General 09/20/16 05/23/22 documented as of this encounter
--- OUTSIDE RECORDS SUMMARY | 2024-12-25 01:02 | XMS_ITS | Encounter Summary ---
Author Organization [facility] Address [address] [place] [address] Phone Care Team Providers Care Food Safety Specialist Name Role Phone Toyin Rivera DECORATIVE ENGRAVER APPRENTICE Primary Care Provider Jero araiza Encounter Details Date Type Department Care Team (Late st Contact Info) Description 04/03/2016 Documentation [facility] [place] [address] [place] [address] Family Medicine, Physician [address] [place] [address] Social History Tobacco Use Types Packs/Day Years [...] on filedocumented in this encounter Care Teams Food Safety Specialist Relationship Specialty Start Date End Date Toyin Rivera NP PCP - General 09/20/16 05/23/22 documented as of this encounter
--- OUTSIDE RECORDS SUMMARY | 2024-12-25 01:02 | XMS_ITS | Encounter Summary ---
Author Organization [facility] Address [address] [place] [address] Phone Care Team Providers Care Blue Leather Sorter Name Role Phone Toyin Rivera STOCK DEALER Primary Care Provider Jero araiza Encounter Details Date Type Department Care Team (Late st Contact Info) Description 04/14/2013 Documentation [facility] [place] [address] [place] [address] Family Medicine, Physician [address] [place] [address] Social History Tobacco Use Types Packs/Day Years [...] on filedocumented in this encounter Care Teams Blue Leather Sorter Relationship Specialty Start Date End Date Toyin Rivera NP PCP - General 09/20/16 05/23/22 documented as of this encounter
== END 2024-12-24 18:58 | disposition home or self-care (01) ==
PROVIDERS: Registered Nurse Emergency; Emergency Provider Emergency Medicine; PCP Nurse Practitioner
DX: J06.9 Acute upper respiratory infection, unspecified (principal); R07.2 Precordial pain; J02.9 Acute pharyngitis, unspecified; R11.0 Nausea
CPT/HCPCS: 36415; 71046; 80053; 84702; 85025; 85379; 85610; 87637; 96372; 99284; J1885

== ENCOUNTER → 2024-12-24 16:05 | Outpatient (BNV) | payer MEDICAID, SELFPAY | PROVIDERS: PCP Nurse Practitioner; Visit Provider Radiology Diagnostic Radiology | DX: R06.00 Dyspnea, unspecified (principal) | CPT/HCPCS: 71046 ==

== ENCOUNTER 2025-01-07 12:34 | Emergency (ER) | payer MEDICAID, SELFPAY ==
[2025-01-07 12:36] VITALS: BP 143/81; PULSE 77; RESP 16; TEMP 36.9; O2SAT 100; BMI 29.1
--- NOTE | 2025-01-07 12:36 | ED.GENADULT ---
HPI - General Adult General Chief complaint: Allergic Reaction Stated complaint: allergic reaction Time Seen by Provider: 01/07/25 13:03 Source: patient Mode of arrival: ambulatory Limitations: no limitations History of Present Illness ED Provider: HPI narrative: 24-year-old woman with a history of tree nut allergies, ate a cookie at work not knowing that it contains almonds, and started developing tingling of her lips and oropharynx, used Benadryl and her rescue inhaler she also has asthma, and she was still having some symptoms she was sent to the ER for evaluation. Related Data Home Medications ?Medication ?Instructions ?Recorded ?Confirmed trazodone 50 mg tablet 50 mg PO BEDTIME PRN Sleep 04/30/23 03/12/24 desogestrel 0.15 mg-ethinyl 1 tab PO DAILY 03/12/24 03/12/24 estradiol 0.03 mg tablet (Apri) Previous Rx's ?Medication ?Instructions ?Recorded levalbuterol tartrate 45 2 puff inhalation Q4-6H PRN 03/13/24 mcg/actuation aerosol inhaler shortness of breath or wheezing (Xopenex HFA) #15 grams oseltamivir 75 mg capsule (Tamiflu) 75 mg PO Q12H #6 caps 03/13/24 prednisone 20 mg tablet 40 mg (2 x 20 mg) PO DAILY #6 tabs 03/13/24 cyclobenzaprine 10 mg tablet 10 mg PO TID PRN muscle spasm #20 03/17/24 tabs lidocaine 5 % topical patch 1 patch topical DAILY #30 ea 03/17/24 ondansetron 4 mg disintegrating 4 mg PO Q8H PRN nausea and 08/06/24 tablet vomiting #10 tabs diazepam 2 mg tablet (Valium) 2 mg PO TID PRN spasms 2 days #6 09/29/24 tabs fluconazole 150 mg tablet 150 mg PO Q3D 21 doses #1 tab 09/29/24 ondansetron 4 mg disintegrating 4 mg PO Q8H PRN nausea and 09/29/24 tablet vomiting #4 tabs epinephrine 0.3 mg/0.3 mL 0.3 mg (0.3 mL) IM Q10M PRN 01/07/25 injection, auto-injector (EpiPen anaphylaxis #2 ea 2-Iftikhar) famotidine 20 mg tablet 20 mg PO BEDTIME 4 days #30 tabs 01/07/25 prednisone 20 mg tablet 40 mg (2 x 20 mg) PO DAILY 3 days 01/07/25 #6 tabs Allergies Allergy/AdvReac Type Severity Reaction Status Date / Time nut - unspecified (NUT - Allergy Intermediate HIVES Verified 01/07/25 12:36 UNSPECIFIED) FRUIT Allergy Intermediate ITCHY LIPS Uncoded 01/07/25 12:36 nuts Allergy Intermediate Hives Uncoded 01/07/25 12:36 pollen Allergy Intermediate Hives Uncoded 01/07/25 12:36 Review of Systems Constitutional: Constitutional: Reports as per [facility] Past Medical History Medical History PCOS (polycystic ovarian syndrome) Kidney stones Asthma Social History Social History Household Members: Family Household Members Other:: grandmother Housing: Apartment Do you presently have visiting nurse or other home services: No Alcohol intake: current Alcohol intake frequency: holidays/special occasions only Patient Tobacco Use Status: Former Tobacco user Smoked in Last 30 Days: No Use of substances other than those prescribed or required for medical reasons: Yes Substance Use Type: Marijuana Substance Use Frequency: Daily Advance Directives: No Advance Directives Information Provided: No Patient : No service: No Current occupational status: unemployed Current occupation: rt hand Physical Exam ED Exam Exam: ?General: ??looks age appropriate No angioedema, uvula midline, no trismus Neck: Supple, no LAD ?CV: RRR, no obvious murmurs appreciated ?Resp: ?No wheezing rales rhonchi no stridor moving air well Abd: ?Bowel sounds are present, no tenderness no rebound no rigidity Skin: No urticaria ?Neuro: ?Alert and oriented x3, moving upper and lower extremities symmetrically, no obvious facial asymmetry noted, cranial nerves 2-12 intact Vital Signs: Vital Signs - 24 hr 01/07/25 12:36 01/07/25 12:52 01/07/25 14:33 Temperature 98.5 F 98.5 F 98.5 F Pulse Rate 77 70 70 Respiratory Rate 16 16 14 Blood Pressure 143/81 H 144/88 H 128/92 H Pulse Oximetry 100 100 100 Oxygen Delivery Method Room Air Room Air Room Air BMI result Body Mass Index 29.1 Course Course Course Narrative: Rapid medical examination performed in triage by Rosario Locke PA-C: Patient is a 24 year old assigned female at presenting to the emergency department with tongue + lip itching after ingesting a walnut. Patient states she accidentally ingested a walnut which she is allergic to and is having itching of the tongue + lips. Detailed physical exam and review of systems are deferred to the system technologist. mobile battery technician made aware of the patient. Medications Administered Discontinued Medications Generic Name Dose Route Start Last Admin Trade Name Freq PRN Reason Stop Dose Admin Diphenhydramine HCl 12.5 mg 01/07/25 13:15 01/07/25 13:38 Diphenhydramine Hcl 50 Mg/Ml Vial IVPUSH 01/07/25 13:16 12.5 mg ONCE ONE Administration Famotidine 20 mg 01/07/25 12:39 01/07/25 13:01 Famotidine/Pf 20 Mg/2 Ml Vial IVPUSH 01/07/25 12:40 20 mg ONCE ONE Administration Famotidine 20 mg 01/07/25 13:15 01/07/25 13:39 Famotidine/Pf 20 Mg/2 Ml Vial IVPUSH 01/07/25 13:16 Not Given ONCE ONE Methylprednisolone Sodium Succinate 60 mg 01/07/25 12:39 01/07/25 13:00 Methylprednisolone Sod Succ 125 Mg/2 Ml Vial IVPUSH 01/07/25 12:40 60 mg ONCE ONE Administration Methylprednisolone Sodium Succinate 60 mg 01/07/25 13:15 01/07/25 13:39 Methylprednisolone Sod Succ 125 Mg/2 Ml Vial IVPUSH 01/07/25 13:16 Not Given ONCE ONE Medical Decision Making Medical Decision Making MDM Narrative: 1:23 PM 01/07/2025 (Dr. Stevie Andrade): No evidence of systemic findings such as hypotension to suspect anaphylactic shock, no evidence for angioedema, she is speaking full sentences, possibly slight anxiety, but overall well-appearing, we will provide H2 blockers, H1 blockers, steroids and I will make sure she has not EpiPen available I am educated her regarding use and storage 2:48 PM 01/07/2025 (Dr. Stevie Andrade): Has been doing well, currently sleeping soundly, will prep for discharge Differential Diagnosis Differential Diagnoses: The differential diagnosis associated with the presentation includes (See above) Admission/Observation Consideration of admission/observation: Escalation of care including admission/observation considered Discharge Plan Discharge Clinical Impression: Allergic reaction Qualifiers: Encounter type: initial encounter Qualified Code(s): T78.40XA - Allergy, unspecified, initial encounter Additional Instructions: For the next few days take famotidine before bedtime, and steroids for the next 3 days, Benadryl as needed for itching, and EpiPen to have 1 at home and 1 on your person or nearby in case of an allergic reaction, follow up with your PCP any other issues concerns come back to the ER Prescriptions: New prednisone 20 mg tablet 40 mg PO DAILY 3 Days Qty: 6 0RF famotidine 20 mg tablet 20 mg PO BEDTIME 4 Days Qty: 30 0RF epinephrine [EpiPen 2-Iftikhar] 0.3 mg/0.3 mL auto-injector 0.3 mg IM Q10M PRN (Reason: anaphylaxis) Qty: 2 0RF Rx Instructions: for 2 doses No Action desogestrel-ethinyl estradiol [Apri] 0.15-0.03 mg tablet 1 tab PO DAILY oseltamivir [Tamiflu] 75 mg Capsule 75 mg PO Q12H Qty: 6 0RF prednisone 20 mg tablet 40 mg PO DAILY Qty: 6 0RF levalbuterol tartrate [Xopenex HFA] 45 mcg/actuation HFA aerosol inhaler 2 puff inhalation Q4-6H PRN (Reason: shortness of breath or wheezing) Qty: 15 0RF ondansetron 4 mg tablet,disintegrating 4 mg PO Q8H PRN (Reason: nausea and vomiting) Qty: 10 0RF diazepam [Valium] 2 mg tablet 2 mg PO TID PRN (Reason: spasms) 2 Days Qty: 6 0RF fluconazole 150 mg tablet 150 mg PO Q3D Qty: 1 0RF ondansetron 4 mg tablet,disintegrating 4 mg PO Q8H PRN (Reason: nausea and vomiting) Qty: 4 0RF cyclobenzaprine 10 mg tablet 10 mg PO TID PRN (Reason: muscle spasm) Qty: 20 0RF lidocaine 5 % adhesive patch,medicated 1 patch topical DAILY Qty: 30 0RF Rx Instructions: leave on most painful area for up to 12 hrs trazodone 50 mg tablet 50 mg PO BEDTIME PRN (Reason: Sleep) Print Language: [place] Islander
[2025-01-07 12:52] VITALS: BP 144/88; PULSE 70; RESP 16; TEMP 36.9; O2SAT 100
--- OUTSIDE RECORDS SUMMARY | 2025-01-07 13:29 | XMS_ITS | Encounter Summary ---
Author Organization [facility] Address [address] [place] [phone] Phone Care Team Providers Care Shot Tube Machine Tender Name Role Phone Toyin Rivera MILLWORK ESTIMATOR Primary Care Provider Jero araiza Encounter Details Date Type Department Care Team (Late st Contact Info) Description 06/29/2009 [place]ation [facility] [place] [address] [place] [address] Family Medicine, Physician [address] [place] [address] Social History Tobacco Use Types Packs/Day Years [...] on filedocumented in this encounter Care Teams Shot Tube Machine Tender Relationship Specialty Start Date End Date Toyin Rivera NP PCP - General 09/20/16 05/23/22 documented as of this encounter
--- OUTSIDE RECORDS SUMMARY | 2025-01-07 13:30 | XMS_ITS | Clinical Summary ---
Author Organization [employer] Address [address] [place] [address] [address] [place] [address] Care Team Providers Care Escapement Matcher Name Role Phone Elizabeth Gray NP Primary Care Provider [phone] Allergies Active Allergy Reactions Criticality Noted Date Comments Marshall Meal (Obsolete) Anaphylaxis High 01/01/2017 Alvares 04/22/2022 Kiwi Extract Hives 04/12/2021 Other Hives 04/12/2021 Medications cetirizine (ZyrTEC) 10 MG tablet Take 10 mg by mouth in the morning. 11/27/19 22 Active sertraline (Zoloft) 100 MG tablet TAKE 2 TABLET BY MOUTH ONCE A DAY (= 200MG) FOR MOOD, ANXIETY 04/19/19 23 Active omeprazole (PriLOSEC) [address] capsule TAKE 1 CAPSULE BY MOUTH TWICE A DAY FOR 14 DAYS 06/10/19 22 Active Junel FE 03/01 1-20 MG-MCG tablet Take 1 tablet by mouth in the morning. 03/20/19 23 Active Flovent HFA 44 MCG/ACT inhaler 2 puffs 2 times daily. 06/17/19 22 Active ferrous sulfate 325 (65 Fe) MG tablet TAKE 1 TABLET BY ORAL ROUTE EVERY OTHER DAY WITH FOOD FOR IRON DEFICIENCY 10/08/19 22 Active econazole nitrate 1 % cream APPLY BY TOPICAL ROUTE 2 TIMES EVERY DAY TO THE AFFECTED AND SURROUNDING AREAS OF SKIN 12/26/19 22 Active docusate sodium (Colace) 100 MG capsule TAKE 1 CAPSULE BY MOUTH EVERY DAY AT BEDTIME NEEDED 12/14/19 22 Active Acetaminophen Extra Strength 500 MG tablet TAKE 2 TABLETS BY MOUTH EVERY 8 HOURS NEEDED FOR PAIN 07/13/19 22 Active hydrOXYzine HCl (Atarax) 10 MG tabletIndicatio ns:Anxiety and depression Take 2.5 tablets (25 mg) by mouth if needed in the morning, at noon, and at bedtime for anxiety. 90 tablet 04/23/19 Active doxazosin (Cardura) 2 MG tabletIndicatio ns:Psychophysio logical insomnia Take 1 tablet (2 mg) by mouth at bedtime. 90 tablet 1 04/23/19 Active fluticasone (Flonase) 50 MCG/ACT nasal sprayIndication s:Seasonal allergic rhinitis, unspecified trigger SPRAY 2 SPRAYS INTO EACH NOSTRIL EVERY DAY 48 mL 1 07/31/19 Active ondansetron (Zofran) 4 MG tabletIndicatio ns:Nausea in adult Take 1 tablet (4 mg) by mouth every 8 (eight) hours if needed for nausea or vomiting. 20 tablet 12/25/19 25 2025 Active ibuprofen 600 MG tabletIndicatio ns:Viral illness Take 1 tablet (600 mg) by mouth every 6 (six) hours if needed for headaches or fever for up to 14 days. 56 tablet 12/25/19 25 2024 Active albuterol 108 (90 Base) MCG/ACT inhalerIndicati ons:Shortness of breath Inhale 2 puffs every 4 (four) hours if needed for wheezing. 18 g 1 12/25/19 25 2024 Active Blood Pressure kitIndications: Elevated blood pressure reading in office without diagnosis of hypertension 1 each 2 times daily. 1 kit 12/25/19 25 2025 Active ibuprofen 600 MG tablet Take 1 tablet by mouth every 6 (six) hours if needed. 02/27/19 23 2024 Discontinued(R eorder (will not trigger notification to Pharmacy)) albuterol 108 (90 Base) MCG/ACT inhaler Inhale 2 puffs. 04/11/19 18 2024 Discontinued(R eorder (will not trigger notification to Pharmacy)) ondansetron (Zofran) 4 MG tabletIndicatio ns:Gastroenteri tis Take 1 tablet (4 mg) by mouth every 8 (eight) hours if needed for nausea or vomiting. 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 Moderate persistent asthma 04/22/2021 Abdominal pain, chronic, [...] Encounters Date Type Department Care Team Description 12/24/2024 1:20 PM EST Office Visit [facility] [address] [place] [address] Elizabeth Gray NP Sore throat (Primary Dx); Viral illness; Elevated blood pressure reading in office without diagnosis of hypertension; Nausea in adult; Shortness of breath 12/24/2024 Results Follow-Up [facility] [address] [place] [address] Elizabeth Gray NP XR Chest 2 Views, Prothrombin Time-INR, CBC auto differential, Additional followed-up results: 3 12/24/2024 Orders Only [facility] External Provider, [facility] 12/24/2024 Telephone [facility] MEDICINE [address] [place] [address] Elizabeth Gray NP Appointment 12/24/2024 Travel from Last 3 Months Social History Tobacco Use Types Packs/Day Years Used Date Smoking Tobacco: Never Smokeless Tobacco: Never Tobacco Cessation:Counseling Given: Not Answered Alcohol Use Standard Drinks/Week Comments Yes 0 (1 standard drink = 0.6 oz pur e alcohol) Depression Answer Date Recorded Patient Health Questionnaire-9 Score 19 04/22/2022 Depression Answer Date Recorded Patient Health Questionnaire-2 Score 4 04/22/2022 Comments No Sex and Gender Information Value Date Recorded Sex Assigned at Female 12/10/2021 10:37 AM EDT Legal Sex Female 10:37 AM EDT Gender Identity Female 12/10/2021 10:37 AM EDT Sexual Orientation Straight 12/10/2021 10 :37 AM EDT Last Filed Vital Signs Vital Sign Reading Time Taken Comments Blood Pressure 150/100 12/24/2024 2:38 PM EST Man ual BP Pulse 96 12/24/2024 1:14 PM EST Temperature 37.6 C (99.7 F) 12/24/2024 1:14 PM EST Respiratory Rate 17 12/24/2024 1:14 PM EST Oxygen Saturation 100% 12/24/2024 1:14 PM EST Inhaled Oxygen Concentration - - Weight 82.9 kg (182 lb 12.8 oz) 12/24/2024 1:14 PM EST Height 160 cm (5' 3 ) 12/24/2024 1:14 PM EST Body Mass Index 32.38 12/24/2024 1:14 PM EST Plan of Treatment Upcoming Encounters Date Type Department Care Team (Late st Contact Info) Description 01/24/2025 2:45 PM EST Office Visit [facility] MEDICINE [address] [place] [address] Elizabeth Gray NP [address] [place] [address] Health Maintenance Due Date Last Done Comments SDOH Screening 1999 Disability Screening 1999 Alcohol/Substance Use Screening 2011 Family Planning (PISQ) 10/15/2014 Pneumococcal Vaccine: Pediatrics (0 to 5 Years) and At-Risk Patients (6 to 49) Years (1 of 2 - PCV) 10/15/2018 Depression Monitoring 10/23/2022 04/22/2022, 023 COVID-19 Vaccine (3 - season) 2024 03/25/2020, 03/04/2020 Influenza Vaccine (#1) 2024 , 04/12/2021, 12/12/2019, Additional history exists Tobacco Screening 12/24/2025 12/24/2024 Pap Smear 08/24/2026 08/25/2023 DTaP/Tdap/Td Vaccines (8 - Td or Tdap) [...] Procedure Name Priority Date/Time Associated Diagnosis Comments D DIMER HIGH SENSITIVITY Routine 12/24/2024 4:21 PM EST SLIDE REVIEW Routine 12/24/2024 4:21 PM EST HCG, TOTAL, QN Routine 12/24/2024 4:21 PM EST COMPREHENSIVE METABOLIC PANEL Routine 12/24/2024 4:21 PM EST CBC WITH AUTO DIFFERENTIAL Routine 12/24/2024 4:21 PM EST PROTHROMBIN TIME-INR Routine 12/24/2024 4:21 PM EST SARS COV2/INFLUENZA A/B AND RSV RNA QL NAAT Routine 12/24/2024 4:21 PM EST XR CHEST 2 VIEWS Routine 12/24/2024 4:10 PM EST POC CAVAZOS ID NOW STREP A Routine 12/24/2024 1:22 PM EST Viral illness POCT INFLUENZA B (ID NOW RAPID MOLECULAR) Routine 12/24/2024 1:22 PM EST Viral illness POCT INFLUENZA A (ID NOW RAPID MOLECULAR) Routine 12/24/2024 1:22 PM EST Viral illness POCT RAPID COVID ANTIGEN Routine 12/24/2024 1:22 PM EST Viral illness HM PAP/HPV Routine 08/25/2023 ZZZ HISTORICAL HEPATITIS C AB W/REFL TO HCV RNA, QN, PCR Routine 03/23/2021 3:15 PM EST HIV 1/2 ANTIGEN/ANTIBODY, FOURTH GENERATION W/RFL Routine 03/23/2021 3:15 PM EST from Last 3 Months or Most Recently Relevant to Health Maintenance Results * Slide Review (12/24/2024 4:21 PM EST) Slide Review VERIFIED [facility] 12/24/2024 4:21 PM EST 12/24/2024 4:24 PM EST Generic External Data Provider LAB BLOOD ORDERAB LES Final Result Performing Organization Address [facility] Co de Phone Number [facility] [address] [place] [phone] * D Dimer High Sensitivity (12/24/2024 4:21 PM EST) Pathologist [facility] D Dimer High Sensitivity 216 NG/ML [facility] Comment:D-DIMER HS REFERENCE RANGENote: Our assay reports D-Dimer Units (D- DU).The cut-off value for venous thromboembolic (VTE) disease is230 ng/mL. This value has a very high negative predictivevalue when the patient has a low to moderate clinicalprobability of VTE.The upper limit of normal is 243 ng/mL. 12/24/2024 4:21 PM EST 12/24/2024 4:24 PM EST Generic External Data Provider LAB BLOOD ORDERAB LES Final Result Performing Organization Address [facility] Co de Phone Number [facility] [address] [place] [phone] * SARS-CoV-2 RNA, Influenza A/B, and RSV RNA, Ql NAAT (12/24/2024 4:21 PM EST) Pathologist [facility] Influenza A PCR NEGATIVE Negative [facility] Influenza B PCR NEGATIVE Negative [facility] Resp Syncy Virus RNA Qual PCR NEGATIVE Negative [facility] SARS COV2 PCR NEGATIVE Negative [facility] Comment:All test results mus t be correlated with clinical findings.Negative results do not preclude SARS-CoV2, influenza Avirus, influenza B virus and/or RSV infectionand should not be used as the sole basis for treatment orother patient management decisions. Negative results must becombined with clinical observations, patient history, andepidemiological information.This test has not been evaluated for monitoring treatment ofinfection.This test has been authorized by the FDA under an EmergencyUse Authorization (EUA) for use by authorized laboratories.Testing performed on the [employer] GeneXpert utilizingreal-time RT-PCR.All SARS CoV2 and positive influenza A/B results arereported to [facility]. 12/24/2024 4:21 PM EST 12/24/2024 4:24 PM EST us Generic External Data Provider LAB MICROBIOLOGY - GENERAL ORDERABLES Final Result [facility] [address] [place] [phone] [phone] * (ABNORMAL) CBC auto differential (12/24/2024 4:21 PM EST) White Blood Count 12.5(H) 4.8 - 10.8 X10*3/uL [facility] Red Blood Count 4.85 4.20 - 5.50 X10*6/uL [facility] Hemoglobin 13.9 12.0 - 16.0 g/dl [facility] Hematocrit 40.5 37.0 - 47.0 % [facility] Mean Corpuscular Volume 83.5 80.0 - 98.0 fL [facility] Mean Corpuscular Hemoglobin 28.7 27.0 - 33.0 pg [facility] Mean Corpuscular HGB Conc 34.3 31.0 - 35.0 g/dl [facility] Red Cell Distribution Width 12.9 11.0 - 16.0 % [facility] Platelet Count 274 160 - 400 X10*3/uL [facility] Mean Platelet Volume 10.7 9.4 - 12.3 fL [facility] Neutrophils Percent Auto 72.9 45 - 73 % [facility] Imm Gran Pct Auto 0.5(H) 0.0 - 0.4 % [facility] Lymphocytes Percent Auto 12.8(L) 20 - 40 % [facility] Monocytes Percent Auto 13.5(H) 2 - 11 % [facility] Eosinophils Percent Auto 0.1 0 - 4 % [facility] Basophils Percent Auto 0.2 0 - 2 % [facility] NRBC Pct Auto 0.0 0.0 - 0.2 /100WBC [facility] Neutrophils Absolute Auto 9.1(H) 2.0 - 8.3 x10*3/uL [facility] Imm Gran Abs Auto 0.06(H) 0.00 - 0.03 X10*3/uL [facility] Lymphocytes Absolute Auto 1.6 1.2 - 4.9 X10*3/uL [facility] Monocytes Absolute Auto 1.7(H) 0.1 - 1.2 X10*3/uL [facility] Eosinophils Absolute Auto 0.0 0.0 - 0.4 X10*3/uL [facility] Basophils Absolute Auto 0.0 0.0 - 0.2 X10*3/uL [facility] NRBC Abs Auto 0.000 0.0 - 0.012 X10*3/uL [facility] 12/24/2024 4:21 PM EST 12/24/2024 4:24 PM EST us Generic External Data Provider LAB BLOOD ORDERAB LES Edited Result - Final [facility] [address] [place] [phone] * (ABNORMAL) Prothrombin Time-INR (12/24/2024 4:21 PM EST) Prothrombin Time 13.7(H) 11.2 - 13.5 SEC [facility] INTERNATIONAL NORM RATIO 1.1 0.9 - 1.1 [facility] Comment:INTERNATIONAL NORMAL IZED RATIO (INR) REFERENCE RANGES Reference RangeFor patients not on anticoagulant therapy: 0.9 - 1.1INR ranges for oral anticoagulanttherapy:For prevention and treatment of venous thrombosis and pulmonary embolism: 2.0 - 3.0For acute myocardial infarction with aspirin therapy: 2.0 - 3.0For acute myocardial infarction without aspirin therapy: 3.0 - 4.0For patients with mechanical prosthetic heart valves: 2.5 - 3.5 12/24/2024 4:21 PM EST 12/24/2024 4:24 PM EST Generic External Data Provider LAB BLOOD ORDERAB LES Final Result Performing Organization Address [facility] de Phone Number [facility] [address] [place] [phone] * hCG, Total, Quantitative (12/24/2024 4:21 PM EST) HCG Quantitative <2 mIU/mL [facility] Comment:Weeks post LMP Appro ximate hCG(Last Menstrual Period) Range (mIU/ml)3 - 4 weeks 9 - 1304 - 5 weeks 75 - 2,6005 - 6 weeks 850 - 20,8006 - 7 weeks 4000 - 100,2007 - 12 weeks 11,500 - 289,94479 - 16 weeks 18,300 - 137,68785 - 29 weeks (2nd trimester) 1,400 - 53,12583 - 41 weeks (3rd trimester) 940 - 60,000The Cavazos B- hCG assay is used for the early detection ofpregnancy; it cannot be used to diagnose any conditionunrelated to . If a B-hCG level is not supportedby the clinical evidence, results should be confirmed by analternative method (qualitative urine hCG, for example). 12/24/2024 4:21 PM EST 12/24/2024 4:24 PM EST Generic External Data Provider LAB BLOOD ORDERAB LES Final Result Performing Organization Address [facility] Co de Phone Number [facility] [address] [place] [phone] * (ABNORMAL) Comprehensive Metabolic Panel (12/24/2024 4:21 PM EST) Pathologist [facility] Sodium 137 135 - 145 mmol/L [facility] Potassium 4.1 3.3 - 5.1 mmol/L [facility] Comment:Slight Hemolysis.Int erpret result with caution. Chloride 107 96 - 108 mmol/L [facility] Carbon Dioxide 19(L) 22 - 29 mmol/L [facility] Anion Gap 15 12 - 20 [facility] Urea Nitrogen (BUN) 6(L) 9 - 16 mg/dL [facility] Creatinine, Serum 0.62 0.5 - 1.4 mg/dL [facility] Creatinine Clr Calc Pharmacy 140.7 [facility] Comment:Provided height and weight: 160.02 cm,82.1 kg.eGFR (calculated from the MDRD study equation) and eCrCl(calculated from the Cockcroft-Gault equation) are based ondifferent parameters and may not yield comparable results.If eCrCl result is absurd, please check patient'sheight/weight. Estimated Glomerular Filt Rate >60 [facility] Comment:Chronic Kidney Disea se: Estimated GFR < 60 mL/min/1.84b4Bodlpt Kidney Disease: Estimated GFR < 15 mL/min/1.73m2 Glucose 103 60 - 115 mg/dL [facility] Calcium 9.5 8.4 - 10.2 mg/dL [facility] Bilirubin, Total 0.4 0.0 - 1.0 mg/dL [facility] Aspartate Amino Transferase 30 5 - 31 U/L [facility] Comment:Slight Hemolysis.Int erpret result with caution. Alanine Aminotransferase 28 0 - 31 U/L [facility] Total Protein 8.8(H) 6.5 - 8.0 g/dL [facility] Albumin Level 4.5 3.5 - 5.0 g/dL [facility] Alkaline Phosphatase 82 39 - 117 U/L [facility] 12/24/2024 4:21 PM EST 12/24/2024 4:24 PM EST us Generic External Data Provider LAB BLOOD ORDERAB LES Final Result [facility] [address] [place] [phone] * XR Chest 2 Views (12/24/2024 4:10 PM EST) Anatomical Region Laterality Modality Chest Radiographic Francy ging 12/24/2024 4:10 PM EST Narrative 12/24/2024 4:30 PM EST [address] [address] XRay Report Signed Patient: Cosmo Boyle MR#: [id number] 138 : 2000 Acct:[id number] Age/Sex: 24 / F ADM Date: 12/24/24 Loc: HO.ED Attending Dr: Ordering Physician: Marine Alcantara NP Date of Service: 12/24/24 Procedure(s): XR chest 2V Accession Number(s): [id number] cc: Pradeep Gray Caitlin NP Reason for Exam: dyspnea 2 days EXAMINATION: XR CHEST CLINICAL INFORMATION: dyspnea 2 days COMPARISON: March 17, 2024 TECHNIQUE: 2 views of the chest were obtained. FINDINGS: No significant abnormality is noted involving the heart, lungs, mediastinum, bony thorax or soft tissues. XR/XR chest 2V IMPRESSION: No acute disease Electronically signed by: Jim Mix MD 12/24/2024 04:28 PM EST Dictated By: Jim Mix MD Signed By: <Electronically signed by Jim Mix MD in OV> 12/24/24 1628 DD/ 1610 TD/TT: 12/24/24 1620 Office Services Associate: Procedure Note Donotuseinterpreter, Image - 12/24/[address] [address] XRay Report Signed Patient: Cosmo BoyleMR#: [id number] 138 : 2000Acct:[id number] Age/Sex: 24 / FADM Date: 12/24/24 Loc: HO.ED Attending Dr: Ordering Physician: Marine Alcantara NP Date of Service: 12/24/24 Procedure(s): XR chest 2V Accession Number(s): [id number] cc: Elizabeth Gray; Marine Alcantara NP Reason for Exam: dyspnea 2 days EXAMINATION: XR CHEST CLINICAL INFORMATION: dyspnea 2 days COMPARISON: March 17, 2024 TECHNIQUE: 2 views of the chest were obtained. FINDINGS: No significant abnormality is noted involving the heart, lungs, mediastinum, bony thorax or soft tissues. XR/XR chest 2V IMPRESSION: No acute disease Electronically signed by: Jim Mix MD 12/24/2024 04:28 PM EST RP Dictated By: Jim Mix MD Signed By: <Electronically signed by Jim Mix MD in OV> 12/24/24 1628 DD/ 1610 TD/TT: 12/24/24 1620 Office Services Associate: [facility] External Provider IMG XR PROCEDURES Final Result * Influenza B (ID NOW Rapid Molecular) (12/24/2024 1:22 PM EST) [facility] Influenza B Negative Negative, Indeterminate [facility] Swab 12/24/2024 1:22 PM EST [facility] POINT OF CARE TEST ENTER/EDIT O RDERABLES Final Result Performing Organization Address [facility] de Phone Number [facility] [address] [place] [phone] * Influenza A (ID NOW Rapid Molecular) (12/24/2024 1:22 PM EST) [facility] Influenza A Negative Negative, Indeterminate [facility] Swab 12/24/2024 1:22 PM EST [facility] POINT OF CARE TEST ENTER/EDIT O RDERABLES Final Result Performing Organization Address [facility] de Phone Number [facility] [address] [place] [phone] * POCT ID NOW Rapid Strep A manually resulted (12/24/2024 1:22 PM EST) Rapid Strep A Screen Negative Negative, None Detected Swab 12/24/2024 1:22 PM EST Elizabeth Callowaym [facility] DUMPER POINT OF CARE TEST ENTER/EDIT O RDERABLES Final Result * POCT Rapid COVID Ag (12/24/2024 1:22 PM EST) Rapid COVID Ag Negative [facility] Swab 12/24/2024 1:22 PM EST Elizabeth Callowaym [facility] DUMPER POINT OF CARE TEST ENTER/EDIT O RDERABLES Final Result Performing Organization Address City/[facility]/ZIP Co de Phone Number [facility] [address] [place] [phone] * HM PAP/HPV (08/25/2023) Pathologist [facility] Pap Smear 1. NILM 1. NILM Historical Provider HEALTH MAINTENANCE Edited Result - Final * HEPATITIS C AB W/REFL TO HCV RNA, QN, PCR (03/23/2021 3:15 PM EST) [facility] HEPATITIS C ANTIBODY NON-REACT [facility] NON-REACT [facility] INDEX 0.01 <1.00 [facility] Comment: HCV antibody was non-reactive. There is no laboratory evidence of HCV infection. In most cases, no further action is required. However, if recent HCV exposure is suspected, a test for HCV RNA (test code 53173) is suggested. For additional information please refer to http://education.[employer]/faq/QAR00a0 (This link is being provided for informational/ educational purposes only.) 03/23/2021 3:15 PM EST [facility] [employer]JECTS HISTORICAL/NON ORDERABLE LABS Final Result Performing Organization Address City/[facility]/ZIP Co de Phone Number [facility] [address] [place] [address] * HIV 1/2 ANTIGEN/ANTIBODY,FOURTH GENERATION W/RFL (03/23/2021 [...] purpose. For additional information please refer to http://education.[employer]/faq/JQU031 (This link is being provided for informational/ educational purposes only.) The performance of this assay has not been clinically validated in patients less than 2 years old. 03/23/2021 3:15 PM EST [facility] LAB BLOOD ORDERABLES Final Re sult [facility] [address] from Last 3 Months or Most Recently Relevant to Health Maintenance Insurance [facility] C3 Care Teams Escapement Matcher Relationship Specialty Start Date End Date Elizabeth Gray NP [address] [place] [phone] PCP - General Family Medicine 11/15/22
--- OUTSIDE RECORDS SUMMARY | 2025-01-07 13:30 | XMS_ITS | Clinical Summary ---
Author Organization [facility] Address [address] [place] [phone] Phone Care Team Providers Care Registered Health Nurse Name Role Phone Emilia Guevara MANAGER OF QUALITY Primary Care Provider Unaprakash ailable Allergies No known active allergies Medications ondansetron (ZOFRAN-ODT) 4 MG disintegrating tablet (To-Go) Take 1-2 tablet(s) by mouth every 8 hours as needed for nausea/vomi ting 6 tablet 3 Active Social History Tobacco Use Types Packs/Day Years Used Date Smoking Tobacco: Never Smokeless Tobacco: Never Tobacco Cessation:Counseling Given: Not Answered Alcohol Use Standard Drinks/Week Comments Yes 0 (1 standard drink = 0.6 oz pur e alcohol) some Education Answer Date Recorded Are you interested in more education? Not on sharda e 06/06/2022 Are you concerned about learning? Not on file 06/06/2022 No 06/06/2022 No 06/06/2022 Digital Access Answer Date Recorded No 07/09/2022 No 07/09/2022 Reliable internet access at home? Not on file 07/09/2022 Device with a working camera? Not on file Intimate Partner Violence Answer Date R ecorded [...] Sign Reading Time Taken Comments Blood Pressure 116/77 05/31/2022 9:30 PM EDT Pulse 95 05/31/2022 9:30 PM EDT Temperature 36.5 C (97.7 F) 05/31/2022 9:30 PM EDT Respiratory Rate 17 05/31/2022 9:30 PM EDT Oxygen Saturation 99% 05/31/2022 9:30 PM EDT Inhaled Oxygen Concentration - - Weight 88.5 kg (195 lb) 05/31/2022 3:00 PM EDT Height - - Body Mass Index - - Plan of Treatment Not on file Medical Devices Not on file [place] [address] [place] [address] [place] [address] [place] [address] [employer] [employer] [facility] [address] [place] [address] [place] [address] C3 ACO [facility] C3 ACO [facility] C3 ACO Care Teams Registered Health Nurse Relationship Specialty Start Date End Date Emilia Guevara NP PCP - General Nurse Practitioner 05/31/22 Additional Source Comments The information contained in this document represents components of the legal health record. It is not the complete legal health record.[facility]
--- OUTSIDE RECORDS SUMMARY | 2025-01-07 13:30 | XMS_ITS | Encounter Summary ---
Author Organization [facility] Address [address] [place] [phone] Phone Care Team Providers Care Horse Breaker Name Role Phone Toyin Rivera CANDY DEPARTMENT MANAGER Primary Care Provider Jero araiza Encounter Details Date Type Department Care Team (Late st Contact Info) Description 12/15/2014 Documentation [facility] Family Medicine [address] [place] [address] Family Medicine, Physician [address] [place] [address] Social History Tobacco Use Types Packs/Day Years [...] filedocumented in this encounter Care Teams Horse Breaker Relationship Specialty Start Date End Date Toyin Rivera NP PCP - General 09/20/16 05/23/22 documented as of this encounter
--- OUTSIDE RECORDS SUMMARY | 2025-01-07 13:30 | XMS_ITS | Clinical Summary ---
Author Organization [facility] Address [address] [place] [address] Phone Care Team Providers Care Marketing Operations Consultant Name Role Phone Unavailable Primary Care Provider Unavailabl e Allergies Active Allergy Reactions Criticality Noted Date Comments Vermillion Meal (Obsolete) Anaphylaxis High 01/01/2017 Food Itching [...]
--- OUTSIDE RECORDS SUMMARY | 2025-01-07 13:30 | XMS_ITS | Encounter Summary ---
Author Organization [facility] Address [address] [place] [phone] Phone Care Team Providers Care Lime Kiln Operator Name Role Phone Toyin Rivera UI DEVELOPER Primary Care Provider Jero araiza Encounter Details Date Type Department Care Team (Late st Contact Info) Description 03/04/2011 Documentation [facility] [place] Family Medicine [address] [place] [address] Family Medicine, Physician [address] [place] [address] Social History Tobacco Use Types Packs/Day Years [...] on filedocumented in this encounter Care Teams Lime Kiln Operator Relationship Specialty Start Date End Date Toyin Rivera NP PCP - General 09/20/16 05/23/22 documented as of this encounter
--- OUTSIDE RECORDS SUMMARY | 2025-01-07 13:30 | XMS_ITS | Clinical Summary ---
Author Organization [facility] it Address [address] [place] [address] Care Team Providers Care Framing Mill Operator Helper Name Role Phone Unavailable Primary Care Provider [...]
--- OUTSIDE RECORDS SUMMARY | 2025-01-07 13:30 | XMS_ITS | Encounter Summary ---
Author Organization [facility] Address [address] [place] [address] Phone Care Team Providers Care Highway Administrative Engineer Name Role Phone oTyin Rivera VALVE MECHANIC Primary Care Provider Jero araiza Encounter Details Date Type Department Care Team (Late st Contact Info) Description 11/30/2012 Documentation [facility] [place] Family Medicine [address] [place] [address] Family Medicine, Physician [address] [place] [address] Social History Tobacco Use Types Packs/Day Years [...] on filedocumented in this encounter Care Teams Highway Administrative Engineer Relationship Specialty Start Date End Date Toyin Rivera NP PCP - General 09/20/16 05/23/22 documented as of this encounter
--- OUTSIDE RECORDS SUMMARY | 2025-01-07 13:30 | XMS_ITS | Encounter Summary ---
Author Organization [facility] Address [address] [place] [address] Phone Care Team Providers Care Press Operator Instant Print Shop Name Role Phone Toyin Rivera SUPERVISOR ELEMENTARY EDUCATION Primary Care Provider Jero araiza Encounter Details Date Type Department Care Team (Late st Contact Info) Description 04/03/2016 Documentation [facility] [place] [address] [place] [address] Family Medicine, Physician [address] [place] [address] Social History Tobacco Use Types Packs/Day Years [...] on filedocumented in this encounter Care Teams Press Operator Instant Print Shop Relationship Specialty Start Date End Date Toyin Rivera NP PCP - General 09/20/16 05/23/22 documented as of this encounter
--- OUTSIDE RECORDS SUMMARY | 2025-01-07 13:30 | XMS_ITS | Encounter Summary ---
Author Organization [facility] Address [address] [place] [address] Phone Care Team Providers Care Tube Sorter Name Role Phone Toyin Rivera ORDNANCE ARTIFICER HELPER Primary Care Provider Jero araiza Encounter Details Date Type Department Care Team (Late st Contact Info) Description 10/20/2014 Documentation [facility] [place] Family Medicine [address] [place] [address] Family Medicine, Physician [address] [place] [address] Social History Tobacco Use Types Packs/Day Years [...] on filedocumented in this encounter Care Teams Tube Sorter Relationship Specialty Start Date End Date Toyin Rivera NP PCP - General 09/20/16 05/23/22 documented as of this encounter
--- OUTSIDE RECORDS SUMMARY | 2025-01-07 13:30 | XMS_ITS | Encounter Summary ---
Author Organization [facility] Address [address] [place] [phone] Phone Care Team Providers Care Watch And Clock Maker And Repairer Name Role Phone Toyin Rivera STONE SPLITTER Primary Care Provider Jero araiza Encounter Details Date Type Department Care Team (Late st Contact Info) Description 04/14/2013 Documentation [facility] [place] Family Medicine [address] [place] [address] Family Medicine, Physician [address] [place] [address] Social History Tobacco Use Types Packs/Day Years [...] on filedocumented in this encounter Care Teams Watch And Clock Maker And Repairer Relationship Specialty Start Date End Date Toyin Rivera NP PCP - General 09/20/16 05/23/22 documented as of this encounter
--- OUTSIDE RECORDS SUMMARY | 2025-01-07 13:30 | XMS_ITS | Encounter Summary ---
Author Organization [facility] Address [address] [place] [address] Phone Care Team Providers Care Setter Up Name Role Phone oTyin Rivera ASSISTANT BASEBALL COACH Primary Care Provider Jero araiza Encounter Details Date Type Department Care Team (Late st Contact Info) Description 01/24/2015 Documentation [facility] [place] [address] [place] [address] Family Medicine, Physician [address] [place] [address] Social History Tobacco Use Types Packs/Day Years [...] on filedocumented in this encounter Care Teams Setter Up Relationship Specialty Start Date End Date Toyin Rivera NP PCP - General 09/20/16 05/23/22 documented as of this encounter
--- OUTSIDE RECORDS SUMMARY | 2025-01-07 13:30 | XMS_ITS | Encounter Summary ---
Author Organization [facility] Address [address] [place] [address] Phone Care Team Providers Care Trauma Counsellor Name Role Phone Toyin Rivera NP Primary Care Provider Jero araiza Encounter Details Date Type Department Care Team (Late st Contact Info) Description 09/26/2016 Conversion Encounter [address] [address] Social History Tobacco Use Types Packs/Day Years [...] on filedocumented in this encounter Care Teams Trauma Counsellor Relationship Specialty Start Date End Date Toyin Rivera NP PCP - General 09/20/16 05/23/22 documented as of this encounter
--- OUTSIDE RECORDS SUMMARY | 2025-01-07 13:30 | XMS_ITS | Encounter Summary ---
Author Organization [facility] Address [address] [place] [address] Phone Care Team Providers Care Sports Equipment Repairer Name Role Phone Toyin Rivera NP Primary Care Provider Jero araiza Encounter Details Date Type Department Care Team (Late st Contact Info) Description 09/26/2016 Documentation [facility] [place] Family Medicine [address] [place] [address] Family Medicine, Physician [address] [place] [address] Social History Tobacco Use Types Packs/Day Years [...] on filedocumented in this encounter Care Teams Sports Equipment Repairer Relationship Specialty Start Date End Date Toyin Rivera NP PCP - General 09/20/16 05/23/22 documented as of this encounter
--- OUTSIDE RECORDS SUMMARY | 2025-01-07 13:30 | XMS_ITS | Encounter Summary ---
Author Organization [facility] Address [address] [place] [address] Phone Care Team Providers Care Manager Retail Sales Name Role Phone Emilia Guevara WATER HAULER Primary Care Provider Unav ailable Encounter Details Date Type Department Care Team (Late st Contact Info) Description 05/31/2022 Procedure [facility], Ct Scan - [address] [address] Social History Tobacco Use Types Packs/Day Years [...] 3:03 PM EDT Kristopher Johnson RN * [place] Suicide Severity Rating Scale (Screener/Recent Self-Report) Question Answer Date of Assessment Author 1. Wish to be (Past 1 Month) No 023 3:03 PM EDT Dana Johnson, RN 2. Non-Specific Active Suici claire Thoughts (Past 1 Month) No 05/31/2022 3:03 PM EDT Dana Johnson , RN 6. Suicidal Behavior (Lifetime) No 3 3:03 PM EDT Dnaa Johnson, RN documented as of this encounter Plan of Treatment Not on file documented as of this encounter Visit Diagnoses Not on filedocumented in this encounter Additional Health Concerns Infection Onset Date Last Indicated Resolved Time CoV-Risk 05/31/2022 05/31/2022 06/11/2022 1:22 AM EDT documented as of this encounter Care Teams Manager Retail Sales Relationship Specialty Start Date End Date Emilia Guevara NP PCP - General Nurse Practitioner 05/31/22 documented as of this encounter Additional Source Comments The information contained in this document represents components of the legal health record. It is not the complete legal health record.[facility]
--- OUTSIDE RECORDS SUMMARY | 2025-01-07 13:30 | XMS_ITS | Encounter Summary ---
Author Organization [employer] Address [address] [place] [address] [address] [place] [address] Care Team Providers Care Electrolog Operator Name Role Phone Elizabeth Gray NP Primary Care Provider [phone] Encounter Details Date Type Department Care Team (Late Contact Info) Description 12/24/2024 Results Follow-Up [facility] [address] [place] [phone] Elizabeth Gray NP [address] [place] [address] XR Chest 2 Views, Prothrombin Time-INR, CBC auto differential, Additional followed-up results: 3 Social History Tobacco Use Types Packs/Day Years [...] as of this encounter Plan of Treatment Upcoming Encounters Date Type Department Care Team (Late st Contact Info) Description 01/24/2025 2:45 PM EST Office Visit [facility] [address] [place] [address] Elizabeth Gray NP [address] [place] [address] documented as of this encounter Visit Diagnoses Not on filedocumented in this encounter Additional Health Concerns Assessment Noted Time PHQ-9 Depression Total Score: 19 023 3:17 PM EDT documented as of this encounter Care Teams Electrolog Operator Relationship Specialty Start Date End Date Elizabeth Gray NP [address] [place] [address] PCP - General Family Medicine 11/15/22 documented as of this encounter
[2025-01-07 14:33] VITALS: BP 128/92; PULSE 70; RESP 14; TEMP 36.9; O2SAT 100
--- NOTE | 2025-01-07 14:45 | PC.NURSE ---
Patient presents to ED c/o allergic reactions to walnuts Patient has allergy to tree nuts Patient took benadryl at work but wanted to be cleared because of lingering chest pain Patient report lips being red but resolved before entering the ED IV 20G LAC Patient received IV benadryl, famotodine, and solumedrol Patient reports feeling better at this time O2 100% RA denies SOB, chest pain has resolved as well
[2025-01-07 14:50] VITALS: BP 128/92; PULSE 70; RESP 14; TEMP 36.9; O2SAT 100
== END 2025-01-07 15:13 | disposition home or self-care (01) ==
PROVIDERS: Emergency Provider Emergency Medicine
DX: R20.2 Paresthesia of skin (principal); T45.0X5A Adverse effect of antiallergic and antiemetic drugs, initial encounter; Y92.9 Unspecified place or not applicable; Z79.899 Other long term (current) drug therapy
CPT/HCPCS: 96374; 96375; 99284; J1200; J1308; J2919

== ENCOUNTER 2025-02-03 17:44 | Emergency (ER) | payer MEDICAID, SELFPAY ==
--- NOTE | ~2025-02-03 | CT_ITS ---
CLINICAL HISTORY: RLQ Tenderness; r o Appy CT abdomen and pelvis with contrast Comparison: CT/SR - CT ABDOMEN PELVIS WITH IV CONTRAST - 08/06/24 14:07 EDT Findings: No consolidation or effusion. The liver, gallbladder, spleen, pancreas, kidneys and adrenal glands are normal in appearance. Normal appendix seen inferior to the cecum in the right lower quadrant, series 7, images 37 and 38. Long segment wall thickening of loops of distal small bowel in the pelvis present. No dilatation to suggest obstruction. No pneumatosis. No free air. Colon is decompressed. No colonic wall thickening. Uterus and adnexa are unremarkable. Trace free fluid in the pelvis. No acute fracture. IMPRESSION: Long segment wall thickening of the distal small bowel suggesting infectious or inflammatory enteritis. Normal appendix. This document has been electronically signed by: Sherif Joseph MD on 02/03/2025 22:16:09
[2025-02-03 17:54] VITALS: BP 144/94; PULSE 112; RESP 18; TEMP 36.8; O2SAT 98; BMI 31.9
--- NOTE | 2025-02-03 17:57 | ED_ITS ---
HPI - General Adult General Chief complaint: Nausea/Vomiting/Diarrhea Stated complaint: N/V/D abd pain Time Seen by Provider: 02/03/25 20:12 Source: patient Mode of arrival: ambulatory Limitations: no limitations History of Present Illness ED Provider: Wiley BOUCHER HPI narrative: Patient is a 24-year-old female with a history PCOS and endometriosis who presents to the Emergency Department for evaluation of severe lower abdominal pain radiating across the umbilicus with the associated nonbloody diarrhea and occasional nonbloody vomiting. The patient reports symptoms began at 05:00 this morning. The patient reports mostly watery diarrhea, crampy abdominal pain that is constant with intermittent waves of sharp stabbing pain. The patient reports she attempted taking leftover Zofran and Pepto-Bismol today, vomited after the Zofran but Pepto-Bismol did provide some moderate relief. The patient denies associated hematemesis, hematochezia, melena, fever, radiation of pain, chest pain, shortness of breath, cough. Patient reports associated mild dysuria which she attributes to her pelvic discomfort; denies hematuria. Last menstrual period was approximately 1 month ago. Patient reports surgical history of exploratory laparoscopy approximately 3 years ago for evaluation of her endometriosis. Patient denies any other surgeries. 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 Related Data Home Medications ?Medication ?Instructions ?Recorded ?Confirmed trazodone 50 mg tablet 50 mg PO BEDTIME PRN Sleep 0 04/30/23 03/12/24 desogestrel 0.15 mg-ethinyl 1 tab PO DAILY 03/12/24 estradiol 0.03 mg tablet (Apri) Previous Rx's ?Medication ?Instructions ?Recorded levalbuterol tartrate 45 2 puff inhalation Q4-6H PRN 03/13/24 mcg/actuation aerosol inhaler shortness of breath or w heezing (Xopenex HFA) #15 grams oseltamivir 75 mg capsule (Tamiflu) 75 mg PO Q12H #6 c aps 03/13/24 prednisone 20 mg tablet 40 mg (2 x 20 mg) PO DAILY # 6 tabs 03/13/24 cyclobenzaprine 10 mg tablet 10 mg PO TID PRN muscle s pasm #20 03/17/24 tabs lidocaine 5 % topical patch 1 patch topical DAILY #30 ea 03/17/24 ondansetron 4 mg disintegrating 4 mg PO Q8H PRN nausea and 08/06/24 tablet vomiting #10 tabs diazepam 2 mg tablet (Valium) 2 mg PO TID PRN spasms 2 days #6 09/29/24 tabs fluconazole 150 mg tablet 150 mg PO Q3D 21 doses #1 ta b 09/29/24 ondansetron 4 mg disintegrating 4 mg PO Q8H PRN nausea and 09/29/24 tablet vomiting #4 tabs epinephrine 0.3 mg/0.3 mL 0.3 mg (0.3 mL) IM Q10M PRN 01/07/25 injection, auto-injector (EpiPen anaphylaxis #2 ea 2-Iftikhar) famotidine 20 mg tablet 20 mg PO BEDTIME 4 days #30 tabs 01/07/25 prednisone 20 mg tablet 40 mg (2 x 20 mg) PO DAILY 3 days 01/07/25 #6 tabs Allergies Allergy/AdvReac Type Severity Reaction Status Date / Time nut - unspecified (NUT - Allergy Intermediate HIVES Verified 02/03/25 17:57 UNSPECIFIED) seafood Allergy Unknown Verified 02/03/25 17:57 FRUIT Allergy Intermediate ITCHY LIPS Uncoded 02/03/25 17:57 nuts Allergy Intermediate Hives Uncoded 02/03/25 17:57 pollen Allergy Intermediate Hives Uncoded 02/03/25 17:57 Review of Systems 2 Review of Systems: Yes all other systems are reviewed and are negative PMFSH Past Medical History Medical History PCOS (polycystic ovarian syndrome) Kidney stones Asthma Social History Social History Household Members: Family Household Members Other:: grandmother Housing: Apartment Do you presently have visiting nurse or other home services: No Alcohol intake: current Alcohol intake frequency: holidays/special occasions only Patient Tobacco Use Status: Former Tobacco user Smoked in Last 30 Days: No Use of substances other than those prescribed or required for medical reasons: Yes Substance Use Type: Marijuana Substance Use Frequency: Occasionally Advance Directives: No Advance Directives Information Provided: No Do you have a plan to hurt others: No Plan Patient : No service: No Current occupational status: unemployed Current occupation: rt hand Physical Exam ED Vital Signs: Vital Signs - 24 hr 02/03/25 17:54 02/03/25 19:52 02/03/25 22:11 Temperature 98.3 F 98.9 F 98.9 F Pulse Rate 112 H 108 H 80 Respiratory Rate 18 18 18 Blood Pressure 144/94 H 145/99 H 142/99 H Pulse Oximetry 98 97 100 Oxygen Delivery Method Room Air Room Air Room Air BMI result Body Mass Index 31.9 CONSTITUTIONAL: The patient appears non-toxic, well nourished and in no acute distress. Vital signs as documented. HEAD: Atraumatic, normocephalic. EYES: EOMs grossly intact, pupils equal, conjunctiva clear, no exudate. ENT: Nares patent, no discharge. Airway patent, no audible stridor, visible mucosa is pink and moist without noted lesions. NECK: Trachea is midline, no obvious masses or gross abnormalities. CHEST: Symmetric movement, normal appearance. LUNGS: LS present and CTAB, no w/r/r. Non-labored work of breathing. CARDIAC: Regular Rhythm, S1/S2 appreciated, no murmurs, rubs or gallops. ABDOMEN: Abdomen soft x4 quadrants, positive tenderness to palpation of the right lower quadrant, negative rebound, negative McBurney point tenderness, no palpable masses or organomegaly. : Deferred. EXTREMITIES: Normal tone, moves all extremities spontaneously without reported pain. No obvious acute injury or deformity noted. NEURO: Alert and oriented x3, CN II-XII appear grossly intact. Cerebellar Functioning grossly intact. No obvious sensory or motor deficits. Speech clear and appropriate. PSYCH: normal affect, appropriate eye contact, fluid speech, with appropriate response to questioning. No reported suicidality or homicidality. SKIN: Warm, dry, color appropriate, normal turgor. No rashes noted. Course Course Course Narrative: This is a Rapid Medical Examination (RME) performed by Connie Da Silva PA-C in triage. Full HPI, ROS, assessment and treatment plan per primary provider in the Main ED. Hx: 24 yo F hx PCOS and endometriosis here for eval of acute onset N/V/D and lower abd pain x 0500 this morning. she reports this is the 4th episode of sx in approx 3 weeks. may be related to eating fruit. no sob, cough, difficulty breathing. hx ex lap, no other abd surgeries. Plan: labs, viral swabs, UA Medications Administered Discontinued Medications Generic Name Dose Route Start Last Admin Trade Name Gera PRN Reason Stop Dose Admin Sodium Chloride 1,000 mls @ 999 mls/hr 02/03/25 21:00 02/03/25 22:43 Ns IV 02/03/25 22:00 Infused .Q1H1M CARRI Infusion Iohexol 85 ml 02/03/25 21:45 02/03/25 21:46 Iohexol 350 Mg/Ml 100 Ml Infus..Btl IV 02/03/25 21:46 85 ml ONCE ONE Administration Ketorolac Tromethamine 15 mg 02/03/25 22:14 02/03/25 22:19 Ketorolac Tromethamine 15 Mg/Ml Vial IVPUSH 02/03/25 22:15 15 mg ONCE ONE Administration Ondansetron HCl 4 mg 02/03/25 20:50 02/03/25 20:57 Ondansetron Hcl 4 Mg/2 Ml Vial IVPUSH 02/03/25 20:51 4 mg ONCE ONE Administration Medical Decision Making Medical Decision Making MDM Narrative: 8:52 PM 02/03/2025 (Connie BOUCHER): Patient is a 24-year-old female with a history PCOS and endometriosis who presents to the Emergency Department for evaluation of severe lower abdominal pain radiating across the umbilicus with the associated nonbloody diarrhea and occasional nonbloody vomiting. The patient reports symptoms began at 05:00 this morning. The patient reports mostly watery diarrhea, crampy abdominal pain that is constant with intermittent waves of sharp stabbing pain. The patient reports she attempted taking leftover Zofran and Pepto-Bismol today, vomited after the Zofran but Pepto-Bismol did provide some moderate relief. The patient denies associated hematemesis, hematochezia, melena, fever, radiation of pain, chest pain, shortness of breath, cough. Patient reports associated mild dysuria which she attributes to her pelvic discomfort; denies hematuria. Last menstrual period was approximately 1 month ago. Patient reports surgical history of exploratory laparoscopy approximately 3 years ago for evaluation of her endometriosis. Patient denies any other surgeries. 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 On exam patient appears uncomfortable but otherwise in no acute distress, vital signs show mild tachycardia but no fever. Abdominal exam is positive right lower quadrant tenderness, negative rebound, mild McBurney's point tenderness, no other acute findings. The patient's laboratory evaluation shows moderate leukocytosis of 15.2, no anemia, electrolyte abnormality, or BRAD. Patient's beta hCG is negative. Urinalysis pending. The patient's LFTs are mildly abnormal but not clinically significant. The patient's viral swab is negative for influenza, COVID, and RSV. Patient will be treated with IV fluid hydration, IV Zofran, and we will obtain CT abdomen and pelvis to rule out acute intra-abdominal pathology. 12:59 AM 02/04/2025 (Connie BOUCHER): The patient's urinalysis shows no evidence of infection, CT abdomen and pelvis shows long segment wall thickening of the distal small bowel, concerning for enteritis. The patient reports improvement in symptoms following interventions in the ED. The patient will be discharged with supportive care. Admission/Observation Consideration of admission/observation: Escalation of care including admission/observation considered Lab Data MDM Lab Attestation statement: I reviewed the patient's lab results. 02/03/25 18:06 02/03/25 18:05 Labs: Lab Results 02/03/25 02/03/25 02/03/25 Range/Units 18:05 18:06 21:18 WBC 15.2 H (4.8-10.8) X10*3/uL RBC 5.12 (4.20-5.50) X10*6/uL Hgb 14.7 (12.0-16.0) g/dl Hct 42.9 (37.0-47.0) % MCV 83.8 (80.0-98.0) fL MCH 28.7 (27.0-33.0) pg MCHC 34.3 (31.0-35.0) g/dl RDW 13.5 (11.0-16.0) % Plt Count 362 D (160-400) X10*3/uL MPV 10.9 (9.4-12.3) fL Immature Gran % (Auto) 0.4 (0.0-0.4) % Neut % (Auto) 75.9 H (45-73) % Lymph % (Auto) 13.2 L (20-40) % [place] % (Auto) 9.0 (2-11) % Eos % (Auto) 1.2 (0-4) % Baso % (Auto) 0.3 (0-2) % Lymph # (Auto) 2.0 (1.2-4.9) X10*3/uL [place] # (Auto) 1.4 H (0.1-1.2) X10*3/uL Eos # (Auto) 0.2 (0.0-0.4) X10*3/uL Baso # (Auto) 0.1 (0.0-0.2) X10*3/uL Abs Immat Gran (auto) 0.06 H (0.00-0.03) X10*3/uL Absolute Neuts (auto) 11.5 H (2.0-8.3) x10*3/uL Absolute Nucleated RBC 0.000 (0.0-0.012) X10*3/uL Nucleated RBC % (auto) 0.0 (0.0-0.2) /100WBC Sodium 139 (135-145) mmol/L Potassium 4.0 (3.3-5.1) mmol/L Chloride 110 H (96-108) mmol/L Carbon Dioxide 19 L (22-29) mmol/L Anion Gap 14 (12-20) BUN 9 (9-16) mg/dL Creatinine 0.77 (0.5-1.4) mg/dL Estim Creat Clear Calc 113.0 Estimated GFR > 60 Random Glucose 94 (60-115) mg/dL Lactic Acid 1.5 (0.5-2.0) mmol/L Calcium 9.8 (8.4-10.2) mg/dL Magnesium 2.0 (1.6-2.6) mg/dL Total Bilirubin 0.6 (0.0-1.0) mg/dL AST 24 (5-31) U/L ALT 38 H (0-31) U/L Alkaline Phosphatase 90 (39-117) U/L Total Protein 8.5 H (6.5-8.0) g/dL Albumin 4.6 (3.5-5.0) g/dL Lipase 79 H (8-78) U/L Beta HCG, Quant < 2 mIU/mL Urine Color Urine Appearance Urine pH (5.0-9.0) Ur Specific [place] (1.005-1.025) Urine Protein (Neg-Trace) mg/dL Urine Glucose (UA) (Negative) mg/dL Urine Ketones (Negative) mg/dL Urine Blood (Negative) Urine Nitrite (Negative) Ur Leukocyte Esterase (Negative) Urine RBC (0-2) /HPF Urine WBC (0-5) /HPF Ur Squamous Epith Cells (0-2) /HPF Urine Bacteria (None Seen) Hyaline Casts (0-2) /LPF Influenza Type A (PCR) NEGATIVE (Negative) Influenza Type B (PCR) NEGATIVE (Negative) RSV RNA Qual (PCR) NEGATIVE (Negative) SARS-CoV-2 RNA (RT-PCR) NEGATIVE (Negative) 02/03/25 Range/Units 21:28 WBC (4.8-10.8) X10*3/uL RBC (4.20-5.50) X10*6/uL Hgb (12.0-16.0) g/dl Hct (37.0-47.0) % MCV (80.0-98.0) fL MCH (27.0-33.0) pg MCHC (31.0-35.0) g/dl RDW (11.0-16.0) % Plt Count (160-400) X10*3/uL MPV (9.4-12.3) fL Immature Gran % (Auto) (0.0-0.4) % Neut % (Auto) (45-73) % Lymph % (Auto) (20-40) % [place] % (Auto) (2-11) % Eos % (Auto) (0-4) % Baso % (Auto) (0-2) % Lymph # (Auto) (1.2-4.9) X10*3/uL [place] # (Auto) (0.1-1.2) X10*3/uL Eos # (Auto) (0.0-0.4) X10*3/uL Baso # (Auto) (0.0-0.2) X10*3/uL Abs Immat Gran (auto) (0.00-0.03) X10*3/uL Absolute Neuts (auto) (2.0-8.3) x10*3/uL Absolute Nucleated RBC (0.0-0.012) X10*3/uL Nucleated RBC % (auto) (0.0-0.2) /100WBC Sodium (135-145) mmol/L Potassium (3.3-5.1) mmol/L Chloride (96-108) mmol/L Carbon Dioxide (22-29) mmol/L Anion Gap (12-20) BUN (9-16) mg/dL Creatinine (0.5-1.4) mg/dL Estim Creat Clear Calc Estimated GFR Random Glucose (60-115) mg/dL Lactic Acid (0.5-2.0) mmol/L Calcium (8.4-10.2) mg/dL Magnesium (1.6-2.6) mg/dL Total Bilirubin (0.0-1.0) mg/dL AST (5-31) U/L ALT (0-31) U/L Alkaline Phosphatase (39-117) U/L Total Protein (6.5-8.0) g/dL Albumin (3.5-5.0) g/dL Lipase (8-78) U/L Beta HCG, Quant mIU/mL Urine Color Dark Yellow Urine Appearance Clear Urine pH 5.0 (5.0-9.0) Ur Specific [place] >= 1.030 H (1.005-1.025) Urine Protein Negative (Neg-Trace) mg/dL Urine Glucose (UA) Negative (Negative) mg/dL Urine Ketones Trace (Negative) mg/dL Urine Blood Trace H (Negative) Urine Nitrite Negative (Negative) Ur Leukocyte Esterase Negative (Negative) Urine RBC 0-2 (0-2) /HPF Urine WBC 0-5 (0-5) /HPF Ur Squamous Epith Cells 3-5 (0-2) /HPF Urine Bacteria Trace (None Seen) Hyaline Casts 0-2 (0-2) /LPF Influenza Type A (PCR) (Negative) Influenza Type B (PCR) (Negative) RSV RNA Qual (PCR) (Negative) SARS-CoV-2 RNA (RT-PCR) (Negative) Radiology Impression Discussion of test interpretation with radiology: I have reviewed the radiologist's reading. Radiologist Impression: CT abdomen and pelvis with contrast Comparison: CT/SR - CT ABDOMEN PELVIS WITH IV CONTRAST - 08/06/24 14:07 EDT Findings: No consolidation or effusion. The liver, gallbladder, spleen, pancreas, kidneys and adrenal glands are normal in appearance. Normal appendix seen inferior to the cecum in the right lower quadrant, series 7, images 37 and 38. Long segment wall thickening of loops of distal small bowel in the pelvis present. No dilatation to suggest obstruction. No pneumatosis. No free air. Colon is decompressed. No colonic wall thickening. Uterus and adnexa are unremarkable. Trace free fluid in the pelvis. No acute fracture. IMPRESSION: Long segment wall thickening of the distal small bowel suggesting infectious or inflammatory enteritis. Normal appendix. This document has been electronically signed by: Sherif Joseph MD on 02/03/2025 22:16:09 External Record Review External record reviewed: Outpatient record, Prior outpatient labs and Prior outpatient radiology Prescription Management I considered prescription management with: Pain Medication and Antibiotic Discharge Plan Discharge Clinical Impression: Viral enteritis Patient Disposition: Home, Self-Care Instructions: Acute Nausea and Vomiting (ED), Acute Diarrhea (ED), Enteritis (ED) Additional Instructions: Thank you for choosing [facility]'s Emergency Department for your care today. Thankfully your laboratory evaluation, CT abdomen, viral swab, urinalysis, exam, and vital signs are reassuring. At this time there is no indication for admission to the hospital or continued ED observation, and it is safe to discharge you home. Your CT shows evidence of a viral gastroenteritis causing inflammation of your small bowel, likely the source of your pain. At this time there was no indication for antibiotics. You should take alternating (staggered) doses of ibuprofen 600mg and Tylenol 1000mg every 4 hours as needed for any additional pain. Please stay well hydrated and get plenty of rest. Please follow up with your primary care physician for re-evaluation, additional management of your symptoms, and continued preventative care. If you do not have a primary care physician, please call the [facility] at [phone] to establish a new primary care physician. While waiting to establish your new primary care physician, you can call our [facility] at [phone] for non-emergency needs. Please return to the emergency department if you develop a severe or sudden change in your symptoms, a fever over 100.4 that does not improve with Tylenol or Ibuprofen, recurrent vomiting, or any other new or worsening symptoms or concerns. Prescriptions: No Action desogestrel-ethinyl estradiol [Apri] 0.15-0.03 mg tablet 1 tab PO DAILY oseltamivir [Tamiflu] 75 mg Capsule 75 mg PO Q12H Qty: 6 0RF prednisone 20 mg tablet 40 mg PO DAILY Qty: 6 0RF levalbuterol tartrate [Xopenex HFA] 45 mcg/actuation HFA aerosol inhaler 2 puff inhalation Q4-6H PRN (Reason: shortness of breath or wheezing) Qty: 15 0RF ondansetron 4 mg tablet,disintegrating 4 mg PO Q8H PRN (Reason: nausea and vomiting) Qty: 10 0RF diazepam [Valium] 2 mg tablet 2 mg PO TID PRN (Reason: spasms) 2 Days Qty: 6 0RF fluconazole 150 mg tablet 150 mg PO Q3D Qty: 1 0RF ondansetron 4 mg tablet,disintegrating 4 mg PO Q8H PRN (Reason: nausea and vomiting) Qty: 4 0RF prednisone 20 mg tablet 40 mg PO DAILY 3 Days Qty: 6 0RF famotidine 20 mg tablet 20 mg PO BEDTIME 4 Days Qty: 30 0RF epinephrine [EpiPen 2-Iftikhar] 0.3 mg/0.3 mL auto-injector 0.3 mg IM Q10M PRN (Reason: anaphylaxis) Qty: 2 0RF Rx Instructions: for 2 doses cyclobenzaprine 10 mg tablet 10 mg PO TID PRN (Reason: muscle spasm) Qty: 20 0RF lidocaine 5 % adhesive patch,medicated 1 patch topical DAILY Qty: 30 0RF Rx Instructions: leave on most painful area for up to 12 hrs trazodone 50 mg tablet 50 mg PO BEDTIME PRN (Reason: Sleep) Referrals: [place] [Primary Care Provider, Medical] Clinical Impression: Viral enteritis Stand Alone Forms: Work/School Release Print Language: Indian
[2025-02-03 18:13] LABS: MANUAL DIFF FLAG NO
[2025-02-03 18:41] LABS: Alanine Aminotransferase 38 U/L (0-31); Albumin Level 4.6 g/dL (3.5-5.0); Alkaline Phosphatase 90 U/L (39-117); Anion Gap 14 (12-20); Aspartate Amino Transferase 24 U/L (5-31); Blood Urea Nitrogen 9 mg/dL (9-16); Calcium 9.8 mg/dL (8.4-10.2); Carbon Dioxide 19 mmol/L (22-29); Chloride 110 mmol/L (96-108); Creatinine Clr Calc Pharmacy 113.0; Estimated Glomerular Filt Rate > 60; Lipase 79 U/L (8-78); Magnesium 2.0 mg/dL (1.6-2.6); Potassium 4.0 mmol/L (3.3-5.1); Sodium 139 mmol/L (135-145); Total Protein 8.5 g/dL (6.5-8.0)
[2025-02-03 18:53] LABS: Resp Syncy Virus RNA Qual PCR NEGATIVE (Negative); SARS COV2 PCR INHOUSE NEGATIVE (Negative)
[2025-02-03 19:08] LABS: Hematocrit 42.9 % (37.0-47.0); Hemoglobin 14.7 g/dl (12.0-16.0); Imm Gran Abs Auto 0.06 X10*3/uL (0.00-0.03); Imm Gran Pct Auto 0.4 % (0.0-0.4); Lymphocytes Absolute Auto 2.0 X10*3/uL (1.2-4.9); Mean Corpuscular HGB Conc 34.3 g/dl (31.0-35.0); Mean Corpuscular Hemoglobin 28.7 pg (27.0-33.0); Mean Corpuscular Volume 83.8 fL (80.0-98.0); NRBC Abs Auto 0.000 X10*3/uL (0.0-0.012); NRBC Pct Auto 0.0 /100WBC (0.0-0.2); Platelet Count 362 X10*3/uL (160-400); Red Blood Count 5.12 X10*6/uL (4.20-5.50); White Blood Count 15.2 X10*3/uL (4.8-10.8)
[2025-02-03 19:52] VITALS: BP 145/99; PULSE 108; RESP 18; TEMP 37.2; O2SAT 97
--- OUTSIDE RECORDS SUMMARY | 2025-02-03 20:28 | XMS_ITS | Clinical Summary ---
Author Organization [facility] Address [address] [place] [address] Phone Care Team Providers Care Server Engineer Name Role Phone Emilia Guevara SOCIAL SERVICES TECHNICIAN Primary Care Provider Unaprakash ailable Allergies No [...] file Medical Devices Not on file [place] [address] [place] [address] [place] [address] [place] [address] [employer] [facility] [address] [place] [address] [place] [address] [employer] [facility] [employer] [facility] [employer] Care Teams Server Engineer Relationship Specialty Start Date End Date Emilia Guevara NP PCP - General Nurse Practitioner 05/31/22 Additional Source Comments The information contained in this document represents components of the legal health record. It is not the complete legal health record.[facility]
--- OUTSIDE RECORDS SUMMARY | 2025-02-03 20:28 | XMS_ITS | Clinical Summary ---
Author Organization [facility] Address [address] [place] [phone] Phone Care Team Providers Care Powerbuilder Name Role Phone Unavailable Primary Care Provider Unavailabl e Allergies Active Allergy Reactions Criticality Noted Date Comments Millen Meal (Obsolete) Anaphylaxis High 01/01/2017 Food Itching [...]
--- OUTSIDE RECORDS SUMMARY | 2025-02-03 20:28 | XMS_ITS | Clinical Summary ---
Author Organization [employer] [facility] it Address [address] [place] [address] Care Team Providers Care Ski Technician Name Role Phone Unavailable Primary Care Provider [...]
--- OUTSIDE RECORDS SUMMARY | 2025-02-03 20:28 | XMS_ITS | Encounter Summary ---
Author Organization [facility] Address [address] [place] [phone] Phone Care Team Providers Care Bar Supervisor Name Role Phone Toyin Rivera CLAY MINER Primary Care Provider Jero araiza Encounter Details Date Type Department Care Team (Late st Contact Info) Description 12/15/2014 Documentation [facility] Family Medicine [address] [place] [address] Family Medicine, Physician [address] [place] [address] Social History Tobacco Use Types Packs/Day Years [...] on filedocumented in this encounter Care Teams Bar Supervisor Relationship Specialty Start Date End Date Toyin Rivera NP PCP - General 09/20/16 05/23/22 documented as of this encounter
--- OUTSIDE RECORDS SUMMARY | 2025-02-03 20:28 | XMS_ITS | Encounter Summary ---
Author Organization [facility] Address [address] [place] [address] Phone Care Team Providers Care Hogshead Opener Name Role Phone Toyin Rivera NP Primary Care Provider Jero araiza Encounter Details Date Type Department Care Team (Late st Contact Info) Description 09/26/2016 Conversion Encounter [address] [address] Social History Tobacco Use Types Packs/Day Years [...] on filedocumented in this encounter Care Teams Hogshead Opener Relationship Specialty Start Date End Date Toyin Rivera NP PCP - General 09/20/16 05/23/22 documented as of this encounter
--- OUTSIDE RECORDS SUMMARY | 2025-02-03 20:28 | XMS_ITS | Encounter Summary ---
Author Organization [facility] Address [address] [place] [phone] Phone Care Team Providers Care Livestock Farmer Name Role Phone Toyin Rivera NP Primary Care Provider Jero araiza Encounter Details Date Type Department Care Team (Late st Contact Info) Description 09/26/2016 Documentation [facility] Family Medicine [address] [place] [address] Family Medicine, Physician [address] [place] [address] Social History Tobacco Use Types Packs/Day Years [...] on filedocumented in this encounter Care Teams Livestock Farmer Relationship Specialty Start Date End Date Toyin Rivera NP PCP - General 09/20/16 05/23/22 documented as of this encounter
--- OUTSIDE RECORDS SUMMARY | 2025-02-03 20:28 | XMS_ITS | Encounter Summary ---
Author Organization [employer] Address [address] [place] [address] [address] [place] [address] Care Team Providers Care Section Gang Name Role Phone Elizabeth Gray NP Primary Care Provider [phone] Encounter Details Date Type Department Care Team (Late Contact Info) Description 12/24/2024 Results Follow-Up [facility] [address] [place] [phone] Elizabeth Gray NP [address] [place] [address] XR Chest 2 Views, Prothrombin Time-INR, CBC [...] Care Team (Late st Contact Info) Description 03/07/2025 11:00 AM EST Office Visit [facility] [address] [place] [address] Elizabeth Gray NP [address] [place] [address] documented as of this encounter Visit Diagnoses Not on filedocumented in this encounter Additional Health Concerns Assessment Noted Time PHQ-9 Depression Total Score: 19 023 3:17 PM EDT documented as of this encounter Care Teams Section Gang Relationship Specialty Start Date End Date Elizabeth Gray NP [address] [place] [address] PCP - General Family Medicine 11/15/22 documented as of this encounter
--- OUTSIDE RECORDS SUMMARY | 2025-02-03 20:28 | XMS_ITS | Encounter Summary ---
Author Organization [facility] Address [address] [place] [phone] Phone Care Team Providers Care Software Project Lead Name Role Phone Toyin Rivera DIGITAL ADVERTISING SPECIALIST Primary Care Provider Jero araiza Encounter Details Date Type Department Care Team (Late st Contact Info) Description 04/03/2016 Documentation [facility] Family Medicine [address] [place] [address] Family Medicine, Physician [address] [place] [address] Social History Tobacco Use Types Packs/Day Years [...] on filedocumented in this encounter Care Teams Software Project Lead Relationship Specialty Start Date End Date Toyin Rivera NP PCP - General 09/20/16 05/23/22 documented as of this encounter
--- OUTSIDE RECORDS SUMMARY | 2025-02-03 20:28 | XMS_ITS | Clinical Summary ---
Author Organization [employer] Address [address] [place] [address] [address] [place] [address] Care Team Providers Care Analytics Leader Name Role Phone Elizabeth Gray NP Primary Care Provider [phone] Allergies Active Allergy Reactions Criticality Noted Date Comments Wentworth Meal (Obsolete) Anaphylaxis High 01/01/2017 Barley Grass 01/24/2025 Alvares 04/22/2022 Kiwi Extract Hives 04/12/2021 Other Hives 04/12/2021 Wentworth Oil 01/24/2025 Medications * This document contains information received from the source organization and may not represent a complete record from that organization. econazole nitrate 1 % cream APPLY BY TOPICAL ROUTE 2 TIMES EVERY DAY TO THE AFFECTED AND SURROUNDING AREAS OF SKIN 12/26/19 Active Acetaminophen Extra Strength 500 MG tablet TAKE 2 TABLETS BY MOUTH EVERY 8 HOURS NEEDED FOR PAIN 07/13/19 Active ondansetron (Zofran) 4 MG tabletIndicatio ns:Nausea in adult Take 1 tablet (4 mg) by mouth every 8 (eight) hours if needed for nausea or vomiting. 20 tablet 12/25/192025 Active albuterol 108 (90 Base) MCG/ACT inhalerIndicati ons:Shortness of breath Inhale 2 puffs every 4 (four) hours if needed for wheezing. 18 g 1 12/25/19 Active Blood Pressure kitIndications: Elevated blood pressure reading in office without diagnosis of hypertension 1 each 2 times daily. 1 kit 12/25/19 25 2025 Active desogestrel-eth inyl estradiol (Apri) 0.15-30 MG-MCG tablet Take 1 tablet by mouth Once per day. Active fexofenadine (Trini) 180 MG tabletIndicatio ns:Seasonal allergies Take 1 tablet (180 mg) by mouth if needed each day (Allergies). 90 tablet 1 01/25/20 25 2025 Active cetirizine (ZyrTEC) 10 MG tablet Take 10 mg by mouth in the morning. 11/27/19 22 2024 Discontinued(M ed list cleanup (will not trigger notification to Pharmacy)) sertraline (Zoloft) 100 MG tablet TAKE 2 TABLET BY MOUTH ONCE A DAY (= 200MG) FOR MOOD, ANXIETY 04/19/19 23 2024 Discontinued(M ed list cleanup (will not trigger notification to Pharmacy)) omeprazole (PriLOSEC) [address] capsule TAKE 1 CAPSULE BY MOUTH TWICE A DAY FOR 14 DAYS 06/10/192024 Discontinued(M ed list cleanup (will not trigger notification to Pharmacy)) Junel FE 03/01 1-20 MG-MCG tablet Take 1 tablet by mouth in the morning. 03/20/19 23 2024 Discontinued(M ed list cleanup (will not trigger notification to Pharmacy)) Flovent HFA 44 MCG/ACT inhaler 2 puffs 2 times daily. 06/17/19 22 2024 Discontinued(M ed list cleanup (will not trigger notification to Pharmacy)) ferrous sulfate 325 (65 Fe) MG tablet TAKE 1 TABLET BY ORAL ROUTE EVERY OTHER DAY WITH FOOD FOR IRON DEFICIENCY 10/08/192024 Discontinued(M ed list cleanup (will not trigger notification to Pharmacy)) docusate sodium (Colace) 100 MG capsule TAKE 1 CAPSULE BY MOUTH EVERY DAY AT BEDTIME NEEDED 12/14/192024 Discontinued(M ed list cleanup (will not trigger notification to Pharmacy)) hydrOXYzine HCl (Atarax) 10 MG tabletIndicatio ns:Anxiety and depression Take 2.5 tablets (25 mg) by mouth if needed in the morning, at noon, and at bedtime for anxiety. 90 tablet 04/23/19 23 2024 Discontinued(M ed list cleanup (will not trigger notification to Pharmacy)) doxazosin (Cardura) 2 MG tabletIndicatio ns:Psychophysio logical insomnia Take 1 tablet (2 mg) by mouth at bedtime. 90 tablet 1 04/23/19 23 2024 Discontinued(M ed list cleanup (will not trigger notification to Pharmacy)) fluticasone (Flonase) 50 MCG/ACT nasal sprayIndication s:Seasonal allergic rhinitis, unspecified trigger SPRAY 2 SPRAYS INTO EACH NOSTRIL EVERY DAY 48 mL 1 07/31/19 23 2024 Discontinued(M ed list cleanup (will not trigger notification to Pharmacy)) ibuprofen 600 MG tabletIndicatio ns:Viral illness Take 1 tablet (600 mg) by mouth every 6 (six) hours if needed for headaches or fever for up to 14 days. 56 tablet 12/25/19 25 2024 Active Problems Problem Noted Date Diagnosed Date Mood swings 01/24/2025 Severe episode of recurrent major depressive disorder, without psychotic features ([facility]) 01/24/2025 Psychophysiological insomnia 05/13/2022 Asthma 04/22/2022 Class 1 [...] Date Resolved Date Anxiety 03/27/2021 05/13/2022 Encounters * This document contains information received from the source organization and may not represent a complete record from that organization. Date Type Department Care Team Description 01/24/2025 2:45 PM EST Office Visit [facility] [address] [place] [phone] Elizabeth Gray NP Seasonal allergies (Primary Dx); Routine screening for STI (sexually transmitted infection); Encounter for health-related screening; Labile mood; Obesity (BMI 30.0-34.9); Encounter for immunization 01/24/2025 Travel 01/21/2025 Telephone [facility] [address] [place] [phone] Elizabeth Gray NP CHARTPREP 12/24/2024 1:20 PM EST Office Visit [facility] [address] [address] Elizabeth Gray NP Sore throat (Primary Dx); Viral illness; Elevated blood pressure reading in office without diagnosis of hypertension; Nausea in adult; Shortness of breath 12/24/2024 Results [facility] [address] [address] Elizabeth Gray NP XR Chest 2 Views, Prothrombin Time-INR, CBC auto differential, Additional followed-up results: 3 12/24/2024 Orders Only [facility] External Provider, [facility] 12/24/2024 Telephone [facility] [address] [place] [phone] Elizabeth Gray NP Appointment 12/24/2024 Travel from Last 3 Months Immunizations Immunization Administration Dates Next Due Pneumococcal Conjugate PCV 20 01/24/2025 Family History Medical History Relation Name Comments Cancer Maternal Grandmother Diabetes Maternal Grandmother Anxiety disorder Mother Bipolar disorder Mother Crohn's disease Mother Depression Mother Multiple sclerosis Mother Personality disorder Mother Schizophrenia Mother Diabetes Paternal Grandmother Relation Name Status Comments Maternal Grandmother Mother Paternal Grandmother Social History Tobacco Use Types Packs/Day Years Used Date Smoking Tobacco: Never Smokeless Tobacco: Never Tobacco Cessation:Counseling Given: Not Answered Alcohol Use Standard Drinks/Week Comments Yes 0 (1 standard drink = 0.6 oz pur e alcohol) Alcohol Answer Date Recorded How often do you have a drink containing alcohol ? 2 01/24/2025 How many drinks containing a lcohol do you have on a typical day when you are drinking? 0 01/24/2025 How often do you have six or more drinks on one occasion? 0 01/24/2025 Depression Answer Date Recorded Patient Health Questionnaire-9 Score 15 01/24/2025 Patient Health Questionnaire-9 Score 15 01/24/2025 Last PHQ-9: Questionnaire Data Not on file 1 03/27/2024 Housing Stability Answer Date Recorded What is your housing situation today? I have skylar castaneda 01/24/[address] you li ve. Do you have problems with any of the following? None of the above 01/24/2025 Food Insecurity Answer Date Recorded Within the past 12 months, y ou worried that your food would run out before you got money to buy more: Never True 01/24/2025 Within the past 12 months,th e food you bought just didn't last and you didn't have enough money to get more: Never True Transportation Answer Date Recorded In the past 12 months, has l ack of transportation kept you from medical appts, meetings, work or from getting things needed for daily living? No 01/24/2025 Utilities Answer Date Recorded In the past 12 months, has t he electric, gas, oil or water company threatened to shut off services in your home? No 01/24/2025 Depression Answer Date Recorded Patient Health Questionnaire-2 Score 4 01/24/2025 Internet Access Answer Date Recorded Internet Access Q1 Yes 01/24/2025 Internet Access Q2 Not on file 01/24/2025 Comments No Sex and Gender Information Value Date Recorded Sex Assigned at Female 12/10/2021 10:37 AM EDT Legal Sex Female 10:37 AM EDT Gender Identity Female 12/10/2021 10:37 AM EDT Sexual Orientation Straight 12/10/2021 10 :37 AM EDT Last Filed Vital Signs Vital Sign Reading Time Taken Comments Blood Pressure 120/84 01/24/2025 2:49 PM EST Pulse 95 01/24/2025 2:49 PM EST Temperature 36.9 C (98.5 F) 01/24/2025 2:49 PM EST Respiratory Rate 24 01/24/2025 2:49 PM EST Oxygen Saturation 99% 01/24/2025 2:49 PM EST Inhaled Oxygen Concentration - - Weight 83.5 kg (184 lb) 01/24/2025 2:49 PM EST Height 160 cm (5' 3 ) 01/24/2025 2:49 PM EST Body Mass Index 32.59 01/24/2025 2:49 PM EST Plan of Treatment Upcoming Encounters Date Type Department Care Team (Late st Contact Info) Description 03/07/2025 11:00 AM EST Office Visit [facility] [address] [place] [address] Elizabeth Gray NP [address] [place], [place] [phone] Health Maintenance Due Date Last Done Comments Family Planning (PISQ) 10/15/2014 COVID-19 Vaccine ( season) 2024 03/25/2020, 03/04/2020 Influenza Vaccine (#1) 2024 , 04/12/2021, 12/12/2019, Additional history exists Depression Monitoring 07/25/2025 01/24/2025, 025 Alcohol/Substance Use Screening 01/24/2026 01/24/2025 Disability Screening 01/24/2026 01/24/2025 SDOH Screening 01/24/2026 01/24/2025 Tobacco Screening 01/24/2026 01/24/2025 Pap Smear 08/24/2026 08/25/2023 DTaP/Tdap/Td Vaccines (8 [...] Screening Completed 03/23/2021 HPV Vaccines Completed 05/24/2024, 06/07/2012, 03/01/2011, Additional history exists Hepatitis B Vaccines Completed 05/24/2024, 04/21/2000, 1999, Additional history exists Pneumococcal Vaccine: Pediatrics (0 to 5 Years) and At-Risk Patients (6 to 49) Years Completed 01/24/2025 RSV under 20 months Aged Out No [...] (12/24/2024 4:21 PM EST) Slide Review VERIFIED [facility] 12/24/2024 4:21 PM EST 12/24/2024 4:24 PM EST us Generic External Data Provider LAB BLOOD ORDERAB LES Final Result [facility] [address] [place] [phone] * D Dimer High Sensitivity (12/24/2024 4:21 PM EST) D Dimer High Sensitivity 216 NG/ML [facility] Comment:D-DIMER HS REFERENCE RANGENote: Our assay [...] ORDERAB LES Final Result Performing Organization Address [facility] Co de Phone Number [facility] [address] [place] [phone] * SARS-CoV-2 RNA, Influenza A/B, and RSV RNA, Ql NAAT (12/24/2024 4:21 PM EST) [facility] Influenza A PCR NEGATIVE Negative [facility] Influenza B PCR NEGATIVE Negative [facility] Resp Syncy Virus RNA Qual PCR NEGATIVE Negative [facility] SARS COV2 PCR NEGATIVE Negative [facility] Comment:All test results mus t be [...] use by authorized laboratories.Testing performed on the [employer] GeneXpert utilizingreal-time RT-PCR.All SARS CoV2 and positive influenza A/B results arereported to [facility]. 12/24/2024 4:21 PM EST 12/24/2024 4:24 PM EST Generic External Data Provider LAB MICROBIOLOGY - GENERAL ORDERABLES Final Result Performing Organization Address [facility] Co de Phone Number [facility] [address] [place] [phone] * (ABNORMAL) CBC auto differential (12/24/2024 4:21 PM EST) [facility] White Blood Count 12.5(H) 4.8 - 10.8 X10*3/uL [facility] Red Blood Count 4.85 4.20 - 5.50 X10*6/uL [facility] Hemoglobin 13.9 12.0 - 16.0 g/dl [facility] Hematocrit 40.5 37.0 - 47.0 % [facility] Mean Corpuscular Volume 83.5 80.0 - 98.0 fL [facility] Mean Corpuscular Hemoglobin 28.7 27.0 - 33.0 pg [facility] Mean Corpuscular HGB Conc 34.3 31.0 - 35.0 g/dl [facility] Red Cell Distribution Width 12.9 11.0 - 16.0 % [facility] Platelet Count 274 160 - 400 X10*3/uL [facility] Mean Platelet Volume 10.7 9.4 - 12.3 fL [facility] Neutrophils Percent Auto 72.9 45 - 73 % [facility] Imm Gran Pct Auto 0.5(H) 0.0 - 0.4 % [facility] Lymphocytes Percent Auto 12.8(L) 20 - 40 % [facility] Monocytes Percent Auto 13.5(H) 2 - 11 % [facility] Eosinophils Percent Auto 0.1 0 - 4 % [facility] Basophils Percent Auto 0.2 0 - 2 % [facility] NRBC Pct Auto 0.0 0.0 - 0.2 /100WBC [facility] Neutrophils Absolute Auto 9.1(H) 2.0 - 8.3 x10*3/uL [facility] Imm Gran Abs Auto 0.06(H) 0.00 - 0.03 X10*3/uL [facility] Lymphocytes Absolute Auto 1.6 1.2 - 4.9 X10*3/uL [facility] Monocytes Absolute Auto 1.7(H) 0.1 - 1.2 X10*3/uL [facility] Eosinophils Absolute Auto 0.0 0.0 - 0.4 X10*3/uL [facility] Basophils Absolute Auto 0.0 0.0 - 0.2 X10*3/uL [facility] NRBC Abs Auto 0.000 0.0 - 0.012 X10*3/uL [facility] 12/24/2024 4:21 PM EST 12/24/2024 4:24 PM EST Generic External Data Provider LAB BLOOD ORDERAB LES Edited Result - Final Performing Organization Address City/[facility]/ZIP Co de Phone Number [facility] [address] [place] [phone] * (ABNORMAL) Prothrombin Time-INR (12/24/2024 4:21 PM EST) Prothrombin Time 13.7(H) 11.2 - 13.5 SEC [facility] INTERNATIONAL NORM RATIO 1.1 0.9 - 1.1 [facility] Comment:INTERNATIONAL NORMAL IZED RATIO (INR) REFERENCE [...] ORDERAB LES Final Result Performing Organization Address [facility] Co de Phone Number [facility] [address] [place] [phone] * hCG, Total, Quantitative (12/24/2024 4:21 PM EST) HCG Quantitative <2 mIU/mL [facility] Comment:Weeks post LMP Appro ximate hCG(Last Menstrual Period) Range (mIU/ml)3 - 4 weeks 9 - 1304 - 5 weeks 75 - 2,6005 - 6 weeks 850 - 20,8006 - 7 weeks 4000 - 100,2007 - 12 weeks 11,500 - 289,64036 - 16 weeks 18,300 - 137,95394 - 29 weeks (2nd trimester) 1,400 - 53,33777 - 41 weeks (3rd trimester) 940 - [...] Provider LAB BLOOD ORDERAB LES Final Result [facility] [address] [place] [phone] [phone] * (ABNORMAL) Comprehensive Metabolic Panel (12/24/2024 4:21 PM EST) Sodium 137 135 - 145 mmol/L [facility] Potassium 4.1 3.3 - 5.1 mmol/L [facility] Comment:Slight Hemolysis.Int erpret result with caution. Chloride 107 96 - 108 mmol/L [facility] Carbon Dioxide 19(L) 22 - 29 mmol/L [facility] Anion Gap 15 12 - 20 [facility] Urea Nitrogen (BUN) 6(L) 9 - 16 mg/dL [facility] Creatinine, Serum 0.62 0.5 - 1.4 mg/dL [facility] Creatinine Clr Calc Pharmacy 140.7 [facility] Comment:Provided height and weight: 160.02 cm,82.1 kg.eGFR (calculated from the MDRD study equation) and eCrCl(calculated from the Cockcroft-Gault equation) are based ondifferent parameters and may not yield comparable results.If eCrCl result is absurd, please check patient'sheight/weight. Estimated Glomerular Filt Rate >60 [facility] Comment:Chronic Kidney Disea se: Estimated GFR < 60 mL/min/[id number] Kidney Disease: Estimated GFR < 15 mL/min/1.73m2 Glucose 103 60 - 115 mg/dL [facility] Calcium 9.5 8.4 - 10.2 mg/dL [facility] Bilirubin, Total 0.4 0.0 - 1.0 mg/dL [facility] Aspartate Amino Transferase 30 5 - 31 U/L [facility] Comment:Slight Hemolysis.Int erpret result with caution. Alanine Aminotransferase 28 0 - 31 U/L [facility] Total Protein 8.8(H) 6.5 - 8.0 g/dL [facility] Albumin Level 4.5 3.5 - 5.0 g/dL [facility] Alkaline Phosphatase 82 39 - 117 U/L [facility] 12/24/2024 4:21 PM EST 12/24/2024 4:24 PM EST us Generic External Data Provider LAB BLOOD ORDERAB LES Final Result Performing Organization Address City/State/[facility] Co de Phone Number [facility] [address] [place] [phone] * XR Chest 2 Views (12/24/2024 4:10 PM EST) Anatomical Region Laterality Modality Chest Radiographic Francy ging 12/24/2024 4:10 PM EST Narrative 12/24/2024 4:30 PM EST [place] [address] XRay Report Signed Patient: Cosmo Boyle MR#: [id number] 138 : 2000 Acct:[id number] Age/Sex: 24 / F ADM Date: 12/24/24 Loc: .ED Attending Dr: Ordering Physician: Marine Alcantara NP Date of Service: 12/24/24 Procedure(s): XR chest 2V Accession Number(s): [id number] cc: Elizabeth Gray; Marine Alcantara NP Reason [...] signed by Jim Mix MD in OV> 12/24/248 DD/ 09 TD/TT: 12/24/241619 Supervisor Type Photography: Procedure Note Donotuseinterpreter, Image - 12/24/[address] [address] XRay Report Signed Patient: Cosmo BoyleMR#: [id number] : 2000Acct:[id number] Age/Sex: 24 FADM Date: 12/24/24 Loc: .ED Attending Dr: Ordering Physician: Marine Alcantara NP Date of Service: 12/24/24 Procedure(s): XR chest 2V Accession Number(s): [id number] cc: Elizabeth Gray; Marine Alcantara NP Reason [...] OV> 12/24/24 1628 DD/ 1610 TD/TT: 12/24/24 162 Supervisor Type Photography: [facility] External Provider IMG XR PROCEDURES Final Result * Influenza B (ID NOW Rapid Molecular) (12/24/2024 1:22 PM EST) Influenza B Negative Negative, Indeterminate [facility] Swab 12/24/2024 1:22 PM EST us Elizabeth Gray CERAMIC CAPACITOR PROCESSOR POINT OF CARE TEST ENTER/EDIT O RDERABLES Final Result Performing Organization Address [facility]/ZIP Co de Phone Number [facility] [address] [place] [phone] * Influenza A (ID NOW Rapid Molecular) (12/24/2024 1:22 PM EST) Influenza A Negative Negative, Indeterminate [facility] Swab 12/24/2024 1:22 PM EST us Elizabeth Calloway CERAMIC CAPACITOR PROCESSOR POINT OF CARE TEST ENTER/EDIT O RDERABLES Final Result Performing Organization Address [facility] Co de Phone Number [facility] [address] [place] [phone] * POCT ID NOW Rapid Strep A manually resulted (12/24/2024 1:22 PM EST) Pathologist [facility] Rapid Strep A Screen Negative Negative, None Detected Swab 12/24/2024 1:22 PM EST us Elizabeth Calloway CERAMIC CAPACITOR PROCESSOR POINT OF CARE TEST ENTER/EDIT O RDERABLES Final Result * POCT Rapid COVID Ag (12/24/2024 1:22 PM EST) Rapid COVID Ag Negative [facility] Swab 12/24/2024 1:22 PM EST us Elizabeth Calloway CERAMIC CAPACITOR PROCESSOR POINT OF CARE TEST ENTER/EDIT O RDERABLES Final Result Performing Organization Address [facility] Co de Phone Number [facility] [address] [place] [phone] * HM PAP/HPV (08/25/2023) Pap Smear 1. NILM 1. NILM Historical Provider HEALTH MAINTENANCE Edited Result - Final * HEPATITIS C AB W/REFL TO HCV RNA, QN, PCR (03/23/2021 3:15 PM EST) HEPATITIS C ANTIBODY NON-REACT TIANA NON-REACT TIANA [facility] INDEX 0.01 <1.00 [facility] Comment: HCV antibody was non-reactive. There is no laboratory evidence of HCV infection. In most cases, no further action is required. However, if recent HCV exposure is suspected, a test for HCV RNA (test code 37877) is suggested. For additional information please refer to http://[employer]/faq/HTL48j9 (This link is being provided for informational/ educational purposes only.) 03/23/2021 3:15 PM EST [facility] HISTORICAL/NON ORDERABLE LABS Final Result [facility] [address] * HIV 1/2 ANTIGEN/ANTIBODY,FOURTH GENERATION W/RFL (03/23/2021 3:15 PM EST) HIV-1/2 ANTIGEN AND ANTIBODIES, 4TH GENERATION W/ REFLEX NON-REACT TIANA NON-REACT TIANA [facility] Comment: HIV-1 antigen and [...] purpose. For additional information please refer to http://[employer]/faq/FXZ516 (This link is being provided for informational/ educational purposes only.) The performance of this assay has not been clinically validated in patients less than 2 years old. 03/23/2021 3:15 PM EST [facility] TRANSFER STATION ATTENDANT LAB BLOOD ORDERABLES Final Re sult [facility] [address] from Last 3 Months or Most Recently Relevant to Health Maintenance Insurance [address] [place] [address] C3 Care Teams Analytics Leader Relationship Specialty Start Date End Date Elizabeth Gray NP [address] [place] [address] PCP - General Family Medicine 11/15/22
--- OUTSIDE RECORDS SUMMARY | 2025-02-03 20:28 | XMS_ITS | Encounter Summary ---
Author Organization [facility] Address [address] [place] [phone] Phone Care Team Providers Care Snailer Name Role Phone Toyin Rivera CAMPAIGN DEVELOPER Primary Care Provider Jero araiza Encounter Details Date Type Department Care Team (Late st Contact Info) Description 10/20/2014 Documentation [facility] Family Medicine [address] [place] [address] Family Medicine, Physician [address] [place] [address] Social History Tobacco Use Types Packs/Day Years [...] on filedocumented in this encounter Care Teams Snailer Relationship Specialty Start Date End Date Toyin Rivera NP PCP - General 09/20/16 05/23/22 documented as of this encounter
--- OUTSIDE RECORDS SUMMARY | 2025-02-03 20:28 | XMS_ITS | Encounter Summary ---
Author Organization [facility] Address [address] [place] [address] Phone Care Team Providers Care Cryptographic Vulnerability Analyst Name Role Phone Toyin Rivera EIGHT SECTION BLOWER Primary Care Provider Jero araiza Encounter Details Date Type Department Care Team (Late st Contact Info) Description 03/04/2011 Documentation [facility] [place] [address] [place] [address] Family Medicine, Physician [address] [place] [address] Social History Tobacco Use Types Packs/Day Years [...] on filedocumented in this encounter Care Teams Cryptographic Vulnerability Analyst Relationship Specialty Start Date End Date Toyin Rivera NP PCP - General 09/20/16 05/23/22 documented as of this encounter
--- OUTSIDE RECORDS SUMMARY | 2025-02-03 20:28 | XMS_ITS | Encounter Summary ---
Author Organization [facility] Address [address] [place] [phone] Phone Care Team Providers Care Iuss Master Analyst Name Role Phone Emilia Guevara CARPENTER REPAIR Primary Care Provider Unaprakash ailable Encounter Details Date Type Department Care Team (Late st Contact Info) Description 05/31/2022 Procedure Pass [facility], Ct Scan - [address] [address] Social History Tobacco Use Types Packs/Day Years [...] documented as of this encounter Care Teams Iuss Master Analyst Relationship Specialty Start Date End Date Emilia Guevara NP PCP - General Nurse Practitioner 05/31/22 documented as of this encounter Additional Source Comments The information contained in this document represents components of the legal health record. It is not the complete legal health record.[facility]
--- OUTSIDE RECORDS SUMMARY | 2025-02-03 20:28 | XMS_ITS | Encounter Summary ---
Author Organization [facility] Address [address] [place] [phone] Phone Care Team Providers Care Aoc Director Combat Plans Officer Name Role Phone Toyin Rivera GREY WASHER Primary Care Provider Jero araiza Encounter Details Date Type Department Care Team (Late st Contact Info) Description 11/30/[address] [facility] [place] Family Medicine [address] [place] [address] Family Medicine, Physician [address] [place] [address] Social History Tobacco Use Types Packs/Day Years [...] on filedocumented in this encounter Care Teams Aoc Director Combat Plans Officer Relationship Specialty Start Date End Date Toyin Rivera NP PCP - General 09/20/16 05/23/22 documented as of this encounter
--- OUTSIDE RECORDS SUMMARY | 2025-02-03 20:28 | XMS_ITS | Encounter Summary ---
Author Organization [facility] Address [address] [place] [address] Phone Care Team Providers Care Propulsion Machinery Service Engineer Name Role Phone Toyin Rivera [facility] COORDINATOR Primary Care Provider Jero araiza Encounter Details Date Type Department Care Team (Late st Contact Info) Description 06/29/2009 [place] [facility] [place] [address] [place] [address] Family Medicine, Physician [address] [place] [address] Social History Tobacco Use Types Packs/Day Years [...] on filedocumented in this encounter Care Teams Propulsion Machinery Service Engineer Relationship Specialty Start Date End Date Toyin Rivera NP PCP - General 09/20/16 05/23/22 documented as of this encounter
--- OUTSIDE RECORDS SUMMARY | 2025-02-03 20:28 | XMS_ITS | Encounter Summary ---
Author Organization [facility] Address [address] [place] [address] Phone Care Team Providers Care Printing Table Worker Name Role Phone Toyin Rivera TRANSITIONAL NURSE Primary Care Provider Jeor araiza Encounter Details Date Type Department Care Team (Late st Contact Info) Description 04/14/2013 Documentation [facility] [place] Family Medicine [address] [place] [address] Family Medicine, Physician [address] [place] [address] Social History Tobacco Use Types Packs/Day Years [...] on filedocumented in this encounter Care Teams Printing Table Worker Relationship Specialty Start Date End Date Toyin Rivera NP PCP - General 09/20/16 05/23/22 documented as of this encounter
--- OUTSIDE RECORDS SUMMARY | 2025-02-03 20:28 | XMS_ITS | Encounter Summary ---
Author Organization [facility] Address [address] [place] [phone] Phone Care Team Providers Care Electronic Security Specialist Name Role Phone Toyin Rivera UNION ORGANIZER Primary Care Provider Jero araiza Encounter Details Date Type Department Care Team (Late st Contact Info) Description 01/24/2015 Documentation [facility] [place] Family Medicine [address] [place] [address] Family Medicine, Physician [address] [place] [address] Social History Tobacco Use Types Packs/Day Years [...] filedocumented in this encounter Care Teams Electronic Security Specialist Relationship Specialty Start Date End Date Toyin Rivera NP PCP - General 09/20/16 05/23/22 documented as of this encounter
[2025-02-03] MEDS: iohexoL 350 MG/ML 100 ML INFUS..BTL 85 ML IV (21:46)
[2025-02-03 21:47] LABS: Appearance Urine Clear; Glucose Urine UA Negative (Negative); PH 5.0 (5.0-9.0); Specific Gravity - Urine >= 1.030 (1.005-1.025); UMIC TRIGGER UACC YES
[2025-02-03 22:11] VITALS: BP 142/99; PULSE 80; RESP 18; TEMP 37.2; O2SAT 100
[2025-02-04 02:34] VITALS: BP 142/99; PULSE 80; RESP 18; TEMP 37.2; O2SAT 100
== END 2025-02-04 02:34 | disposition home or self-care (01) ==
PROVIDERS: Physician Assistant; Physician Assistant Medical; Emergency Provider Emergency Medicine
DX: A08.4 Viral intestinal infection, unspecified (principal); R11.2 Nausea with vomiting, unspecified; R30.0 Dysuria; Z03.818 Encounter for observation for suspected exposure to other biological agents ruled out; Z79.899 Other long term (current) drug therapy
CPT/HCPCS: 36415; 74177; 80053; 81001; 83605; 83690; 83735; 84702; 85025; 87637; 96361; 96374; 96375; 99285; J1885; J2405; Q9967

== ENCOUNTER → 2025-02-03 20:50 | Outpatient (BNV) | payer MEDICAID, SELFPAY | PROVIDERS: Emergency Provider Emergency Medicine; Visit Provider Radiology Diagnostic Radiology | DX: R19.00 Intra-abdominal and pelvic swelling, mass and lump, unspecified site (principal) | CPT/HCPCS: 74177 ==